=== PATIENT | female | born 1945 | race Caucasian/White ===

== ENCOUNTER 2016-07-14 01:38 | Emergency (ER) | payer MEDICARE, OTHER ==
[~2016-07-14] VITALS: Ht 152.4 cm; Wt 140.8 kg
[~2016-07-14 01:38] MED LIST: ALBU8.5H INH; ALLO300T74 PO; AMIT25TA9 PO; ASPI-1085 PO; BENZ200C36 PO; CODE118S2 PO; CYCL-208 PO; DOXY100T2 PO; FLUT16SP EA NOSTRIL; FLUT1DIS3 INH; FURO-153 PO; GABA-338 PO; GLUC1KIT INJ; GUAI-782 PO; HYDR-3995 PO; INSU100V SQ; INSU200I4 SQ; IPRA3AMP AEROSOL; LEVO50TA72 PO; LISI10TA7 PO; MELA5TAB14 PO; METO25TA6 PO; METO5TAB58 PO; NYST5ORA7 PO; OMEP-122 PO; PRAM0.259 PO; PRED20TA PO; [UNRECOGNIZED DRUG - CODE] TOP
[2016-07-14] MEDS ORDERED: ALBUTEROL/IPRATROPIUM INHAL. 2.5mg-0.5mg/3ml Neb. AEROSOL ONE ×2 (01:45→02:45)
--- NOTE | 2016-07-14 01:45 | NUR ---
OXYGEN PT NOTED TO HAVE SPO2=85% ON ROOM AIR. OXYGEN APPLIED AT 4L/MIN BY NASAL CANNULA, WITH IMPROVEMENT TO 96%. WILL CONTINUE TO MONITOR.
--- OUTSIDE RECORDS SUMMARY | 2016-07-14 01:45 | XMS REPORT | Continuity of Care Document ---
Author Author [facility] Organization [facility] Address Unknown Phone Unavailable Support Name Relationship Address Phone YUSUF BRADFORD MD Caregiver [address] [place] [address] LEANNE THOMAS MD Caregiver [address] [place] [phone] KIEL CAMPOS Next Of Kin [address] [facility] [address] [place] [address] C Insurance Providers Payer Name Policy Number Subscriber Name Relationship Medicare [id number] Paul Campos 18 Self [facility] Preferred [id number] Kiel Campos 01 Spouse Advance Directives Directive Response Recorded Date/Time Ordered Resuscitation Status Full Code 01/16/14 10:17am Resuscitation Documents on File Yes 01/16/14 9:40am Chief Complaint and Reason for Visit Chief Complaint RT TOTAL HIP ARTHROPLASTY Reason for Visit S/P hip replacement Diabetes Hypertension Hyperlipidemia COPD (chronic obstructive pulmonary disease) GERD (gastroesophageal reflux disease) Morbid obesity with BMI of 45.0-49.9, adult IBS (irritable bowel syndrome) Chronic kidney disease (CKD), stage III (moderate) Obstructive sleep apnea Mild aortic stenosis History of anemia Mild pulmonary hypertension Hypothyroidism Problems Medical Problems Problem Onset Date Status Acute Bronchitis Unknown Active Bronchiectasis Unknown Active Hypoglycemia associated with diabetes Unknown Active Hypoglycemia associated with diabetes Unknown Active Diabetes Unknown Active Hypertension Unknown Active Hyperlipidemia Unknown Active COPD (chronic obstructive pulmonary disease) Unknown Active GERD (gastroesophageal reflux disease) Unknown Active Morbid obesity with BMI of 45.0-49.9, adult Unknown Active IBS (irritable bowel syndrome) Unknown Active Chronic kidney disease (CKD), stage III (moderate) Unknown Active Obstructive sleep apnea Unknown Active Mild aortic stenosis Unknown Active History of anemia Unknown Active Mild pulmonary hypertension Unknown Active Hypothyroidism Unknown Active Surgical Problems Problem Onset Date Recorded Date/Time Status S/P hip replacement Unknown 01/17/2014 2:33pm Active Medications Medication Dose Route Sig Days/Qty Instructions Order Date Discontinued Date Status Hydrocodone Bit/Acetaminophen 1-2 Tab PO THREE TIMES A DAY 05/29/10 01/19/14 Discontinued Amitriptyline Hcl 10 Mg PO BEDTIME 05/29/10 Active Ergocalciferol 50,000 Unit PO 05/29/10 07/09/10 Discontinued Pramipexole Di-Hcl 0.25 Mg PO BEDTIME 05/29/10 11/18/10 Discontinued Terbinafine Hcl 15 Gm TP TWICE A DAY 05/29/10 07/09/10 Discontinued Fluconazole 200 Mg PO DAILY 05/29/10 11/18/10 Discontinued Nitrofurantoin/Nitrofuran Mac 100 Mg PO TWICE A DAY 05/29/10 Discontinued Oxybutynin Chloride 5 Mg PO TWICE A DAY 05/29/10 Active Nystatin 100,000 U SSW NEEDED 05/29/10 Active Insulin Npl/Insulin Lispro 15 Unit SQ TWICE A DAY 05/29/10 11/18/10 Discontinued Vitamin B Complex 1 Cap PO DAILY 05/29/10 11/18/10 Discontinued Calcium/Vit B12/Fa/Pyridoxine 1 Tab PO DAILY 05/29/10 11/18/10 Discontinued Zenda-3 Fatty Acids/Vitamin E 1 Cap PO DAILY 05/29/10 11/18/10 Discontinued Potassium Chloride 10 Meq PO DAILY 05/29/10 Active Metoclopramide Hcl 5 Mg PO FOUR TIMES DAILY 05/29/10 Active Estradiol 1 Mg PO DAILY 05/29/10 11/18/10 Discontinued Furosemide 40 Mg PO DAILY 05/29/10 Active Tolterodine Tartrate 4 Mg PO DAILY 05/29/10 07/09/10 Discontinued Sodium Chloride/Aloe Vera 22 Ml NS NEEDED 05/29/10 07/09/10 Discontinued Glimepiride 2 Mg PO TWICE A DAY 05/29/10 11/18/10 Discontinued Promethazine Hcl 25 Mg PO NEEDED 05/22/13 Active Cyclobenzaprine Hcl 10 Mg PO BEDTIME 2 Qty 05/22/13 Active Insulin Lispro 100 U SQ THREE TIMES A DAY 30 UNITS AT BREAKFAST Active Magnesium Amino Acid Chelate 200 Mg PO DAILY 05/22/13 Active Insulin Detemir 70 U SQ BEDTIME 05/22/13 Active Allopurinol 300 Mg PO DAILY 05/22/13 Active Pramipexole Di-Hcl 0.25 Mg PO BEDTIME 05/22/13 Active Levothyroxine Sodium 50 Mcg PO BEFORE BREAKFAST 1 Qty 05/22/13 Active Pitavastatin Calcium 2 Mg PO DAILY 05/22/13 Active Albuterol Sulfate 8.5 Gm IH NEEDED 05/22/13 Active Metformin HCl 500 Mg PO TWICE DAILY WITH MEALS 01/16/14 Active Fluticasone/Salmeterol 1 Puff ORAL INH RESP.TX TWICE A DAY PRN SHORTNESS OF AIR 01/17/14 01/17/14 Discontinued Aspirin 1 Tab PO DAILY 01/17/14 01/19/14 Discontinued Omeprazole 20 Mg PO BEFORE BREAKFAST Take 1 tablet, by mouth, one time a day with breakfast. 01/17/14 Active Fluticasone/Salmeterol 1 Puff ORAL INH RESP.TX TWICE A DAY PRN SHORTNESS OF AIR 01/17/14 Active [DuoNeb] 1 Puff PO FOUR TIMES DAILY PRN SHORTNESS OF AIR 01/17/14 Active Erythromycin Base 1 Tab PO DAILY 01/17/14 Active Docusate Sodium 100 Mg PO TWICE A DAY 30 Qty 01/19/14 Active Gabapentin 300 Mg PO TWICE A DAY 60 Qty 01/19/14 Active Hydrocodone/Acetaminophen 0 Tab PO Q4H PRN PAIN 60 Qty 01/19/14 Discontinued Multivits,Th W-Fe,Other Min 1 Tab PO DAILY 30 Qty 01/19/14 Active Warfarin Sodium 3 Mg PO GIVE AT NOON 30 Qty 01/19/14 Active Hydrocodone/Acetaminophen 1-2 Tab PO Q4H PRN PAIN 60 Qty 01/19/14 Active Polyethylene Glycol 3350 17 Gm PO DAILY 30 Days 01/19/14 Active Social History Social History Problem Response Recorded Date/Time Smoking Status Never smoker 09/09/2013 6:15pm Chewing Tobacco Status No 09/09/2013 6:15pm Hx Substance Use No 09/09/2013 6:15pm Hx Alcohol Use No 09/09/2013 6:15pm Has the pt used tobacco in the last 12 months No 01/16/2014 9:41am Query Response Start Date Stop Date Smoking Status Never smoker Hospital Discharge Instructions Instructions: Care Instructions: Reason for Hospitalization: RIGHT HIP SURGERY I was in the hospital because (patient own words): "I HAD A RIGHT HIP SURGERY" Follow Up Appointments: 10/13/14 AT 2:[address] BRADFORD FOR RT HIP Patient Instructions: PAIN MANAGEMENT- TAKE PAIN MEDS 20-30 MINUTES BEFORE ACTIVITY APPLY ICE, REMEMBER! NO MORE THAN 20 MINUTES AT A TIME CHANGE POSITIONS FREQUENTLY PREVENT COMPLICATIONS TAKE PROPER CARE OF YOUR INCISION LEAVE DRESSING INTACT, CALL DR IF IT BECOMES WET OR DISLODGED (DRESSING BE REMOVED AT FIRST POSTOP APPOINTMENT) PREVENT RESPIRATORY COMPLICATIONS USE INCENTIVE SPIROMETER IF YOU AREN'T MOVING AROUND WALK-THREE TO FOUR TIMES A DAY FOR SHORT DISTANCES AVOID SMOKING CONSTIPATION LOTS OF FLUIDS, AVOID CAFFEINE AND ALCOHOL INCREASE ACTIVITY (WALKING AGAIN!) EAT LOTS OF FRUITS AND VEGETABLES WEAN YOURSELF OFF YOUR NARCOTICS SOON YOU CAN USE A STOOL SOFTENER OR LAXATIVE IF NEEDED BLOOT CLOTS WALKING (REPETITIVE, I KNOW, BUT IT'S GOOD FOR YOU) AND ANKLES PUMPS TAKE ANTICOAGULANTS ORDERED-ASPIRIN, COUMADIN, OR LOVENOX FOR COUMADIN-LABS DRAWN ON EVERY THURSDAY AND THURSDAY LOVENOX INSTRUCTIONS ON PAGE 35 IN YOUR WORKBOOK PULMONARY EMBOLUS IF YOU EXPERIENCE SUDDEN CHEST PAIN, DIFFICULT OR RAPID BREATHING, SHORTNESS OF BREATH, SWEATING OR CONFUSION, CALL 911-THIS CAN POTENTIALLY BE LIFE THREATENING! Durable Medical Equipment: [employer] [phone] Notify Physician If: CALL YOUR SURGEON IF: INCISION BECOMES MORE RED AND INFLAMMED FEVER GREATER THAN 101.0, OR NIGHT SWEATS INCREASE DRAINAGE OR CHANGE IN COLOR OF DRAINAGE INCREASED PAIN, NOT ASSOCIATED WITH ACTIVITY PAIN, REDNESS OR SWELLING IN EITHER LEG BLEEDING OR OOZING FROM SURGICAL SITE DRESSING BECOME DISLODGED OR WET Condition at time of discharge: Good PAIN, REDNESS OR SWELLING IN EITHER LEG BLEEDING OR OOZING FROM SURGICAL SITE DRESSING BECOME DISLODGED OR WET Condition at time of discharge: Good Dr. Wong wants to see you in follow up on 01/17/14. You will need to get an INR on 01/11/[address] Wong with the result [phone]. Condition at time of discharge: Good Plan of Care Discharge Date 01/19/14 4:40pm Disposition [address] [facility] Instructions/Education Provided [facility] Ortho Postop DC Instruct Prescriptions See Medications Section Functional Status Query Response Date Recorded Physical Hygiene Assist January 19, 2014 3:27pm Disabilities None January 19, 2014 3:27pm Devices Used Dentures Glasses Walker January 19, 2014 3:27pm Dressing Assist January 19, 2014 3:27pm Ambulation Assist January 19, 2014 3:27pm Diet Self January 19, 2014 3:27pm Mental Status Alert Oriented January 19, 2014 3:27pm Disabilities None January 19, 2014 3:27pm Devices Used Dentures Glasses Walker January 19, 2014 3:27pm Physical Hygiene Assist January 19, 2014 3:27pm Dressing Assist January 19, 2014 3:27pm Ambulation Assist January 19, 2014 3:27pm Diet Self January 19, 2014 3:27pm Allergies, Adverse Reactions, Alerts Allergen Type Severity Reaction Status Last Updated NSAIDS (Non-Steroidal Anti-Inflamma Adverse Reaction Unknown MIGRAINE VICKERS, FLUID RETENTION Active 01/16/14 Tetanus Vaccines & Toxoid Allergy Unknown REDNESS,SWELLING Active 01/16/14 Naproxen Adverse Reaction Unknown MIGRAINE VICKERS,FLUID RETENTION Active 01/16 adhesive tape Allergy Mild RASH Active 09/12/12 Immunizations Name Given Type Hx Influenza Vaccination Y FEB 2013 Historical Hx Pneumococcal Vaccination Y 5 YRS AGO Historical Hx Influenza Vaccination Y FEB 2013 Historical Vital Signs Acute Vital Signs Vital Response Date/Time Temperature (Fahrenheit) 99.3 deg F (96.8 - 99.1) Temperature (Calculated Celsius) 37.95568 degrees C (36.0 - 37.3) Temperature Source Oral Pulse Rate (adult) 99 bpm (60 - 100) Respiratory Rate 18 breaths/min (10 - 20) O2 Sat by Pulse Oximetry 97 % (90 - 100) Oxygen Delivery Method Nasal Cannula Oxygen Flow Rate 3.00 L/min Blood Pressure 137/66 mm Hg Blood Pressure Source Automatic Cuff Height (Feet) 5 feet Height (Inches) 1.00 inches Height 5 ft 1 in Weight 267 lb Body Mass Index 50.0 kg/m^2 Results Test Source Date Result Interp. Ref. Range Comments Alanine Aminotransferase (ALT/SGPT) January 16, 2014 11:54am 23 U/L N 9-52 COMMENT PASU PREOP, ALSO HAS UA ORDERED Albumin January 16, 2014 11:54am 4.3 G/DL N 3.5-5.0 COMMENT PASU PREOP, ALSO HAS UA ORDERED Albumin/Globulin Ratio January 16, 2014 11:54am 1.4 RATIO N 1.1-2.2 COMMENT [facility]U PREOP, ALSO HAS UA ORDERED Alkaline Phosphatase January 16, 2014 11:54am 107 U/L N 38-126 COMMENT PASU PREOP, ALSO HAS UA ORDERED Anion Gap January 19, 2014 5:13am 8 MEQ/L N 5-15 Aspartate Amino Transf (AST/SGOT) January 16, 2014 11:54am 28 U/L N 14 -36 COMMENT PASU PREOP, ALSO HAS UA ORDERED BUN/Creatinine Ratio January 19, 2014 5:13am 11 RATIO N 6-26 Band Neutrophils # November 20, 2010 7:47am 0.1 T/MM3 - Band Neutrophils % November 20, 2010 7:47am 1.0 % N 0-6 Basophils # (Auto) January 16, 2014 11:54am 0.0 T/MM3 N 0-0.2 COMMENT PASU PREOP, ALSO HAS UA ORDERED Basophils (%) (Auto) January 16, 2014 11:54am 0.4 % N 0-2 COMMENT PASU PREOP, ALSO HAS UA ORDERED Blood Urea Nitrogen January 19, 2014 5:13am 11.0 MG/DL N 7-17 Calcium Level January 19, 2014 5:13am 9.0 MG/DL N 8.4-10.2 Calculated Osmolality January 19, 2014 5:13am 267 MOSM/KG N 261-280 Carbon Dioxide Level January 19, 2014 5:13am 30 MEQ/L N 22-30 Chemistry Specimen Hemolysis January 19, 2014 5:13am < 15 0-25 0-25 : No Hemolysis.26-70: Slight Hemolysis - can falsely elevate K and Urine Protein. 71-285: Moderate Hemolysis - can falsely elevate K, Troponin I, CA 19-9, PTH, CSF GLucose, and Urine Protein, and can falsely decrease Phenytoin. 286-999: Gross Hemolysis - can falsely elevate K, Troponin I, CA 19-9, PTH, CSF Glucose, and Urine Protine, and can falsely decrease Phenytoin. Recommend specimen recollection. Chloride Level January 19, 2014 5:13am 99 MEQ/L N 98-107 Creatinine January 19, 2014 5:13am 1.0 MG/DL N 0.7-1.2 Eosinophils # (Auto) January 16, 2014 11:54am 0.2 T/MM3 N 0-0.5 COMMENT PASU PREOP, ALSO HAS UA ORDERED Eosinophils # (Manual) November 20, 2010 7:47am 0.1 T/MM3 N 0-0.5 Eosinophils % (Manual) November 20, 2010 7:47am 1.0 % N 0-4 Eosinophils (%) (Auto) January 16, 2014 11:54am 2.6 % N 0-4 COMMENT PASU PREOP, ALSO HAS UA ORDERED Globulin January 16, 2014 11:54am 3.0 G/DL N 2.4-3.6 COMMENT PASU PREOP, ALSO HAS UA ORDERED Glomerular Filtration Rate Calc January 19, 2014 5:13am 55 - Glucometer January 19, 2014 2:50pm 195 mg/dL H 65-110 Glucose Level January 19, 2014 5:13am 177 MG/DL H 65-110 Hematocrit January 19, 2014 5:13am 30.6 % L 36-46 Hemoglobin January 19, 2014 5:13am 9.3 GM/DL L 12-16 Icterus Index January 19, 2014 5:13am < 2 0-7 Immature Granulocyte # (Auto) January 16, 2014 11:54am 0.02 T/MM3 N 0.00-0.03 COMMENT PASU PREOP, ALSO HAS UA ORDERED Immature Granulocyte % (Auto) January 16, 2014 11:54am 0.2 % N 0.0- 0.5 COMMENT PASU PREOP, ALSO HAS UA ORDERED Influenza Type A Antigen May 22, 2013 3:56pm Negative - Negative for Flu A protein antigen. Assay sensitivity isbetween 65-83%. A negative result does not exclude influenza virus infection. "Influenza FA" may be ordered if clinical presentation warrants confirmatory testing. Influenza Type B Antigen May 22, 2013 3:56pm Negative - Negative for Flu B protein antigen. Assay sensitivity isbetween 65-83%. A negative result does not exclude influenza virus infection. "Influenza FA" may be ordered if clinical presentation warrants confirmatory testing. Lab Scanned Report October 29, 2010 12:57pm LAB TEST FORM REQUEST [id number] - Lymphocytes # (Auto) January 16, 2014 11:54am 3.6 T/MM3 N 1-4.8 COMMENT PASU PREOP, ALSO HAS UA ORDERED Lymphocytes # (Manual) November 20, 2010 7:47am 3.4 T/MM3 N 1-4.8 Lymphocytes % (Manual) November 20, 2010 7:47am 28.0 % N 23-45 Lymphocytes (%) (Auto) January 16, 2014 11:54am 39.9 % N 23-45 COMMENT LAURIEU PREOP, ALSO HAS UA ORDERED MRSA Specimen Source December 20, 2013 12:30pm Nasal - COMMENT PREOP MRSA SCREEN V74.8 Mean Corpuscular Hemoglobin January 19, 2014 5:13am 27.7 UUG N 26-34 Mean Corpuscular Hemoglobin Concent January 19, 2014 5:13am 30.4 GM/DL L 31-37 Mean Corpuscular Volume January 19, 2014 5:13am 91.1 UM3 N 80-100 Mean Platelet Volume January 19, 2014 5:13am 10.7 UM3 N 9.4-12.4 Methicillin-Resist S.aureus DNA PCR December 20, 2013 12:30pm Negative - COMMENT PREOP MRSA SCREEN V74.8 Monocytes # (Auto) January 16, 2014 11:54am 0.7 T/MM3 N 0-0.8 COMMENT PASU PREOP, ALSO HAS UA ORDERED Monocytes # (Manual) November 20, 2010 7:47am 1.2 T/MM3 H 0-0.8 Monocytes % (Manual) November 20, 2010 7:47am 10.0 % H 0-9.0 Monocytes (%) (Auto) January 16, 2014 11:54am 7.8 % N 0-9.0 COMMENT PASU PREOP, ALSO HAS UA ORDERED Neutrophils # (Auto) January 16, 2014 11:54am 4.4 T/MM3 N 1.8-7.7 COMMENT PASU PREOP, ALSO HAS UA ORDERED Neutrophils # (Manual) November 20, 2010 7:47am 7.4 T/MM3 N 1.8-7.7 Neutrophils % (Manual) November 20, 2010 7:47am 60.0 % N 33-66 Neutrophils (%) (Auto) January 16, 2014 11:54am 49.1 % N 33-66 COMMENT PASU PREOP, ALSO HAS UA ORDERED Platelet Count January 19, 2014 5:13am 223 T/MM3 N 130-400 Potassium Level January 19, 2014 5:13am 4.1 MEQ/L N 3.6-5 Prealbumin January 16, 2014 11:54am 30.6 MG/DL N 17.6-36.0 COMMENT blood in lab Prothromb Time International Ratio January 19, 2014 5:13am 1.68 H 0.81 -1.09 THERAPUTIC RANGE=2.00-3.00 FOR ANTI-THROMBOSIS THERAPUTIC RANGE=2.50- 3.50 FOR IMPLANTED VALVE RDW Standard Deviation January 19, 2014 5:13am 53.5 FL H 36.9-50.2 Red Blood Count January 19, 2014 5:13am 3.36 M/MM3 L 4.00-5.20 Sodium Level January 19, 2014 5:13am 137 MEQ/L N 134-144 Thyroid Stimulating Hormone (TSH) January 16, 2014 11:54am 1.77 MIU/L N 0.47-4.68 COMMENT blood in lab Total Bilirubin January 16, 2014 11:54am 0.50 MG/DL N 0.20-1.30 COMMENT PASU PREOP, ALSO HAS UA ORDERED Total Creatine Kinase May 19, 2008 12:23pm 102 U/L N 30-135 Total Protein January 16, 2014 11:54am 7.3 G/DL N 6.3-8.2 COMMENT PASU PREOP, ALSO HAS UA ORDERED Troponin I November 09, 2010 12:00pm 0.014 ng/ml N 0-0.12 Turbidity January 19, 2014 5:13am < 20 0-20 Uric Acid September 12, 2012 12:05am 10.4 MG/DL H 2.5-7.5 Urine Bacteria January 16, 2014 11:55am Trace H - COMMENT PASU PREOPHas specimen been collected/obtained? Y Urine Bilirubin January 16, 2014 11:55am Negative - COMMENT PASU PREOPHas specimen been collected/obtained? Y Urine Blood January 16, 2014 11:55am Negative - COMMENT PASU PREOPHas specimen been collected/obtained? Y Urine Collection Type January 16, 2014 11:55am Cleancatch-midstream - COMMENT PASU PREOPHas specimen been collected/obtained? Y Urine Color January 16, 2014 11:55am Yellow - COMMENT PASU PREOPHas specimen been collected/obtained? Y Urine Glucose (UA) January 16, 2014 11:55am Negative - COMMENT PASU PREOPHas specimen been collected/obtained? Y Urine Ketones January 16, 2014 11:55am Negative - COMMENT PASU PREOPHas specimen been collected/obtained? Y Urine Leukocyte Esterase January 16, 2014 11:55am 1+ H - COMMENT PASU PREOPHas specimen been collected/obtained? Y Urine Nitrite January 16, 2014 11:55am Negative - COMMENT PASU PREOPHas specimen been collected/obtained? Y Urine Protein January 16, 2014 11:55am Negative - COMMENT PASU PREOPHas specimen been collected/obtained? Y Urine RBC January 16, 2014 11:55am 1-3 /HPF - COMMENT PASU PREOPHas specimen been collected/obtained? Y Urine Specific Hunter January 16, 2014 11:55am 1.010 L - COMMENT PASU PREOPHas specimen been collected/obtained? Y Urine Squamous Epithelial Cells January 16, 2014 11:55am >50 - COMMENT PASU PREOPHas specimen been collected/obtained? Y Urine Turbidity January 16, 2014 11:55am Clear - COMMENT PASU PREOPHas specimen been collected/obtained? Y Urine Urobilinogen January 16, 2014 11:55am 0.2 EU/DL - COMMENT PASU PREOPHas specimen been collected/obtained? Y Urine WBC January 16, 2014 11:55am 10-20 /HPF H - COMMENT PASU PREOPHas specimen been collected/obtained? Y Urine pH January 16, 2014 11:55am 6.0 - COMMENT PASU PREOPHas specimen been collected/obtained? Y Vitamin B12 Level January 16, 2014 11:54am 403 PG/ML N 239-931 COMMENT blood in lab White Blood Count January 19, 2014 5:13am 11.3 T/MM3 H 4.5-11.0 Urine Culture Urine, Clean Catch-Midstream January 16, 2014 4:50pm Gram Stain Abdomen,Non-Surgical Site December 23, 2010 11:30am Name: PAUL CAMPOS Unit #: [id number] : [id number] Sex: F Loc / Svc: MED DOS: Signed Report #: [id number] DIAGNOSTIC IMAGING REPORT TYPE OF EXAM: CHEST 1 VIEW Dictated By: ABELARDO LEBLANC MD INDICATION: ITS.REASON: Cough. Recent general anesthesia. Low grade temp, tachy. CHEST 1 VIEW: Comparison: May 22, 2013 FINDINGS: The lungs are clear. There is no abnormal airspace opacity, pleural effusion or pneumothorax identified. The heart size, pulmonary vasculature and mediastinum are within normal limits. Left upper quadrant surgical clips. IMPRESSION: No acute cardiopulmonary abnormality. . Procedures Procedure Status Date Provider(s) Total hip arthroplasty completed 01/17/14 YUSUF BRADFORD MD Encounters Encounter Location Date/Time Admitted Inpatient [facility] 01/17/14 5:31am Registered Clinic [facility] 12/20/13 11:45am Registered Clinic [facility] 10/21/13 9:21am Recent Diagnosis Diabetes Hypertension Hyperlipidemia COPD (chronic obstructive pulmonary disease) GERD (gastroesophageal reflux disease) Morbid obesity with BMI of 45.0-49.9, adult IBS (irritable bowel syndrome) Chronic kidney disease (CKD), stage III (moderate) Obstructive sleep apnea Mild aortic stenosis History of anemia Mild pulmonary hypertension Hypothyroidism
--- OUTSIDE RECORDS SUMMARY | 2016-07-14 01:45 | XMS REPORT | Referral Summary ---
Author Author [facility] [place] Organization [facility] [place] Address Unknown Phone Unavailable Care Team Providers Care Utility Aircrewman Name Role Phone Osmany Haider Primary Care Physician [phone] Encounter Date(s): 04/30/16 - 04/30/16 [facility] [place] [address] [place] [address] Discharge Disposition: 01-Home or Self Care Attending Physician: Jazlyn Sage PA-C Vital Signs No data available for this section Problem List Condition Effective Dates Status Health Status Informant Benign essential Active hypertension (disorder)(Confirmed ) Bronchiectasis(Confi Active rmed) Bronchiolectasis Active (disorder)(Confirmed ) COPD(Confirmed) Resolved Diabetes mellitus Active with hyperglycemia(Confir med) Diabetes(Confirmed) Resolved Diabetic foot Active examination(Confirme d) Disorder of kidney Active and/or ureter (disorder)(Confirmed ) Edema Active (finding)(Confirmed) Gastroesophageal Active reflux disease (disorder)(Confirmed ) GERD(Confirmed) Resolved Hypercholesterolemia Active (Confirmed) Hyperlipidemia(Confi Resolved rmed) Hypersomnia with Active sleep apnea(Confirmed) Hypertension(Confirm Resolved ed) Irritable bowel Resolved disease(Confirmed) Irritable bowel Active syndrome (disorder)(Confirmed ) Mixed hyperlipidemia Active (disorder)(Confirmed ) Morbid obesity Active (disorder)(Confirmed ) Obesity(Confirmed) Resolved Severe obstructive Active sleep apnea(Confirmed) Pedal Active edema(Confirmed) Pure Active hypercholesterolemia (disorder)(Confirmed ) Renal Resolved insufficiency(Confir med) Type II diabetes Resolved mellitus uncontrolled (finding)(Confirmed) Allergies, Adverse Reactions, Alerts Substance Reaction Severity Status naproxen any anti-inflammatory drug Active Tape1 Active tetanus toxoid allergy Active 1irritation/rash Medications ACCU-CHEK COMPACT PLUS DRUM STRIPS See Instructions, TEST BLOOD SUGAR 6 TO 8 TIMES A DAY, DX:250.02, # 306 strip, eRx: [facility] #[id number], TEST BLOOD SUGAR 6 TO 8 TIMES A DAY, DX:250.02 Start Date: 08/04/14 Status: Ordered Advair Diskus 250 mcg-50 mcg inhalation powder 2 puffs, Inhalation, BID, # 60 Each, 3 Refill(s), Pharmacy: [facility] # [id number] Start Date: 03/13/16 Status: Ordered allopurinol 300 mg oral tablet See Instructions, TAKE ONE TABLET BY MOUTH EVERY DAY, # 30 tabs, 5 Refill(s), eRx: [facility] #[id number], TAKE ONE TABLET BY MOUTH EVERY DAY Start Date: 08/15/15 Status: Ordered amitriptyline 25 mg oral tablet See Instructions, TAKE ONE TABLET BY MOUTH EVERY NIGHT AT BEDTIME, # 90 tabs, 1 Refill(s), eRx: [facility] #[id number], TAKE ONE TABLET BY MOUTH EVERY NIGHT AT BEDTIME Start Date: 01/07/16 Status: Ordered aspirin 81 mg oral tablet 81 mg 1 tabs, Oral, Daily, 0 Refill(s) Start Date: 12/26/14 Status: Ordered azithromycin 250 mg oral tablet 1 tabs, Oral, Thu//, # 13 tabs, 2 Refill(s), Pharmacy: [facility] # [id number], 1 tabs Oral Thu// Start Date: 03/31/16 Status: Ordered CPAP Machine (DME) See Instructions, # 1 Each, 0 Refill(s), Supply Start Date: 12/25/14 Status: Ordered cyclobenzaprine 10 mg oral tablet See Instructions, TAKE ONE TABLET BY MOUTH THREE TIMES A DAY, # 180 tabs, eRx: [facility] #[id number], TAKE ONE TABLET BY MOUTH THREE TIMES A DAY Start Date: 03/24/16 Status: Ordered doxycycline hyclate 100 mg oral tablet See Instructions, take 1 tab thursday , thursday and thursday for prophylaxis, # 108 tabs, 0 Refill(s), Pharmacy: [facility] #[id number], take 1 tab thursday , thursday and thursday for prophylaxis Start Date: 03/12/16 Status: Ordered fluticasone 50 mcg/inh nasal spray 1 sprays, Nasal, BID, # 16 g, 3 Refill(s), Pharmacy: [facility] #[id number] Start Date: 12/19/14 Status: Ordered FOR WEIGHT LOSS FOR WEIGHT LOSS, Oral, Daily, 0 Refill(s) Start Date: 11/05/15 Status: Ordered GABAPENTIN 300 MG CAPSULE See Instructions, TAKE ONE CAPSULE BY MOUTH TWICE A DAY, # 60 caps, 2 Refill(s) , eRx: [facility] #[id number], TAKE ONE CAPSULE BY MOUTH TWICE A DAY Start Date: 01/30/16 Status: Ordered gabapentin 300 mg oral capsule See Instructions, TAKE ONE CAPSULE BY MOUTH TWICE A DAY, # 60 caps, 2 Refill(s) , eRx: [facility] #[id number] Start Date: 04/30/16 Status: Ordered Glucagon Emergency Kit for Low Blood Sugar 1 mg injection See Instructions, INJECT NEEDED FOR LOW BLOOD SUGARS. USE WHEN UNABLE TO CHEW OR SWALLOW., # 2 kits, 1 Refill(s), eRx: [facility] #[id number], INJECT NEEDED FOR LOW BLOOD SUGARS. USE WHEN UNABLE TO CHEW OR SWALLOW. Start Date: 10/17/13 Status: Ordered Glucometer Lancets (DME) DME Item Accu Chek softclix lancet Check BS QID, See Instructions, # 1 Each, 0 Refill(s), Supply Start Date: 10/07/13 Status: Ordered HumaLOG 100 units/mL subcutaneous solution See Instructions, SubCutaneous TIDAC, # 2 boxes, 6 Refill(s), Pharmacy: [facility] #[id number], SubCutaneous TIDAC Start Date: 10/13/13 Status: Ordered ipratropium-albuterol 0.5 mg-2.5 mg/3 mLinhalation solution 3 mL, NEB, QID, # 90 mL, 1 Refill(s), Pharmacy: [facility] #[id number] Start Date: 12/12/15 Status: Ordered Klor-Con M20 oral tablet, extended release 20 mEq 1 tabs, Oral, Daily, # 90 tabs, 1 Refill(s), Pharmacy: [facility] # [id number], 1 tabs Oral Daily Start Date: 12/12/15 Status: Ordered KRO PEN NEEDLES 31G 6MM See Instructions, USE WITH HUMALOG AND LEVEMIR FOUR TIMES A DAY., # 100 unknown unit, 5 Refill(s), eRx: [facility] #[id number], USE WITH HUMALOG AND LEVEMIR FOUR TIMES A DAY. Start Date: 11/24/14 Status: Ordered Lasix 80 mg oral tablet 80 mg 1 tabs, Oral, BID, 0.5 tabs BID PER PT., # 180 tabs, 3 Refill(s), Pharmacy : [facility] #[id number], 1 tabs Oral BID Start Date: 09/20/15 Status: Ordered levothyroxine 50 mcg (0.05 mg) oral tablet See Instructions, TAKE ONE TABLET BY MOUTH DAILY, # 90 tabs, eRx: [facility] #[id number] Start Date: 04/29/16 Status: Ordered Livalo 2 mg oral tablet See Instructions, TAKE ONE TABLET BY MOUTH EVERY DAY, # 30 tabs, 4 Refill(s), eRx: [facility] #[id number], TAKE ONE TABLET BY MOUTH EVERY DAY Start Date: 03/10/16 Status: Ordered Lotrisone 1%-0.05% topical cream 1 byron, Topical, BID, # 45 g, 0 Refill(s), Pharmacy: [facility] #[id number] Start Date: 02/06/16 Status: Ordered Melatonin 5 mg oral tablet See Instructions, as needed for insomnia, 2 tabs Oral Bedtime (once a day), 0 Refill(s) Start Date: 03/26/15 Status: Ordered metFORMIN 500 mg oral tablet See Instructions, TAKE ONE TABLET BY MOUTH TWICE A DAY, WITH MORNING AND EVENING MEALS, # 60 tabs, eRx: [facility] #[id number], TAKE ONE TABLET BY MOUTH TWICE A DAY, WITH MORNING AND EVENING MEALS Start Date: 10/10/14 Status: Ordered metoclopramide 5 mg oral tablet See Instructions, TAKE 1 TABLET BY MOUTH BEFORE MEAL(S) AND AT BEDTIME, # 120 tabs, 4 Refill(s), eRx: [facility] #[id number], TAKE 1 TABLET BY MOUTH BEFORE MEAL(S) AND AT BEDTIME Start Date: 03/13/16 Status: Ordered Miscellaneous DME DME Item 99 PEDAL EDEMA Mod compression thigh high support stockings., See Instructions, # 1 Each, 0 Refill(s), Supply Start Date: 03/06/16 Status: Ordered [place] 10 mg-325 mg oral tablet 1-2 tabs, Oral, q6hr, as needed for pain, # 80 tabs, 0 Refill(s) Start Date: 12/12/15 Stop Date: 12/11/16 Status: Ordered nystatin 100,000 units/mL oral suspension 500,000 units 5 mL, Oral, TID, swish and swallow, # 150 mL, 0 Refill(s), Pharmacy: [facility] #[id number], 5 mL Oral TID,Instr:swish and swallow Start Date: 07/23/15 Stop Date: 07/22/16 Status: Ordered omeprazole 20 mg oral delayed release capsule See Instructions, TAKE ONE CAPSULE BY MOUTH EVERY DAY, # 30 caps, 5 Refill(s), eRx: [facility] #[id number], TAKE ONE CAPSULE BY MOUTH EVERY DAY Start Date: 01/02/16 Status: Ordered pramipexole 0.25 mg oral tablet See Instructions, TAKE ONE TABLET BY MOUTH EVERY NIGHT AT BEDTIME, # 30 tabs, 4 Refill(s), eRx: [facility] #[id number], TAKE ONE TABLET BY MOUTH EVERY NIGHT AT BEDTIME Start Date: 03/10/16 Status: Ordered ProAir HFA 90 mcg/inh inhalation aerosol 2 puffs, Inhalation, QID, as needed for wheezing, # 1 Each, 2 Refill(s), Pharmacy: [facility] #[id number] Start Date: 04/22/16 Stop Date: 07/21/16 Status: Ordered Tresiba FlexTouch 10O UNITS, SubCutaneous, Bedtime (once a day), 0 Refill(s) Start Date: 02/04/16 Status: Ordered Zeasorb-AF 2% topical powder 1 byron, Topical, BID, as directed on package labeling, # 5 packets, 0 Refill(s), samples given to patient (Rx) Start Date: 01/07/16 Status: Ordered Results No data available for this section Immunizations Given and Recorded Vaccine Date Status Refusal Reason tetanus/diphth/pertuss (Tdap) adult/adol 12/19/14 Given influenza virus vaccine, inactivated 02/04/16 Given influenza virus vaccine, inactivated 02/07/15 Given influenza virus vaccine, inactivated 01/25/14 Recorded influenza virus vaccine, live 03/10/13 Given influenza virus vaccine, live 02/27/12 Given pneumococcal 13-valent conjugate vaccine1 11/07/14 Given pneumococcal 13-valent conjugate vaccine2 02/27/12 Given pneumococcal 23-polyvalent vaccine 02/27/12 Given pneumococcal 23-polyvalent vaccine 05/18/02 Recorded zoster vaccine live 01/28/11 Given 1Early/Late Reason: Nursing Judgment 2Result Comment: [01/04/2015 Uncharted] Uploaded in Error - CC Procedures Procedure Date Related Diagnosis Body Site Colonoscopy1 04/06/14 Mammogram 10/18/12 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 Personal history for colon polyps. Plan repeat colonoscopy in 5 years. (02/02/2013) Letter set up Social History Social History Type Response Smoking Status Never smoker Assessment and Plan No data available for this section
--- OUTSIDE RECORDS SUMMARY | 2016-07-14 01:46 | XMS REPORT | Referral Summary ---
Author Author [facility] Organization [facility] Address Unknown Phone Unavailable Care Team Providers Care Window Trimmer Name Role Phone Osmany Haider Primary Care Physician [phone] Encounter Date(s): 04/07/16 - 04/07/16 [facility] [address] [place], [place] [address] Discharge Diagnosis: Intertrigo Discharge Diagnosis: Inflamed seborrheic keratosis Discharge Disposition: 01-Home or Self Care Attending Physician: Seda King APRN Admitting Physician: Seda King APRN Referring Physician: Werner Haider MD Vital Signs No data available for this [...] A DAY, DX:250.02, # 306 strip, eRx: [facility] #[id number], TEST BLOOD SUGAR 6 TO 8 TIMES A DAY, DX:250.02 Start Date: 08/04/14 Status: Ordered Advair Diskus 250 mcg-50 mcg inhalation powder 2 puffs, Inhalation, BID, # 60 Each, 3 Refill(s), Pharmacy: [facility] # [id number] Start Date: 03/13/16 Status: Ordered allopurinol 300 mg oral tablet See Instructions, TAKE ONE TABLET BY MOUTH EVERY DAY, # 30 tabs, 5 Refill(s), eRx: [facility] #[id number], TAKE ONE TABLET BY MOUTH EVERY DAY Start Date: 08/15/15 Status: Ordered amitriptyline 25 mg oral tablet See Instructions, TAKE ONE TABLET BY MOUTH EVERY NIGHT AT BEDTIME, # 90 tabs, 1 Refill(s), eRx: [facility] #[id number], TAKE ONE TABLET BY MOUTH EVERY NIGHT AT BEDTIME Start Date: 01/07/16 Status: Ordered aspirin 81 mg oral tablet 81 mg 1 tabs, Oral, Daily, 0 Refill(s) Start Date: 12/26/14 Status: Ordered azithromycin 250 mg oral tablet 1 tabs, Oral, Thu//, # 13 tabs, 2 Refill(s), Pharmacy: [facility] # [id number], 1 tabs Oral Thu/ Start Date: 03/31/16 Status: Ordered CPAP Machine (DME) See Instructions, # 1 Each, 0 Refill(s), Supply Start Date: 12/25/14 Status: Ordered cyclobenzaprine 10 mg oral tablet See Instructions, TAKE ONE TABLET BY MOUTH THREE TIMES A DAY, # 180 tabs, eRx: [facility] #[id number], TAKE ONE TABLET BY MOUTH THREE TIMES A DAY Start Date: 03/24/16 Status: Ordered doxycycline hyclate 100 mg oral tablet See Instructions, take 1 tab thursday , thursday and thursday for prophylaxis, # 108 tabs, 0 Refill(s), Pharmacy: [facility] #[id number], take 1 tab thursday , thursday and thursday for prophylaxis Start Date: 03/12/16 Status: Ordered fluticasone 50 mcg/inh nasal spray 1 sprays, Nasal, BID, # 16 g, 3 Refill(s), Pharmacy: [facility] #[id number] Start Date: 12/19/14 Status: Ordered FOR WEIGHT LOSS FOR WEIGHT LOSS, Oral, Daily, 0 Refill(s) Start Date: 11/05/15 Status: Ordered GABAPENTIN 300 MG CAPSULE See Instructions, TAKE ONE CAPSULE BY MOUTH TWICE A DAY, # 60 caps, 2 Refill(s) , eRx: [facility] #[id number], TAKE ONE CAPSULE BY MOUTH TWICE A DAY Start Date: 01/30/16 Status: Ordered gabapentin 300 mg oral capsule See Instructions, TAKE ONE CAPSULE BY MOUTH TWICE A DAY, # 60 caps, 3 Refill(s) , eRx: [facility] #[id number], TAKE ONE CAPSULE BY MOUTH TWICE A DAY Start Date: 10/09/15 Status: Ordered Glucagon Emergency Kit for Low Blood Sugar 1 mg injection See Instructions, INJECT NEEDED FOR LOW BLOOD SUGARS. USE WHEN UNABLE TO CHEW OR SWALLOW., # 2 kits, 1 Refill(s), eRx: [facility] #[id number], INJECT NEEDED FOR LOW BLOOD SUGARS. USE WHEN UNABLE TO CHEW OR SWALLOW. Start Date: 10/17/13 Status: Ordered Glucometer Lancets (DME) DME Item Accu Chek softclix lancet Check BS QID, See Instructions, # 1 Each, 0 Refill(s), Supply Start Date: 10/07/13 Status: Ordered HumaLOG 100 units/mL subcutaneous solution See Instructions, SubCutaneous TIDAC, # 2 boxes, 6 Refill(s), Pharmacy: [facility] #[id number], SubCutaneous TIDAC Start Date: 10/13/13 Status: Ordered ipratropium-albuterol 0.5 mg-2.5 mg/3 mLinhalation solution 3 mL, NEB, QID, # 90 mL, 1 Refill(s), Pharmacy: [facility] #[id number] Start Date: 12/12/15 Status: Ordered Klor-Con M20 oral tablet, extended release 20 mEq 1 tabs, Oral, Daily, # 90 tabs, 1 Refill(s), Pharmacy: [facility] # [id number], 1 tabs Oral Daily Start Date: 12/12/15 Status: Ordered KRO PEN NEEDLES 31G 6MM See Instructions, USE WITH HUMALOG AND LEVEMIR FOUR TIMES A DAY., # 100 unknown unit, 5 Refill(s), eRx: [facility] #[id number], USE WITH HUMALOG AND LEVEMIR FOUR TIMES A DAY. Start Date: 11/24/14 Status: Ordered Lasix 80 mg oral tablet 80 mg 1 tabs, Oral, BID, 0.5 tabs BID PER PT., # 180 tabs, 3 Refill(s), Pharmacy : [facility] #[id number], 1 tabs Oral BID Start Date: 09/20/15 Status: Ordered levothyroxine 50 mcg (0.05 mg) oral tablet See Instructions, TAKE ONE TABLET BY MOUTH DAILY, # 90 tabs, 3 Refill(s), eRx: [facility] #[id number], TAKE ONE TABLET BY MOUTH DAILY Start Date: 05/08/15 Status: Ordered Livalo 2 mg oral tablet See Instructions, TAKE ONE TABLET BY MOUTH EVERY DAY, # 30 tabs, 4 Refill(s), eRx: [facility] #[id number], TAKE ONE TABLET BY MOUTH EVERY DAY Start Date: 03/10/16 Status: Ordered Lotrisone 1%-0.05% topical cream 1 byron, Topical, BID, # 45 g, 0 Refill(s), Pharmacy: [facility] #[id number] Start Date: 02/06/16 Status: Ordered Melatonin 5 mg oral tablet See Instructions, as needed for insomnia, 2 tabs Oral Bedtime (once a day), 0 Refill(s) Start Date: 03/26/15 Status: Ordered metFORMIN 500 mg oral tablet See Instructions, TAKE ONE TABLET BY MOUTH TWICE A DAY, WITH MORNING AND EVENING MEALS, # 60 tabs, eRx: [facility] #[id number], TAKE ONE TABLET BY MOUTH TWICE A DAY, WITH MORNING AND EVENING MEALS Start Date: 10/10/14 Status: Ordered metoclopramide 5 mg oral tablet See Instructions, TAKE 1 TABLET BY MOUTH BEFORE MEAL(S) AND AT BEDTIME, # 120 tabs, 4 Refill(s), eRx: [facility] #[id number], TAKE 1 TABLET BY MOUTH BEFORE MEAL(S) AND AT BEDTIME Start Date: 03/13/16 Status: Ordered Miscellaneous DME DME Item 99 PEDAL EDEMA Mod compression thigh high support stockings., See Instructions, # 1 Each, 0 Refill(s), Supply Start Date: 03/06/16 Status: Ordered [place] 10 mg-325 mg oral tablet 1-2 tabs, Oral, q6hr, as needed for pain, # 80 tabs, 0 Refill(s) Start Date: 12/12/15 Stop Date: 12/11/16 Status: Ordered nystatin 100,000 units/mL oral suspension 500,000 units 5 mL, Oral, TID, swish and swallow, # 150 mL, 0 Refill(s), Pharmacy: [facility] #[id number], 5 mL Oral TID,Instr:swish and swallow Start Date: 07/23/15 Stop Date: 07/22/16 Status: Ordered omeprazole 20 mg oral delayed release capsule See Instructions, TAKE ONE CAPSULE BY MOUTH EVERY DAY, # 30 caps, 5 Refill(s), eRx: [facility] #[id number], TAKE ONE CAPSULE BY MOUTH EVERY DAY Start Date: 01/02/16 Status: Ordered pramipexole 0.25 mg oral tablet See Instructions, TAKE ONE TABLET BY MOUTH EVERY NIGHT AT BEDTIME, # 30 tabs, 4 Refill(s), eRx: [facility] #[id number], TAKE ONE TABLET BY MOUTH EVERY NIGHT AT BEDTIME Start Date: 03/10/16 Status: Ordered ProAir HFA 90 mcg/inh inhalation aerosol 2 puffs, Inhalation, QID, as needed for wheezing, # 1 Each, 2 Refill(s), Pharmacy: [facility] #[id number] Start Date: 02/07/16 Stop Date: 05/07/16 Status: Ordered Tresiba FlexTouch 10O UNITS, SubCutaneous, [...] Procedures Procedure Date Related Diagnosis Body Site Destruction (eg, laser surgery, 04/07/16 electrosurgery, cryosurgery, chemosurgery, surgical curettement), of benign lesions other than skin tags or cutaneous vascular proliferative lesions; up to 14 lesions Colonoscopy1 04/06/14 Mammogram 10/18/12 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 Personal history for colon polyps. Plan repeat colonoscopy in 5 years. (02/02/2013) Letter set up Social History Social History Type Response Smoking Status Never smoker Assessment and Plan Extracted from: Title: Office Visit Note Author: Seda King APRN Date: 04/07/16 Assessment/Plan 1.Inflamed seborrheic keratosis Inflamed seborrheic keratosis Reassurance regarding the benign nature of this lesion Cryotherapy x2 cycles (7 second freeze-thaw cycle), mid forehead 1 Discussed ABCDEs of melanoma and recommended monthly skin self-examination Discussed warning signs of NMSC Recommended pt schedule a clinic appointment for anyconcerning lesionsor if treated lesions do not resolve in 6 weeks. Ordered: Destruction, Of Flat Warts, Molluscum Contagiosum, Or Milia; Up To 14 Lesions [id number] 2.Intertrigo At this time I recommendZeasorb twice a dayto affected area If she noticesany worsening she can use the prescribedbetamethasone dipropionateclotrimazoletopical cream Discussed with her the importance to keep the areas as dry as possible RTC 6 month or sooner if needed Ordered: Office Visit Level 3 Est 41253
--- OUTSIDE RECORDS SUMMARY | 2016-07-14 01:46 | XMS REPORT | Referral Summary ---
Author Author [facility] Organization [facility] [place] Address Unknown Phone Unavailable Care Team Providers Care Data Modeler Name Role Phone Osmany Haider Primary Care Physician [phone] Encounter Date(s): 02/21/16 - 02/21/16 [facility] [place] [address] [place] [place], [place] [address] Discharge Diagnosis: Severe obstructive sleep apnea Discharge Disposition: 01-Home or Self Care Attending Physician: Jazlyn Sage Admitting Physician: Jazlyn Sage Vital Signs Most recent to 1 oldest [Reference Range]: Peripheral Pulse 110 bpm Rate [60-100 bpm] *HI* (02/21/16 11:22 AM) Blood Pressure 142/76 mmHg [90-140/60-90 mmHg] *HI* (02/21/16 11:22 AM) SpO2 95 % (02/21/16 11:22 AM) Problem List Condition Effective Dates Status Health Status Informant Benign essential Active hypertension (disorder)(Confirmed ) Bronchiectasis(Confi Active rmed) Bronchiolectasis Active (disorder)(Confirmed ) COPD(Confirmed) Resolved Diabetes(Confirmed) Resolved Diabetic foot Active examination(Confirme d) [...] Renal Resolved insufficiency(Confir med) Type II diabetes Active mellitus uncontrolled (finding)(Confirmed) Allergies, Adverse Reactions, Alerts Substance Reaction Severity Status naproxen any anti-inflammatory drug Active Tape1 Active tetanus toxoid allergy Active 1irritation/rash Medications ACCU-CHEK COMPACT PLUS DRUM STRIPS See Instructions, TEST BLOOD SUGAR 6 TO 8 TIMES A DAY, DX:250.02, # 306 strip, eRx: [facility] #[id number], TEST BLOOD SUGAR 6 TO 8 TIMES A DAY, DX:250.02 Start Date: 08/04/14 Status: Ordered Advair Diskus 250 mcg-50 mcg inhalation powder 1 puffs, Inhalation, BID, # 60 Each, 3 Refill(s), Pharmacy: [facility] # [id number] Start Date: 01/30/16 Status: Ordered allopurinol 300 mg oral tablet See Instructions, TAKE ONE TABLET BY MOUTH EVERY DAY, # 30 tabs, 5 Refill(s), eRx: [facility] #[id number], TAKE ONE TABLET BY MOUTH EVERY DAY Start Date: 08/15/15 Status: Ordered amitriptyline 25 mg oral tablet See Instructions, TAKE ONE TABLET BY MOUTH EVERY NIGHT AT BEDTIME, # 90 tabs, 1 Refill(s), eRx: [facility] #[id number], TAKE ONE TABLET BY MOUTH EVERY NIGHT AT BEDTIME Start Date: 01/07/16 Status: Ordered aspirin 81 mg oral tablet 81 mg 1 tabs, Oral, Daily, 0 Refill(s) Start Date: 12/26/14 Status: Ordered azithromycin 250 mg oral tablet 1 tabs, Oral, Thu//, # 13 tabs, 3 Refill(s), Pharmacy: [facility] # [id number], 1 tabs Oral Mon/We/Fr Start Date: 11/30/15 Status: Ordered CPAP Machine (DME) See Instructions, # 1 Each, 0 Refill(s), Supply Start Date: 12/25/14 Status: Ordered cyclobenzaprine 10 mg oral tablet See Instructions, TAKE ONE TABLET BY MOUTH THREE TIMES A DAY, # 180 tabs, eRx: [facility] #[id number], TAKE ONE TABLET BY MOUTH THREE TIMES A DAY Start Date: 01/25/16 Status: Ordered fluticasone 50 mcg/inh nasal spray 1 sprays, Nasal, BID, # 16 g, 3 Refill(s), Pharmacy: [facility] #[id number] Start Date: 12/19/14 Status: Ordered FOR WEIGHT LOSS FOR WEIGHT LOSS, Oral, Daily, 0 Refill(s) Start Date: 11/05/15 Status: Ordered GABAPENTIN 300 MG CAPSULE See Instructions, TAKE ONE CAPSULE BY MOUTH TWICE A DAY, # 60 caps, 2 Refill(s) , eRx: [facility] #[id number], TAKE ONE CAPSULE BY MOUTH TWICE A DAY Start Date: 01/30/16 Status: Ordered gabapentin 300 mg oral capsule See Instructions, TAKE ONE CAPSULE BY MOUTH TWICE A DAY, # 60 caps, 3 Refill(s) , eRx: [facility] #[id number], TAKE ONE CAPSULE BY MOUTH TWICE A DAY Start Date: 10/09/15 Status: Ordered Glucagon Emergency Kit for Low Blood Sugar 1 mg injection See Instructions, INJECT NEEDED FOR LOW BLOOD SUGARS. USE WHEN UNABLE TO CHEW OR SWALLOW., # 2 kits, 1 Refill(s), eRx: [facility] #[id number], INJECT NEEDED FOR LOW BLOOD SUGARS. USE WHEN UNABLE TO CHEW OR SWALLOW. Start Date: 10/17/13 Status: Ordered Glucometer Lancets (DME) DME Item Accu Chek softclix lancet Check BS QID, See Instructions, # 1 Each, 0 Refill(s), Supply Start Date: 10/07/13 Status: Ordered HumaLOG 100 units/mL subcutaneous solution See Instructions, SubCutaneous TIDAC, # 2 boxes, 6 Refill(s), Pharmacy: [facility] #[id number], SubCutaneous TIDAC Start Date: 10/13/13 Status: Ordered ipratropium-albuterol 0.5 mg-2.5 mg/3 mLinhalation solution 3 mL, NEB, QID, # 90 mL, 1 Refill(s), Pharmacy: [facility] #[id number] Start Date: 12/12/15 Status: Ordered Klor-Con M20 oral tablet, extended release 20 mEq 1 tabs, Oral, Daily, # 90 tabs, 1 Refill(s), Pharmacy: [facility] # [id number], 1 tabs Oral Daily Start Date: 12/12/15 Status: Ordered KRO PEN NEEDLES 31G 6MM See Instructions, USE WITH HUMALOG AND LEVEMIR FOUR TIMES A DAY., # 100 unknown unit, 5 Refill(s), eRx: [facility] #[id number], USE WITH HUMALOG AND LEVEMIR FOUR TIMES A DAY. Start Date: 11/24/14 Status: Ordered Lasix 80 mg oral tablet 80 mg 1 tabs, Oral, BID, 0.5 tabs BID PER PT., # 180 tabs, 3 Refill(s), Pharmacy : [facility] #[id number], 1 tabs Oral BID Start Date: 09/20/15 Status: Ordered levothyroxine 50 mcg (0.05 mg) oral tablet See Instructions, TAKE ONE TABLET BY MOUTH DAILY, # 90 tabs, 3 Refill(s), eRx: [facility] #[id number], TAKE ONE TABLET BY MOUTH DAILY Start Date: 05/08/15 Status: Ordered Livalo 2 mg oral tablet See Instructions, TAKE ONE TABLET BY MOUTH EVERY DAY, # 30 tabs, 3 Refill(s), eRx: [facility] #[id number], TAKE ONE TABLET BY MOUTH EVERY DAY Start Date: 11/12/15 Status: Ordered Lotrisone 1%-0.05% topical cream 1 byron, Topical, BID, # 45 g, 0 Refill(s), Pharmacy: [facility] #[id number] Start Date: 02/06/16 Status: Ordered Melatonin 5 mg oral tablet See Instructions, as needed for insomnia, 2 tabs Oral Bedtime (once a day), 0 Refill(s) Start Date: 03/26/15 Status: Ordered metFORMIN 500 mg oral tablet See Instructions, TAKE ONE TABLET BY MOUTH TWICE A DAY, WITH MORNING AND EVENING MEALS, # 60 tabs, eRx: [facility] #[id number], TAKE ONE TABLET BY MOUTH TWICE A DAY, WITH MORNING AND EVENING MEALS Start Date: 10/10/14 Status: Ordered metoclopramide 5 mg oral tablet See Instructions, TAKE 1 TABLET BY MOUTH BEFORE MEAL(S) AND AT BEDTIME, # 120 tabs, 5 Refill(s), eRx: [facility] #[id number], TAKE 1 TABLET BY MOUTH BEFORE MEAL(S) AND AT BEDTIME Start Date: 07/03/15 Status: Ordered Newhope 10 mg-325 mg oral tablet 1-2 tabs, Oral, q6hr, as needed for pain, # 80 tabs, 0 Refill(s) Start Date: 12/12/15 Stop Date: 12/11/16 Status: Ordered nystatin 100,000 units/mL oral suspension 500,000 units 5 mL, Oral, TID, swish and swallow, # 150 mL, 0 Refill(s), Pharmacy: [facility] #[id number], 5 mL Oral TID,Instr:swish and swallow Start Date: 07/23/15 Stop Date: 07/22/16 Status: Ordered omeprazole 20 mg oral delayed release capsule See Instructions, TAKE ONE CAPSULE BY MOUTH EVERY DAY, # 30 caps, 5 Refill(s), eRx: [facility] #[id number], TAKE ONE CAPSULE BY MOUTH EVERY DAY Start Date: 01/02/16 Status: Ordered pramipexole 0.25 mg oral tablet See Instructions, TAKE ONE TABLET BY MOUTH EVERY NIGHT AT BEDTIME, # 30 tabs, 1 Refill(s), eRx: [facility] #[id number], TAKE ONE TABLET BY MOUTH EVERY NIGHT AT BEDTIME Start Date: 01/08/16 Status: Ordered ProAir HFA 90 mcg/inh inhalation aerosol 2 puffs, Inhalation, QID, as needed for wheezing, # 1 Each, 2 Refill(s), Pharmacy: [facility] #[id number] Start Date: 02/07/16 Stop Date: 05/07/16 Status: Ordered Tresiba FlexTouch 10O UNITS, SubCutaneous, Bedtime (once a day), 0 Refill(s) Start Date: 02/04/16 Status: Ordered Zeasorb-AF 2% topical powder 1 byron, Topical, BID, as directed on package labeling, # 5 packets, 0 Refill(s), samples given to patient (Rx) Start Date: 01/07/16 Status: Ordered Results No data available for this section Immunizations Vaccine Date Refusal Reason tetanus/diphth/pertuss (Tdap) adult/adol 12/19/14 influenza virus vaccine, inactivated 02/04/16 influenza virus vaccine, inactivated 02/07/15 influenza virus vaccine, inactivated 01/25/14 influenza virus vaccine, live 03/10/13 influenza virus vaccine, live 02/27/12 pneumococcal 13-valent conjugate vaccine1 11/07/14 pneumococcal 23-polyvalent vaccine 02/27/12 pneumococcal 23-polyvalent vaccine 05/18/02 zoster vaccine live 01/28/11 1Early/Late Reason: Nursing Judgment Procedures Procedure Date Related Diagnosis Body Site [...] Extracted from: Title: Office Visit Note Author: Jazlyn Sage Date: 02/21/16 Assessment/Plan 1.Severe obstructive sleep apnea - Adequate treatment with CPAP objectively at current pressure withrecent suboptimaladherence to therapy and lack of sleep schedule due to urinary frequency, being addressed by urology. We discussed a set sleep schedule and aiming for 8 hours of sleep at night, including putting her mask back on after every restroom trip. Try to avoid napping during the day and if she does nap, put the CPAP on. [facility] to [facility] for supplies. Continue CPAP with all sleep at 16cm. -CPAP download reviewed with the patient and patient is complying with and benefitting from treatment. -Avoid driving , partaking in hazardous activities, or operating heavy machinery if drowsy. -Continue appropriate cleaning of the machine/humidifier and update of all supplies including mask , tubing , and filters . -Return for follow-up in 2-3 months to review compliance . Return/call sooner if any problems arise in the meantime.
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
--- OUTSIDE RECORDS SUMMARY | 2016-07-14 01:47 | XMS REPORT | Referral Summary ---
Author Author [facility], Family Medicine Organization [facility] Address Unknown Phone Unavailable Care Team Providers Care Veneer Lathe Operator Name Role Phone Osmany Haider Primary Care Physician [phone] Encounter VC Date(s): 03/24/16 - 03/24/16 [facility], Family [address] [place] [id number] Discharge Diagnosis: Recurrent urinary tract infection Discharge Disposition: 01-Home or Self Care Attending Physician: Mari Mcnair APRN Admitting Physician: Mari Mcnair APRN Vital Signs Most recent to 1 oldest [Reference Range]: Temperature Tympanic 36.7 degC [36.6-38.1 degC] (03/24/16 3:13 PM) Peripheral Pulse 88 bpm Rate [60-100 bpm] (03/24/16 3:13 PM) Blood Pressure 130/78 mmHg [90-140/60-90 mmHg] (03/24/16 3:13 PM) Problem List Condition Effective Dates Status Health [...] A DAY, DX:250.02, # 306 strip, eRx: [facility] #[id number], TEST BLOOD SUGAR 6 TO 8 TIMES A DAY, DX:250.02 Start Date: 08/04/14 Status: Ordered Advair Diskus 250 mcg-50 mcg inhalation powder 2 puffs, Inhalation, BID, # 60 Each, 3 Refill(s), Pharmacy: [facility] # [id number] Start Date: 03/13/16 Status: Ordered allopurinol 300 mg oral tablet See Instructions, TAKE ONE TABLET BY MOUTH EVERY DAY, # 30 tabs, 5 Refill(s), eRx: [facility] #[id number], TAKE ONE TABLET BY MOUTH EVERY DAY Start Date: 08/15/15 Status: Ordered amitriptyline 25 mg oral tablet See Instructions, TAKE ONE TABLET BY MOUTH EVERY NIGHT AT BEDTIME, # 90 tabs, 1 Refill(s), eRx: [facility] #[id number], TAKE ONE TABLET BY MOUTH EVERY NIGHT AT BEDTIME Start Date: 01/07/16 Status: Ordered aspirin 81 mg oral tablet 81 mg 1 tabs, Oral, Daily, 0 Refill(s) Start Date: 12/26/14 Status: Ordered CPAP Machine (DME) See Instructions, # 1 Each, 0 Refill(s), Supply Start Date: 12/25/14 Status: Ordered cyclobenzaprine 10 mg oral tablet See Instructions, TAKE ONE TABLET BY MOUTH THREE TIMES A DAY, # 180 tabs, eRx: [facility] #[id number], TAKE ONE TABLET BY MOUTH THREE TIMES A DAY Start Date: 03/24/16 Status: Ordered doxycycline hyclate 100 mg oral tablet See Instructions, take 1 tab thursday , thursday and thursday for prophylaxis, # 108 tabs, 0 Refill(s), Pharmacy: [facility] #[id number], take 1 tab thursday , thursday and thursday for prophylaxis Start Date: 03/12/16 Status: Ordered fluticasone 50 mcg/inh nasal spray 1 sprays, Nasal, BID, # 16 g, 3 Refill(s), Pharmacy: [facility] #[id number] Start Date: 12/19/14 Status: Ordered FOR WEIGHT LOSS FOR WEIGHT LOSS, Oral, Daily, 0 Refill(s) Start Date: 11/05/15 Status: Ordered GABAPENTIN 300 MG CAPSULE See Instructions, TAKE ONE CAPSULE BY MOUTH TWICE A DAY, # 60 caps, 2 Refill(s) , eRx: [facility] #[id number], TAKE ONE CAPSULE BY MOUTH TWICE A DAY Start Date: 01/30/16 Status: Ordered gabapentin 300 mg oral capsule See Instructions, TAKE ONE CAPSULE BY MOUTH TWICE A DAY, # 60 caps, 3 Refill(s) , eRx: [facility] #[id number], TAKE ONE CAPSULE BY MOUTH TWICE A DAY Start Date: 10/09/15 Status: Ordered Glucagon Emergency Kit for Low Blood Sugar 1 mg injection See Instructions, INJECT NEEDED FOR LOW BLOOD SUGARS. USE WHEN UNABLE TO CHEW OR SWALLOW., # 2 kits, 1 Refill(s), eRx: [facility] #[id number], INJECT NEEDED FOR LOW BLOOD SUGARS. USE WHEN UNABLE TO CHEW OR SWALLOW. Start Date: 10/17/13 Status: Ordered Glucometer Lancets (DME) DME Item Accu Chek softclix lancet Check BS QID, See Instructions, # 1 Each, 0 Refill(s), Supply Start Date: 10/07/13 Status: Ordered HumaLOG 100 units/mL subcutaneous solution See Instructions, SubCutaneous TIDAC, # 2 boxes, 6 Refill(s), Pharmacy: [facility] #[id number], SubCutaneous TIDAC Start Date: 10/13/13 Status: Ordered ipratropium-albuterol 0.5 mg-2.5 mg/3 mLinhalation solution 3 mL, NEB, QID, # 90 mL, 1 Refill(s), Pharmacy: [facility] #[id number] Start Date: 12/12/15 Status: Ordered Klor-Con M20 oral tablet, extended release 20 mEq 1 tabs, Oral, Daily, # 90 tabs, 1 Refill(s), Pharmacy: [facility] # [id number], 1 tabs Oral Daily Start Date: 12/12/15 Status: Ordered KRO PEN NEEDLES 31G 6MM See Instructions, USE WITH HUMALOG AND LEVEMIR FOUR TIMES A DAY., # 100 unknown unit, 5 Refill(s), eRx: [facility] #[id number], USE WITH HUMALOG AND LEVEMIR FOUR TIMES A DAY. Start Date: 11/24/14 Status: Ordered Lasix 80 mg oral tablet 80 mg 1 tabs, Oral, BID, 0.5 tabs BID PER PT., # 180 tabs, 3 Refill(s), Pharmacy : [facility] #[id number], 1 tabs Oral BID Start Date: 09/20/15 Status: Ordered levothyroxine 50 mcg (0.05 mg) oral tablet See Instructions, TAKE ONE TABLET BY MOUTH DAILY, # 90 tabs, 3 Refill(s), eRx: [facility] #[id number], TAKE ONE TABLET BY MOUTH DAILY Start Date: 05/08/15 Status: Ordered Livalo 2 mg oral tablet See Instructions, TAKE ONE TABLET BY MOUTH EVERY DAY, # 30 tabs, 4 Refill(s), eRx: [facility] #[id number], TAKE ONE TABLET BY MOUTH EVERY DAY Start Date: 03/10/16 Status: Ordered Lotrisone 1%-0.05% topical cream 1 byron, Topical, BID, # 45 g, 0 Refill(s), Pharmacy: [facility] #[id number] Start Date: 02/06/16 Status: Ordered Melatonin 5 mg oral tablet See Instructions, as needed for insomnia, 2 tabs Oral Bedtime (once a day), 0 Refill(s) Start Date: 03/26/15 Status: Ordered metFORMIN 500 mg oral tablet See Instructions, TAKE ONE TABLET BY MOUTH TWICE A DAY, WITH MORNING AND EVENING MEALS, # 60 tabs, eRx: [facility] #[id number], TAKE ONE TABLET BY MOUTH TWICE A DAY, WITH MORNING AND EVENING MEALS Start Date: 10/10/14 Status: Ordered metoclopramide 5 mg oral tablet See Instructions, TAKE 1 TABLET BY MOUTH BEFORE MEAL(S) AND AT BEDTIME, # 120 tabs, 4 Refill(s), eRx: [facility] #[id number], TAKE 1 TABLET BY MOUTH BEFORE MEAL(S) AND AT BEDTIME Start Date: 03/13/16 Status: Ordered Miscellaneous DME DME Item 99 PEDAL EDEMA Mod compression thigh high support stockings., See Instructions, # 1 Each, 0 Refill(s), Supply Start Date: 03/06/16 Status: Ordered [place] 10 mg-325 mg oral tablet 1-2 tabs, Oral, q6hr, as needed for pain, # 80 tabs, 0 Refill(s) Start Date: 12/12/15 Stop Date: 12/11/16 Status: Ordered nystatin 100,000 units/mL oral suspension 500,000 units 5 mL, Oral, TID, swish and swallow, # 150 mL, 0 Refill(s), Pharmacy: [facility] #[id number], 5 mL Oral TID,Instr:swish and swallow Start Date: 07/23/15 Stop Date: 07/22/16 Status: Ordered omeprazole 20 mg oral delayed release capsule See Instructions, TAKE ONE CAPSULE BY MOUTH EVERY DAY, # 30 caps, 5 Refill(s), eRx: [facility] #[id number], TAKE ONE CAPSULE BY MOUTH EVERY DAY Start Date: 01/02/16 Status: Ordered pramipexole 0.25 mg oral tablet See Instructions, TAKE ONE TABLET BY MOUTH EVERY NIGHT AT BEDTIME, # 30 tabs, 4 Refill(s), eRx: [facility] #[id number], TAKE ONE TABLET BY MOUTH EVERY NIGHT AT BEDTIME Start Date: 03/10/16 Status: Ordered ProAir HFA 90 mcg/inh inhalation aerosol 2 puffs, Inhalation, QID, as needed for wheezing, # 1 Each, 2 Refill(s), Pharmacy: [facility] #[id number] Start Date: 02/07/16 Stop Date: 05/07/16 Status: Ordered Tresiba FlexTouch 10O UNITS, SubCutaneous, Bedtime (once a day), 0 Refill(s) Start Date: 02/04/16 Status: Ordered Zeasorb-AF 2% topical powder 1 byron, Topical, BID, as directed on package labeling, # 5 packets, 0 Refill(s), samples given to patient (Rx) Start Date: 01/07/16 Status: Ordered Results Urinalysis Most recent to 1 oldest [Reference Range]: UA Color Lt Yellow (03/24/16 3:16 PM) UA Appear Sl Cloudy (03/24/16 3:16 PM) UA pH [5.0-8.0] 7.0 (03/24/16 3:16 PM) UA Leuk Est Trace [Negative] *ABN* (03/24/16 3:16 PM) UA Nitrite Negative [Negative] (03/24/16 3:16 PM) UA Protein Negative [Negative] (03/24/16 3:16 PM) UA Glucose Negative [Negative] (03/24/16 3:16 PM) UA Ketones Negative [Negative] (03/24/16 3:16 PM) UA Urobilinogen 0.2 mg/dL [<=1.0 mg/dL] (03/24/16 3:16 PM) UA Bili [Negative] Negative (03/24/16 3:16 PM) UA Blood [Negative] Negative (03/24/16 3:16 PM) UA Spec Grav 1.015 [1.003-1.030] (03/24/16 3:16 PM) Type Clean Catch (03/24/16 3:16 PM) UA WBC [0-4] 2-4 (03/24/16 3:16 PM) UA RBC [0-2] 2-5 (03/24/16 3:16 PM) Epithelial Cells 20-50 *ABN* (03/24/16 3:16 PM) UA Bacteria Occasional *ABN* (03/24/16 3:16 PM) Crystals Amorphous 1 (03/24/16 3:16 PM) 1Result Comment: Occasional Immunizations Vaccine Date Refusal Reason tetanus/diphth/pertuss (Tdap) [...] and Plan Extracted from: Title: Office Visit Note-UTI Author: Mari Mcnair MANAGER NURSING Date: Assessment/Plan 1.Recurrent urinary tract infection Urinalysis obtained and reviewed. Await culture. We discussed about colonization versus recurrent infections. As her symptoms have improved with increasing the doxycycline to daily would like her to continue this until symptoms have completely resolved. Then return to 3 times a weekfor prophylaxis. If she continues to get urinary tract infections on prophylactic doxycycline would recommend changing antibiotics. She voices understanding. Encourage good hydration. Good hygiene. Call if symptoms fail to continue to improve. Ordered: Office Visit Level 3 Est 70795 Dysuria Ordered: Office Visit Level 3 Est 51223 Urinary frequency Ordered: Office Visit Level 3 Est 05455
--- OUTSIDE RECORDS SUMMARY | 2016-07-14 01:47 | XMS REPORT | Referral Summary ---
Author Author [facility], [facility] Medicine Organization [facility] Address Unknown Phone Unavailable Care Team Providers Care Reheat Furnace Operator Name Role Phone Osmany Haider Primary Care Physician [phone] Encounter Date(s): 05/05/16 - 05/05/16 [facility], [address] [place] [id number] Discharge Diagnosis: Diabetes mellitus with hyperglycemia Discharge Diagnosis: Gastroesophageal reflux disease Discharge Diagnosis: Mixed hyperlipidemia Discharge Diagnosis: Benign essential hypertension Discharge Diagnosis: Bronchiolectasis Discharge Diagnosis: Hypersomnia with sleep apnea Discharge Disposition: 01-Home or Self Care Attending Physician: Werner Haider MD Admitting Physician: Werner Haider MD Vital Signs Most recent to 1 oldest [Reference Range]: Temperature Tympanic 36.3 degC [36.6-38.1 degC] *LOW* (05/05/16 8:41 AM) Peripheral Pulse 80 bpm Rate [60-100 bpm] (05/05/16 8:41 AM) Respiratory Rate 16 br/min [14-20 br/min] (05/05/16 8:41 AM) Blood Pressure 122/66 mmHg [90-140/60-90 mmHg] (05/05/16 8:41 AM) Problem List Condition Effective Dates Status [...] A DAY, DX:250.02, # 306 strip, eRx: [facility] #[id number], TEST BLOOD SUGAR 6 TO 8 TIMES A DAY, DX:250.02 Start Date: 08/04/14 Status: Ordered Advair Diskus 250 mcg-50 mcg inhalation powder 2 puffs, Inhalation, BID, # 60 Each, 3 Refill(s), Pharmacy: [facility] # [id number] Start Date: 03/13/16 Status: Ordered allopurinol 300 mg oral tablet See Instructions, TAKE ONE TABLET BY MOUTH EVERY DAY, # 30 tabs, 5 Refill(s), eRx: [facility] #[id number], TAKE ONE TABLET BY MOUTH EVERY DAY Start Date: 08/15/15 Status: Ordered amitriptyline 25 mg oral tablet See Instructions, TAKE ONE TABLET BY MOUTH EVERY NIGHT AT BEDTIME, # 90 tabs, 1 Refill(s), eRx: [facility] #[id number], TAKE ONE TABLET BY MOUTH EVERY NIGHT AT BEDTIME Start Date: 01/07/16 Status: Ordered aspirin 81 mg oral tablet 81 mg 1 tabs, Oral, Daily, 0 Refill(s) Start Date: 12/26/14 Status: Ordered azithromycin 250 mg oral tablet 1 tabs, Oral, Thu//, # 13 tabs, 2 Refill(s), Pharmacy: [facility] # [id number], 1 tabs Oral Thu// Start Date: 03/31/16 Status: Ordered CPAP Machine (DME) See Instructions, # 1 Each, 0 Refill(s), Supply Start Date: 12/25/14 Status: Ordered cyclobenzaprine 10 mg oral tablet See Instructions, TAKE ONE TABLET BY MOUTH THREE TIMES A DAY, # 180 tabs, eRx: [facility] #[id number], TAKE ONE TABLET BY MOUTH THREE TIMES A DAY Start Date: 03/24/16 Status: Ordered doxycycline hyclate 100 mg oral tablet See Instructions, take 1 tab thursday , thursday and thursday for prophylaxis, # 108 tabs, 0 Refill(s), Pharmacy: [facility] #[id number], take 1 tab thursday , thursday and thursday for prophylaxis Start Date: 03/12/16 Status: Ordered fluticasone 50 mcg/inh nasal spray 1 sprays, Nasal, BID, # 16 g, 3 Refill(s), Pharmacy: [facility] #[id number] Start Date: 12/19/14 Status: Ordered FOR WEIGHT LOSS FOR WEIGHT LOSS, Oral, Daily, 0 Refill(s) Start Date: 11/05/15 Status: Ordered GABAPENTIN 300 MG CAPSULE See Instructions, TAKE ONE CAPSULE BY MOUTH TWICE A DAY, # 60 caps, 2 Refill(s) , eRx: [facility] #[id number], TAKE ONE CAPSULE BY MOUTH TWICE A DAY Start Date: 01/30/16 Status: Ordered gabapentin 300 mg oral capsule See Instructions, TAKE ONE CAPSULE BY MOUTH TWICE A DAY, # 60 caps, 2 Refill(s) , eRx: [facility] #[id number] Start Date: 04/30/16 Status: Ordered Glucagon Emergency Kit for Low Blood Sugar 1 mg injection See Instructions, INJECT NEEDED FOR LOW BLOOD SUGARS. USE WHEN UNABLE TO CHEW OR SWALLOW., # 2 kits, 1 Refill(s), eRx: [facility] #[id number], INJECT NEEDED FOR LOW BLOOD SUGARS. USE WHEN UNABLE TO CHEW OR SWALLOW. Start Date: 10/17/13 Status: Ordered Glucometer Lancets (DME) DME Item Accu Chek softclix lancet Check BS QID, See Instructions, # 1 Each, 0 Refill(s), Supply Start Date: 10/07/13 Status: Ordered HumaLOG 100 units/mL subcutaneous solution See Instructions, SubCutaneous TIDAC, # 2 boxes, 6 Refill(s), Pharmacy: [facility] #[id number], SubCutaneous TIDAC Start Date: 10/13/13 Status: Ordered ipratropium-albuterol 0.5 mg-2.5 mg/3 mLinhalation solution 3 mL, NEB, QID, # 90 mL, 1 Refill(s), Pharmacy: [facility] #[id number] Start Date: 12/12/15 Status: Ordered Klor-Con M20 oral tablet, extended release 20 mEq 1 tabs, Oral, Daily, # 90 tabs, 1 Refill(s), Pharmacy: [facility] # [id number], 1 tabs Oral Daily Start Date: 12/12/15 Status: Ordered KRO PEN NEEDLES 31G 6MM See Instructions, USE WITH HUMALOG AND LEVEMIR FOUR TIMES A DAY., # 100 unknown unit, 5 Refill(s), eRx: [facility] #[id number], USE WITH HUMALOG AND LEVEMIR FOUR TIMES A DAY. Start Date: 11/24/14 Status: Ordered Lasix 80 mg oral tablet 80 mg 1 tabs, Oral, BID, 0.5 tabs BID PER PT., # 180 tabs, 3 Refill(s), Pharmacy : [facility] #[id number], 1 tabs Oral BID Start Date: 09/20/15 Status: Ordered levothyroxine 50 mcg (0.05 mg) oral tablet See Instructions, TAKE ONE TABLET BY MOUTH DAILY, # 90 tabs, eRx: [facility] #[id number] Start Date: 04/29/16 Status: Ordered Livalo 2 mg oral tablet See Instructions, TAKE ONE TABLET BY MOUTH EVERY DAY, # 30 tabs, 4 Refill(s), eRx: [facility] #[id number], TAKE ONE TABLET BY MOUTH EVERY DAY Start Date: 03/10/16 Status: Ordered Lotrisone 1%-0.05% topical cream 1 byron, Topical, BID, # 45 g, 0 Refill(s), Pharmacy: [facility] #[id number] Start Date: 02/06/16 Status: Ordered Melatonin 5 mg oral tablet See Instructions, as needed for insomnia, 2 tabs Oral Bedtime (once a day), 0 Refill(s) Start Date: 03/26/15 Status: Ordered metFORMIN 500 mg oral tablet See Instructions, TAKE ONE TABLET BY MOUTH TWICE A DAY, WITH MORNING AND EVENING MEALS, # 60 tabs, eRx: [facility] #[id number], TAKE ONE TABLET BY MOUTH TWICE A DAY, WITH MORNING AND EVENING MEALS Start Date: 10/10/14 Status: Ordered metoclopramide 5 mg oral tablet See Instructions, TAKE 1 TABLET BY MOUTH BEFORE MEAL(S) AND AT BEDTIME, # 120 tabs, 4 Refill(s), eRx: [facility] #[id number], TAKE 1 TABLET BY MOUTH BEFORE MEAL(S) AND AT BEDTIME Start Date: 03/13/16 Status: Ordered Miscellaneous DME DME Item 99 PEDAL EDEMA Mod compression thigh high support stockings., See Instructions, # 1 Each, 0 Refill(s), Supply Start Date: 03/06/16 Status: Ordered [place] 10 mg-325 mg oral tablet 1-2 tabs, Oral, q6hr, as needed for pain, # 80 tabs, 0 Refill(s) Start Date: 12/12/15 Stop Date: 12/11/16 Status: Ordered nystatin 100,000 units/mL oral suspension 500,000 units 5 mL, Oral, TID, swish and swallow, # 150 mL, 0 Refill(s), Pharmacy: [facility] #[id number], 5 mL Oral TID,Instr:swish and swallow Start Date: 07/23/15 Stop Date: 07/22/16 Status: Ordered omeprazole 20 mg oral delayed release capsule See Instructions, TAKE ONE CAPSULE BY MOUTH EVERY DAY, # 30 caps, 5 Refill(s), eRx: [facility] #[id number], TAKE ONE CAPSULE BY MOUTH EVERY DAY Start Date: 01/02/16 Status: Ordered pramipexole 0.25 mg oral tablet See Instructions, TAKE ONE TABLET BY MOUTH EVERY NIGHT AT BEDTIME, # 30 tabs, 4 Refill(s), eRx: [facility] #[id number], TAKE ONE TABLET BY MOUTH EVERY NIGHT AT BEDTIME Start Date: 03/10/16 Status: Ordered ProAir HFA 90 mcg/inh inhalation aerosol 2 puffs, Inhalation, QID, as needed for wheezing, # 1 Each, 2 Refill(s), Pharmacy: [facility] #[id number] Start Date: 04/22/16 Stop Date: 07/21/16 Status: [...] Extracted from: Title: Office Visit Note Author: Werner Haider MD Date: 05/05/16 Assessment/Plan 1.Benign essential hypertension Blood pressure is adequately controlled. Medications and treatments reviewed no changes are recommended. Weight control is encouraged. Report card reviewed and provided. Follow-up in 3 months. Ordered: Office Visit Level 4 Est 83204 2.Bronchiolectasis Chronic and stable no change in current treatment recommended. Ordered: Office Visit Level 4 Est 94725 3.Diabetes mellitus with hyperglycemia Recent A1c was 7.5. She continues to follow-up with Dr. Em no change in current treatment is recommended this time. Ordered: Office Visit Level 4 Est 61766 4.Gastroesophageal reflux disease Chronic stablesymptoms well-controlled no change in current treatment. Ordered: Office Visit Level 4 Est 46091 5.Hypersomnia with sleep apnea She has seen her sleep medicine doctor recently and adjustments were made. She seems to be sleeping better. No change in current treatment recommended. Ordered: Office Visit Level 4 Est 07876 6.Mixed hyperlipidemia Chronic and stableno change in current treatment. She'll be due for lab in 3 months. Follow-up then. Ordered: Office Visit Level 4 Est 67205 Vaccinations are up-to-date
--- OUTSIDE RECORDS SUMMARY | 2016-07-14 01:47 | XMS REPORT | Referral Summary ---
Author Author [facility] Organization [facility] [employer] [place] Address Unknown Phone Unavailable Care Team Providers Care Breast Trimmer Name Role Phone Osmany Haider Primary Care Physician [phone] Encounter Date(s): 04/30/16 - 04/30/16 [facility] [address] [place] [address] Discharge Diagnosis: Severe obstructive sleep apnea Discharge Disposition: 01-Home or Self Care Attending Physician: Jazlyn Sage Admitting Physician: Jazlyn Sage Vital Signs Most recent to 1 oldest [Reference Range]: Peripheral Pulse 76 bpm Rate [60-100 bpm] (04/30/16 11:21 AM) Blood Pressure 124/88 mmHg [90-140/60-90 mmHg] (04/30/16 11:21 AM) SpO2 98 % (04/30/16 11:21 AM) Problem List Condition Effective Dates Status [...] A DAY, DX:250.02, # 306 strip, eRx: [facility] #[id number], TEST BLOOD SUGAR 6 TO 8 TIMES A DAY, DX:250.02 Start Date: 08/04/14 Status: Ordered Advair Diskus 250 mcg-50 mcg inhalation powder 2 puffs, Inhalation, BID, # 60 Each, 3 Refill(s), Pharmacy: [facility] # [id number] Start Date: 03/13/16 Status: Ordered allopurinol 300 mg oral tablet See Instructions, TAKE ONE TABLET BY MOUTH EVERY DAY, # 30 tabs, 5 Refill(s), eRx: [facility] #[id number], TAKE ONE TABLET BY MOUTH EVERY DAY Start Date: 08/15/15 Status: Ordered amitriptyline 25 mg oral tablet See Instructions, TAKE ONE TABLET BY MOUTH EVERY NIGHT AT BEDTIME, # 90 tabs, 1 Refill(s), eRx: [facility] #[id number], TAKE ONE TABLET BY MOUTH EVERY NIGHT AT BEDTIME Start Date: 01/07/16 Status: Ordered aspirin 81 mg oral tablet 81 mg 1 tabs, Oral, Daily, 0 Refill(s) Start Date: 12/26/14 Status: Ordered azithromycin 250 mg oral tablet 1 tabs, Oral, Thu//, # 13 tabs, 2 Refill(s), Pharmacy: [facility] # [id number], 1 tabs Oral Thu// Start Date: 03/31/16 Status: Ordered CPAP Machine (DME) See Instructions, # 1 Each, 0 Refill(s), Supply Start Date: 12/25/14 Status: Ordered cyclobenzaprine 10 mg oral tablet See Instructions, TAKE ONE TABLET BY MOUTH THREE TIMES A DAY, # 180 tabs, eRx: [facility] #[id number], TAKE ONE TABLET BY MOUTH THREE TIMES A DAY Start Date: 03/24/16 Status: Ordered doxycycline hyclate 100 mg oral tablet See Instructions, take 1 tab thursday , thursday and thursday for prophylaxis, # 108 tabs, 0 Refill(s), Pharmacy: [facility] #[id number], take 1 tab thursday , thursday and thursday for prophylaxis Start Date: 03/12/16 Status: Ordered fluticasone 50 mcg/inh nasal spray 1 sprays, Nasal, BID, # 16 g, 3 Refill(s), Pharmacy: [facility] #[id number] Start Date: 12/19/14 Status: Ordered FOR WEIGHT LOSS FOR WEIGHT LOSS, Oral, Daily, 0 Refill(s) Start Date: 11/05/15 Status: Ordered GABAPENTIN 300 MG CAPSULE See Instructions, TAKE ONE CAPSULE BY MOUTH TWICE A DAY, # 60 caps, 2 Refill(s) , eRx: [facility] #[id number], TAKE ONE CAPSULE BY MOUTH TWICE A DAY Start Date: 01/30/16 Status: Ordered gabapentin 300 mg oral capsule See Instructions, TAKE ONE CAPSULE BY MOUTH TWICE A DAY, # 60 caps, 2 Refill(s) , eRx: [facility] #[id number] Start Date: 04/30/16 Status: Ordered Glucagon Emergency Kit for Low Blood Sugar 1 mg injection See Instructions, INJECT NEEDED FOR LOW BLOOD SUGARS. USE WHEN UNABLE TO CHEW OR SWALLOW., # 2 kits, 1 Refill(s), eRx: [facility] #[id number], INJECT NEEDED FOR LOW BLOOD SUGARS. USE WHEN UNABLE TO CHEW OR SWALLOW. Start Date: 10/17/13 Status: Ordered Glucometer Lancets (DME) DME Item Accu Chek softclix lancet Check BS QID, See Instructions, # 1 Each, 0 Refill(s), Supply Start Date: 10/07/13 Status: Ordered HumaLOG 100 units/mL subcutaneous solution See Instructions, SubCutaneous TIDAC, # 2 boxes, 6 Refill(s), Pharmacy: [facility] #[id number], SubCutaneous TIDAC Start Date: 10/13/13 Status: Ordered ipratropium-albuterol 0.5 mg-2.5 mg/3 mLinhalation solution 3 mL, NEB, QID, # 90 mL, 1 Refill(s), Pharmacy: [facility] #[id number] Start Date: 12/12/15 Status: Ordered Klor-Con M20 oral tablet, extended release 20 mEq 1 tabs, Oral, Daily, # 90 tabs, 1 Refill(s), Pharmacy: [facility] # [id number], 1 tabs Oral Daily Start Date: 12/12/15 Status: Ordered KRO PEN NEEDLES 31G 6MM See Instructions, USE WITH HUMALOG AND LEVEMIR FOUR TIMES A DAY., # 100 unknown unit, 5 Refill(s), eRx: [facility] #[id number], USE WITH HUMALOG AND LEVEMIR FOUR TIMES A DAY. Start Date: 11/24/14 Status: Ordered Lasix 80 mg oral tablet 80 mg 1 tabs, Oral, BID, 0.5 tabs BID PER PT., # 180 tabs, 3 Refill(s), Pharmacy : [facility] #[id number], 1 tabs Oral BID Start Date: 09/20/15 Status: Ordered levothyroxine 50 mcg (0.05 mg) oral tablet See Instructions, TAKE ONE TABLET BY MOUTH DAILY, # 90 tabs, eRx: [facility] #[id number] Start Date: 04/29/16 Status: Ordered Livalo 2 mg oral tablet See Instructions, TAKE ONE TABLET BY MOUTH EVERY DAY, # 30 tabs, 4 Refill(s), eRx: [facility] #[id number], TAKE ONE TABLET BY MOUTH EVERY DAY Start Date: 03/10/16 Status: Ordered Lotrisone 1%-0.05% topical cream 1 byron, Topical, BID, # 45 g, 0 Refill(s), Pharmacy: [facility] #[id number] Start Date: 02/06/16 Status: Ordered Melatonin 5 mg oral tablet See Instructions, as needed for insomnia, 2 tabs Oral Bedtime (once a day), 0 Refill(s) Start Date: 03/26/15 Status: Ordered metFORMIN 500 mg oral tablet See Instructions, TAKE ONE TABLET BY MOUTH TWICE A DAY, WITH MORNING AND EVENING MEALS, # 60 tabs, eRx: [facility] #[id number], TAKE ONE TABLET BY MOUTH TWICE A DAY, WITH MORNING AND EVENING MEALS Start Date: 10/10/14 Status: Ordered metoclopramide 5 mg oral tablet See Instructions, TAKE 1 TABLET BY MOUTH BEFORE MEAL(S) AND AT BEDTIME, # 120 tabs, 4 Refill(s), eRx: [facility] #[id number], TAKE 1 TABLET BY MOUTH BEFORE MEAL(S) AND AT BEDTIME Start Date: 03/13/16 Status: Ordered Miscellaneous DME DME Item 99 PEDAL EDEMA Mod compression thigh high support stockings., See Instructions, # 1 Each, 0 Refill(s), Supply Start Date: 03/06/16 Status: Ordered [place] 10 mg-325 mg oral tablet 1-2 tabs, Oral, q6hr, as needed for pain, # 80 tabs, 0 Refill(s) Start Date: 12/12/15 Stop Date: 12/11/16 Status: Ordered nystatin 100,000 units/mL oral suspension 500,000 units 5 mL, Oral, TID, swish and swallow, # 150 mL, 0 Refill(s), Pharmacy: [facility] #[id number], 5 mL Oral TID,Instr:swish and swallow Start Date: 07/23/15 Stop Date: 07/22/16 Status: Ordered omeprazole 20 mg oral delayed release capsule See Instructions, TAKE ONE CAPSULE BY MOUTH EVERY DAY, # 30 caps, 5 Refill(s), eRx: [facility] #[id number], TAKE ONE CAPSULE BY MOUTH EVERY DAY Start Date: 01/02/16 Status: Ordered pramipexole 0.25 mg oral tablet See Instructions, TAKE ONE TABLET BY MOUTH EVERY NIGHT AT BEDTIME, # 30 tabs, 4 Refill(s), eRx: [facility] #[id number], TAKE ONE TABLET BY MOUTH EVERY NIGHT AT BEDTIME Start Date: 03/10/16 Status: Ordered ProAir HFA 90 mcg/inh inhalation aerosol 2 puffs, Inhalation, QID, as needed for wheezing, # 1 Each, 2 Refill(s), Pharmacy: [facility] #[id number] Start Date: 04/22/16 Stop Date: 07/21/16 Status: [...] Title: Office Visit Note Author: Jazlyn Sage PA-C Date: 04/30/16 Assessment/Plan Severe THOMAS Missing Image - the embedded image is not supported -Adequatetreatment with CPAP objectively and symptomatically, however compliance remains suboptimal. We again discussed the importance of compliance and sequelae ofuntreated sleep apnea including cardiovascular risk. They need to move the CPAP to the recliner if this is where she is sleeping most of the time and she needs to where it with any napping as well. She voiced understanding and agreed.We discussed Medicare's requirements for compliance which she met this past summer.Will fax order to [facility] in [place] to establish for supplies.They will call this location as she does need new supplies including a heated hose. RT to provide instruction on humidity adjustment to help with dryness. Continue CPAP with all sleep at 16cm. -CPAP download reviewed with the patient and patient is benefitting from treatment. -Avoid driving, partaking in hazardous activities, or operating heavy machinery if drowsy. -Continue appropriate cleaning of the machine/humidifier and update of all supplies including mask, tubing, and filters. -Return for follow-up in [address] Mac for compliance. Return/call sooner if any problems arise in the meantime.
--- OUTSIDE RECORDS SUMMARY | 2016-07-14 01:48 | XMS REPORT | Referral Summary ---
Author Author [facility] Organization [facility] Address Unknown Phone Unavailable Care Team Providers Care Fleet Sales Manager Name Role Phone Osmany Haider Primary Care Physician [phone] Encounter VC Date(s): 03/06/16 - 03/06/16 [facility] [address] [place] [id number] Discharge Diagnosis: Bilateral lower leg cellulitis Discharge Diagnosis: Diabetes mellitus with hyperglycemia Discharge Diagnosis: Pedal edema Discharge Diagnosis: Chronic kidney disease Discharge Diagnosis: Chronic obstructive pulmonary disease, unspecified Discharge Disposition: 01-Home or Self Care Attending Physician: Mari Mcnair APRN Admitting Physician: Mari Mcnair APRN Vital Signs Most recent to 1 oldest [Reference Range]: Temperature Tympanic 36.8 degC [36.6-38.1 degC] (03/06/16 9:04 AM) Peripheral Pulse 92 bpm Rate [60-100 bpm] (03/06/16 9:04 AM) Blood Pressure 138/74 mmHg [90-140/60-90 mmHg] (03/06/16 9:04 AM) Problem List Condition Effective Dates Status [...] A DAY, DX:250.02, # 306 strip, eRx: [facility] #[id number], TEST BLOOD SUGAR 6 TO 8 TIMES A DAY, DX:250.02 Start Date: 08/04/14 Status: Ordered Advair Diskus 250 mcg-50 mcg inhalation powder 1 puffs, Inhalation, BID, # 60 Each, 3 Refill(s), Pharmacy: [facility] # [id number] Start Date: 01/30/16 Status: Ordered allopurinol 300 mg oral tablet See Instructions, TAKE ONE TABLET BY MOUTH EVERY DAY, # 30 tabs, 5 Refill(s), eRx: [facility] #[id number], TAKE ONE TABLET BY MOUTH EVERY DAY Start Date: 08/15/15 Status: Ordered amitriptyline 25 mg oral tablet See Instructions, TAKE ONE TABLET BY MOUTH EVERY NIGHT AT BEDTIME, # 90 tabs, 1 Refill(s), eRx: [facility] #[id number], TAKE ONE TABLET BY MOUTH EVERY NIGHT AT BEDTIME Start Date: 01/07/16 Status: Ordered aspirin 81 mg oral tablet 81 mg 1 tabs, Oral, Daily, 0 Refill(s) Start Date: 12/26/14 Status: Ordered azithromycin 250 mg oral tablet 1 tabs, Oral, Mon/We/Fr, # 13 tabs, 3 Refill(s), Pharmacy: [facility] # [id number], 1 tabs Oral Mon/We/Fr Start Date: 11/30/15 Status: Ordered cephalexin 250 mg oral tablet 250 mg 1 tabs, Oral, TID, 0 Refill(s) Start Date: 02/28/16 Stop Date: 03/06/16 Status: Ordered CPAP Machine (DME) See Instructions, # 1 Each, 0 Refill(s), Supply Start Date: 12/25/14 Status: Ordered cyclobenzaprine 10 mg oral tablet See Instructions, TAKE ONE TABLET BY MOUTH THREE TIMES A DAY, # 180 tabs, eRx: [facility] #[id number], TAKE ONE TABLET BY MOUTH THREE TIMES A DAY Start Date: 01/25/16 Status: Ordered fluticasone 50 mcg/inh nasal spray 1 sprays, Nasal, BID, # 16 g, 3 Refill(s), Pharmacy: [facility] #[id number] Start Date: 12/19/14 Status: Ordered FOR WEIGHT LOSS FOR WEIGHT LOSS, Oral, Daily, 0 Refill(s) Start Date: 11/05/15 Status: Ordered GABAPENTIN 300 MG CAPSULE See Instructions, TAKE ONE CAPSULE BY MOUTH TWICE A DAY, # 60 caps, 2 Refill(s) , eRx: [facility] #[id number], TAKE ONE CAPSULE BY MOUTH TWICE A DAY Start Date: 01/30/16 Status: Ordered gabapentin 300 mg oral capsule See Instructions, TAKE ONE CAPSULE BY MOUTH TWICE A DAY, # 60 caps, 3 Refill(s) , eRx: [facility] #[id number], TAKE ONE CAPSULE BY MOUTH TWICE A DAY Start Date: 10/09/15 Status: Ordered Glucagon Emergency Kit for Low Blood Sugar 1 mg injection See Instructions, INJECT NEEDED FOR LOW BLOOD SUGARS. USE WHEN UNABLE TO CHEW OR SWALLOW., # 2 kits, 1 Refill(s), eRx: [facility] #[id number], INJECT NEEDED FOR LOW BLOOD SUGARS. USE WHEN UNABLE TO CHEW OR SWALLOW. Start Date: 10/17/13 Status: Ordered Glucometer Lancets (DME) DME Item Accu Chek softclix lancet Check BS QID, See Instructions, # 1 Each, 0 Refill(s), Supply Start Date: 10/07/13 Status: Ordered HumaLOG 100 units/mL subcutaneous solution See Instructions, SubCutaneous TIDAC, # 2 boxes, 6 Refill(s), Pharmacy: [facility] #[id number], SubCutaneous TIDAC Start Date: 10/13/13 Status: Ordered ipratropium-albuterol 0.5 mg-2.5 mg/3 mLinhalation solution 3 mL, NEB, QID, # 90 mL, 1 Refill(s), Pharmacy: [facility] #[id number] Start Date: 12/12/15 Status: Ordered Klor-Con M20 oral tablet, extended release 20 mEq 1 tabs, Oral, Daily, # 90 tabs, 1 Refill(s), Pharmacy: [facility] # [id number], 1 tabs Oral Daily Start Date: 12/12/15 Status: Ordered KRO PEN NEEDLES 31G 6MM See Instructions, USE WITH HUMALOG AND LEVEMIR FOUR TIMES A DAY., # 100 unknown unit, 5 Refill(s), eRx: [facility] #[id number], USE WITH HUMALOG AND LEVEMIR FOUR TIMES A DAY. Start Date: 11/24/14 Status: Ordered Lasix 80 mg oral tablet 80 mg 1 tabs, Oral, BID, 0.5 tabs BID PER PT., # 180 tabs, 3 Refill(s), Pharmacy : [facility] #[id number], 1 tabs Oral BID Start Date: 09/20/15 Status: Ordered levothyroxine 50 mcg (0.05 mg) oral tablet See Instructions, TAKE ONE TABLET BY MOUTH DAILY, # 90 tabs, 3 Refill(s), eRx: [facility] #[id number], TAKE ONE TABLET BY MOUTH DAILY Start Date: 05/08/15 Status: Ordered Livalo 2 mg oral tablet See Instructions, TAKE ONE TABLET BY MOUTH EVERY DAY, # 30 tabs, 3 Refill(s), eRx: [facility] #[id number], TAKE ONE TABLET BY MOUTH EVERY DAY Start Date: 11/12/15 Status: Ordered Lotrisone 1%-0.05% topical cream 1 byron, Topical, BID, # 45 g, 0 Refill(s), Pharmacy: [facility] #[id number] Start Date: 02/06/16 Status: Ordered Melatonin 5 mg oral tablet See Instructions, as needed for insomnia, 2 tabs Oral Bedtime (once a day), 0 Refill(s) Start Date: 03/26/15 Status: Ordered metFORMIN 500 mg oral tablet See Instructions, TAKE ONE TABLET BY MOUTH TWICE A DAY, WITH MORNING AND EVENING MEALS, # 60 tabs, eRx: [facility] #[id number], TAKE ONE TABLET BY MOUTH TWICE A DAY, WITH MORNING AND EVENING MEALS Start Date: 10/10/14 Status: Ordered metoclopramide 5 mg oral tablet See Instructions, TAKE 1 TABLET BY MOUTH BEFORE MEAL(S) AND AT BEDTIME, # 120 tabs, 5 Refill(s), eRx: [facility] #[id number], TAKE 1 TABLET BY MOUTH BEFORE MEAL(S) AND AT BEDTIME Start Date: 07/03/15 Status: Ordered Miscellaneous DME DME Item 99 PEDAL EDEMA Mod compression thigh high support stockings., See Instructions, # 1 Each, 0 Refill(s), Supply Start Date: 03/06/16 Status: Ordered [place] 10 mg-325 mg oral tablet 1-2 tabs, Oral, q6hr, as needed for pain, # 80 tabs, 0 Refill(s) Start Date: 12/12/15 Stop Date: 12/11/16 Status: Ordered nystatin 100,000 units/mL oral suspension 500,000 units 5 mL, Oral, TID, swish and swallow, # 150 mL, 0 Refill(s), Pharmacy: [facility] #[id number], 5 mL Oral TID,Instr:swish and swallow Start Date: 07/23/15 Stop Date: 07/22/16 Status: Ordered omeprazole 20 mg oral delayed release capsule See Instructions, TAKE ONE CAPSULE BY MOUTH EVERY DAY, # 30 caps, 5 Refill(s), eRx: [facility] #[id number], TAKE ONE CAPSULE BY MOUTH EVERY DAY Start Date: 01/02/16 Status: Ordered pramipexole 0.25 mg oral tablet See Instructions, TAKE ONE TABLET BY MOUTH EVERY NIGHT AT BEDTIME, # 30 tabs, 1 Refill(s), eRx: [facility] #[id number], TAKE ONE TABLET BY MOUTH EVERY NIGHT AT BEDTIME Start Date: 01/08/16 Status: Ordered ProAir HFA 90 mcg/inh inhalation aerosol 2 puffs, Inhalation, QID, as needed for wheezing, # 1 Each, 2 Refill(s), Pharmacy: [facility] #[id number] Start Date: 02/07/16 Stop Date: 05/07/16 Status: [...] and Plan Extracted from: Title: Office Visit Note-cellulitis Author: Mari Mcnair APRN Date: 03/06/16 f/u Assessment/Plan 1.Bilateral lower leg cellulitis Improved with doxycycline. Do not see any reason to continue antibiotic durationfor the cellulitis. 2.Diabetes mellitus with hyperglycemia Monitor extremities closely for sores or ulcerations. 3.Pedal edema Recommend patient to me to elevate her extremities as possible much as possible. Moderate compressionthigh-high stockings may be of benefit. Prescription provided. 4.Chronic kidney disease Continue to follow with Dr. Wes Hassan. 5.Chronic obstructive pulmonary disease, unspecified Continue Advair. Patient would like to seea different double cut sawyer. We'll have the hotel or motel receptionist set that up for her. Recurrent urinary tract infection: We'll get most recent culture from Dr. Wes Hassan's office and review sensitivities. Patient would like tohave some managethiswhich I think is reasonable unless she hasincreased issues. Patient likely needs to be on prophylactic antibiotics for both her bronchiectasis andrecurrent urinary tract infections. We'll try to coordinate this with pulmonology. Currently on a azithromycin for prophylaxis for bronchiectasis. We'll see if doxycycline is reasonable forboth.
--- OUTSIDE RECORDS SUMMARY | 2016-07-14 01:48 | XMS REPORT | Referral Summary ---
Author Author [facility] Organization [facility] Address Unknown Phone Unavailable Care Team Providers Care Tassel Snipper Name Role Phone Osmany Haider Primary Care Physician [phone] Encounter Date(s): 06/20/16 - 06/20/16 [facility], Family [address] [place] [address] Discharge Diagnosis: Acute hypoxemic respiratory failure Discharge Diagnosis: Benign essential hypertension Discharge Diagnosis: Bronchiolectasis Discharge Diagnosis: Sore of lower lip Discharge Diagnosis: Diabetes mellitus with hyperglycemia Discharge Diagnosis: Pedal edema Discharge Disposition: 01-Home or Self Care Attending Physician: Mari Mcnair APRN Admitting Physician: Mari Mcnair APRN Vital Signs Most recent to 1 oldest [Reference Range]: Temperature Oral 36.9 degC [35.8-37.3 degC] (06/20/16 11:07 AM) Peripheral Pulse 80 bpm Rate [60-100 bpm] (06/20/16 11:07 AM) Respiratory Rate 18 br/min [14-20 br/min] (06/20/16 11:07 AM) Blood Pressure 144/88 mmHg [90-140/60-90 mmHg] *HI* (06/20/16 11:07 AM) Problem List Condition Effective Dates Status Health Status Informant Acute Active pain(Confirmed) At risk for unstable Active blood glucose level(Confirmed)1 Benign essential Active hypertension (disorder)(Confirmed ) Bronchiectasis(Confi Active rmed) Bronchiolectasis Active (disorder)(Confirmed ) COPD(Confirmed) Resolved Diabetes mellitus Active with hyperglycemia(Confir med) Diabetes(Confirmed) Resolved Diabetic foot Active examination(Confirme d) Disorder of kidney Active and/or ureter (disorder)(Confirmed ) Edema Active (finding)(Confirmed) Gastroesophageal Active reflux disease (disorder)(Confirmed ) GERD(Confirmed) Resolved Hypercholesterolemia Active (Confirmed) Hyperlipidemia(Confi Resolved rmed) Hypersomnia with Active sleep apnea(Confirmed) Hypertension(Confirm Resolved ed) Impaired gas Active exchange(Confirmed)2 Ineffective airway Active clearance(Confirmed) 3 Irritable bowel Resolved disease(Confirmed) Irritable bowel Active syndrome (disorder)(Confirmed ) Mixed hyperlipidemia Active (disorder)(Confirmed ) Morbid obesity Active (disorder)(Confirmed ) Obesity(Confirmed) Resolved Severe obstructive Active sleep apnea(Confirmed) Pedal Active edema(Confirmed) Pure Active hypercholesterolemia (disorder)(Confirmed ) Renal Resolved insufficiency(Confir med) Type II diabetes Resolved mellitus uncontrolled (finding)(Confirmed) 1Problem added automatically by system based on initiation of At Risk for Unstable Blood Glucose Plan of Care 2Problem added automatically by system based on initiation of Impaired Gas Exchange Plan of Care 3Problem added automatically by system based on initiation of Ineffective Airway Clearance Plan of Care Allergies, Adverse Reactions, Alerts Substance Reaction Severity Status naproxen any anti-inflammatory drug Active Tape1 Active tetanus toxoid allergy Active 1irritation/rash Medications Advair Diskus 250 mcg-50 mcg inhalation powder 2 puffs, Inhalation, BID, 0 Refill(s) Start Date: 06/09/16 Status: Ordered allopurinol 300 mg oral tablet See Instructions, TAKE ONE TABLET BY MOUTH EVERY DAY, # 30 tabs, 4 Refill(s), eRx: [facility] #[id number], TAKE ONE TABLET BY MOUTH EVERY DAY Start Date: 06/11/16 Status: Ordered amitriptyline 25 mg, Oral, Bedtime (once a day), 0 Refill(s) Start Date: 06/09/16 Status: Ordered aspirin 81 mg, Oral, Daily, 0 Refill(s) Start Date: 06/09/16 Status: Ordered Augmentin 875 mg-125 mg oral tablet 1 tabs, Oral, q12hr (scheduled), X 7 days, # 14 tabs, 0 Refill(s), Pharmacy: [facility] #[id number] Start Date: 06/20/16 Stop Date: 06/27/16 Status: Ordered cyclobenzaprine 10 mg, Oral, TID, 0 Refill(s) Start Date: 06/09/16 Status: Ordered doxycycline 100 mg, Oral, Mon//, 0 Refill(s) Start Date: 06/09/16 Status: Ordered DuoNeb 0.5 mg-2.5 mg/3 mL inhalation solution 3 mL, NEB, QID, # 30 Each, 0 Refill(s) Start Date: 06/09/16 Status: Ordered Flonase 1 sprays, Nasal, BID, 0 Refill(s) Start Date: 06/09/16 Status: Ordered furosemide 20 mg, Oral, BID, 0 Refill(s) Start Date: 06/09/16 Status: Ordered gabapentin 300 mg, Oral, BID, 0 Refill(s) Start Date: 06/09/16 Status: Ordered HumaLOG 18 units, SubCutaneous, With Lunch, 0 Refill(s) Start Date: 06/09/16 Status: Ordered insulin lispro 35 units, SubCutaneous, With BKFT and Dinner, 0 Refill(s) Start Date: 06/09/16 Status: Ordered levothyroxine 25 mcg (0.025 mg) oral tablet 25 mcg 1 tabs, Oral, Daily, 0 Refill(s) Start Date: 06/18/16 Status: Ordered Livalo 2 mg, Oral, Daily, 0 Refill(s) Start Date: 06/09/16 Status: Ordered Lotrisone 1%-0.05% topical cream 1 byron, Topical, BID, 0 Refill(s) Start Date: 06/09/16 Status: Ordered Melatonin 10 mg, Oral, Bedtime (once a day), as needed for insomnia, 0 Refill(s) Start Date: 06/09/16 Status: Ordered metoclopramide 5 mg, Oral, QIDACHS, 0 Refill(s) Start Date: 06/09/16 Status: Ordered MiraLax 17 g 1 packets, Oral, BID, 0 Refill(s) Start Date: 06/18/16 Status: Ordered [place] 10 mg-325 mg oral tablet 2 tabs, Oral, q6hr, Pain Severe (7-10), 0 Refill(s) Start Date: 06/09/16 Status: Ordered Norvasc 5 mg oral tablet 5 mg 1 tabs, Oral, Daily, # 30 tabs, 0 Refill(s), Pharmacy: [facility] # [id number], 1 tabs Oral Daily Start Date: 06/20/16 Status: Ordered omeprazole 20 mg, Oral, Daily, 0 Refill(s) Start Date: 06/09/16 Status: Ordered pramipexole 0.25 mg, Oral, Bedtime (once a day), 0 Refill(s) Start Date: 06/09/16 Status: Ordered predniSONE 10 mg oral tablet 30 mg 3 tabs, Oral, Daily, 3 tabs for 3 days than 2 tabs for 4 days than 1 tab for 4 days, X 11 days, # 33 tabs, 0 Refill(s), Pharmacy: [facility] # [id number], 3 tabs Oral Daily,x11 days,Instr:3 tabs for 3 days than 2 tabs for 4 days than 1 tab for... Start Date: 06/19/16 Stop Date: 06/30/16 Status: Ordered ProAir HFA 90 mcg/inh inhalation aerosol 2 puffs, Inhalation, QID, as needed for wheezing, 0 Refill(s) Start Date: 06/09/16 Status: Ordered Tresiba FlexTouch 100 units/mL subcutaneous solution 40 units, SubCutaneous, Bedtime (once a day), 0 Refill(s) Start Date: 06/09/16 Status: Ordered ZeaSORB 0.5%-0.22% topical powder 1 byron, Topical, BID, 0 Refill(s) Start Date: 06/09/16 Status: Ordered Results No data available for [...] and Plan Extracted from: Title: Office Visit Note-lip Author: Mari Mcnair MANAGER STRATEGIC Date: 06/20/16 sore/TCM Assessment/Plan 1.Bronchiolectasis Discussed with patient the importance of 5 nebulizedmedications to keep her airways open. Restart DuoNeb 4 times a day routinely. May use albuterol inhaler 2 puffs every 4 hours as needed in addition to or if she has not home with her nebulizer. Start Augmentin 875 mg one by mouth twice a day 7 days. Continue prednisone taper. Discussed with patient if over the weekend she begins to feel worsethen she needs to return to the ER for evaluation. She has a follow-up appointment next Thursday. She is feeling worse before then to make an appointment. Do not weight. 2.Acute hypoxemic respiratory failure Clinically improved. Maintaining oxygen saturations. 3.Sore of lower lip I suspect this is a fever blister that is slow to heal. Josefina then she keep it well moisturized. Avoid picking at it. Avoidlicking her lips. 4.Benign essential hypertension Startamlodipine 5 mg daily. At this time would like to hold metoprolol. Request she check her blood pressures every day. Reevaluate that next week. 5.Diabetes mellitus with hyperglycemia Continue to monitor closely. While she is on prednisone would expect higher blood sugars. Encouraged her to keep Dr. Em informed of her blood sugar readings. 6.Pedal edema Continue furosemide. Recommend she elevate her feet as much as possible. Questions and concerns were answered. Questions and concerns were answered. She has a very complex patientwith multiple chronic medical problems. Discussed with her the importance of close follow-up and monitoring. Hospital records were reviewed with her and her .
[2016-07-14 01:49] VITALS: TEMP 98.6; Ht 152.4 cm; Wt 140.8 kg
--- OUTSIDE RECORDS SUMMARY | 2016-07-14 01:50 | XMS REPORT | Continuity of Care Document ---
Author Author [facility] Organization [facility] Address Unknown Phone Unavailable Allergies Active Description Code Type Severity Reaction Onset Reported/Identified Relationship to Patient Clinical Status Yes TAPE Drug Allergy N/A N/A Medications Medication Packaging Start Date Stop Date Route Dosage Sig [id number] 08/25/2014 ORAL daily Problems Procedures Results Encounters ACCT No. Visit Date/Time Discharge Status Pt. Type Provider Facility Loc./Unit Complaint [id number] 07/11/2013 09:30:00 07/11/2013 23 :59:59 CLS Outpatient [id number] 06/30/2013 08:12:00 06/30/2013 23 :59:59 CLS Outpatient [id number] 06/29/2013 10:05:00 06/29/2013 23 :59:59 CLS Outpatient [id number] 06/23/2013 11:28:00 06/23/2013 23 :59:59 CLS Outpatient [id number] 06/16/2013 08:03:00 06/16/2013 23 :59:59 CLS Outpatient [id number] 05/24/2013 10:45:00 05/24/2013 23 :59:59 CLS Outpatient [id number] 05/04/2013 11:36:00 05/04/2013 23 :59:59 CLS Outpatient
--- OUTSIDE RECORDS SUMMARY | 2016-07-14 01:50 | XMS REPORT | Referral Summary ---
Author Author [facility] Organization [facility] Address Unknown Phone Unavailable Care Team Providers Care Cleaner And Dyer Name Role Phone Osmany Haider Primary Care Physician [phone] Encounter Date(s): 02/04/16 - 02/04/16 [facility] [address] [place] [id number] Discharge Diagnosis: Benign essential hypertension Discharge Diagnosis: Hypercholesterolemia Discharge Diagnosis: Diabetes mellitus, type 2 Discharge Diagnosis: Mixed hyperlipidemia Discharge Diagnosis: Bronchiectasis Discharge Diagnosis: COPD type A Discharge Diagnosis: Gastroesophageal reflux disease Discharge Disposition: 01-Home or Self Care Attending Physician: Werner Haider MD Admitting Physician: Werner Haider MD Vital Signs Most recent to 1 oldest [Reference Range]: Temperature Tympanic 36.0 degC [36.6-38.1 degC] *LOW* (02/04/16 8:36 AM) Peripheral Pulse 88 bpm Rate [60-100 bpm] (02/04/16 8:36 AM) Respiratory Rate 16 br/min [14-20 br/min] (02/04/16 8:36 AM) Blood Pressure 130/76 mmHg [90-140/60-90 mmHg] (02/04/16 8:36 AM) Problem List Condition Effective Dates Status [...] A DAY, DX:250.02, # 306 strip, eRx: [facility] #[id number], TEST BLOOD SUGAR 6 TO 8 TIMES A DAY, DX:250.02 Start Date: 08/04/14 Status: Ordered Advair Diskus 250 mcg-50 mcg inhalation powder 1 puffs, Inhalation, BID, # 60 Each, 3 Refill(s), Pharmacy: [facility] # [id number] Start Date: 01/30/16 Status: Ordered allopurinol 300 mg oral tablet See Instructions, TAKE ONE TABLET BY MOUTH EVERY DAY, # 30 tabs, 5 Refill(s), eRx: [facility] #[id number], TAKE ONE TABLET BY MOUTH EVERY DAY Start Date: 08/15/15 Status: Ordered amitriptyline 25 mg oral tablet See Instructions, TAKE ONE TABLET BY MOUTH EVERY NIGHT AT BEDTIME, # 90 tabs, 1 Refill(s), eRx: [facility] #[id number], TAKE ONE TABLET BY MOUTH EVERY NIGHT AT BEDTIME Start Date: 01/07/16 Status: Ordered aspirin 81 mg oral tablet 81 mg 1 tabs, Oral, Daily, 0 Refill(s) Start Date: 12/26/14 Status: Ordered azithromycin 250 mg oral tablet 1 tabs, Oral, Mon//, # 13 tabs, 3 Refill(s), Pharmacy: [facility] # [id number], 1 tabs Oral Thu// Start Date: 11/30/15 Status: Ordered CPAP Machine (DME) See Instructions, # 1 Each, 0 Refill(s), Supply Start Date: 12/25/14 Status: Ordered cyclobenzaprine 10 mg oral tablet See Instructions, TAKE ONE TABLET BY MOUTH THREE TIMES A DAY, # 180 tabs, eRx: [facility] #[id number], TAKE ONE TABLET BY MOUTH THREE TIMES A DAY Start Date: 01/25/16 Status: Ordered fluticasone 50 mcg/inh nasal spray 1 sprays, Nasal, BID, # 16 g, 3 Refill(s), Pharmacy: [facility] #[id number] Start Date: 12/19/14 Status: Ordered FOR WEIGHT LOSS FOR WEIGHT LOSS, Oral, Daily, 0 Refill(s) Start Date: 11/05/15 Status: Ordered GABAPENTIN 300 MG CAPSULE See Instructions, TAKE ONE CAPSULE BY MOUTH TWICE A DAY, # 60 caps, 2 Refill(s) , eRx: [facility] #[id number], TAKE ONE CAPSULE BY MOUTH TWICE A DAY Start Date: 01/30/16 Status: Ordered gabapentin 300 mg oral capsule See Instructions, TAKE ONE CAPSULE BY MOUTH TWICE A DAY, # 60 caps, 3 Refill(s) , eRx: [facility] #[id number], TAKE ONE CAPSULE BY MOUTH TWICE A DAY Start Date: 10/09/15 Status: Ordered Glucagon Emergency Kit for Low Blood Sugar 1 mg injection See Instructions, INJECT NEEDED FOR LOW BLOOD SUGARS. USE WHEN UNABLE TO CHEW OR SWALLOW., # 2 kits, 1 Refill(s), eRx: [facility] #[id number], INJECT NEEDED FOR LOW BLOOD SUGARS. USE WHEN UNABLE TO CHEW OR SWALLOW. Start Date: 10/17/13 Status: Ordered Glucometer Lancets (DME) DME Item Accu Chek softclix lancet Check BS QID, See Instructions, # 1 Each, 0 Refill(s), Supply Start Date: 10/07/13 Status: Ordered HumaLOG 100 units/mL subcutaneous solution See Instructions, SubCutaneous TIDAC, # 2 boxes, 6 Refill(s), Pharmacy: [facility] #[id number], SubCutaneous TIDAC Start Date: 10/13/13 Status: Ordered ipratropium-albuterol 0.5 mg-2.5 mg/3 mLinhalation solution 3 mL, NEB, QID, # 90 mL, 1 Refill(s), Pharmacy: [facility] #[id number] Start Date: 12/12/15 Status: Ordered Klor-Con M20 oral tablet, extended release 20 mEq 1 tabs, Oral, Daily, # 90 tabs, 1 Refill(s), Pharmacy: [facility] # [id number], 1 tabs Oral Daily Start Date: 12/12/15 Status: Ordered KRO PEN NEEDLES 31G 6MM See Instructions, USE WITH HUMALOG AND LEVEMIR FOUR TIMES A DAY., # 100 unknown unit, 5 Refill(s), eRx: [facility] #[id number], USE WITH HUMALOG AND LEVEMIR FOUR TIMES A DAY. Start Date: 11/24/14 Status: Ordered Lasix 80 mg oral tablet 80 mg 1 tabs, Oral, BID, 0.5 tabs BID PER PT., # 180 tabs, 3 Refill(s), Pharmacy : [facility] #[id number], 1 tabs Oral BID Start Date: 09/20/15 Status: Ordered levothyroxine 50 mcg (0.05 mg) oral tablet See Instructions, TAKE ONE TABLET BY MOUTH DAILY, # 90 tabs, 3 Refill(s), eRx: [facility] #[id number], TAKE ONE TABLET BY MOUTH DAILY Start Date: 05/08/15 Status: Ordered Livalo 2 mg oral tablet See Instructions, TAKE ONE TABLET BY MOUTH EVERY DAY, # 30 tabs, 3 Refill(s), eRx: [facility] #[id number], TAKE ONE TABLET BY MOUTH EVERY DAY Start Date: 11/12/15 Status: Ordered Melatonin 5 mg oral tablet See Instructions, as needed for insomnia, 2 tabs Oral Bedtime (once a day), 0 Refill(s) Start Date: 03/26/15 Status: Ordered metFORMIN 500 mg oral tablet See Instructions, TAKE ONE TABLET BY MOUTH TWICE A DAY, WITH MORNING AND EVENING MEALS, # 60 tabs, eRx: [facility] #[id number], TAKE ONE TABLET BY MOUTH TWICE A DAY, WITH MORNING AND EVENING MEALS Start Date: 10/10/14 Status: Ordered metoclopramide 5 mg oral tablet See Instructions, TAKE 1 TABLET BY MOUTH BEFORE MEAL(S) AND AT BEDTIME, # 120 tabs, 5 Refill(s), eRx: [facility] #[id number], TAKE 1 TABLET BY MOUTH BEFORE MEAL(S) AND AT BEDTIME Start Date: 07/03/15 Status: Ordered [place] 10 mg-325 mg oral tablet 1-2 tabs, Oral, q6hr, as needed for pain, # 80 tabs, 0 Refill(s) Start Date: 12/12/15 Stop Date: 12/11/16 Status: Ordered nystatin 100,000 units/mL oral suspension 500,000 units 5 mL, Oral, TID, swish and swallow, # 150 mL, 0 Refill(s), Pharmacy: [facility] #[id number], 5 mL Oral TID,Instr:swish and swallow Start Date: 07/23/15 Stop Date: 07/22/16 Status: Ordered omeprazole 20 mg oral delayed release capsule See Instructions, TAKE ONE CAPSULE BY MOUTH EVERY DAY, # 30 caps, 5 Refill(s), eRx: [facility] #[id number], TAKE ONE CAPSULE BY MOUTH EVERY DAY Start Date: 01/02/16 Status: Ordered pramipexole 0.25 mg oral tablet See Instructions, TAKE ONE TABLET BY MOUTH EVERY NIGHT AT BEDTIME, # 30 tabs, 1 Refill(s), eRx: [facility] #[id number], TAKE ONE TABLET BY MOUTH EVERY NIGHT AT BEDTIME Start Date: 01/08/16 Status: Ordered ProAir HFA 90 mcg/inh inhalation aerosol 2 puffs, Inhalation, QID, as needed for wheezing, # 1 Each, 2 Refill(s), Pharmacy: [facility] #[id number] Start Date: 11/12/15 Stop Date: 02/10/16 Status: Ordered Tresiba FlexTouch 10O UNITS, SubCutaneous, [...] 13-valent conjugate vaccine1 11/07/14 pneumococcal 23-polyvalent vaccine 11/2/12 pneumococcal 23-polyvalent vaccine 05/18/02 zoster vaccine live [...] Visit Note Author: Werner Haider MD Date: 02/04/16 Assessment/Plan 1.Benign essential hypertension Blood pressure appears to be adequately controlled. Medications and treatments reviewed no changes are recommended. I did review lab work done by Dr. Wilson additional lab is needed at this time. Recheck in 3 months. Ordered: Office Visit Level 4 Est 02624 2.Bronchiectasis Chronic relatively stable no change in current treatment recommended. Ordered: Office Visit Level 4 Est 84908 3.Gastroesophageal reflux disease Chronic and stable no change in current treatment recommended. Ordered: Office Visit Level 4 Est 08548 4.Hypercholesterolemia Overall chronic and stable. Laboratory studies reviewed from earlier this yearno change in current treatment recommended. Recheck in 3 months. Ordered: Office Visit Level 4 Est 96977 5.Mixed hyperlipidemia Chronic stableno change in current treatment as mentioned above. Ordered: Office Visit Level 4 Est 32850 6.Diabetes mellitus, type 2 A1c is staying reasonable. She'll continue to follow with Dr. Em no change in current treatment is recommended. Ordered: Office Visit Level 4 Est 55925 7.COPD type A Chronic relatively stable no change in current treatment. Recheck in 3 months. Ordered: Office Visit Level 4 Est 97571
--- OUTSIDE RECORDS SUMMARY | 2016-07-14 01:50 | XMS REPORT | Continuity of Care Document ---
Author Author [facility] Organization [facility] Address Unknown Phone Unavailable Support Name Relationship Address Phone AUGUSTYESICA DO Caregiver [address] [place] [address] Unavailable LEANNE THOMAS MD Caregiver [address] [place] [address] Unavailable KIEL CAMPOS Next Of Kin [address] [place], [place] [id number] C Insurance Providers Guarantor Paul Campos Address [address] [place] [address] C Email DENIED06-09-16 Payer [facility] Preferred Policy Number [id number] Subscriber's Name Paul Campos Relationship 18 Self Group Number [id number] Effective Date 13 Payer Medicare Policy Number [id number] Subscriber's Name Paul Campos Relationship 18 Self Effective Date 08 Chief Complaint and Reason for Visit Chief Complaint Dyspnea/Respdistress Reason for Visit Acute respiratory failure Bronchiectasis Recurrent pneumonia Problems Active Problems Medical Problem Onset Date Status Acute Bronchitis Unknown Acute Anticoagulated on Coumadin Unknown Acute Bronchiectasis Unknown Acute COPD (chronic obstructive pulmonary disease) Unknown Chronic COPD exacerbation Unknown Resolved Cellulitis Unknown Acute Chronic back pain Unknown Chronic Chronic kidney disease (CKD), stage III (moderate) Unknown Chronic Contusion of right hip Unknown Acute Contusion of right hip Unknown Acute Diabetes Unknown Chronic Edema of both legs Unknown Acute Elevated liver enzymes Unknown Acute GERD (gastroesophageal reflux disease) Unknown Chronic Generalized weakness Unknown Acute History of anemia Unknown Chronic History of dyspnea Unknown Acute Hyperlipidemia Unknown Chronic Hypertension Unknown Chronic Hypoglycemia associated with diabetes Unknown Acute Hypoglycemia associated with diabetes Unknown Acute Hypothyroidism Unknown Chronic Hypoxia Unknown Resolved IBS (irritable bowel syndrome) Unknown Chronic Influenza A Unknown Resolved Leukocytosis Unknown Acute Mild aortic stenosis Unknown Chronic Mild pulmonary hypertension Unknown Chronic Morbid obesity with BMI of 45.0-49.9, adult Unknown Chronic Morbid obesity with BMI of 50.0-59.9, adult Unknown Chronic THOMAS on CPAP Unknown Chronic Obstructive sleep apnea Unknown Chronic Osteoarthritis Unknown Chronic Restless leg syndrome Unknown Chronic Severe sepsis Unknown Resolved Surgical Problem Onset Date Status S/P hip replacement Unknown Acute Past Problems Medical Problem Onset Date Acute respiratory failure Unknown Bronchiectasis Unknown Cellulitis Unknown Edema of both legs Unknown History of dyspnea Unknown Hypoxemia Unknown Hypoxia Unknown Morbid obesity Unknown Peripheral edema Unknown Recurrent pneumonia Unknown Medications Current Home Medications Medication Dose Units Route Directions Days Qty Instructions Start Date Acetaminophen/Hydrocodone Bitart ([place] 10-325 Tablet) 10-325 Tablet 1-2 Tab Oral Every 6 Hours as needed for Pain 02/24/16 Albuterol Sulfate (Proair Hfa 90 Mcg/Actuation) 8.5 Gm Hfa.aer.ad 2 Puff Inhalation Four Times Daily as needed for Wheezing 02/24/16 Allopurinol 300 Mg Tablet 300 Mg Oral Daily 05/22/13 Amitriptyline Hcl 25 Mg Tablet 25 Mg Oral Bedtime 02/24/16 Aspirin (Aspirin Ec) 81 Mg Tablet.dr 81 Mg Oral Daily 02/24/16 Benzonatate 200 Mg Capsule 200 Mg Oral Three Times A Day as needed for Cough 30 Capsule 06/05/16 Cyclobenzaprine Hcl 10 Mg Tablet 20 Mg Oral Bedtime 05/22/13 Doxycycline Hyclate 100 Mg Tablet 1 Tab Oral Twice Daily With Meals 7 Days 14 Tablet 02/24/16 Fluticasone Propionate (Fluticasone Prop 50 Mcg/Actuation Nasal [place]) 120 [place]/16 G [place] 1 [place] Each Nostril Twice A Day as needed for Prn Orders 02/24/16 Fluticasone/Salmeterol (Advair 250-50 Diskus) 1 Disk W/Dev Inhaler 1 Puff Inhalation Twice A Day as needed for Shortness Of Air 01/17/14 Furosemide (Lasix) 40 Mg Tablet 1 Tab Oral Daily 05/28/16 Gabapentin 300 Mg Capsule 300 Mg Oral Twice A Day 02/24/16 Glucagon,Human Recombinant (Glucagon Emergency Kit) 1 Mg/Kit Syringe 1 Mg Injection As Needed 02/24/16 Guaifenesin/Dextromethorphan (Mucinex Dm Er 600-30 Mg Tablet) 1 Each Tab.er.12h 1 Tab Oral Every 12 Hours 30 Tablet 06/05/16 Insulin Degludec (Tresiba Flextouch U-200) 200 Unit/1 Ml Insuln.pen 80 Unit Sub-Q Bedtime 1 Vial 06/05/16 Insulin Lispro (Humalog) 100 Unit/Ml Inj 18 Unit Sub-Q 1145 1 Vial 06/05/16 Insulin Lispro (Humalog) 100 Unit/Ml Inj 35 Unit Sub-Q 0745 1 Vial 06/05/16 Insulin Lispro (Humalog) 100 Unit/Ml Inj 35 Unit Sub-Q 1715 1 Vial 06/05/16 Ipratropium/Albuterol Sulfate (Iprat-Albut 0.5-3(2.5) Mg/3 Ml) 3 Ml Ampul.neb 1 Vial Aerosol Tx. Four Times Daily as needed for Prn Orders Levothyroxine Sodium 50 Mcg Tablet 50 Mcg Oral Before Breakfast 05/22/13 Lisinopril 10 Mg Tablet 10 Mg Oral Daily for Hypertension 30 Tablet 06/05/16 Melatonin 5 Mg Tablet 15 Mg Oral Bedtime as needed for Insomnia 02/24/16 Metoclopramide Hcl 5 Mg Tablet 5 Mg Oral Before Meals And At Bedtime 05/29/10 Metoprolol Tartrate 25 Mg Tablet 12.5 Mg Oral Twice Daily With Meals for Hypertension 30 Tablet 06/05/16 Miconazole Nitrate (Secura Antifungal) 57 Gm Cream..g. 1 Applic Topically Twice A Day 02/24/16 Nystatin 100,000 Unit/1 Ml Oral.susp 5 Ml Oral Four Times Daily for Thrush 200 Milliliter 06/05/16 Omeprazole 20 Mg Tablet. 20 Mg Oral Before Breakfast 01/17/14 Pramipexole Di-Hcl (Pramipexole Dihydrochloride) 0.25 Mg Tablet 0.25 Mg Oral Bedtime 02/24/16 Prednisone 20 Mg Tablet 40 Mg Oral Give With Breakfast for Copd 10 Tablet 06/05/16 Promethazine Hcl/Codeine (Promethazine-Codeine Syrup) 118 Ml Syrup 5 Ml Oral Every 6 Hours as needed for Cough 200 Milliliter 06/05/16 Past Home Medications Medication Directions Ordered Status Aspirin (Aspir 81) 81 Mg Tablet., 1 Tab Oral Daily 01/17/14 Discontinued Azithromycin 250 Mg Tablet, 250 Mg Oral Every Thursday, Thursday, And Thursday02/24/16 Discontinued Calcium/Vit B12/Fa/Pyridoxine (Folic Acid/B-6/B-12 Tablet) 1 Tab Tablet, 1 Tab Oral Daily 05/29/10 Discontinued Ergocalciferol (Vitamin D) 50,000 Unit Capsule, 93543 Unit Oral 05/29/10 Discontinued Estradiol 1 Mg Tablet, 1 Mg Oral Daily 05/29/10 Discontinued Fluconazole (Diflucan) 200 Mg Tablet, 200 Mg Oral Daily 05/29/10 Discontinued Fluticasone/Salmeterol (Advair 100-50 Diskus) 1 Disk W/Dev Inhaler, 1 Puff Oral Inhalation Resp.tx Twice A Day as needed for Shortness Of Air 01/17/14 Discontinued Furosemide 80 Mg Tablet, 40 Mg Oral Twice A Day 05/29/10 Discontinued Glimepiride 2 Mg Tablet, 2 Mg Oral Twice A Day 05/29/10 Discontinued Hydrocodone Bit/Acetaminophen (Hydrocodone-Apap 10-500 Tab) 1 Tab Tablet, 1-2 Tab Oral Three Times A Day 05/29/10 Discontinued Hydrocodone/Acetaminophen (Hydrocodon-Acetaminoph 7.5-325) 1 Tab Tablet, 0 Tab Oral Every 4 Hours as needed for Pain 01/19/14 Discontinued Insulin Degludec (Tresiba Flextouch U-200) 200 Unit/1 Ml Insuln.pen, 100 Unit Sub-Q Bedtime 02/24/16 Discontinued Insulin Lispro (Humalog Kwikpen) 200 Unit/1 Ml Insuln.pen, 58 Unit Sub-Q Give With Breakfast 02/24/16 Discontinued Insulin Lispro (Humalog Kwikpen) 200 Unit/1 Ml Insuln.pen, 20 Unit Sub-Q Give With Lunch 02/24/16 Discontinued Insulin Lispro (Humalog Kwikpen) 200 Unit/1 Ml Insuln.pen, 58 Unit Sub-Q Give With Supper 02/24/16 Discontinued Insulin Npl/Insulin Lispro (Humalog Mix 75/25 Pen) 1 Unit Pen, 15 Unit Sub-Q Twice A Day 05/29/10 Discontinued Lorcaserin Hcl (Belviq) 10 Mg Tablet, 10 Mg Oral Twice A Day 02/24/16 Discontinued Metformin Hcl 500 Mg Tablet, 500 Mg Oral Twice Daily With Meals 01/16/14 Discontinued Nitrofurantoin/Nitrofuran Mac (Macrobid) 100 Mg Capsule, 100 Mg Oral Twice A Day 05/29/10 Discontinued [place]-3 Fatty Acids/Vitamin E ([place]-3 Fish Oil Softgel) 1 Cap Capsule, 1 Cap Oral Daily 05/29/10 Discontinued Pitavastatin Calcium (Livalo) 2 Mg Tablet, 2 Mg Oral Daily 05/22/13 Discontinued Potassium Chloride (Klor-Con M20) 20 Meq Tablet, 20 Meq Oral Daily 02/24/16 Discontinued Pramipexole Di-Hcl (Mirapex) 0.25 Mg Tablet, 0.25 Mg Oral Bedtime 05/29/10 Discontinued Sodium Chloride/Aloe Vera ([place] Saline Nasal Gel [place]) 22 Ml [place], 22 Ml Nasal As Needed 05/29/10 Discontinued Terbinafine Hcl (Lamisil) 15 Gm Cream.gm., 15 Gm Topical Twice A Day Discontinued Tolterodine Tartrate (Detrol La) 4 Mg Cap.sr.24h, 4 Mg Oral Daily 05/29/10 Discontinued Vitamin B Complex 1 Cap Capsule, 1 Cap Oral Daily 05/29/10 Discontinued Social History Social History Problem Response Recorded Date/Time Onset Date Status Chewing Tobacco Status No 09/09/2013 6:15pm Not Applicable Not Applicable Hx Substance Use No 06/09/2016 2:50am Not Applicable Not Applicable Hx Alcohol Use No 06/09/2016 2:50am Not Applicable Not Applicable Has the pt used tobacco in the last 12 months No 04/05/2014 1:46pm Not Applicable Not Applicable Tobacco Usage none 01/20/2014 9:29am Not Applicable Not Applicable Query Response Start Date Stop Date Smoking Status Never smoker Hospital Discharge Instructions No hospital discharge instructions. Plan of Care Discharge Date 06/09/16 6:08am Disposition 02 TO [facility] Condition at Discharge Improved Prescriptions See Medication Section Referrals LEANNE THOMAS MD Address: [address] [place] [address] [phone] Functional Status No functional status results. Allergies, Adverse Reactions, Alerts Allergen Type Severity Reaction Status Last Updated NSAIDS (Non-Steroidal Anti-Inflamma Adverse Reaction Unknown MIGRAINE VICKERS, FLUID RETENTION Active 06/09/16 Naproxen Adverse Reaction Unknown MIGRAINE VICKERS,FLUID RETENTION Active 06/09 adhesive tape Allergy Mild RASH Active 06/09/16 Immunizations Query Response on File Recorded Date/Time Hx Influenza Vaccination Y Jan 2016 05/29/16 1:10am Hx Pneumococcal Vaccination Yes 05/29/16 1:10am Hx Influenza Vaccination Y Jan 2016 05/29/16 1:10am Influenza Vaccine Hx jan 2016 06/09/16 2:50am Vital Signs Acute Vital Signs Vital Response Date/Time Temperature (Fahrenheit) 98.2 deg F (96.8 - 99.1) 06/09/2016 6:08am Temperature (Calculated Celsius) 36.41095 degrees C (36.0 - 37.3) 06/09/2016 6:08am Pulse Rate (adult) 78 bpm (60 - 100) 06/09/2016 6:08am Respiratory Rate 24 breaths/min (10 - 20) 06/09/2016 6:08am O2 Sat by Pulse Oximetry 91 % (90 - 100) 06/09/2016 6:08am Oxygen Delivery Method Room Air 06/05/2016 6:53am Oxygen Delivery Method Room Air 06/05/2016 7:40am Oxygen Flow Rate 5.00 L/min 06/09/2016 6:08am Blood Pressure 162/78 mm Hg 06/09/2016 6:08am Blood Pressure Source Automatic Cuff 06/05/2016 7:40am Height (Feet) 5 feet 06/09/2016 2:35am Height (Inches) 0 inches 06/09/2016 2:35am Weight (Kilograms) 136.600 kg 06/09/2016 2:35am Body Mass Index (BMI) 58.0 06/09/2016 2:35am Results Laboratory Results Test Name Result Units Flags Reference Collection Date/Time Result Date/ Time Comments Neutrophils (%) (Auto) 63.7 % 33-66 06/03/2016 4:10am 06/03/2016 5: 01am Lymphocytes (%) (Auto) 24.2 % 23-45 06/03/2016 4:10am 06/03/2016 5: 01am Monocytes (%) (Auto) 10.6 % H 0-9.0 06/03/2016 4:10am 06/03/2016 5:01am Eosinophils (%) (Auto) 0.0 % 0-4 06/03/2016 4:10am 06/03/2016 5:01am Basophils (%) (Auto) 0.2 % 0-2 06/03/2016 4:10am 06/03/2016 5:01am Immature Granulocyte % (Auto) 1.3 % H 0.0-0.5 06/03/2016 4:10am 2016 5:01am Absolute Neutrophils (auto) 7.3 T/MM3 1.8-7.7 06/03/2016 4:10am 2016 5:01am Absolute Lymphocytes (auto) 2.8 T/MM3 1-4.8 06/03/2016 4:10am 2016 5:01am Absolute Monocytes (auto) 1.2 T/MM3 H 0-0.8 06/03/2016 4:10am 2016 5:01am Absolute Eosinophils (auto) 0.0 T/MM3 0-0.5 06/03/2016 4:10a2016 5:01am Absolute Basophils (auto) 0.0 T/MM3 0-0.2 06/03/2016 4:10am 06/03/2016 5:01am Absolute Immature Granulocyte (auto 0.15 T/MM3 H 0.00-0.03 06/03/2016 4: 10a06/03/2016 5:01am Band Neutrophils % 7.0 % H 0-6 05/30/2016 10:55am 05/30/2016 11:50am Band Neutrophils # 1.2 T/MM3 05/30/2016 10:55am 05/30/2016 11:50am Total Bilirubin 0.40 MG/DL 0.20-1.30 06/05/2016 4:43am 06/05/2016 5: 27am Unconjugated Bilirubin 0.00 MG/DL 0.00-1.10 06/02/2016 4:39am 2016 5:00am Conjugated Bilirubin 0.00 MG/DL 0.00-0.30 06/02/2016 4:39am 06/02/2016 5:00am Alkaline Phosphatase 71 U/L 38-126 06/05/2016 4:43am 06/05/2016 5:27am Total Protein 6.0 G/DL L 6.3-8.2 06/05/2016 4:43am 06/05/2016 5:27am Albumin 3.2 G/DL L 3.5-5.0 06/05/2016 4:43am 06/05/2016 5:27am Globulin 2.8 G/DL 2.4-3.6 06/05/2016 4:43am 06/05/2016 5:27am Albumin/Globulin Ratio 1.1 RATIO 1.1-2.2 06/05/2016 4:43am 06/05/2016 5 :27am Aspartate Amino Transf (AST/SGOT) 57 U/L H 14-36 06/05/2016 4:43am 06/05 5:27am Alanine Aminotransferase (ALT/SGPT) 100 U/L H 9-52 06/05/2016 4:43am 12/2016 5:27am Magnesium Level 2.7 MG/DL H 1.6-2.3 06/01/2016 4:56am 06/01/2016 5:16am Plasma Lactate 1.2 MMOL/L 0.6-2.2 05/29/2016 4:30am 05/29/2016 5:42am Hemoglobin A1c 7.1 % 6.1-7.9 06/05/2016 4:41am 06/05/2016 11:55am < 6.0 NON-DIABETIC RANGE 6.1-7.9 [facility] TARGET RANGE >8.0 ACTION SUGGESTED Adenovirus (PCR) NEGATIVE NEGATIVE 05/29/2016 8:12am 05/29/2016 10: 01am Coronavirus Type 229E (PCR) NEGATIVE NEGATIVE 05/29/2016 8:12am 05/29 10:01am Coronavirus Type HKU1 (PCR) NEGATIVE NEGATIVE 05/29/2016 8:12am 05/29 10:01am Coronavirus Type NL63 (PCR) NEGATIVE NEGATIVE 05/29/2016 8:12am 05/29 10:01am Coronavirus Type OC43 (PCR) NEGATIVE NEGATIVE 05/29/2016 8:12am 05/29 10:01am Human Metapneumovirus (PCR) NEGATIVE NEGATIVE 05/29/2016 8:12am 05/29 10:01am Enterovirus/Rhinovirus (PCR) NEGATIVE NEGATIVE 05/29/2016 8:12am 05/2016 10:01am Influenza Virus Type A (PCR) DETECTED INF A H3 A NEGATIVE 05/29/2016 8: 12am 05/29/2016 10:01am Influenza Virus Type B (PCR) NEGATIVE NEGATIVE 05/29/2016 8:12am 05/2016 10:01am Parainfluenza Type 1 (PCR) NEGATIVE NEGATIVE 05/29/2016 8:12am 2016 10:01am Parainfluenza Type 2 (PCR) NEGATIVE NEGATIVE 05/29/2016 8:12am 2016 10:01am Parainfluenza Type 3 (PCR) NEGATIVE NEGATIVE 05/29/2016 8:12am 2016 10:01am Parainfluenza Type 4 (PCR) NEGATIVE NEGATIVE 05/29/2016 8:12am 2016 10:01am Respiratory Syncytial Virus (PCR) NEGATIVE NEGATIVE 05/29/2016 8:12am 05/29/2016 10:01am Bordetella parapertussis DNA (PCR) NEGATIVE NEGATIVE 05/29/2016 8: 12am 05/29/2016 10:01am Chlamydia pneumoniae DNA (PCR) NEGATIVE NEGATIVE 05/29/2016 8:12am 10:01am Mycoplasma pneumoniae (PCR) NEGATIVE NEGATIVE 05/29/2016 8:12am 05/29 10:01am Glucometer 102 mg/dL 65-110 06/05/2016 2:03pm 06/05/2016 2:23pm White Blood Count 20.8 T/MM3 H 4.5-11.0 06/09/2016 3:1506/09/2016 3: 25am Red Blood Count 4.78 M/MM3 4.00-5.20 06/09/2016 3:1506/09/2016 3: 25am Hemoglobin 12.3 GM/DL 12-16 06/09/2016 3:06/09/2016 3:25am Hematocrit 40.1 % 36-46 06/09/2016 3:06/09/2016 3:25am Mean Corpuscular Volume 83.9 UM3 80-100 06/09/2016 3:06/09/2016 3: 25am Mean Corpuscular Hemoglobin 25.7 UUG L 26-34 06/09/2016 3:152016 3:25am Mean Corpuscular Hemoglobin Concent 30.7 GM/DL L 31-37 06/09/2016 3:1506/09/2016 3:25am RDW Standard Deviation 56.0 FL H 36.9-50.2 06/09/2016 3:1506/09/2016 3:25am Platelet Count 326 T/MM3 130-400 06/09/2016 3:1506/09/2016 3:25am Mean Platelet Volume 10.0 UM3 9.4-12.4 06/09/2016 3:06/09/2016 3: 25am Neutrophils % (Manual) 67.0 % H 33-66 06/09/2016 3:06/09/2016 3: 38am Lymphocytes % (Manual) 29.0 % 23-45 06/09/2016 3:06/09/2016 3: 38am Monocytes % (Manual) 4.0 % 0-9.0 06/09/2016 3:06/09/2016 3:38am Absolute Neutrophils (Manual) 13.9 T/MM3 H 1.8-7.7 06/09/2016 3: 3:38am Lymphocytes # (Manual) 6.0 T/MM3 H 1-4.8 06/09/2016 3:06/09/2016 3: 38am Monocytes # (Manual) 0.8 T/MM3 0-0.8 06/09/2016 3:06/09/2016 3: 38am Red Cell Morphology Comment NORMAL 06/09/2016 3:06/09/2016 3: 38am D-Dimer < 150 NG/ML 0-230 06/09/2016 3:06/09/2016 3:34am <230 NG/ ML D-DU=PRESUMPTIVE NEGATIVE FOR PE OR DVT >230 NG/ML D-DU=ADDITIONAL EVAL FOR PE OR DVT RECOMMENDED Icterus Index < 2 0-7 06/09/2016 3:06/09/2016 3:31am Chemistry Specimen Hemolysis < 15 0-25 06/09/2016 3:06/09/2016 3 :31am 0-25: Specimen Exhibited No Hemolysis. Turbidity < 20 0-20 06/09/2016 3:06/09/2016 3:31am Sodium Level 141 MEQ/L 134-144 06/09/2016 3:06/09/2016 3:31am Potassium Level 4.5 MEQ/L 3.6-5 06/09/2016 3:06/09/2016 3:31am Chloride Level 102 MEQ/L 98-107 06/09/2016 3:06/09/2016 3:31am Carbon Dioxide Level 32 MEQ/L H 22-30 06/09/2016 3:06/09/2016 3: 31am Anion Gap 7 MEQ/L 5-15 06/09/2016 3:06/09/2016 3:31am Blood Urea Nitrogen 25.0 MG/DL H 7-17 06/09/2016 3:06/09/2016 3: 31am Creatinine 1.3 MG/DL H 0.7-1.2 06/09/2016 3:06/09/2016 3:31am BUN/Creatinine Ratio 19 RATIO 6-26 06/09/2016 3:06/09/2016 3:31am Glomerular Filtration Rate Calc 41 06/09/2016 3:06/09/2016 3: 31am Glucose Level 127 MG/DL H 65-110 06/09/2016 3:06/09/2016 3:31am Calculated Osmolality 277 MOSM/KG 261-280 06/09/2016 3:06/09/2016 3:31am Calcium Level 9.2 MG/DL 8.4-10.2 06/09/2016 3:06/09/2016 3:31am Troponin I 0.037 ng/ml 0-0.12 06/09/2016 3:06/09/2016 3:43am Troponin values with a difference of 55% increase from orginal troponin value represent a true biological DELTA value. (%increase Calc=Orginal Troponin value, divided by subsequent Troponin value, multiplied by 100) BX-Wnc-M-Type Natriuretic Peptide 591 PG/ML H 0-175 06/09/2016 3: 3:43am Rule in cut points: <50 years old=450; 50-75 years old=900; >75 years old=1800; When utilizing ProBNP rule-in cut points, adjustment for impaired renal function is typically not required. Arterial Blood pH 7.430 7.350-7.450 06/09/2016 4:06/09/2016 4: 38am Arterial Blood Partial Pressure CO2 53 MMHG H 34-45 06/09/2016 4: 4:38am Arterial Blood pO2 at Patient Temp 60 MMHG L 80-100 06/09/2016 4: 4:38am Arterial Blood HCO3 35 MEQ/L H 22-26 06/09/2016 4:25am 06/09/2016 4: 38am Arterial Blood Total CO2 36.8 MEQ/L H 23-27 06/09/2016 4:25am 2016 4:38am Arterial Blood Base Excess 9.2 MMOL/L H -2.0-2.0 06/09/2016 4:2506/09 4:38am Arterial Blood Oxygen Saturation 91.0 % L 95.0-98.0 06/09/2016 4:25 4:38am Blood Gas Oxygen Liter Flow 5.0 06/09/2016 4:2506/09/2016 4: 38am Oxygen Delivery Method (LAB) NASAL CANNULA,LITERS 06/09/2016 4:2506/09/2016 4:38am Influenza Type A Antigen NEGATIVE NEGATIVE 06/09/2016 4:30am 2016 4:56am Negative for Flu A protein antigen. Assay sensitivity is 90%. Influenza Type B Antigen NEGATIVE NEGATIVE 06/09/2016 4:30am 2016 4:56am Negative for Flu B protein antigen. Assay sensitivity is 90%. Urine Collection Type CLEANCATCH-MIDSTREAM 06/09/2016 4:46am 2016 4:54am Urine Color YELLOW YELLOW 06/09/2016 4:46am 06/09/2016 4:54am Urine Turbidity CLEAR CLEAR 06/09/2016 4:46am 06/09/2016 4:54am Urine Specific [place] 1.020 1.015-1.025 06/09/2016 4:46am 2016 4:54am Urine pH 6.0 5.0-8.0 06/09/2016 4:46am 06/09/2016 4:54am Urine Leukocyte Esterase NEGATIVE NEGATIVE 06/09/2016 4:46am 2016 4:54am Urine Nitrite NEGATIVE NEGATIVE 06/09/2016 4:46am 06/09/2016 4:54am Urine Protein NEGATIVE NEGATIVE 06/09/2016 4:46am 06/09/2016 4:54am Urine Glucose (UA) NEGATIVE NEGATIVE 06/09/2016 4:46am 06/09/2016 4: 54am Urine Ketones TRACE A NEGATIVE 06/09/2016 4:46am 06/09/2016 4:54am Urine Urobilinogen 0.2 EU/DL NORMAL 06/09/2016 4:46am 06/09/2016 4: 54am Urine Bilirubin NEGATIVE NEGATIVE 06/09/2016 4:46am 06/09/2016 4: 54am Urine Blood NEGATIVE NEGATIVE 06/09/2016 4:46am 06/09/2016 4:54am Urinalysis Comment MICROSCOPIC NOT IND. 06/09/2016 4:46am 2016 4:54am Microbiology Results Procedure Source Organism/Result Collection Date/Time Result Date/Time Result Status Blood Culture Peripheral/Iv Start NO GROWTH AFTER 5 DAYS 05/29/2016 12: 01am 06/03/2016 12:18am Final Procedures No known history of procedures. Encounters Encounter Location Arrival/Admit Date Discharge/Depart Date Attending Provider Departed Emergency Room [facility] 06/09/16 2:31am 06/09/16 6: 08am AUGUSTYESICA DO Registered [facility] 06/06/16 8:26am LEANNE THOMAS MD Discharged Inpatient [facility] 05/28/16 11:52pm 06/05/16 2:16pm SCARLETT UGARTE MD Recent Diagnosis
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
--- OUTSIDE RECORDS SUMMARY | 2016-07-14 01:52 | XMS REPORT | Referral Summary ---
Author Author [facility] Organization [facility] Address Unknown Phone Unavailable Care Team Providers Care Special Education Preschool Teacher Name Role Phone Osmany Haider Primary Care Physician [phone] Encounter Date(s): 02/06/16 - 02/06/16 [facility] [address] [place] [address]- Discharge Diagnosis: Intertrigo Discharge Diagnosis: Inflamed seborrheic keratosis Discharge Disposition: 01-Home or Self Care Attending Physician: Seda King APRN Referring Physician: Werner [...] A DAY, DX:250.02, # 306 strip, eRx: [facility] #[id number], TEST BLOOD SUGAR 6 TO 8 TIMES A DAY, DX:250.02 Start Date: 08/04/14 Status: Ordered Advair Diskus 250 mcg-50 mcg inhalation powder 1 puffs, Inhalation, BID, # 60 Each, 3 Refill(s), Pharmacy: [facility] # [id number] Start Date: 01/30/16 Status: Ordered allopurinol 300 mg oral tablet See Instructions, TAKE ONE TABLET BY MOUTH EVERY DAY, # 30 tabs, 5 Refill(s), eRx: [facility] #[id number], TAKE ONE TABLET BY MOUTH EVERY DAY Start Date: 08/15/15 Status: Ordered amitriptyline 25 mg oral tablet See Instructions, TAKE ONE TABLET BY MOUTH EVERY NIGHT AT BEDTIME, # 90 tabs, 1 Refill(s), eRx: [facility] #[id number], TAKE ONE TABLET BY MOUTH EVERY NIGHT AT BEDTIME Start Date: 01/07/16 Status: Ordered aspirin 81 mg oral tablet 81 mg 1 tabs, Oral, Daily, 0 Refill(s) Start Date: 12/26/14 Status: Ordered azithromycin 250 mg oral tablet 1 tabs, Oral, Thu//, # 13 tabs, 3 Refill(s), Pharmacy: [facility] # [id number], 1 tabs Oral Thu// Start Date: 11/30/15 Status: Ordered CPAP Machine (DME) See Instructions, # 1 Each, 0 Refill(s), Supply Start Date: 12/25/14 Status: Ordered cyclobenzaprine 10 mg oral tablet See Instructions, TAKE ONE TABLET BY MOUTH THREE TIMES A DAY, # 180 tabs, eRx: [facility] #[id number], TAKE ONE TABLET BY MOUTH THREE TIMES A DAY Start Date: 01/25/16 Status: Ordered fluticasone 50 mcg/inh nasal spray 1 sprays, Nasal, BID, # 16 g, 3 Refill(s), Pharmacy: [facility] #[id number] Start Date: 12/19/14 Status: Ordered FOR WEIGHT LOSS FOR WEIGHT LOSS, Oral, Daily, 0 Refill(s) Start Date: 11/05/15 Status: Ordered GABAPENTIN 300 MG CAPSULE See Instructions, TAKE ONE CAPSULE BY MOUTH TWICE A DAY, # 60 caps, 2 Refill(s) , eRx: [facility] #[id number], TAKE ONE CAPSULE BY MOUTH TWICE A DAY Start Date: 01/30/16 Status: Ordered gabapentin 300 mg oral capsule See Instructions, TAKE ONE CAPSULE BY MOUTH TWICE A DAY, # 60 caps, 3 Refill(s) , eRx: [facility] #[id number], TAKE ONE CAPSULE BY MOUTH TWICE A DAY Start Date: 10/09/15 Status: Ordered Glucagon Emergency Kit for Low Blood Sugar 1 mg injection See Instructions, INJECT NEEDED FOR LOW BLOOD SUGARS. USE WHEN UNABLE TO CHEW OR SWALLOW., # 2 kits, 1 Refill(s), eRx: [facility] #[id number], INJECT NEEDED FOR LOW BLOOD SUGARS. USE WHEN UNABLE TO CHEW OR SWALLOW. Start Date: 10/17/13 Status: Ordered Glucometer Lancets (DME) DME Item Accu Chek softclix lancet Check BS QID, See Instructions, # 1 Each, 0 Refill(s), Supply Start Date: 10/07/13 Status: Ordered HumaLOG 100 units/mL subcutaneous solution See Instructions, SubCutaneous TIDAC, # 2 boxes, 6 Refill(s), Pharmacy: [facility] #[id number], SubCutaneous TIDAC Start Date: 10/13/13 Status: Ordered ipratropium-albuterol 0.5 mg-2.5 mg/3 mLinhalation solution 3 mL, NEB, QID, # 90 mL, 1 Refill(s), Pharmacy: [facility] #[id number] Start Date: 12/12/15 Status: Ordered Klor-Con M20 oral tablet, extended release 20 mEq 1 tabs, Oral, Daily, # 90 tabs, 1 Refill(s), Pharmacy: [facility] # [id number], 1 tabs Oral Daily Start Date: 12/12/15 Status: Ordered KRO PEN NEEDLES 31G 6MM See Instructions, USE WITH HUMALOG AND LEVEMIR FOUR TIMES A DAY., # 100 unknown unit, 5 Refill(s), eRx: [facility] #[id number], USE WITH HUMALOG AND LEVEMIR FOUR TIMES A DAY. Start Date: 11/24/14 Status: Ordered Lasix 80 mg oral tablet 80 mg 1 tabs, Oral, BID, 0.5 tabs BID PER PT., # 180 tabs, 3 Refill(s), Pharmacy : [facility] #[id number], 1 tabs Oral BID Start Date: 09/20/15 Status: Ordered levothyroxine 50 mcg (0.05 mg) oral tablet See Instructions, TAKE ONE TABLET BY MOUTH DAILY, # 90 tabs, 3 Refill(s), eRx: [facility] #[id number], TAKE ONE TABLET BY MOUTH DAILY Start Date: 05/08/15 Status: Ordered Livalo 2 mg oral tablet See Instructions, TAKE ONE TABLET BY MOUTH EVERY DAY, # 30 tabs, 3 Refill(s), eRx: [facility] #[id number], TAKE ONE TABLET BY MOUTH EVERY DAY Start Date: 11/12/15 Status: Ordered Lotrisone 1%-0.05% topical cream 1 byron, Topical, BID, # 45 g, 0 Refill(s), Pharmacy: [facility] #[id number] Start Date: 02/06/16 Status: Ordered Melatonin 5 mg oral tablet See Instructions, as needed for insomnia, 2 tabs Oral Bedtime (once a day), 0 Refill(s) Start Date: 03/26/15 Status: Ordered metFORMIN 500 mg oral tablet See Instructions, TAKE ONE TABLET BY MOUTH TWICE A DAY, WITH MORNING AND EVENING MEALS, # 60 tabs, eRx: [facility] #[id number], TAKE ONE TABLET BY MOUTH TWICE A DAY, WITH MORNING AND EVENING MEALS Start Date: 10/10/14 Status: Ordered metoclopramide 5 mg oral tablet See Instructions, TAKE 1 TABLET BY MOUTH BEFORE MEAL(S) AND AT BEDTIME, # 120 tabs, 5 Refill(s), eRx: [facility] #[id number], TAKE 1 TABLET BY MOUTH BEFORE MEAL(S) AND AT BEDTIME Start Date: 07/03/15 Status: Ordered Braxton 10 mg-325 mg oral tablet 1-2 tabs, Oral, q6hr, as needed for pain, # 80 tabs, 0 Refill(s) Start Date: 12/12/15 Stop Date: 12/11/16 Status: Ordered nystatin 100,000 units/mL oral suspension 500,000 units 5 mL, Oral, TID, swish and swallow, # 150 mL, 0 Refill(s), Pharmacy: [facility] #[id number], 5 mL Oral TID,Instr:swish and swallow Start Date: 07/23/15 Stop Date: 07/22/16 Status: Ordered omeprazole 20 mg oral delayed release capsule See Instructions, TAKE ONE CAPSULE BY MOUTH EVERY DAY, # 30 caps, 5 Refill(s), eRx: [facility] #[id number], TAKE ONE CAPSULE BY MOUTH EVERY DAY Start Date: 01/02/16 Status: Ordered pramipexole 0.25 mg oral tablet See Instructions, TAKE ONE TABLET BY MOUTH EVERY NIGHT AT BEDTIME, # 30 tabs, 1 Refill(s), eRx: [facility] #[id number], TAKE ONE TABLET BY MOUTH EVERY NIGHT AT BEDTIME Start Date: 01/08/16 Status: Ordered ProAir HFA 90 mcg/inh inhalation aerosol 2 puffs, Inhalation, QID, as needed for wheezing, # 1 Each, 2 Refill(s), Pharmacy: [facility] #[id number] Start Date: 11/12/15 Stop Date: 02/10/16 Status: [...] Diagnosis Body Site Destruction (eg, laser surgery, 02/06/16 electrosurgery, cryosurgery, chemosurgery, surgical curettement), of benign [...] and Plan Extracted from: Title: Office Visit Note-Follow up Author: Seda King APRN Date: 02/06/16 Assessment/Plan 1.Inflamed seborrheic keratosis Inflamed seborrheic keratosis Reassurance regarding the benign nature of this lesion Cryotherapy x2 cycles (7 second freeze-thaw cycle), lesions, see physical examination for locations Discussed ABCDEs of melanoma and recommended monthly skin self-examination Discussed warning signs of NMSC Recommended pt schedule a clinic appointment for anyconcerning lesionsor if treated lesions do not resolve in 6 weeks. Ordered: Destruction, Of Flat Warts, Molluscum Contagiosum, Or Milia; Up To 14 Lesions [id number] 3.Intertrigo She has previously tried Zeasorb withlittle improvement. I recommend she keep area as clean and dry as possible and I will prescribe for her Lotrisone to apply to the affected areasBID.She is to follow up in 2 months or sooner withany new or worsening of symptoms. Ordered: clotrimazole-betamethasone topical, 1 byron, Topical, BID, # 45 g, 0 Refill(s), Pharmacy: [facility] #[id number] Office Visit Level 3 Est 10888 RTC 2 months for reevaluation of symptoms with new medication
--- OUTSIDE RECORDS SUMMARY | 2016-07-14 01:52 | XMS REPORT | Referral Summary ---
Author Author [facility] Organization [facility], [employer] [facility] Address Unknown Phone Unavailable Care Team Providers Care Production Tester Name Role Phone Osmany Haider Primary Care Physician [phone] Encounter VC Date(s): 02/21/16 - 02/21/16 [facility] [employer] [facility] [address] [place], [place] [address] Discharge Disposition: 01-Home or Self Care Attending Physician: Jazlyn Sage Vital Signs No data available for this [...] A DAY, DX:250.02, # 306 strip, eRx: [facility] #[id number], TEST BLOOD SUGAR 6 TO 8 TIMES A DAY, DX:250.02 Start Date: 08/04/14 Status: Ordered Advair Diskus 250 mcg-50 mcg inhalation powder 1 puffs, Inhalation, BID, # 60 Each, 3 Refill(s), Pharmacy: [facility] # [id number] Start Date: 01/30/16 Status: Ordered allopurinol 300 mg oral tablet See Instructions, TAKE ONE TABLET BY MOUTH EVERY DAY, # 30 tabs, 5 Refill(s), eRx: [facility] #[id number], TAKE ONE TABLET BY MOUTH EVERY DAY Start Date: 08/15/15 Status: Ordered amitriptyline 25 mg oral tablet See Instructions, TAKE ONE TABLET BY MOUTH EVERY NIGHT AT BEDTIME, # 90 tabs, 1 Refill(s), eRx: [facility] #[id number], TAKE ONE TABLET BY MOUTH EVERY NIGHT AT BEDTIME Start Date: 01/07/16 Status: Ordered aspirin 81 mg oral tablet 81 mg 1 tabs, Oral, Daily, 0 Refill(s) Start Date: 12/26/14 Status: Ordered azithromycin 250 mg oral tablet 1 tabs, Oral, Thu//, # 13 tabs, 3 Refill(s), Pharmacy: [facility] # [id number], 1 tabs Oral Thu// Start Date: 11/30/15 Status: Ordered CPAP Machine (DME) See Instructions, # 1 Each, 0 Refill(s), Supply Start Date: 12/25/14 Status: Ordered cyclobenzaprine 10 mg oral tablet See Instructions, TAKE ONE TABLET BY MOUTH THREE TIMES A DAY, # 180 tabs, eRx: [facility] #[id number], TAKE ONE TABLET BY MOUTH THREE TIMES A DAY Start Date: 01/25/16 Status: Ordered fluticasone 50 mcg/inh nasal spray 1 sprays, Nasal, BID, # 16 g, 3 Refill(s), Pharmacy: [facility] #[id number] Start Date: 12/19/14 Status: Ordered FOR WEIGHT LOSS FOR WEIGHT LOSS, Oral, Daily, 0 Refill(s) Start Date: 11/05/15 Status: Ordered GABAPENTIN 300 MG CAPSULE See Instructions, TAKE ONE CAPSULE BY MOUTH TWICE A DAY, # 60 caps, 2 Refill(s) , eRx: [facility] #[id number], TAKE ONE CAPSULE BY MOUTH TWICE A DAY Start Date: 01/30/16 Status: Ordered gabapentin 300 mg oral capsule See Instructions, TAKE ONE CAPSULE BY MOUTH TWICE A DAY, # 60 caps, 3 Refill(s) , eRx: [facility] #[id number], TAKE ONE CAPSULE BY MOUTH TWICE A DAY Start Date: 10/09/15 Status: Ordered Glucagon Emergency Kit for Low Blood Sugar 1 mg injection See Instructions, INJECT NEEDED FOR LOW BLOOD SUGARS. USE WHEN UNABLE TO CHEW OR SWALLOW., # 2 kits, 1 Refill(s), eRx: [facility] #[id number], INJECT NEEDED FOR LOW BLOOD SUGARS. USE WHEN UNABLE TO CHEW OR SWALLOW. Start Date: 10/17/13 Status: Ordered Glucometer Lancets (DME) DME Item Accu Chek softclix lancet Check BS QID, See Instructions, # 1 Each, 0 Refill(s), Supply Start Date: 10/07/13 Status: Ordered HumaLOG 100 units/mL subcutaneous solution See Instructions, SubCutaneous TIDAC, # 2 boxes, 6 Refill(s), Pharmacy: [facility] #[id number], SubCutaneous TIDAC Start Date: 10/13/13 Status: Ordered ipratropium-albuterol 0.5 mg-2.5 mg/3 mLinhalation solution 3 mL, NEB, QID, # 90 mL, 1 Refill(s), Pharmacy: [facility] #[id number] Start Date: 12/12/15 Status: Ordered Klor-Con M20 oral tablet, extended release 20 mEq 1 tabs, Oral, Daily, # 90 tabs, 1 Refill(s), Pharmacy: [facility] # [id number], 1 tabs Oral Daily Start Date: 12/12/15 Status: Ordered KRO PEN NEEDLES 31G 6MM See Instructions, USE WITH HUMALOG AND LEVEMIR FOUR TIMES A DAY., # 100 unknown unit, 5 Refill(s), eRx: [facility] #[id number], USE WITH HUMALOG AND LEVEMIR FOUR TIMES A DAY. Start Date: 11/24/14 Status: Ordered Lasix 80 mg oral tablet 80 mg 1 tabs, Oral, BID, 0.5 tabs BID PER PT., # 180 tabs, 3 Refill(s), Pharmacy : [facility] #[id number], 1 tabs Oral BID Start Date: 09/20/15 Status: Ordered levothyroxine 50 mcg (0.05 mg) oral tablet See Instructions, TAKE ONE TABLET BY MOUTH DAILY, # 90 tabs, 3 Refill(s), eRx: [facility] #[id number], TAKE ONE TABLET BY MOUTH DAILY Start Date: 05/08/15 Status: Ordered Livalo 2 mg oral tablet See Instructions, TAKE ONE TABLET BY MOUTH EVERY DAY, # 30 tabs, 3 Refill(s), eRx: [facility] #[id number], TAKE ONE TABLET BY MOUTH EVERY DAY Start Date: 11/12/15 Status: Ordered Lotrisone 1%-0.05% topical cream 1 byron, Topical, BID, # 45 g, 0 Refill(s), Pharmacy: [facility] #[id number] Start Date: 02/06/16 Status: Ordered Melatonin 5 mg oral tablet See Instructions, as needed for insomnia, 2 tabs Oral Bedtime (once a day), 0 Refill(s) Start Date: 03/26/15 Status: Ordered metFORMIN 500 mg oral tablet See Instructions, TAKE ONE TABLET BY MOUTH TWICE A DAY, WITH MORNING AND EVENING MEALS, # 60 tabs, eRx: [facility] #[id number], TAKE ONE TABLET BY MOUTH TWICE A DAY, WITH MORNING AND EVENING MEALS Start Date: 10/10/14 Status: Ordered metoclopramide 5 mg oral tablet See Instructions, TAKE 1 TABLET BY MOUTH BEFORE MEAL(S) AND AT BEDTIME, # 120 tabs, 5 Refill(s), eRx: [facility] #[id number], TAKE 1 TABLET BY MOUTH BEFORE MEAL(S) AND AT BEDTIME Start Date: 07/03/15 Status: Ordered Wortham 10 mg-325 mg oral tablet 1-2 tabs, Oral, q6hr, as needed for pain, # 80 tabs, 0 Refill(s) Start Date: 12/12/15 Stop Date: 12/11/16 Status: Ordered nystatin 100,000 units/mL oral suspension 500,000 units 5 mL, Oral, TID, swish and swallow, # 150 mL, 0 Refill(s), Pharmacy: [facility] #[id number], 5 mL Oral TID,Instr:swish and swallow Start Date: 07/23/15 Stop Date: 07/22/16 Status: Ordered omeprazole 20 mg oral delayed release capsule See Instructions, TAKE ONE CAPSULE BY MOUTH EVERY DAY, # 30 caps, 5 Refill(s), eRx: [facility] #[id number], TAKE ONE CAPSULE BY MOUTH EVERY DAY Start Date: 01/02/16 Status: Ordered pramipexole 0.25 mg oral tablet See Instructions, TAKE ONE TABLET BY MOUTH EVERY NIGHT AT BEDTIME, # 30 tabs, 1 Refill(s), eRx: [facility] #[id number], TAKE ONE TABLET BY MOUTH EVERY NIGHT AT BEDTIME Start Date: 01/08/16 Status: Ordered ProAir HFA 90 mcg/inh inhalation aerosol 2 puffs, Inhalation, QID, as needed for wheezing, # 1 Each, 2 Refill(s), Pharmacy: [facility] #[id number] Start Date: 02/07/16 Stop Date: 05/07/16 Status: [...]
--- OUTSIDE RECORDS SUMMARY | 2016-07-14 01:53 | XMS REPORT | Referral Summary ---
Author Author [facility] Organization [facility] Address Unknown Phone Unavailable Care Team Providers Care Business Account Manager Name Role Phone Osmany Haider Primary Care Physician [phone] Encounter VC Date(s): 06/09/16 - 06/19/16 [facility] [address] [place] [address] Discharge Disposition: 01-Home or Self Care Attending Physician: Raquel Guan DO Admitting Physician: Raquel Guan DO Vital Signs Most recent to 1 oldest [Reference Range]: Temperature Axillary 36.6 degC [35.2-36.7 degC] (06/18/16 11:35 AM) Temperature Oral 36.4 degC [35.8-37.3 degC] (06/19/16 7:00 AM) Peripheral Pulse 84 bpm Rate [60-100 bpm] (06/19/16 7:00 AM) Heart Rate Monitored 84 bpm [60-100 bpm] (06/19/16 9:00 AM) Respiratory Rate 18 br/min [14-20 br/min] (06/19/16 9:00 AM) Blood Pressure 151/77 mmHg [90-140/60-90 mmHg] *HI* (06/19/16 7:00 AM) Mean Arterial 103 mmHg Pressure, Cuff (06/14/16 9:00 PM) Pulse Rate [60-100 84 bpm bpm] (06/16/16 8:03 PM) SpO2 94 % (06/19/16 8:50 AM) Remote Telemetry Ongoing (06/18/16 9:00 PM) Problem List Condition Effective Dates Status Health Status Informant Acute Active pain(Confirmed) At risk for Active injury(Confirmed)1 At risk for unstable Active blood glucose level(Confirmed)2 Benign essential Active hypertension (disorder)(Confirmed ) Bronchiectasis(Confi [...] apnea(Confirmed) Hypertension(Confirm Resolved ed) Impaired gas Active exchange(Confirmed)3 Ineffective airway Active clearance(Confirmed) 4 Irritable bowel Resolved disease(Confirmed) Irritable bowel Active syndrome (disorder)(Confirmed ) Mixed hyperlipidemia Active (disorder)(Confirmed ) Morbid obesity Active (disorder)(Confirmed ) Obesity(Confirmed) Resolved Severe obstructive Active sleep apnea(Confirmed) Pedal Active edema(Confirmed) Pure Active hypercholesterolemia (disorder)(Confirmed ) Renal Resolved insufficiency(Confir med) Type II diabetes Resolved mellitus uncontrolled (finding)(Confirmed) 1Problem added automatically by system based on initiation of Risk for Injury Plan of Care 2Problem added automatically by system based on initiation of At Risk for Unstable Blood Glucose Plan of Care 3Problem added automatically by system based on initiation of Impaired Gas Exchange Plan of Care 4Problem added automatically by system based on initiation [...] DAY, # 30 tabs, 4 Refill(s), eRx: [facility] #[id number], TAKE ONE TABLET BY MOUTH EVERY DAY Start Date: 06/11/16 Status: Ordered amitriptyline 25 mg, Oral, Bedtime (once a day), 0 Refill(s) Start Date: 06/09/16 Status: Ordered aspirin 81 mg, Oral, Daily, 0 Refill(s) Start Date: 06/09/16 Status: Ordered Augmentin 875 mg-125 mg oral tablet 1 tabs, Oral, q12hr (scheduled), X 7 days, # 14 tabs, 0 Refill(s) Start Date: 06/18/16 Stop Date: 06/25/16 Status: Ordered cyclobenzaprine 10 mg, Oral, TID, 0 Refill(s) Start Date: 06/09/16 Status: Ordered doxycycline 100 mg, Oral, Mon/We/Fr, 0 Refill(s) Start Date: 06/09/16 Status: Ordered [...] 0 Refill(s) Start Date: 06/18/16 Status: Ordered Cadet 10 mg-325 mg oral tablet 2 tabs, Oral, q6hr, Pain Severe (7-10), 0 Refill(s) Start Date: 06/09/16 Status: Ordered Norvasc 5 mg oral tablet 5 mg 1 tabs, Oral, Daily, # 30 tabs, 0 Refill(s) Start Date: 06/18/16 Status: Ordered omeprazole 20 mg, Oral, Daily, [...] days, # 33 tabs, 0 Refill(s), Pharmacy: [facility] # [id number], 3 tabs Oral Daily,x11 days,Instr:3 tabs for [...] Refill(s) Start Date: 06/09/16 Status: Ordered Results Hematology Most recent to 1 oldest [Reference Range]: WBC [4.8-10.8 9.2 10*3/uL 10*3/uL] (06/19/16 7:04 AM) RBC [4.00-5.20] 4.40 (06/19/16 7:04 AM) Hgb [12.0-16.0 10.9 gm/dL gm/dL] *LOW* (06/19/16 7:04 AM) Hct [37.0-47.0 %] 36.7 % *LOW* (06/19/16 7:04 AM) MCV [82.0-99.0 fL] 83.4 fL (06/19/16 7:04 AM) MCH [27.0-32.0 pg] 24.8 pg *LOW* (06/19/16 7:04 AM) MCHC [32.0-36.0 29.7 gm/dL gm/dL] *LOW* (06/19/16 7:04 AM) RDW [11.5-14.5 %] 18.9 % *HI* (06/19/16 7:04 AM) Platelet [150-400 229 10*3/uL 10*3/uL] (06/19/16 7:04 AM) MPV [9.4-12.4 fL] 10.1 fL (06/19/16 7:04 AM) Immature 0.5 % Granulocytes (06/11/16 7:14 AM) [0.0-1.0 %] Neutrophils [51-75 76 % %] *HI* (06/11/16 7:14 AM) Lymphocytes [20-46 17 % %] *LOW* (06/11/16 7:14 AM) Monocytes [4-11 %] 7 % (06/11/16 7:14 AM) Eosinophils [0-4 %] 0 % (06/11/16 7:14 AM) Basophils [0-2 %] 0 % (06/11/16 7:14 AM) Neutro Absolute 13.95 [1.90-7.00] *HI* (06/11/16 7:14 AM) Lymph Absolute 3.10 [0.80-3.30] (06/11/16 7:14 AM) Kings Absolute 1.25 [0.30-1.00] *HI* (06/11/16 7:14 AM) Eos Absolute 0.00 [0.00-0.50] (06/11/16 7:14 AM) Baso Absolute 0.01 [0.00-0.20] (06/11/16 7:14 AM) Nucleated RBC 0.0 /100 WBC Automated [0 /100 (06/11/16 7:14 AM) WBC] Coagulation Most recent to 1 oldest [Reference Range]: INR [0.9-1.2] 1.0 (06/09/16 8:13 AM) Chemistry Most recent to 1 oldest [Reference Range]: Sodium Lvl [136-144 133 mEq/L mEq/L] *LOW* (06/19/16 7:04 AM) Potassium Lvl 3.8 mEq/L [3.6-5.1 mEq/L] (06/19/16 7:04 AM) Chloride [99-109 100 mEq/L mEq/L] (06/19/16 7:04 AM) CO2 [22-32 mEq/L] 28 mEq/L (06/19/16 7:04 AM) AGAP [3-20] 5 (06/19/16 7:04 AM) BUN [4-20 mg/dL] 15 mg/dL (06/19/16 7:04 AM) Glucose Lvl [70-100 248 mg/dL mg/dL] *HI* (06/19/16 7:04 AM) Creatinine Lvl 1.27 mg/dL [0.44-1.03 mg/dL] *HI* (06/19/16 7:04 AM) eGFR [>60] 42 1 *ABN* (06/19/16 7:04 AM) Calcium Lvl 8.6 mg/dL [8.6-10.0 mg/dL] (06/19/16 7:04 AM) Albumin Lvl [3.5-4.8 2.6 gm/dL gm/dL] *LOW* (06/16/16 7:12 AM) Total Protein 5.7 gm/dL [6.1-7.9 gm/dL] *LOW* (06/16/16 7:12 AM) Globulin [1.9-4.3 3.1 gm/dL gm/dL] (06/16/16 7:12 AM) ALT [14-54 U/L] 30 U/L (06/16/16 7:12 AM) AST [15-41 U/L] 19 U/L (06/16/16 7:12 AM) Alk Phos [26-104 62 U/L U/L] (06/16/16 7:12 AM) Bili Total [0.2-1.2 0.6 mg/dL 2 mg/dL] (06/16/16 7:12 AM) Magnesium Lvl 2.2 mg/dL [1.8-2.5 mg/dL] (06/11/16 7:14 AM) BNP [0-99 pg/mL] 70 pg/mL (06/14/16 7:09 AM) Blood Glucose, 185 mg/dL Capillary [70-100 *HI* mg/dL] (06/19/16 10:08 AM) TSH with Reflex Free 0.37 T4 [0.35-5.50] (06/10/16 5:44 AM) 1Result Comment: Multiply eGFR results by 1.21 for race. 2Result Comment: Naproxen, specifically the metabolite O-desmethylnaproxen, may cause spurious elevation in Total Bilirubin levels. Immunizations Given and Recorded Vaccine Date Status [...]
--- OUTSIDE RECORDS SUMMARY | 2016-07-14 01:53 | XMS REPORT | Continuity of Care Document ---
Author Author [facility] Organization [facility] Address Unknown Phone Unavailable Support Name Relationship Address Phone WILLY ARANA MD Caregiver [address] [place] [address] YUSUF MONTANO MD Caregiver [address] [place] [address] LEANNE THOMAS MD Caregiver [address] [phone] KIEL CAMPOS Next Of Kin [address] [facility] [address] [place] [address] C Insurance Providers Payer Name Policy Number Subscriber Name Relationship Medicare [id number] Paul Campos 20 Self [facility] Preferred [id number] Kiel Campos 01 Spouse Advance Directives Directive Response Recorded Date/Time Ordered Resuscitation Status Full Code 01/19/14 8:24pm Resuscitation Documents on File No 01/19/14 11:23pm Chief Complaint and Reason for Visit Chief Complaint ELECTIVE RIGHT TOTAL HIP REPLACEMENT BMI OF 50. Reason for Visit S/P hip replacement Diabetes Hypertension GERD (gastroesophageal reflux disease) Morbid obesity with BMI of 45.0-49.9, adult Chronic kidney disease (CKD), stage III (moderate) History of anemia Anticoagulated on Coumadin Problems Medical Problems Problem Onset Date Status [...] Unknown Active Anticoagulated on Coumadin Unknown Active Surgical Problems Problem Onset Date [...] 1 Tab PO DAILY 05/29/10 11/18/10 Discontinued [place]-3 Fatty Acids/Vitamin E 1 Cap PO DAILY [...] Instructions Instructions: Care Instructions: Reason for Hospitalization: Intertrochateric Right Femur Fracture I was in the hospital because (patient own words): "Leaving [employer] when my started to fall and he fell on top of me" Discharge Diet: No added salt, no concentrated sweets Discharge Activity: Walker for assistance Follow Up Appointments: Dr Simon in [address] Montano in [address] Mcdaniel post discharge from Skilled to initate chemo Condition at time of discharge: Good Condition at time of discharge: Good Condition at time of discharge: Good 1.Take your anticoagulant (Aspirin, Coumadin, Lovenox,etc) as [...] of your legs. 3.During office hours, call [phone] 4. After hours, please call [facility] at [phone], and have the long distance billing operator page your Surgeon IN THE EVENT OF AN EMERGENCY, seek medical care at the nearest Emergency Room Condition at time of discharge: Good Care Plan Discharge Patient: Goal: Understand discharge plan Patient Instructions: see patient instructions Plan of Care Discharge Date 01/27/14 2:57pm Disposition 01 DISCHARGED HOME, SELF-CARE Prescriptions See Medications Section Functional Status Query Response Date Recorded Physical Hygiene Assist January 19, 2014 3:27pm Physical Hygiene Assist January 19, 2014 3:27pm Allergies, Adverse Reactions, [...] Historical Hx Influenza Vaccination Y 01/25/2014 Historical Influenza, seasonal, injectable 01/25/14 Administered Vital Signs Acute Vital Signs Vital Response Date/Time Temperature (Fahrenheit) 96.3 deg F (96.8 - 99.1) Temperature (Calculated Celsius) 35.94838 degrees C (36.0 - 37.3) Temperature Source Temporal Pulse Rate (adult) 90 bpm (60 - 100) Respiratory Rate 18 breaths/min (10 - 20) O2 Sat by Pulse Oximetry 94 % (90 - 100) Height 5 ft 1 in Weight 271 lb Body Mass Index 51.0 kg/m^2 Results Test Source Date Result Interp. Ref. Range Comments Alanine Aminotransferase (ALT/SGPT) January 16, 2014 11:54am 23 U/L N 9-[address] [facility], ALSO HAS [facility]A ORDERED Albumin January 16, 2014 11:54am 4.3 G/DL N 3.5-5.0 COMMENT [facility] PREOP, ALSO HAS UA ORDERED Albumin/Globulin Ratio January 16, 2014 11:54am 1.4 RATIO N 1.1-2.[address] [facility], ALSO HAS UA ORDERED Alkaline Phosphatase January 16, 2014 11:54am 107 U/L N 38-[address] [facility], ALSO HAS UA ORDERED Anion Gap January 20, 2014 5:19am 6 MEQ/L N 5-15 Aspartate Amino Transf (AST/SGOT) January 16, 2014 11:54am 28 U/L N 14 -[address] [facility], ALSO HAS UA ORDERED BUN/Creatinine Ratio [...] 20, 2014 5:19am 32 MEQ/L H 22-30 Chemistry Specimen Hemolysis January 20, 2014 5:19am [...] Phenytoin. Recommend specimen recollection. Chloride Level January 20, 2014 5:19am 99 [...] COMMENT LAURIEAndrzej KINGSLEY, ALSO HAS UA ORDERED Glomerular Filtration Rate Calc January 20, 2014 5:19am 55 - Glucometer January 27, 2014 2:05pm 104 mg/dL N 65-110 Glucose Level January 20, 2014 5:19am 114 MG/DL H 65-110 Hematocrit January 21, 2014 5:22am 28.5 % L 36-46 Hemoglobin January 21, 2014 5:22am 8.6 GM/DL L 12-16 Icterus Index January 20, 2014 5:19am < 2 0-7 Immature Granulocyte # (Auto) January 20, 2014 5:18am 0.04 T/MM3 H 0.00-0.03 Immature Granulocyte % (Auto) January 20, 2014 5:18am 0.4 % N 0.0-0.5 Influenza Type A Antigen May 22, 2013 [...] 29, 2010 12:57pm LAB TEST FORM REQUEST [id number] - Lymphocytes # (Auto) January 20, 2014 5:18am 2.9 T/MM3 N 1-4.8 Lymphocytes # (Manual) November 20, 2010 7:47am 3.4 T/MM3 N 1-4.8 Lymphocytes % (Manual) November 20, 2010 7:47am 28.0 % N 23-45 Lymphocytes (%) (Auto) January 20, 2014 5:18am 30.1 % N 23-45 MRSA Specimen Source December 20, 2013 12:30pm Nasal - COMMENT PREOP MRSA SCREEN V74.8 Mean Corpuscular Hemoglobin January 21, 2014 5:22am 27.8 UUG N 26-34 Mean Corpuscular Hemoglobin Concent January 21, 2014 5:22am 30.2 GM/DL L 31-37 Mean Corpuscular Volume January 21, 2014 5:22am 92.2 UM3 N 80-100 Mean Platelet Volume January 21, 2014 5:22am 10.1 UM3 N 9.4-12.4 Methicillin-Resist S.aureus DNA PCR December 20, 2013 12:30pm Negative - COMMENT PRE[facility] MRSA SCREEN V74.8 Monocytes # (Auto) January 20, 2014 5:18am [...] in lab Prothromb Time International Ratio January 27, 2014 5:25am 1.90 H 0.81- 1.09 THERAPUTIC RANGE=2.00-3.00 FOR ANTI-THROMBOSIS [...] 2014 11:54am 0.50 MG/DL N 0.20-1.30 COMMENT LAURIEU PREOP, ALSO HAS UA ORDERED Total Creatine Kinase May 19, 2008 12:23pm 102 U/L N 30-135 Total Protein January 16, 2014 11:54am 7.3 G/DL N 6.3-8.2 COMMENT EZEKIEL PREOP, ALSO HAS UA ORDERED Troponin I November 09, 2010 12:00pm 0.014 ng/ml N 0-0.12 Turbidity January 20, 2014 5:19am < 20 0-20 Uric Acid September 12, [...] Has specimen been collected/obtained? Y Urine Specific [place] January 27, 2014 11:20am <=1.005 L - [...] 21, 2014 5:22am 8.8 T/MM3 N 4.5-11.0 Urine Culture Urine, Clean Catch-Midstream January 25, 2014 6:48am Mixed Nayely Prob. Contaminants Gram Stain Abdomen,Non-Surgical Site December 23, 2010 11:30am Name: PAUL CAMPOS Unit #: [id number] : 1945 Sex: F Loc / Svc: MED DOS: Signed Report #: [id number] DIAGNOSTIC IMAGING REPORT TYPE OF EXAM: CHEST [...] IMPRESSION: No acute cardiopulmonary abnormality. . Procedures No known history of procedures. Encounters Encounter Location Date/Time Discharged Inpatient [facility] 01/19/14 4:45pm Discharged Inpatient [facility] 01/17/14 5:31am Registered Clinic [facility] 12/20/13 11:45am Recent Diagnosis Diabetes Hypertension GERD (gastroesophageal reflux disease) Morbid obesity with BMI of 45.0-49.9, adult Chronic kidney disease (CKD), stage III (moderate) History of anemia Anticoagulated on Coumadin
--- NOTE | 2016-07-14 02:04 | ERPDOC ---
Departure Disposition Decision Date: Jul 14, 2016 Disposition Decision Time: 02:56 Disposition: 02 TO [facility] Impression Impression Impression: Primary Impression: COPD exacerbation Additional Impressions: Bronchiectasis Bronchiectasis type: with acute exacerbation Qualified Codes: J47.1 - Bronchiectasis with (acute) exacerbation Hypoxemia Severity: Severe Condition: Improved Seen By: Physician only Referrals: LEANNE THOMAS MD (Family) Problems/Meds/Labs Reviewed?: Yes Medications reviewed and manag: Yes Follow up care ordered?: Yes Mental Status: Alert HPI - Dyspnea General Chief Complaint: Dyspnea/Respdistress Stated Complaint: DIFF BREATHING Time Seen by Provider: 01:41 Source: patient, family Exam Limitations: no limitations HPI - Dyspnea Initial Comments patient presents with severe difficulty breathing tonight that began earlier in the day. Patient has severe COPD and bronchiectasis history, was admitted ice in May for the same problem. Patient took a breathing treatment at home, with no improvement, so she came to the ER. Occurred At: home Onset/Timing: Rapid Duration: 12-24 hrs Severity: moderate, severe Activities at Onset: none Associated Symptoms: cough, shortness of breath, DENIES: chest pain, diaphoresis, fever/chills, headaches, loss of appetite, malaise, nausea/vomiting , rash, seizure, syncope, weakness Aspirin Treatment Today: unknown Hx of Similar Symptoms: Yes Allergies: Coded Allergies: adhesive tape (Verified Allergy, Mild, RASH, 07/14/16) NSAIDS (Non-Steroidal Anti-Inflamma (Verified Adverse Reaction, Unknown, MIGRAINE VICKERS,FLUID RETENTION, 07/14/16) naproxen (Verified Adverse Reaction, Unknown, MIGRAINE VICKERS,FLUID RETENTION , 07/14/16) Past History Patient Medical History Problem List Updates: COPD Bronchiectasis IDDM Patient Surgical History right total hip Past Medical History Metabolic: diabetes, hypercholesterolemia, hypertension, hypothyroidism Cardiac: CHF Respiratory: COPD GI: GERD, IBS Female: UTI, renal insufficiency Musculoskeletal: back pain, osteoarthritis Hematologic: DVT, anemia Surgical History General: appendix, back, other Reproductive/: hysterectomy Joint: hip, knee, other Family History Family PMH: FOUND: diabetes Vaccines Hx Influenza Vaccination: Yes (Jan 2016) Hx Pneumococcal Vaccination: Yes Social History Substance Use Type: does not use Sexuality: male partner Housing: house Current Occupational Status: retired Review of Systems Constitutional Constitutional: DENIES: appetite decrease, appetite increase, chills, dizziness , fever, weakness ENMT Ears: DENIES: pain Hearing: DENIES: hearing loss, tinnitus Balance: DENIES: vertigo Mouth/Throat: DENIES: change in swallowing, change in voice, hoarsness, painful swallowing, sore throat Cardiovascular Cardiac: DENIES: chest pain, dyspnea on exertion Rhythm/Rate: DENIES: irregular beat, palpitations, tachycardia Vascular: DENIES: pedal edema Pulmonary Respiratory: cough, dyspnea, pneumonia hx, sputum, DENIES: exposure to TB, hyperventilation, last PPD, pleuritic chest pain, recent risky activities, tachypnea GI Upper Abdomen: DENIES: dysphagia, heartburn/indigestion, nausea, pain, vomiting Lower Abdomen: DENIES: blood in stool, constipation, diarrhea, pain General: DENIES: burning, dysuria, frequency, pain, urgency Musculoskeletal General: DENIES: cramps, joint pain, joint swelling, pain, weakness Integumentary Skin: DENIES: rash, sores Neurological General: DENIES: headache, numbness, tingling, vertigo, weakness Physical Exam General General Nourishment: well nourished, well developed, appears stated age, obese General Body Habitus: well groomed Vitals and Pain First Documented Vital Signs Date Time Temp Pulse Resp B/P Pulse Ox O2 Delivery O2 Flow Rate FiO2 07/14/16 01:49 98.6 115 30 128/61 85 Room Air Weight: Kilograms: 140.800 Height (feet): 5 Height (inches): 0 Triage Pain Scale: RN VS reviewed by Provider: Yes Normal Exams: Head: Normocephalic w/o trauma Eyes: Pupils are PERRLA w/ EOMI, No scleral icterus, irritation, or foreign bodies noted ENMT: No facial trauma, nasal exudates, pharyngeal erythema, or exudates are noted Neck: Full range of motion, without adenopathy, JVD, bruits or thyromegaly Lymphatic: No lymphadenopathy, or lymphedema noted Musculoskeletal: No tenderness, or deformity noted, good range of motion, all extremities Integumentary: No rashes, hives, or bruising noted, hair and nails, without abnormality Neurologic: Patient is alert, and oriented, cranial nerves, motor/sensory/ cerebellar, exams w/o gross deficits, to observation Psychiatric: Patient exhibits, appropriate attention, emotion and affect Respiratory (brief) Respiratory: FOUND: equal bilaterally, symmetrical, wheezes, NOT FOUND: clear all collins (course tight wheezes bilaterally with poor air movement), rales, tenderness Cardiovascular (brief) Cardiac: FOUND: regular rate, regular rhythm, NOT FOUND: click, gallop, murmur , pedal edema Capillary Refill: <2 sec Pulses: all distal extremities, equal, strong Progress Results/Orders Orders Procedure Category Date Status Time Iv Lock (Ed Only) EDM 07/14/16 Transmitted 01:43 Cbc W/Auto LAB 07/14/16 Complete Diff-Reflex Manual Lactate - Lactic Acid LAB 07/14/16 Complete Chest 1 View RAD 07/14/16 Taken Lactate - Lactic Acid LAB 07/14/16 Logged 06:13 Albuterol/Ipratropium PHA 07/14/16 Complete (Duoneb) 01:45 Methylprednisolone PHA 07/14/16 Complete Sod Succ (Solu-Medrol 01:45 Albuterol/Ipratropium PHA 07/14/16 In Process (Duoneb) 02:45 Lab Results Laboratory Tests Test 07/14/16 02:03 White Blood Count 10.0T/MM3 Red Blood Count 3.81M/MM3 Hemoglobin 10.0GM/DL Hematocrit 32.5% Mean Corpuscular Volume 85.3UM3 Mean Corpuscular Hemoglobin 26.2UUG Mean Corpuscular Hemoglobin Concent 30.8GM/DL RDW Standard Deviation 60.8FL Platelet Count 271T/MM3 Mean Platelet Volume 10.2UM3 Immature Granulocyte % (Auto) 0.6% Neutrophils (%) (Auto) 56.2% Lymphocytes (%) (Auto) 33.0% Monocytes (%) (Auto) 8.2% Eosinophils (%) (Auto) 1.8% Basophils (%) (Auto) 0.2% Absolute Immature Granulocyte (auto 0.06T/MM3 Absolute Neutrophils (auto) 5.6T/MM3 Absolute Lymphocytes (auto) 3.3T/MM3 Absolute Monocytes (auto) 0.8T/MM3 Absolute Eosinophils (auto) 0.2T/MM3 Absolute Basophils (auto) 0.0T/MM3 Plasma Lactate 2.9MMOL/L Medications Current ED Medications Albuterol/ Ipratropium (Duoneb) 6 ml O ONCE AEROSOL Last administered on 01:53; Start 07/14/16 at 01:45; Stop 07/14/16 at 01:46; Status DC Methylprednisolone Sodium Succinate (Solu-Medrol) 125 mg O ONCE IV Last administered on 07/14/16 02:09; Start 07/14/16 at 01:45; Stop 07/14/16 at 01:46 ; Status DC Albuterol/ Ipratropium (Duoneb) 6 ml O ONCE AEROSOL ; Start 07/14/16 at 02:45; Stop 07/14/16 at 02:46 Progress Progress Patient given Solu-Medrol 125 mg IV, DuoNeb nebs 2 - feels significantly improved, but remains hypoxemic on room air. Chest x-ray - chronic interstitial infiltrates, no consolidations no changes from prior studies CBC - normal Lactate - mildly elevated at 2.9, this appears to be probable reaction to hypoxemia Patient was kept on 2 L nasal cannula, feels good, but admits she is still moderately short of breath with any sitting up straight standing or walking. Case is discussed with a board, for Dr. Hoskins - Dr. Raquel Guan septum patient to via TERRELL Ibanez MD Jul 14, 2016 02:04
[2016-07-14 02:14] LABS: BASOPHILS % (AUTO) 0.2 % (0-2); EOSINOPHILS # (AUTO) 0.2 T/MM3 (0-0.5); EOSINOPHILS % (AUTO) 1.8 % (0-4); HCT - HEMATOCRIT 32.5 % (36-46); IMMATURE GRANULOCYTE # (AUTO) 0.06 T/MM3 (0.00-0.03); IMMATURE GRANULOCYTE % (AUTO) 0.6 % (0.0-0.5); LYMPHOCYTES # (AUTO) 3.3 T/MM3 (1-4.8); MEAN CORPUSCULAR HGB 26.2 UUG (26-34); MEAN CORPUSCULAR HGB CONC(MCHC 30.8 GM/DL (31-37); MEAN CORPUSCULAR VOLUME 85.3 UM3 (80-100); MEAN PLATELET VOLUME 10.2 UM3 (9.4-12.4); MONOCYTES # (AUTO) 0.8 T/MM3 (0-0.8); MONOCYTES % (AUTO) 8.2 % (0-9.0); NEUTROPHILS #(AUTO)-ABSOLUTE 5.6 T/MM3 (1.8-7.7); NEUTROPHILS % (AUTO) 56.2 % (33-66); RED BLOOD COUNT 3.81 M/MM3 (4.00-5.20)
--- OUTSIDE RECORDS SUMMARY | 2016-07-14 02:17 | XMS REPORT | Continuity of Care Document ---
Author Author [facility] Organization [facility] Address Unknown Phone Unavailable Support Name Relationship Address Phone YUSUF BRADFORD MD Caregiver [address] [place] [address] LEANNE THOMAS MD Caregiver [address] [phone] KIEL CAMPOS Next Of Kin [address] [facility] [address] [place] [address] C Insurance Providers Payer Name Policy Number Subscriber Name Relationship Medicare [id number] Paul Campos 20 Self [facility] Preferred [id number] Kiel Campos 01 Spouse Advance Directives Directive [...] 1 Tab PO DAILY 05/29/10 11/18/10 Discontinued [place]-3 Fatty Acids/Vitamin E 1 Cap PO DAILY [...] POTENTIALLY BE LIFE [employer]REATENING! Durable Medical Equipment: [employer] [phone] Notify Physician If: CALL YOUR SURGEON IF: [...] and call Dr. Wong with the result [phone]. Condition at time of discharge: Good Plan of Care Discharge Date 01/19/14 4:40pm Disposition 62 TO [facility] Instructions/Education Provided [facility] Ortho Postop DC Instruct Prescriptions See Medications [...] F (96.8 - 99.1) Temperature (Calculated Celsius) 37.92050 degrees C (36.0 - 37.3) Temperature Source [...] 29, 2010 12:57pm LAB TEST FORM REQUEST [id number] - Lymphocytes # (Auto) January 16, 2014 [...] PREOPHas specimen been collected/obtained? Y Urine Specific [place] January 16, 2014 11:55am 1.010 L - [...] 2010 11:30am Name: PAUL CAMPOS Unit #: [id number] : 1945 Sex: F Loc / Svc: MED DOS: Signed Report #: [id number] DIAGNOSTIC IMAGING REPORT TYPE OF EXAM: CHEST [...] MD Encounters Encounter Location Date/Time Admitted Inpatient [facility] 01/17/14 5:31am Registered Clinic [facility] 12/20/13 11:45am Registered Clinic [facility] 10/21/13 9:21am Recent Diagnosis Diabetes Hypertension Hyperlipidemia COPD (chronic obstructive pulmonary disease) GERD (gastroesophageal reflux disease) Morbid obesity with BMI of 45.0-49.9, adult IBS (irritable bowel syndrome) Chronic kidney disease (CKD), stage III (moderate) Obstructive sleep apnea Mild aortic stenosis History of anemia Mild pulmonary hypertension Hypothyroidism
--- OUTSIDE RECORDS SUMMARY | 2016-07-14 02:18 | XMS REPORT | Continuity of Care Document ---
Author Author [facility] Organization [facility] Address Unknown Phone Unavailable Support Name Relationship Address Phone JANET LOO FACS, MD Caregiver [address] [place] [address] [place] [phone] LEANNE THOMAS MD Caregiver [address] [place] [address] [place] [phone] KIEL CAMPOS Next Of Kin [address] [facility] [address] [place], [place] [address] C Insurance Providers Payer Name Policy Number Subscriber Name Relationship Medicare [id number] Paul Campos 20 Self [facility] Preferred [id number] Kiel Campos 01 Spouse Advance Directives Directive [...] 1 Tab PO DAILY 05/29/10 11/18/10 Discontinued [place]-3 Fatty Acids/Vitamin E 1 Cap PO DAILY [...] AT 8:45AM FOR PHYSICAL THERAPY [place]. PHONE- [phone] Patient Instructions: Swelling 1.Elevate operative extremity above [...] of your legs. 3.During office hours, call [phone] 4. After hours, please call [facility] at [phone], and have the line o scribe operator page your Surgeon IN THE EVENT [...] F (96.8 - 99.1) Temperature (Calculated Celsius) 36.12114 degrees C (36.0 - 37.3) Temperature Source [...] Has specimen been collected/obtained? Y Urine Specific [place] January 27, 2014 11:20am <=1.005 L - [...] 13, 2014 8:29pm LAB TEST FORM REQUEST [id number] - Methicillin-Resist S.aureus DNA PCR December 20, [...] 2010 11:30am Name: PAUL CAMPOS Unit #: [id number] : 1945 Sex: F Loc / Svc: ED DOS: 02/11/14 Signed Report #: [id number] DIAGNOSTIC IMAGING REPORT TYPE OF EXAM: HIP [...] Encounters Encounter Location Date/Time Departed Emergency Room [facility] 02/11/14 9:37am Discharged Recurring [facility] 01/30/14 11:09am Discharged Inpatient [facility] 01/19/14 4:45pm Discharged Inpatient [facility] 01/17/14 5:31am
--- OUTSIDE RECORDS SUMMARY | 2016-07-14 02:22 | XMS REPORT | Continuity of Care Document ---
Author Author [facility] Organization [facility] Address Unknown Phone Unavailable Allergies Active Description Code Type Severity Reaction Onset Reported/Identified Relationship to Patient Clinical Status Yes TAPE Drug Allergy N/A N/A Medications Medication Packaging Start Date Stop Date Route Dosage Sig [id number] 08/25/2014 ORAL daily Problems Procedures Results Encounters ACCT No. Visit Date/Time Discharge Status Pt. Type Provider Facility Loc./Unit Complaint [id number] 07/11/2013 09:30:00 07/11/2013 23 :59:59 CLS Outpatient [id number] 06/30/2013 08:12:00 06/30/2013 23 :59:59 CLS Outpatient [id number] 06/29/2013 10:05:00 06/29/2013 23 :59:59 CLS Outpatient [id number] 06/23/2013 11:28:00 06/23/2013 23 :59:59 CLS Outpatient [id number] 06/16/2013 08:03:00 06/16/2013 23 :59:59 CLS Outpatient [id number] 05/24/2013 10:45:00 05/24/2013 23 :59:59 CLS Outpatient [id number] 05/04/2013 11:36:00 05/04/2013 23 :59:59 CLS Outpatient
--- OUTSIDE RECORDS SUMMARY | 2016-07-14 02:22 | XMS REPORT | Continuity of Care Document ---
Author Author [facility] Organization [facility] Address Unknown Phone Unavailable Support Name Relationship Address Phone YUSUF BRADFORD MD Caregiver [address] [place] [address] LEANNE THOMAS MD Caregiver [address] [phone] KIEL CAMPOS Next Of Kin [address] [facility] [address] [place] [address] C Insurance Providers Payer Name Policy Number Subscriber Name Relationship Medicare [id number] Paul Campos 20 Self [facility] Preferred [id number] Kiel Campos 01 Spouse Problems Medical Problems [...] 1 Tab PO DAILY 05/29/10 11/18/10 Discontinued [place]-3 Fatty Acids/Vitamin E 1 Cap PO DAILY [...] F (96.8 - 99.1) Temperature (Calculated Celsius) 36.76442 degrees C (36.0 - 37.3) Pulse Rate [...] 2014 11:54am 4.3 G/DL N 3.5-5.0 [facility] Albumin/Globulin [...] Has specimen been collected/obtained? Y Urine Specific [place] January 27, 2014 11:20am <=1.005 L - [...] 13, 2014 8:29pm LAB TEST FORM REQUEST [id number] - Methicillin-Resist S.aureus DNA PCR December 20, [...] 2010 11:30am Name: PAUL CAMPOS Unit #: [id number] : 1945 Sex: F Loc / Svc: ED DOS: 02/11/14 Signed Report #: [id number] DIAGNOSTIC IMAGING REPORT TYPE OF EXAM: HIP [...] procedures. Encounters Encounter Location Date/Time Discharged Recurring [facility] 02/13/14 11:51am Departed Emergency Room [facility] 02/11/14 9:37am Discharged Inpatient [facility] 01/19/14 4:45pm Discharged Inpatient [facility] 01/17/14 5:31am
--- NOTE | 2016-07-14 02:25 | NUR ---
OXYGEN PER DIRECTION FROM PHYSICIAN, PT TRIALED OFF OXYGEN AFTER NEBULIZER TREATMENT. PT NOTED TO DESATURATE TO 86-91% ON ROOM AIR. OXYGEN REAPPLIED AT 3L/MIN BY NASAL CANNULA, WITH IMPROVEMENT TO 94%. WILL CONTINUE TO MONITOR.
--- OUTSIDE RECORDS SUMMARY | 2016-07-14 02:25 | XMS REPORT | Continuity of Care Document ---
Author Author [facility] Organization [facility] Address Unknown Phone Unavailable Support Name Relationship Address Phone WILLY ARANA MD Caregiver [address] [place] [address] YUSUF MONTANO MD Caregiver [address] [place] [address] LEANNE THOMAS MD Caregiver [address] [place] [phone] KIEL CAMPOS Next Of Kin [address] [facility] [address] [place] [address] C Insurance Providers Payer Name Policy Number Subscriber Name Relationship Medicare [id number] Paul Campos 20 Self [facility] Preferred [id number] Kiel Campos 01 Spouse Advance Directives Directive [...] 1 Tab PO DAILY 05/29/10 11/18/10 Discontinued [place]-3 Fatty Acids/Vitamin E 1 Cap PO DAILY [...] the hospital because (patient own words): "Leaving [employer] when my started to fall and he [...] of your legs. 3.During office hours, call [phone] 4. After hours, please call [facility] at [phone], and have the narrow gauge operator page your Surgeon IN THE EVENT [...] NSAIDS (Non-Steroidal Anti-Inflamma Adverse Reaction Unknown MIGRAINE VCIKERS, FLUID RETENTION Active 01/16/14 Tetanus Vaccines & [...] F (96.8 - 99.1) Temperature (Calculated Celsius) 35.02573 degrees C (36.0 - 37.3) Temperature Source [...] 2014 11:54am 23 U/L N 9-52 COM[facility], ALSO HAS UA ORDERED Albumin January 16, 2014 11:54am 4.3 G/DL N 3.5-5.0 COMMENT [facility] PREOP, ALSO HAS UA ORDERED Albumin/Globulin Ratio January 16, 2014 11:54am 1.4 RATIO N 1.1-2.2 COMMENT [facility], ALSO HAS UA ORDERED Alkaline Phosphatase January 16, 2014 11:54am 107 U/L N 38-126 COMMENT [facility], ALSO HAS UA ORDERED Anion Gap January 20, 2014 5:19am 6 MEQ/L N 5-15 Aspartate Amino Transf (AST/SGOT) January 16, 2014 11:54am 28 U/L N 14 -36 COMMENT [facility], ALSO HAS UA ORDERED BUN/Creatinine Ratio [...] 29, 2010 12:57pm LAB TEST FORM REQUEST [id number] - Lymphocytes # (Auto) January 20, 2014 [...] Has specimen been collected/obtained? Y Urine Specific [place] January 27, 2014 11:20am <=1.005 L - [...] 2010 11:30am Name: PAUL CAMPOS Unit #: [id number] : 1945 Sex: F Loc / Svc: MED DOS: Signed Report #: [id number] DIAGNOSTIC IMAGING REPORT TYPE OF EXAM: CHEST [...] procedures. Encounters Encounter Location Date/Time Discharged Inpatient [facility] 01/19/14 4:45pm Discharged Inpatient [facility] 01/17/14 5:31am Registered Clinic [facility] 12/20/13 11:45am Recent Diagnosis Diabetes Hypertension GERD (gastroesophageal reflux disease) Morbid obesity with BMI of 45.0-49.9, adult Chronic kidney disease (CKD), stage III (moderate) History of anemia Anticoagulated on Coumadin
[2016-07-14] MEDS ORDERED: CLOT15CR5 TOP (02:27)
[2016-07-14] MEDS ORDERED: POTA-81 PO (02:27)
[2016-07-14] MEDS ORDERED: AZIT250T6 PO (02:27)
[2016-07-14] MEDS ORDERED: PITA2TAB PO (02:27)
[2016-07-14 03:08] VITALS: BP 137/61; PULSE 109; RESP 26; O2SAT 96
--- NOTE | 2016-07-14 03:15 | NUR ---
REPORT PHONE REPORT CALLED TO SHANNAN CHAVEZ AT [facility]; PT TO BE TRANSFERRED.
--- NOTE | 2016-07-14 03:25 | NUR ---
DEPARTURE PT TRANSFERRED FROM ED BED TO EMS STRETCHER WITHOUT INCIDENT. PT BELONGINGS SENT WITH .
--- NOTE | 2016-07-14 08:05 | DI ---
Indication: ITS.REASON: SEVERE DYSPNEA PROCEDURE: CHEST 1 VIEW: Encounter: Initial Comparison: June 09, 2016 Findings: The lungs are stable in appearance without new focal airspace consolidation. There is no pleural effusion or pneumothorax. The heart size, pulmonary vascularity and mediastinal contours are unchanged. IMPRESSION: Stable appearance of the chest without acute cardiopulmonary disease. .
== END 2016-07-14 03:25 | disposition short-term general hospital (02) ==
LOC: ED 01:38
DX: J47.1 Bronchiectasis with (acute) exacerbation (principal); R09.02 Hypoxemia
CPT/HCPCS: 71010; 83605; 85025; 94640; 96374; 99285; J2930

== ENCOUNTER 2016-08-11 15:38 | Inpatient (IN) | payer MEDICARE, OTHER ==
[~2016-08-11] VITALS: Ht 152.4 cm; Wt 139.8 kg
[~2016-08-11 15:38] MED LIST changes: +AZIT250T6 PO; -BENZ200C36 PO; +CLOT15CR5 TOP; -CODE118S2 PO; -GUAI-782 PO; -LISI10TA7 PO; -METO25TA6 PO; +PITA2TAB PO; +POTA-81 PO; -PRED20TA PO
--- OUTSIDE RECORDS SUMMARY | 2016-08-11 15:43 | XMS REPORT | Continuity of Care Document ---
Author Author [facility] Organization [facility] Address Unknown Phone Unavailable Support Name Relationship Address Phone YUSUF BRADFORD MD Caregiver [address] [place] [address] LEANNE THOMAS MD Caregiver [address] [place] [phone] KIEL CAMPOS Next Of Kin [address] [facility] [address] [place] [address] C Insurance Providers Payer Name Policy Number Subscriber Name Relationship Medicare [id number] Paul Campos 20 Self [facility] Preferred [id number] Kiel Campos 01 Spouse Advance Directives Directive [...] 1 Tab PO DAILY 05/29/10 11/18/10 Discontinued [place]-3 Fatty Acids/Vitamin E 1 Cap PO DAILY [...] POTENTIALLY BE LIFE THREATENING! Durable Medical Equipment: [employer] [phone] Notify Physician If: CALL YOUR SURGEON IF: [...] and call Dr. Wong with the result [phone]. Condition at time of discharge: Good Plan of Care Discharge Date 01/19/14 4:40pm Disposition 62 TO [facility] Instructions/Education Provided [facility] Ortho Postop DC Instruct Prescriptions See Medications [...] F (96.8 - 99.1) Temperature (Calculated Celsius) 37.29506 degrees C (36.0 - 37.3) Temperature Source [...] 29, 2010 12:57pm LAB TEST FORM REQUEST [id number] - Lymphocytes # (Auto) January 16, 2014 [...] PREOPHas specimen been collected/obtained? Y Urine Specific [place] January 16, 2014 11:55am 1.010 L - [...] 2010 11:30am Name: PAUL CAMPOS Unit #: [id number] : 1945 Sex: F Loc / Svc: MED DOS: Signed Report #: [id number] DIAGNOSTIC IMAGING REPORT TYPE OF EXAM: CHEST [...] MD Encounters Encounter Location Date/Time Admitted Inpatient [facility] 01/17/14 5:31am Registered Clinic [facility] 12/20/13 11:45am Registered Clinic [facility] 10/21/13 9:21am Recent Diagnosis Diabetes Hypertension Hyperlipidemia COPD (chronic obstructive pulmonary disease) GERD (gastroesophageal reflux disease) Morbid obesity with BMI of 45.0-49.9, adult IBS (irritable bowel syndrome) Chronic kidney disease (CKD), stage III (moderate) Obstructive sleep apnea Mild aortic stenosis History of anemia Mild pulmonary hypertension Hypothyroidism
--- OUTSIDE RECORDS SUMMARY | 2016-08-11 15:44 | XMS REPORT | Continuity of Care Document ---
Author Author [facility] Organization [facility] Address Unknown Phone Unavailable Support Name Relationship Address Phone JANET LOO FACS, MD Caregiver [address] [place] [address] [place] [phone] LEANNE THOMAS MD Caregiver [address] [place] [address] [place] [phone] KIEL CAMPOS Next Of Kin [address] [facility] [address] [place], [place] [address] C Insurance Providers Payer Name Policy Number Subscriber Name Relationship Medicare [id number] Paul Campos 20 Self [facility] Preferred [id number] Kiel Campos 01 Spouse Advance Directives Directive [...] 1 Tab PO DAILY 05/29/10 11/18/10 Discontinued [place]-3 Fatty Acids/Vitamin E 1 Cap PO DAILY [...] AT 8:45AM FOR PHYSICAL THERAPY [place]. PHONE- [phone] Patient Instructions: Swelling 1.Elevate operative extremity above [...] of your legs. 3.During office hours, call [phone] 4. After hours, please call [facility] at [phone], and have the well servicing rig operator page your Surgeon IN THE EVENT [...] F (96.8 - 99.1) Temperature (Calculated Celsius) 36.09175 degrees C (36.0 - 37.3) Temperature Source [...] Has specimen been collected/obtained? Y Urine Specific [place] January 27, 2014 11:20am <=1.005 L - [...] 13, 2014 8:29pm LAB TEST FORM REQUEST [id number] - Methicillin-Resist S.aureus DNA PCR December 20, [...] 2010 11:30am Name: PAUL CAMPOS Unit #: [id number] : 1945 Sex: F Loc / Svc: ED DOS: 02/11/14 Signed Report #: [id number] DIAGNOSTIC IMAGING REPORT TYPE OF EXAM: HIP [...] Encounters Encounter Location Date/Time Departed Emergency Room [facility] 02/11/14 9:37am Discharged Recurring [facility] 01/30/14 11:09am Discharged Inpatient [facility] 01/19/14 4:45pm Discharged Inpatient [facility] 01/17/14 5:31am
--- OUTSIDE RECORDS SUMMARY | 2016-08-11 15:48 | XMS REPORT | Continuity of Care Document ---
Author Author [facility] Organization [facility] Address Unknown Phone Unavailable Allergies Active Description Code Type Severity Reaction Onset Reported/Identified Relationship to Patient Clinical Status Yes TAPE Drug Allergy N/A N/A Medications Medication Packaging Start Date Stop Date Route Dosage Sig [id number] 08/25/2014 ORAL daily Problems Procedures Results Encounters ACCT No. Visit Date/Time Discharge Status Pt. Type Provider Facility Loc./Unit Complaint [id number] 07/11/2013 09:30:00 07/11/2013 23 :59:59 CLS Outpatient [id number] 06/30/2013 08:12:00 06/30/2013 23 :59:59 CLS Outpatient [id number] 06/29/2013 10:05:00 06/29/2013 23 :59:59 CLS Outpatient [id number] 06/23/2013 11:28:00 06/23/2013 23 :59:59 CLS Outpatient [id number] 06/16/2013 08:03:00 06/16/2013 23 :59:59 CLS Outpatient [id number] 05/24/2013 10:45:00 05/24/2013 23 :59:59 CLS Outpatient [id number] 05/04/2013 11:36:00 05/04/2013 23 :59:59 CLS Outpatient
--- NOTE | 2016-08-11 15:49 | ERPDOC ---
Departure Disposition Decision Date: Aug 11, 2016 Disposition Decision Time: 17:49 Disposition: 02 TO [facility] Impression Impression Impression: Primary Impression: Bronchiectasis Bronchiectasis type: with acute exacerbation Qualified Codes: J47.1 - Bronchiectasis with (acute) exacerbation Additional Impressions: COPD exacerbation Hypoxemia requiring supplemental oxygen Severity: Moderate Condition: Stable Seen By: Physician only Referrals: LEANNE THOMAS MD (Family) Problems/Meds/Labs Reviewed?: Yes Medications reviewed and manag: Yes Follow up care ordered?: Yes Mental Status: Alert, Oriented HPI - Dyspnea General Chief Complaint: Dyspnea/Respdistress Stated Complaint: DIFFICULTY BREATHING Time Seen by Provider: 15:48 Source: patient Exam Limitations: no limitations HPI - Dyspnea Initial Comments Patient is a 71-year-old female, history of bronchiectasis, 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 Patient presents the ER for evaluation of significant shortness of air. Patient started developing symptoms yesterday used her rescue inhaler 1-2 times with no relief, patient's symptoms were worse today and then continued to worsen over the course of the day did not use her rescue inhaler today. Patient decided present to the ER for evaluation. On arrival patient placed on 3 L by nasal cannula to maintain sats at 90%, patient states that she does not have home O2, however she has recently had a sleep study to evaluate if she needs home O2 or not, results pending. Occurred At: home Allergies: Coded Allergies: adhesive tape (Verified Allergy, Mild, RASH, 07/14/16) NSAIDS (Non-Steroidal Anti-Inflamma (Verified Adverse Reaction, Unknown, MIGRAINE VICKERS,FLUID RETENTION, 07/14/16) naproxen (Verified Adverse Reaction, Unknown, MIGRAINE VICKERS,FLUID RETENTION , 07/14/16) Past History Patient Surgical History right total hip Past Medical History Metabolic: diabetes, hypercholesterolemia, hypertension, hypothyroidism Cardiac: CHF Respiratory: COPD GI: GERD, IBS Female: UTI, renal insufficiency Musculoskeletal: back pain, osteoarthritis Hematologic: DVT, anemia Surgical History General: appendix, back, other Reproductive/: hysterectomy Joint: hip, knee, other Family History Family PMH: FOUND: diabetes Vaccines Hx Influenza Vaccination: Yes (Jan 2016) Hx Pneumococcal Vaccination: Yes Social History Substance Use Type: does not use Sexuality: male partner Housing: house Current Occupational Status: retired Review of Systems Constitutional Constitutional: DENIES: appetite decrease, chills, dizziness, fever, weakness ENMT Sinuses: DENIES: congestion, rhinorrhea Mouth/Throat: DENIES: scratchy throat, sore throat Cardiovascular Cardiac: dyspnea on exertion, DENIES: chest pain Pulmonary Respiratory: dyspnea, tachypnea, DENIES: cough, sputum GI Upper Abdomen: DENIES: nausea, pain, vomiting Lower Abdomen: DENIES: constipation, diarrhea, pain General: DENIES: frequency, urgency Musculoskeletal General: DENIES: cramps, pain, weakness Integumentary Skin: DENIES: color change, itching, rash Endocrine Endocrine: DENIES: heat/cold intolerance Hematologic/Lymphatic Hematologic/Lymphatic: DENIES: anemia Physical Exam General General Nourishment: well nourished, well developed, obese General Body Habitus: well groomed Vitals and Pain First Documented Vital Signs Date Time Temp Pulse Resp B/P Pulse Ox O2 Delivery O2 Flow Rate FiO2 08/11/16 15:41 98.7 120 36 205/88 85 Room Air 08/11/16 15:42 3.00 Weight: Kilograms: Height (feet): 5 Height (inches): 0 Triage Pain Scale: RN VS reviewed by Provider: Yes Eyes (brief) Eyes Brief: found: EOMI ENMT (brief) ENMT Brief: FOUND: mucosa moist, normal dentition, NOT FOUND: nasal erythema, pharnyx erythema, tonsillar deviation Neck (brief) Neck: NOT FOUND: adenopathy, spasm, tenderness Respiratory Inspection: FOUND: hyperpnea, tachypnea, NOT FOUND: audible stridor, audible wheezing, periodic breathing, prolonged expiration Auscultation: FOUND: decreased, wheezes Cardiovascular (brief) Cardiac: FOUND: pedal edema (2+ pitting bilateral), regular rate, regular rhythm Capillary Refill: <2 sec Abdomen (brief) Abdominal Brief: FOUND: bowel normo active x4, soft, NOT FOUND: tender Lymphatic (brief) Lymphatic Brief: NOT FOUND: adenopathy Musculoskeletal (brief) Musculoskeletal Brief: NOT FOUND: spasm, tenderness Integumentary (brief) Integumentary Brief: FOUND: dry, pink, warm, NOT FOUND: rash Neurologic (brief) Neurological Brief: FOUND: CN w/o gross def to obs, motor-no gross deficits, sensory-no gross deficits Psychiatric (brief) Psychiatric Brief: FOUND: alert, oriented Differential Diagnoses Considering: Acute Bronchitis, Acute FL, Acute Respiratory Failure, CHF, COPD Exacerbation, Hyperventilation, Influenza, Pneumonia, Pneumothorax, Pulmonary Edema, Pulmonary Embolus Progress Results/Orders Orders Procedure Category Date Status Time Albuterol/Ipratropium PHA 08/11/16 Complete (Duoneb) 16:00 Cbc W/Auto LAB 08/11/16 Complete Diff-Reflex Manual 15:52 Cmp - Comprehensive LAB 08/11/16 Complete Metabolic 15:52 Probnp LAB 08/11/16 Complete 15:52 Troponin I W LAB 08/11/16 Complete Hemolysis Index 15:52 D-Dimer LAB 08/11/16 Complete 15:52 Magnesium LAB 08/11/16 Complete 15:52 EKG EKG 08/11/16 Taken 15:52 Iv Lock (Ed Only) EDM 08/11/16 Transmitted 15:52 Methylprednisolone PHA 08/11/16 Complete Sod Succ (Solu-Medrol 16:00 Chest 1 View RAD 08/11/16 Resulted 15:52 Lab Results Laboratory Tests Test 08/11/16 16:03 White Blood Count 15.6T/MM3 Red Blood Count 4.13M/MM3 Hemoglobin 10.4GM/DL Hematocrit 35.2% Mean Corpuscular Volume 85.2UM3 Mean Corpuscular Hemoglobin 25.2UUG Mean Corpuscular Hemoglobin Concent 29.5GM/DL RDW Standard Deviation 59.6FL Platelet Count 409T/MM3 Mean Platelet Volume 9.9UM3 Immature Granulocyte % (Auto) % Neutrophils (%) (Auto) % Lymphocytes (%) (Auto) % Monocytes (%) (Auto) % Eosinophils (%) (Auto) % Basophils (%) (Auto) % Absolute Immature Granulocyte (auto T/MM3 Absolute Neutrophils (auto) T/MM3 Absolute Lymphocytes (auto) T/MM3 Absolute Monocytes (auto) T/MM3 Absolute Eosinophils (auto) T/MM3 Absolute Basophils (auto) T/MM3 Neutrophils % (Manual) 68.0% Band Neutrophils % 4.0% Lymphocytes % (Manual) 21.0% Monocytes % (Manual) 2.0% Eosinophils % (Manual) 3.0% Basophils % (Manual) 2.0% Absolute Neutrophils (Manual) 10.6T/MM3 Band Neutrophils # 0.6T/MM3 Lymphocytes # (Manual) 3.3T/MM3 Monocytes # (Manual) 0.3T/MM3 Eosinophils # (Manual) 0.5T/MM3 Basophils # (Manual) 0.3T/MM3 Poikilocytosis 1+ Anisocytosis 1+ Red Cell Morphology Comment Abnormal D-Dimer < 150NG/ML Turbidity < 20 Sodium Level 145MEQ/L Potassium Level 4.2MEQ/L Chloride Level 103MEQ/L Carbon Dioxide Level 26MEQ/L Anion Gap 16MEQ/L Blood Urea Nitrogen 21.0MG/DL Creatinine 1.4MG/DL Glomerular Filtration Rate Calc 37 BUN/Creatinine Ratio 15RATIO Glucose Level 184MG/DL Calculated Osmolality 287MOSM/KG Calcium Level 9.2MG/DL Magnesium Level 2.3MG/DL Total Bilirubin 0.70MG/DL Icterus Index < 2 Aspartate Amino Transf (AST/SGOT) 32U/L Alanine Aminotransferase (ALT/SGPT) 31U/L Alkaline Phosphatase 108U/L Troponin I 0.034ng/ml YZ-Eqx-H-Type Natriuretic Peptide 1310PG/ML Total Protein 7.0G/DL Albumin 3.5G/DL Globulin 3.5G/DL Albumin/Globulin Ratio 1.0RATIO Chemistry Specimen Hemolysis 24 Medications Current ED Medications Albuterol/ Ipratropium (Duoneb) 6 ml O ONCE AEROSOL Last administered on 15:58; Start 08/11/16 at 16:00; Stop 08/11/16 at 16:01; Status DC Methylprednisolone Sodium Succinate (Solu-Medrol) 125 mg O ONCE IV Last administered on 08/11/16t 16:12; Start 08/11/16 at 16:00; Stop 08/11/16 at 16:01 ; Status DC Progress Progress Patient has improvement not resolved with 2 Duo-nebs and Solu-Medrol, discussed case with Dr. Frye, on-call pulmonology for Dr. Hoskins, at this time he sees no need for intervention by pulmonology, can be handled by internal medicine. Discuss case with Dr. Villa she will accept patient. EKG EKG : Rate: >100 Rhythm: atrial fibrillation [place]: normal QRS: normal Intervals: normal ST/T: non-specific changes Interpreted by: signing physician Xray Xray : Xray: CXR PA/Lat Interpretation: Normal, Reviewed Written Report ARSLAN SUNG MD Aug 11, 2016 15:48
--- OUTSIDE RECORDS SUMMARY | 2016-08-11 15:49 | XMS REPORT | Continuity of Care Document ---
Author Author [facility] Organization [facility] Address Unknown Phone Unavailable Support Name Relationship Address Phone YUSUF BRADFORD MD Caregiver [address] [place] [address] LEANNE THOMAS MD Caregiver [address] [place] [phone] KIEL CAMPOS Next Of Kin [address] [facility] [address] [place] [address] C Insurance Providers Payer Name Policy Number Subscriber Name Relationship Medicare [id number] Paul Campos 20 Self [facility] Preferred [id number] Kiel Campos 01 Spouse Problems Medical Problems [...] 1 Tab PO DAILY 05/29/10 11/18/10 Discontinued [place]-3 Fatty Acids/Vitamin E 1 Cap PO DAILY [...] F (96.8 - 99.1) Temperature (Calculated Celsius) 36.14072 degrees C (36.0 - 37.3) Pulse Rate [...] 2014 11:54am 4.3 G/DL N 3.5-5.0 [facility] ALSO HAS [facility]A ORDERED Albumin/Globulin Ratio [...] Has specimen been collected/obtained? Y Urine Specific [place] January 27, 2014 11:20am <=1.005 L - [...] 13, 2014 8:29pm LAB TEST FORM REQUEST [id number] - Methicillin-Resist S.aureus DNA PCR December 20, [...] 2010 11:30am Name: PAUL CAMPOS Unit #: [id number] : 1945 Sex: F Loc / Svc: ED DOS: 02/11/14 Signed Report #: [id number] DIAGNOSTIC IMAGING REPORT TYPE OF EXAM: HIP [...] procedures. Encounters Encounter Location Date/Time Discharged Recurring [facility] 02/13/14 11:51am Departed Emergency Room [facility] 02/11/14 9:37am Discharged Inpatient [facility] 01/19/14 4:45pm Discharged Inpatient [facility] 01/17/14 5:31am
--- OUTSIDE RECORDS SUMMARY | 2016-08-11 15:49 | XMS REPORT | Continuity of Care Document ---
Author Author [facility] Organization [facility] Address Unknown Phone Unavailable Support Name Relationship Address Phone TERRELL RAPP MD Caregiver [address] [place] [address] Unavailable LEANNE THOMAS MD Caregiver [address] [place] [address] Unavailable KIEL CAMPOS Next Of Kin [address] [place], [place] [address] C Insurance Providers Guarantor Paul Campos Address [address] [facility] [address] [place] [address] C Email DENIED/07-14-16 Payer [facility] Preferred Policy Number [id number] Subscriber's Name Palu Campos Relationship 18 Self Group Number [id number] Effective Date 13 Payer Medicare Policy Number [id number] Subscriber's Name Paul Campos Relationship 18 Self Effective Date 08 Chief Complaint and Reason for Visit Chief Complaint Dyspnea/Respdistress Reason for Visit Hypoxemia [id number] Bronchiectasis Problems Active Problems Medical Problem Onset Date [...] sleep apnea Unknown Chronic Osteoarthritis Unknown Chronic Prophylactic antibiotic Unknown Restless leg syndrome Unknown Chronic Severe sepsis Unknown Resolved Surgical Problem Onset Date Status S/P hip replacement Unknown Acute Past Problems Medical Problem Onset Date Acute respiratory failure Unknown Bronchiectasis Unknown Bronchiectasis Unknown Cellulitis Unknown Edema of both legs Unknown History of dyspnea Unknown Hypoxemia Unknown Hypoxemia Unknown Hypoxia Unknown Morbid obesity Unknown Peripheral edema Unknown Recurrent pneumonia Unknown Medications Current Home Medications Medication Dose Units Route Directions Days Qty Instructions Start Date Acetaminophen/Hydrocodone Bitart (Drew 10-325 Tablet) 10-325 Tablet 1-2 Tab Oral [...] Mg Tablet.dr 81 Mg Oral Daily 02/24/16 Azithromycin 250 Mg Tablet 1 Tab Oral Mwf 6 Tablet TAKE TWO TABLETS ON DAY ONE, THEN ONE TABLET DAILY UNTIL ALL TAKEN. 07/14/16 Clotrimazole/Betamethasone Dip (Clotrimazole-Betamethasone Crm) 15 Gm Cream..g. 1 Applic Topically Twice A Day 07/14/16 Cyclobenzaprine Hcl 10 Mg Tablet 10 Mg Oral Three Times A Day Doxycycline Hyclate 100 Mg Tablet 1 Tab Oral Twice Daily With Meals 7 Days 14 Tablet 02/24/16 Fluticasone Propionate (Fluticasone Prop 50 Mcg/Actuation Nasal [place]) 120 [place]/16 G [place] 1 [place] Each Nostril Twice A Day as needed for Prn Orders 02/24/16 Fluticasone/Salmeterol (Advair 250-50 Diskus) 1 Disk W/Dev Inhaler 1 Puff Inhalation Twice A Day as needed for Shortness Of Air 01/17/14 Furosemide (Lasix) 40 Mg Tablet 2 Tab Oral Daily 05/28/16 Gabapentin 300 Mg Capsule 300 Mg Oral Twice A Day 02/24/16 Glucagon,Human Recombinant (Glucagon Emergency Kit) 1 Mg/Kit Syringe 1 Mg Injection As Needed 02/24/16 Insulin Degludec (Tresiba Flextouch U-200) 200 Unit/1 [...] Tablet 50 Mcg Oral Before Breakfast 05/22/13 Melatonin 5 Mg Tablet 15 Mg Oral Bedtime as needed for Insomnia 02/24/16 Metoclopramide Hcl 5 Mg Tablet 5 Mg Oral Before Meals And At Bedtime 05/29/10 Miconazole Nitrate (Secura Antifungal) 57 Gm Cream..g. 1 Applic Topically Twice A Day 02/24/16 Nystatin 100,000 Unit/1 Ml Oral.susp 5 Ml Oral Four Times Daily for Thrush 200 Milliliter 06/05/16 Omeprazole 20 Mg Tablet.dr 20 Mg Oral Before Breakfast 01/17/14 Pitavastatin Calcium (Livalo) 2 Mg Tablet 1 Tab Oral Daily Potassium Chloride 20 Meq Tablet.er 20 Meq Oral With Meals And At Bedtime Take 1 tablet, by mouth, four times daily (with meals and at bedtime). 07/14/16 Pramipexole Di-Hcl (Pramipexole Dihydrochloride) 0.25 Mg Tablet 0.25 Mg Oral Bedtime 02/24/16 Past Home Medications Medication Directions Ordered Status Aspirin (Aspir 81) 81 Mg Tablet.dr, 1 Tab Oral Daily 01/17/14 Discontinued Azithromycin 250 Mg Tablet, 250 Mg Oral Every Thursday, Thursday, And Thursday02/24/16 Discontinued Calcium/Vit B12/Fa/Pyridoxine (Folic Acid/B-6/B-12 Tablet) 1 Tab Tablet, 1 Tab Oral Daily 05/29/10 Discontinued Ergocalciferol (Vitamin D) 50,000 Unit Capsule, [id number] Unit Oral 05/29/10 Discontinued Estradiol 1 Mg [...] Mg Oral Twice A Day 05/29/10 Discontinued [place]-3 Fatty Acids/Vitamin E ([place]-3 Fish Oil Softgel) 1 Cap Capsule, 1 Cap Oral Daily 05/29/10 Discontinued Pitavastatin Calcium (Livalo) 2 Mg Tablet, 2 Mg Oral Daily 05/22/13 Discontinued Potassium Chloride (Klor-Con M20) 20 Meq Tablet, 20 Meq Oral Daily 02/24/16 Discontinued Pramipexole Di-Hcl (Mirapex) 0.25 Mg Tablet, 0.25 Mg Oral Bedtime 05/29/10 Discontinued Prednisone 20 Mg Tablet, 40 Mg Oral Give With Breakfast for Copd 06/05/16 Discontinued Promethazine Hcl/Codeine (Promethazine-Codeine Syrup) 118 Ml Syrup, 5 Ml Oral Every 6 Hours as needed for Cough 06/05/16 Discontinued Sodium Chloride/Aloe Vera ([place] Saline Nasal Gel [place]) 22 Ml [place], 22 Ml Nasal As Needed 05/29/10 Discontinued [...] Applicable Not Applicable Hx Substance Use No 07/14/2016 2:27am Not Applicable Not Applicable Hx Alcohol Use No 07/14/2016 2:27am Not Applicable Not Applicable Has the pt used tobacco in the last 12 months No 04/05/2014 1:46pm Not Applicable Not Applicable Tobacco Usage none 01/20/2014 9:29am Not Applicable Not Applicable Query Response Start Date Stop Date Smoking Status Never smoker Hospital Discharge Instructions No hospital discharge instructions. Plan of Care Discharge Date 07/14/16 3:25am Disposition 02 TO [facility] Condition at Discharge Improved Prescriptions See Medication Section Referrals LEANNE THOMAS MD Address: [address] [place] [address] [phone] Functional Status No functional status results. Allergies, Adverse Reactions, Alerts Allergen Type Severity Reaction Status Last Updated NSAIDS (Non-Steroidal Anti-Inflamma Adverse Reaction Unknown MIGRAINE VICKERS, FLUID RETENTION Active 07/14/16 Naproxen Adverse Reaction Unknown MIGRAINE VICKERS,FLUID RETENTION Active 07/14 adhesive tape Allergy Mild RASH Active 07/14/16 Immunizations Query Response on File Recorded Date/Time Hx Influenza Vaccination Y Jan 2016 05/29/16 1:10am Hx Pneumococcal Vaccination Yes 05/29/16 1:10am Hx Influenza Vaccination Y Jan 2016 05/29/16 1:10am Influenza Vaccine Hx jan 2016 07/14/16 2:27am Vital Signs Acute Vital Signs Vital Response Date/Time Temperature (Fahrenheit) 98.6 deg F (96.8 - 99.1) 07/14/2016 1:49am Temperature (Calculated Celsius) 37.76084 degrees C (36.0 - 37.3) 07/14/2016 1:49am Pulse Rate (adult) 109 bpm (60 - 100) 07/14/2016 3:08am Respiratory Rate 26 breaths/min (10 - 20) 07/14/2016 3:08am O2 Sat by Pulse Oximetry 96 % (90 - 100) 07/14/2016 3:08am Oxygen Delivery Method Room Air 06/05/2016 6:53am Oxygen Delivery Method Room Air 06/05/2016 7:40am Oxygen Flow Rate 3.00 L/min 07/14/2016 3:08am Blood Pressure 137/61 mm Hg 07/14/2016 3:08am Blood Pressure Source Automatic Cuff 06/05/2016 7:40am Height (Feet) 5 feet 07/14/2016 1:49am Height (Inches) 0 inches 07/14/2016 1:49am Weight (Kilograms) 140.800 kg 07/14/2016 1:49am Body Mass Index (BMI) 60.0 07/14/2016 1:49am Results Laboratory Results Test Name Result Units Flags Reference Collection Date/Time Result Date/ Time Comments Band Neutrophils % 7.0 % H 0-6 [...] MG/DL H 1.6-2.3 06/01/2016 4:56am 06/01/2016 5:16am Hemoglobin A1c 7.1 % 6.1-7.9 06/05/2016 4:41am 06/05/2016 11:55am < 6.0 NON-DIABETIC RANGE 6.1-7.9 [facility] TARGET RANGE >8.0 ACTION SUGGESTED [...] 102 mg/dL 65-110 06/05/2016 2:03pm 06/05/2016 2:23pm Neutrophils % (Manual) 67.0 % H 33-66 06/09/2016 3:15am 06/09/2016 3: 38am Lymphocytes % (Manual) 29.0 % 23-45 06/09/2016 3:1506/09/2016 3: 38am Monocytes % (Manual) 4.0 % 0-9.0 06/09/2016 3:1506/09/2016 3:38am Absolute Neutrophils (Manual) 13.9 T/MM3 H 1.8-7.7 06/09/2016 3:15am 3:38am Lymphocytes # (Manual) 6.0 T/MM3 H 1-4.8 06/09/2016 3:15am 06/09/2016 3: 38am Monocytes # (Manual) 0.8 T/MM3 0-0.8 06/09/2016 3:15am 06/09/2016 3: 38am Red Cell Morphology Comment NORMAL 06/09/2016 3:1506/09/2016 3: 38am D-Dimer < 150 NG/ML 0-230 [...] Glucose Level 127 MG/DL H 65-110 06/09/2016 3:1506/09/2016 3:31am Calculated Osmolality 277 MOSM/KG 261-280 06/09/2016 3:06/09/2016 3:31am Calcium Level 9.2 MG/DL 8.4-10.2 06/09/2016 3:06/09/2016 3:31am Troponin I 0.037 ng/ml 0-0.12 06/09/2016 3:06/09/2016 3:43am Troponin values with a difference of 55% increase from orginal troponin value represent a true biological DELTA value. (%increase Calc=Orginal Troponin value, divided by subsequent Troponin value, multiplied by 100) DU-Kve-A-Type Natriuretic Peptide 591 PG/ML H 0-175 06/09/2016 [...] Blood HCO3 35 MEQ/L H 22-26 06/09/2016 4:06/09/2016 4: 38am Arterial Blood Total CO2 36.8 MEQ/L H 23-27 06/09/2016 4:2016 4:38am Arterial Blood Base Excess 9.2 MMOL/L H -2.0-2.0 06/09/2016 4:06/09 4:38am Arterial Blood Oxygen Saturation 91.0 % L 95.0-98.0 06/09/2016 4: 4:38am Blood Gas Oxygen Liter Flow 5.0 06/09/2016 4:06/09/2016 4: 38am Oxygen Delivery Method (LAB) NASAL CANNULA,LITERS 06/09/2016 4:06/09/2016 4:38am Influenza Type A Antigen NEGATIVE NEGATIVE 06/09/2016 4:2016 4:56am Negative for Flu A protein antigen. Assay sensitivity is 90%. Influenza Type B Antigen NEGATIVE NEGATIVE 06/09/2016 4:302016 4:56am Negative for Flu B protein antigen. Assay sensitivity is 90%. Urine Collection Type CLEANCATCH-MIDSTREAM 06/09/2016 4:46am 2016 4:54am Urine Color YELLOW YELLOW 06/09/2016 4:46am 06/09/2016 4:54am Urine Turbidity CLEAR CLEAR 06/09/2016 4:46am 06/09/2016 4:54am Urine Specific [place] 1.020 1.015-1.025 06/09/2016 4:46am 2016 4:54am Urine [...] MICROSCOPIC NOT IND. 06/09/2016 4:46am 2016 4:54am White Blood Count 10.0 T/MM3 4.5-11.0 07/14/2016 2:03am 07/14/2016 2: 17am Red Blood Count 3.81 M/MM3 L 4.00-5.20 07/14/2016 2:03am 07/14/2016 2: 17am Hemoglobin 10.0 GM/DL L 12-16 07/14/2016 2:03am 07/14/2016 2:17am Hematocrit 32.5 % L 36-46 07/14/2016 2:03am 07/14/2016 2:17am Mean Corpuscular Volume 85.3 UM3 80-100 07/14/2016 2:07/14/2016 2: 17am Mean Corpuscular Hemoglobin 26.2 UUG 26-34 07/14/2016 2:2016 2:17am Mean Corpuscular Hemoglobin Concent 30.8 GM/DL L 31-37 07/14/2016 2:07/14/2016 2:17am RDW Standard Deviation 60.8 FL H 36.9-50.2 07/14/2016 2:07/14/2016 2:17am Platelet Count 271 T/MM3 130-400 07/14/2016 2:07/14/2016 2:17am Mean Platelet Volume 10.2 UM3 9.4-12.4 07/14/2016 2:07/14/2016 2: 17am Neutrophils (%) (Auto) 56.2 % 33-66 07/14/2016 2:07/14/2016 2: 17am Lymphocytes (%) (Auto) 33.0 % 23-45 07/14/2016 2:07/14/2016 2: 17am Monocytes (%) (Auto) 8.2 % 0-9.0 07/14/2016 2:07/14/2016 2:17am Eosinophils (%) (Auto) 1.8 % 0-4 07/14/2016 2:07/14/2016 2:17am Basophils (%) (Auto) 0.2 % 0-2 07/14/2016 2:07/14/2016 2:17am Immature Granulocyte % (Auto) 0.6 % H 0.0-0.5 07/14/2016 2:2016 2:17am Absolute Neutrophils (auto) 5.6 T/MM3 1.8-7.7 07/14/2016 2:2016 2:17am Absolute Lymphocytes (auto) 3.3 T/MM3 1-4.8 07/14/2016 2:2016 2:17am Absolute Monocytes (auto) 0.8 T/MM3 0-0.8 07/14/2016 2:07/14/2016 2:17am Absolute Eosinophils (auto) 0.2 T/MM3 0-0.5 07/14/2016 2:03am 2016 2:17am Absolute Basophils (auto) 0.0 T/MM3 0-0.2 07/14/2016 2:03am 07/14/2016 2:17am Absolute Immature Granulocyte (auto 0.06 T/MM3 H 0.00-0.03 07/14/2016 2: 03am 07/14/2016 2:17am Plasma Lactate 2.9 MMOL/L H 0.6-2.2 07/14/2016 2:03am 07/14/2016 2:25am Microbiology Results Procedure Source Organism/Result Collection Date/Time Result Date/Time Result Status Blood Culture Peripheral/Iv Start NO GROWTH AFTER 5 DAYS 05/29/2016 12: 01am 06/03/2016 12:18am Final Procedures Procedure Status Date Provider(s) Routine venipuncture Completed 06/09/16 Chest x-ray 2vw frontal&latl Completed 06/09/16 Metabolic panel total ca Completed 06/09/16 Urinalysis auto w/o scope Completed 06/09/16 Blood gases any combination Completed 06/09/16 Assay of natriuretic peptide Completed 06/09/16 Assay of troponin quant Completed 06/09/16 Complete cbc w/auto diff wbc Completed 06/09/16 Fibrin degradation quant Completed 06/09/16 Influenza a/b ag ia Completed 06/09/16 Airway inhalation treatment Completed 06/09/16 Ther/proph/diag iv inf init Completed 06/09/16 Tx/proph/dg addl seq iv inf Completed 06/09/16 Tx/pro/dx inj new drug addon Completed 06/09/16 Emergency dept visit Completed 06/09/16 [id number]) Completed 06/09/16237467"INJECTION, METHYLPREDNISOLONE SODIUM SUCCINATE, UP TO Completed "INJECTION, VANCOMYCIN HCL, 500 MG" Completed 06/09/16313802"INFUSION, NORMAL SALINE SOLUTION , 1000 CC" Completed 06/09/16072836"INFUSION, NORMAL SALINE SOLUTION , 250 CC" Completed 06/09/16048542"INFUSION, NORMAL SALINE SOLUTION , 250 CC" Completed 06/09/16 Encounters Encounter Location Arrival/Admit Date Discharge/Depart Date Attending Provider Departed Emergency Room [facility] 07/14/16 1:38am 07/14/16 3: 25am TERRELL RAPP MD Departed Emergency Room [facility] 06/09/16 2:31am 06/09/16 6: 08am AUGUSTYESICA DO Registered [facility] 06/06/16 8:26am LEANNE THOMAS MD Discharged Inpatient [facility] 05/28/16 11:52pm 06/05/16 2:16pm SCARLETT UGARTE MD Recent Diagnosis
--- NOTE | 2016-08-11 15:50 | NUR ---
PROVIDER DR. SUNG AT BEDSIDE FOR EXAM.
--- OUTSIDE RECORDS SUMMARY | 2016-08-11 15:52 | XMS REPORT | Continuity of Care Document ---
Author Author [facility] Organization [facility] Address Unknown Phone Unavailable Support Name Relationship Address Phone WILLY ARANA MD Caregiver [address] [place] [address] YUSUF MONTANO MD Caregiver [address] [place] [address] LEANNE THOMAS MD Caregiver [address] [facility] [place] [phone] KIEL CAMPOS Next Of Kin [address] [facility] [address] [place] [address] C Insurance Providers Payer Name Policy Number Subscriber Name Relationship Medicare [id number] Paul Campos 20 Self [facility] Preferred [id number] Kiel Campos 01 Spouse Advance Directives Directive [...] 1 Tab PO DAILY 05/29/10 11/18/10 Discontinued [place]-3 Fatty Acids/Vitamin E 1 Cap PO DAILY [...] the hospital because (patient own words): "Leaving [facility] when my started to fall and he [...] of your legs. 3.During office hours, call [phone] 4. After hours, please call [facility] at [phone], and have the key operator page your Surgeon IN THE EVENT [...] F (96.8 - 99.1) Temperature (Calculated Celsius) 35.72070 degrees C (36.0 - 37.3) Temperature Source [...] 2014 11:54am 23 U/L N 9-52 [facility], ALSO HAS UA ORDERED Albumin January 16, 2014 11:54am 4.3 G/DL N 3.5-5.0 COMMENT [facility] PREOP, ALSO HAS UA ORDERED Albumin/Globulin Ratio January 16, 2014 11:54am 1.4 RATIO N 1.1-2.2 COMMENT [facility], ALSO HAS UA ORDERED Alkaline Phosphatase January 16, 2014 11:54am 107 U/L N 38-126 [facility], ALSO HAS UA ORDERED Anion Gap January 20, 2014 5:19am 6 MEQ/L N 5-15 Aspartate Amino Transf (AST/SGOT) January 16, 2014 11:54am 28 U/L N 14 -36 [facility], ALSO HAS UA ORDERED BUN/Creatinine Ratio [...] 29, 2010 12:57pm LAB TEST FORM REQUEST [id number] - Lymphocytes # (Auto) January 20, 2014 [...] Has specimen been collected/obtained? Y Urine Specific [place] January 27, 2014 11:20am <=1.005 L - [...] 2010 11:30am Name: PAUL CAMPOS Unit #: [id number] : 1945 Sex: F Loc / Svc: MED DOS: Signed Report #: [id number] DIAGNOSTIC IMAGING REPORT TYPE OF EXAM: CHEST [...] procedures. Encounters Encounter Location Date/Time Discharged Inpatient [facility] 01/19/14 4:45pm Discharged Inpatient [facility] 01/17/14 5:31am Registered Clinic [facility] 12/20/13 11:45am Recent Diagnosis Diabetes Hypertension GERD (gastroesophageal reflux disease) Morbid obesity with BMI of 45.0-49.9, adult Chronic kidney disease (CKD), stage III (moderate) History of anemia Anticoagulated on Coumadin
--- NOTE | 2016-08-11 15:56 | NUR ---
RT AT BEDSIDE FOR DUKRISTAB [place].
[2016-08-11] MEDS ORDERED: ALBUTEROL/IPRATROPIUM INHAL. 2.5mg-0.5mg/3ml Neb. AEROSOL ONE ×2 (16:00→18:00)
--- OUTSIDE RECORDS SUMMARY | 2016-08-11 16:00 | XMS REPORT | Continuity of Care Document ---
Author Author [facility] Organization [facility] Address Unknown Phone Unavailable Support Name Relationship Address Phone YUSUF BRADFORD MD Caregiver [address] [place] [address] LEANNE THOMAS MD Caregiver [address] [facility] [place] [phone] KIEL CAMPOS Next Of Kin [address] [facility] [address] [place] [address] C Insurance Providers Payer Name Policy Number Subscriber Name Relationship Medicare [id number] Paul Campos 18 Self [facility] Preferred [id number] Kiel Campos 01 Spouse Advance Directives Directive [...] 1 Tab PO DAILY 05/29/10 11/18/10 Discontinued [place]-3 Fatty Acids/Vitamin E 1 Cap PO DAILY [...] P[employer]IALLY [employer]RE[employer]! Durable Medical Equipment: [employer] [phone] Notify Physician If: CALL YOUR SURGEON IF: [...] and call Dr. Wong with the result [phone]. Condition at time of discharge: Good Plan of Care Discharge Date 01/19/14 4:40pm Disposition 62 TO [facility] Instructions/Education Provided [facility] Post[place] DC Instruct Prescriptions See Medications [...] F (96.8 - 99.1) Temperature (Calculated Celsius) 37.95177 degrees C (36.0 - 37.3) Temperature Source [...] 29, 2010 12:57pm LAB TEST FORM REQUEST [id number] - Lymphocytes # (Auto) January 16, 2014 [...] PREOPHas specimen been collected/obtained? Y Urine Specific [place] January 16, 2014 11:55am 1.010 L - [...] 2010 11:30am Name: PAUL CAMPOS Unit #: [id number] : 1945 Sex: F Loc / Svc: MED DOS: Signed Report #: [id number] DIAGNOSTIC IMAGING REPORT TYPE OF EXAM: CHEST [...] MD Encounters Encounter Location Date/Time Admitted Inpatient [facility] 01/17/14 5:31am Registered Clinic [facility] 12/20/13 11:45am Registered Clinic [facility] 10/21/13 9:21am Recent Diagnosis Diabetes Hypertension Hyperlipidemia COPD (chronic obstructive pulmonary disease) GERD (gastroesophageal reflux disease) Morbid obesity with BMI of 45.0-49.9, adult IBS (irritable bowel syndrome) Chronic kidney disease (CKD), stage III (moderate) Obstructive sleep apnea Mild aortic stenosis History of anemia Mild pulmonary hypertension Hypothyroidism
--- OUTSIDE RECORDS SUMMARY | 2016-08-11 16:01 | XMS REPORT | Continuity of Care Document ---
Author Author [facility] Organization [facility] Address Unknown Phone Unavailable Support Name Relationship Address Phone JANET LOO FACS, MD Caregiver [address] [place] [address] [place] [phone] LEANNE THOMAS MD Caregiver [address] [place] [address] [place] [phone] KIEL CAMPOS Next Of Kin [address] [facility] [address] [place], [place] [address] C Insurance Providers Payer Name Policy Number Subscriber Name Relationship Medicare [id number] Paul Campos [address] [facility] Preferred [id number] Kiel Campos 01 Spouse Advance Directives Directive [...] 1 Tab PO DAILY 05/29/10 11/18/10 Discontinued [place]-3 Fatty Acids/Vitamin E 1 Cap PO DAILY [...] AT 8:45AM FOR PHYSICAL THERAPY [place]. PHONE- [phone] Patient Instructions: Swelling 1.Elevate operative extremity above [...] of your legs. 3.During office hours, call [phone] 4. After hours, please call [facility] at [phone], and have the barrel lathe operator outside page your Surgeon IN THE EVENT OF [...] F (96.8 - 99.1) Temperature (Calculated Celsius) 36.33464 degrees C (36.0 - 37.3) Temperature Source [...] Has specimen been collected/obtained? Y Urine Specific [place] January 27, 2014 11:20am <=1.005 L - [...] 13, 2014 8:29pm LAB TEST FORM REQUEST [id number] - Methicillin-Resist S.aureus DNA PCR December 20, [...] 2010 11:30am Name: PAUL CAMPOS Unit #: [id number] : 1945 Sex: F Loc / Svc: ED DOS: 02/11/14 Signed Report #: [id number] DIAGNOSTIC IMAGING REPORT TYPE OF EXAM: HIP [...] Encounters Encounter Location Date/Time Departed Emergency Room [facility] 02/11/14 9:37am Discharged Recurring [facility] 01/30/14 11:09am Discharged Inpatient [facility] 01/19/14 4:45pm Discharged Inpatient [facility] 01/17/14 5:31am
--- OUTSIDE RECORDS SUMMARY | 2016-08-11 16:06 | XMS REPORT | Continuity of Care Document ---
Author Author [facility] Organization [facility] Address Unknown Phone Unavailable Support Name Relationship Address Phone YUSUF BRADFORD MD Caregiver [address] [place] [address] LEANNE THOMAS MD Caregiver [address] [facility] [place] [phone] KIEL CAMPOS Next Of Kin [address] [facility] [address] [place] [address] C Insurance Providers Payer Name Policy Number Subscriber Name Relationship Medicare [id number] Paul Campos 18 Self [facility] Preferred [id number] Kiel Campos 01 Spouse Problems Medical Problems [...] 1 Tab PO DAILY 05/29/10 11/18/10 Discontinued [place]-3 Fatty Acids/Vitamin E 1 Cap PO DAILY [...] F (96.8 - 99.1) Temperature (Calculated Celsius) 36.50011 degrees C (36.0 - 37.3) Pulse Rate [...] 2014 11:54am 4.3 G/DL N 3.5-5.0 [facility] HAS [facility]A ORDERED Albumin/Globulin [...] Has specimen been collected/obtained? Y Urine Specific [place] January 27, 2014 11:20am <=1.005 L - [...] 13, 2014 8:29pm LAB TEST FORM REQUEST [id number] - Methicillin-Resist S.aureus DNA PCR December 20, [...] 2010 11:30am Name: PAUL CAMPOS Unit #: [id number] : 1945 Sex: F Loc / Svc: ED DOS: 02/11/14 Signed Report #: [id number] DIAGNOSTIC IMAGING REPORT TYPE OF EXAM: HIP [...] procedures. Encounters Encounter Location Date/Time Discharged Recurring [facility] 02/13/14 11:51am Departed Emergency Room [facility] 02/11/14 9:37am Discharged Inpatient [facility] 01/19/14 4:45pm Discharged Inpatient [facility] 01/17/14 5:31am
--- OUTSIDE RECORDS SUMMARY | 2016-08-11 16:06 | XMS REPORT | Continuity of Care Document ---
Author Author [facility] Organization [facility] Address Unknown Phone Unavailable Allergies Active Description Code Type Severity Reaction Onset Reported/Identified Relationship to Patient Clinical Status Yes TAPE Drug Allergy N/A N/A Medications Medication Packaging Start Date Stop Date Route Dosage Sig [id number] 08/25/2014 ORAL daily Problems Procedures Results Encounters ACCT No. Visit Date/Time Discharge Status Pt. Type Provider Facility Loc./Unit Complaint [id number] 07/11/2013 09:30:00 07/11/2013 23 :59:59 CLS Outpatient [id number] 06/30/2013 08:12:00 06/30/2013 23 :59:59 CLS Outpatient [id number] 06/29/2013 10:05:00 06/29/2013 23 :59:59 CLS Outpatient [id number] 06/23/2013 11:28:00 06/23/2013 23 :59:59 CLS Outpatient [id number] 06/16/2013 08:03:00 06/16/2013 23 :59:59 CLS Outpatient [id number] 05/24/2013 10:45:00 05/24/2013 23 :59:59 CLS Outpatient [id number] 05/04/2013 11:36:00 05/04/2013 23 :59:59 CLS Outpatient
--- OUTSIDE RECORDS SUMMARY | 2016-08-11 16:09 | XMS REPORT | Continuity of Care Document ---
Author Author [facility] Organization [facility] Address Unknown Phone Unavailable Support Name Relationship Address Phone WILLY ARANA MD Caregiver [address] [place] [address] YUSUF MONTANO MD Caregiver [address] [place] [address] LEANNE THOMAS MD Caregiver [address] [place] [phone] KIEL CAMPOS Next Of Kin [address] [facility] [address] [place] [address] C Insurance Providers Payer Name Policy Number Subscriber Name Relationship Medicare [id number] Paul Campos 18 Self [facility] Preferred [id number] Kiel Campos 01 Spouse Advance Directives Directive [...] 1 Tab PO DAILY 05/29/10 11/18/10 Discontinued Cody-3 Fatty Acids/Vitamin E 1 Cap PO DAILY [...] the hospital because (patient own words): "Leaving [employer] when my started to fall and he [...] of your legs. 3.During office hours, call [phone] 4. After hours, please call [facility] at [phone], and have the single needle operator page your Surgeon IN THE EVENT [...] F (96.8 - 99.1) Temperature (Calculated Celsius) 35.00546 degrees C (36.0 - 37.3) Temperature Source [...] 2014 11:54am 23 U/L N 9-52 [facility]MENT [facility], ALSO HAS UA ORDERED Albumin January 16, 2014 11:54am 4.3 G/DL N 3.5-5.0 COMMENT [facility] PREOP, ALSO HAS UA ORDERED Albumin/Globulin Ratio January 16, 2014 11:54am 1.4 RATIO N 1.1-2.2 COMMENT [facility], ALSO HAS UA ORDERED Alkaline Phosphatase January 16, 2014 11:54am 107 U/L N 38-126 COMMENT [facility], ALSO HAS UA ORDERED Anion Gap January 20, 2014 5:19am 6 MEQ/L N 5-15 Aspartate Amino Transf (AST/SGOT) January 16, 2014 11:54am 28 U/L N 14 -36 COMMENT [facility], ALSO HAS UA ORDERED BUN/Creatinine [...] 29, 2010 12:57pm LAB TEST FORM REQUEST [id number] - Lymphocytes # (Auto) January 20, 2014 [...] Has specimen been collected/obtained? Y Urine Specific [place] January 27, 2014 11:20am <=1.005 L - [...] 2010 11:30am Name: PAUL CAMPOS Unit #: [id number] : 1945 Sex: F Loc / Svc: MED DOS: Signed Report #: [id number] DIAGNOSTIC IMAGING REPORT TYPE OF EXAM: CHEST [...] procedures. Encounters Encounter Location Date/Time Discharged Inpatient [facility] 01/19/14 4:45pm Discharged Inpatient [facility] 01/17/14 5:31am Registered Clinic [facility] 12/20/13 11:45am Recent Diagnosis Diabetes Hypertension GERD (gastroesophageal reflux disease) Morbid obesity with BMI of 45.0-49.9, adult Chronic kidney disease (CKD), stage III (moderate) History of anemia Anticoagulated on Coumadin
[2016-08-11 16:13] LABS: HCT - HEMATOCRIT 35.2 % (36-46); HGB - HEMOGLOBIN 10.4 GM/DL (12-16); MEAN CORPUSCULAR HGB 25.2 UUG (26-34); MEAN CORPUSCULAR HGB CONC(MCHC 29.5 GM/DL (31-37); MEAN CORPUSCULAR VOLUME 85.2 UM3 (80-100); MEAN PLATELET VOLUME 9.9 UM3 (9.4-12.4); RED BLOOD COUNT 4.13 M/MM3 (4.00-5.20); WBC - WHITE BLOOD COUNT 15.6 T/MM3 (4.5-11.0)
[2016-08-11] MEDS ORDERED: BENZ-16 PO (16:16)
[2016-08-11] MEDS ORDERED: APIX5TAB PO (16:16)
--- NOTE | 2016-08-11 16:16 | NUR ---
RADIOLOGY PT TO RADIOLOGY BY CART AT THIS TIME.
[2016-08-11] MEDS ORDERED: MICO71PO TOP (16:20)
[2016-08-11 16:22] LABS: ALBUMIN 3.5 G/DL (3.5-5.0); ALKALINE PHOSPHATASE 108 U/L (38-126); ALT (SGPT) 31 U/L (9-52); ANION GAP 16 MEQ/L (5-15); AST (SGOT) 32 U/L (14-36); BUN/CREATININE RATIO 15 RATIO (6-26); CALCIUM 9.2 MG/DL (8.4-10.2); CHLORIDE 103 MEQ/L (98-107); CO2 - CARBON DIOXIDE 26 MEQ/L (22-30); CREATININE 1.4 MG/DL (0.7-1.2); GLOMERULAR FILTRATION RATE 37; GLUCOSE 184 MG/DL (65-110); MAGNESIUM 2.3 MG/DL (1.6-2.3); POTASSIUM 4.2 MEQ/L (3.6-5); SODIUM 145 MEQ/L (134-144)
[2016-08-11] MEDS ORDERED: GUAI120015 PO (16:24)
[2016-08-11] MEDS ORDERED: POLY255P2 PO (16:25)
[2016-08-11 16:29] LABS: ANISOCYTOSIS 1+; BAND NEUTROPHILS # 0.6 T/MM3; BASOPHILS # (MANUAL) 0.3 T/MM3 (0-0.2); EOSINOPHILS # (MANUAL) 0.5 T/MM3 (0-0.5); LYMPHOCYTES # (MANUAL) 3.3 T/MM3 (1-4.8); MONOCYTES # (MANUAL) 0.3 T/MM3 (0-0.8); NEUTROPHILS #(MANUAL)-ABSOLUTE 10.6 T/MM3 (1.8-7.7); POIKILOCYTOSIS 1+; TOTAL CELLS COUNTED 100 %
[2016-08-11 16:34] LABS: PROBNP 1310 PG/ML (0-175)
--- NOTE | 2016-08-11 16:34 | NUR ---
RETURN PT RETURNED FROM RADIOLOGY BY CART AT THIS TIME.
--- NOTE | 2016-08-11 16:48 | NUR ---
REASSESSMENT PT CONTINUES TO BY DYSPNEIC. SPO2 ON 3LPM MAINTAINING BETWEEN 94% TO 96%. LUNG SOUNDS DIMINISHED TO AUSCULTATIO; HOWEVER, CRACKLES HAVE IMPROVED. WILL CONTINUE TO MONITOR.
--- NOTE | 2016-08-11 17:06 | DI ---
EXAM: CHEST 1 VIEW LOCATION OF DICTATION: [place] HISTORY: ITS.REASON: COPD exacerbation tachycardia hypertensive COMPARISON: Compared to July 14, 2016 FINDINGS: The heart is mild to moderately enlarged. There is some prominence of the central pulmonary vasculature. Underpenetrated x-ray. Limited depth of inspiration. No consolidating opacities or pleural effusions. The osseous structures are within normal limits for the patient's age. IMPRESSION: Mild to moderate cardiomegaly with suggested mild pulmonary vascular congestion. .
--- NOTE | 2016-08-11 17:45 | NUR ---
PROVIDER DR. SUNG AT BEDSIDE TO SPEAK WITH PT.
--- NOTE | 2016-08-11 17:55 | NUR ---
RT AT BEDSIDE FOR DUKRISTAB [place].
--- OUTSIDE RECORDS SUMMARY | 2016-08-11 18:02 | XMS REPORT | Continuity of Care Document ---
Author Author [facility] Organization [facility] Address Unknown Phone Unavailable Support Name Relationship Address Phone YUSUF BRADFORD MD Caregiver [address] [place] [address] LEANNE THOMAS MD Caregiver [address] [place] [phone] KIEL CAMPOS Next Of Kin [address] [facility] [address] [place] [address] C Insurance Providers Payer Name Policy Number Subscriber Name Relationship Medicare [id number] aPul Campos 18 Self [facility] Preferred [id number] Kiel Campos 01 Spouse Advance Directives Directive [...] 1 Tab PO DAILY 05/29/10 11/18/10 Discontinued Maybee-3 Fatty Acids/Vitamin E 1 Cap PO DAILY [...] P[employer]! Durable Medical Equipment: [employer] [phone] Notify Physician If: CALL YOUR SURGEON IF: [...] and call Dr. Wong with the result [phone]. Condition at time of discharge: Good Plan of Care Discharge Date 01/19/14 4:40pm Disposition 62 TO [facility] Instructions/Education Provided [facility] Postop DC Instruct Prescriptions See Medications [...] F (96.8 - 99.1) Temperature (Calculated Celsius) 37.63603 degrees C (36.0 - 37.3) Temperature Source [...] 29, 2010 12:57pm LAB TEST FORM REQUEST [id number] - Lymphocytes # (Auto) January 16, 2014 [...] PREOPHas specimen been collected/obtained? Y Urine Specific [place] January 16, 2014 11:55am 1.010 L - [...] 2010 11:30am Name: PAUL CAMPOS Unit #: [id number] : 1945 Sex: F Loc / Svc: MED DOS: Signed Report #: [id number] DIAGNOSTIC IMAGING REPORT TYPE OF EXAM: CHEST [...] MD Encounters Encounter Location Date/Time Admitted Inpatient [facility] 01/17/14 5:31am Registered Clinic [facility] 12/20/13 11:45am Registered Clinic [facility] 10/21/13 9:21am Recent Diagnosis Diabetes Hypertension Hyperlipidemia COPD (chronic obstructive pulmonary disease) GERD (gastroesophageal reflux disease) Morbid obesity with BMI of 45.0-49.9, adult IBS (irritable bowel syndrome) Chronic kidney disease (CKD), stage III (moderate) Obstructive sleep apnea Mild aortic stenosis History of anemia Mild pulmonary hypertension Hypothyroidism
--- OUTSIDE RECORDS SUMMARY | 2016-08-11 18:03 | XMS REPORT | Continuity of Care Document ---
Author Author [facility] Organization [facility] Address Unknown Phone Unavailable Support Name Relationship Address Phone JANET LOO FACS, MD Caregiver [address] [place] [address] [place] [phone] LEANNE THOMAS MD Caregiver [address] [place] [address] [place] [phone] KIEL CAMPOS Next Of Kin [address] [facility] [address] [place], [place] [address] C Insurance Providers Payer Name Policy Number Subscriber Name Relationship Medicare [id number] Paul Campos 18 Self [facility] Preferred [id number] Kiel Campos 01 Spouse Advance Directives Directive [...] 1 Tab PO DAILY 05/29/10 11/18/10 Discontinued Lloyd-3 Fatty Acids/Vitamin E 1 Cap PO DAILY [...] AT 8:45AM FOR PHYSICAL THERAPY [place]. PHONE- [phone] Patient Instructions: Swelling 1.Elevate operative extremity above [...] of your legs. 3.During office hours, call [phone] 4. After hours, please call [facility] at [phone], and have the track hoe operator page your Surgeon IN THE EVENT [...] F (96.8 - 99.1) Temperature (Calculated Celsius) 36.24231 degrees C (36.0 - 37.3) Temperature Source [...] Has specimen been collected/obtained? Y Urine Specific [place] January 27, 2014 11:20am <=1.005 L - [...] 13, 2014 8:29pm LAB TEST FORM REQUEST [id number] - Methicillin-Resist S.aureus DNA PCR December 20, [...] 2010 11:30am Name: PAUL CAMPOS Unit #: [id number] : 1945 Sex: F Loc / Svc: ED DOS: 02/11/14 Signed Report #: [id number] DIAGNOSTIC IMAGING REPORT TYPE OF EXAM: HIP [...] Encounters Encounter Location Date/Time Departed Emergency Room [facility] 02/11/14 9:37am Discharged Recurring [facility] 01/30/14 11:09am Discharged Inpatient [facility] 01/19/14 4:45pm Discharged Inpatient [facility] 01/17/14 5:31am
--- OUTSIDE RECORDS SUMMARY | 2016-08-11 18:07 | XMS REPORT | Continuity of Care Document ---
Author Author [facility] Organization [facility] Address Unknown Phone Unavailable Support Name Relationship Address Phone YUSUF BRADFORD MD Caregiver [address] [place] [address] LEANNE THOMAS MD Caregiver [address] [place] [phone] KIEL CAMPOS Next Of Kin [address] [facility] [address] [place] [address] C Insurance Providers Payer Name Policy Number Subscriber Name Relationship Medicare [id number] Paul Campos 18 Self [facility] Preferred [id number] Kiel Campos 01 Spouse Problems Medical Problems [...] 1 Tab PO DAILY 05/29/10 11/18/10 Discontinued Stockholm-3 Fatty Acids/Vitamin E 1 Cap PO DAILY [...] F (96.8 - 99.1) Temperature (Calculated Celsius) 36.85500 degrees C (36.0 - 37.3) Pulse Rate [...] 2014 11:54am 4.3 G/DL N 3.5-5.0 COMMENT [facility] PREOP, ALSO HAS UA ORDERED Albumin/Globulin Ratio [...] Has specimen been collected/obtained? Y Urine Specific [place] January 27, 2014 11:20am <=1.005 L - [...] 13, 2014 8:29pm LAB TEST FORM REQUEST [id number] - Methicillin-Resist S.aureus DNA PCR December 20, [...] 2010 11:30am Name: PAUL CAMPOS Unit #: [id number] : 1945 Sex: F Loc / Svc: ED DOS: 02/11/14 Signed Report #: [id number] DIAGNOSTIC IMAGING REPORT TYPE OF EXAM: HIP [...] procedures. Encounters Encounter Location Date/Time Discharged Recurring [facility] 02/13/14 11:51am Departed Emergency Room [facility] 02/11/14 9:37am Discharged Inpatient [facility] 01/19/14 4:45pm Discharged Inpatient [facility] 01/17/14 5:31am
--- OUTSIDE RECORDS SUMMARY | 2016-08-11 18:07 | XMS REPORT | Continuity of Care Document ---
Author Author [facility] Organization [facility] Address Unknown Phone Unavailable Allergies Active Description Code Type Severity Reaction Onset Reported/Identified Relationship to Patient Clinical Status Yes TAPE Drug Allergy N/A N/A Medications Medication Packaging Start Date Stop Date Route Dosage Sig [id number] 08/25/2014 ORAL daily Problems Procedures Results Encounters ACCT No. Visit Date/Time Discharge Status Pt. Type Provider Facility Loc./Unit Complaint [id number] 07/11/2013 09:30:00 07/11/2013 23 :59:59 CLS Outpatient [id number] 06/30/2013 08:12:00 06/30/2013 23 :59:59 CLS Outpatient [id number] 06/29/2013 10:05:00 06/29/2013 23 :59:59 CLS Outpatient [id number] 06/23/2013 11:28:00 06/23/2013 23 :59:59 CLS Outpatient [id number] 06/16/2013 08:03:00 06/16/2013 23 :59:59 CLS Outpatient [id number] 05/24/2013 10:45:00 05/24/2013 23 :59:59 CLS Outpatient [id number] 05/04/2013 11:36:00 05/04/2013 23 :59:59 CLS Outpatient
--- OUTSIDE RECORDS SUMMARY | 2016-08-11 18:10 | XMS REPORT | Continuity of Care Document ---
Author Author [facility] Organization [facility] Address Unknown Phone Unavailable Support Name Relationship Address Phone WILLY ARANA MD Caregiver [address] [place] [address] YUSUF MONTANO MD Caregiver [address] [place] [address] LEANNE THOMAS MD Caregiver [address] [place] [phone] KIEL CAMPOS Next Of Kin [address] [facility] [address] [place] [address] C Insurance Providers Payer Name Policy Number Subscriber Name Relationship Medicare [id number] Paul Campos 18 Self [facility] Preferred [id number] Kiel Campos 01 Spouse Advance Directives Directive [...] 1 Tab PO DAILY 05/29/10 11/18/10 Discontinued Floyd-3 Fatty Acids/Vitamin E 1 Cap PO DAILY [...] the hospital because (patient own words): "Leaving [employer] when my started to fall and he [...] of your legs. 3.During office hours, call [phone] 4. After hours, please call [facility] at [phone], and have the scow derrick operator page your Surgeon IN THE EVENT [...] F (96.8 - 99.1) Temperature (Calculated Celsius) 35.90043 degrees C (36.0 - 37.3) Temperature Source [...] 2014 11:54am 23 U/L N 9-52 [facility] ORDERED Albumin January 16, 2014 11:54am 4.3 G/DL N 3.5-5.0 COMMENT [facility] PREOP, ALSO HAS UA ORDERED Albumin/Globulin Ratio January 16, 2014 11:54am 1.4 RATIO N 1.1-2.2 COMMENT [facility], ALSO HAS UA ORDERED Alkaline Phosphatase January 16, 2014 11:54am 107 U/L N 38-126 [facility] ALSO HAS UA ORDERED Anion Gap January 20, 2014 5:19am 6 MEQ/L N 5-15 Aspartate Amino Transf (AST/SGOT) January 16, 2014 11:54am 28 U/L N 14 -36 [facility] ALSO HAS UA ORDERED [...] 29, 2010 12:57pm LAB TEST FORM REQUEST [id number] - Lymphocytes # (Auto) January 20, 2014 [...] Has specimen been collected/obtained? Y Urine Specific [place] January 27, 2014 11:20am <=1.005 L - [...] 2010 11:30am Name: PAUL CAMPOS Unit #: [id number] : 1945 Sex: F Loc / Svc: MED DOS: Signed Report #: [id number] DIAGNOSTIC IMAGING REPORT TYPE OF EXAM: CHEST [...] procedures. Encounters Encounter Location Date/Time Discharged Inpatient [facility] 01/19/14 4:45pm Discharged Inpatient [facility] 01/17/14 5:31am Registered Clinic [facility] 12/20/13 11:45am Recent Diagnosis Diabetes Hypertension GERD (gastroesophageal reflux disease) Morbid obesity with BMI of 45.0-49.9, adult Chronic kidney disease (CKD), stage III (moderate) History of anemia Anticoagulated on Coumadin
--- NOTE | 2016-08-11 18:17 | NUR ---
REPORT CALLED TO [facility] ON MEDICAL UNIT. DENIES QUESTIONS.
--- NOTE | 2016-08-11 18:25 | NUR ---
Admit Pt. admitted to Rm. 164 on Medical from the ER. Pt. is awake and A/O x3. She is currently lying in bed. She is pleasant. BP noted to be 165/94 and HR noted to be 112. It was reported pt. has a history of A-fib. Pt. is on 3L o2 via nasal canula and she does report SOA, but denies pain and nausea. She reports last BM was yesterday. Pt. belongings noted include upper dentures, lower partials and glasses. Will pass on report to material handler 2nd shift.
[2016-08-11 18:33] VITALS: BP 165/94; PULSE 112; RESP 20; TEMP 97.4; O2SAT 92
--- NOTE | 2016-08-11 18:34 | NUR ---
ADMIT PT TAKEN TO MEDICAL UNIT, RM 164 BY CART AT THIS TIME ON 3LPM BY ALBERTO. PT TRANSFERS FROM ER BED TO MEDICAL BED X1 ASSIST WITH INCREASED WORK OF BREATHING.
[2016-08-11 18:35] VITALS: Ht 152.4 cm; Wt 139.8 kg
[2016-08-11 18:40] VITALS: PULSE 112; RESP 20
[2016-08-11] MEDS ORDERED: BUMETANIDE 1 MG/4 ML INJECTION IV ONE (20:00)
[2016-08-11] MEDS ORDERED: ALBUTEROL/IPRATROPIUM INHAL. 2.5mg-0.5mg/3ml Neb. AEROSOL PRN (20:00)
[2016-08-11] MEDS ORDERED: MELATONIN 5 MG TABLET PO PRN (20:00)
[2016-08-11] MEDS ORDERED: FLUTICASONE NASAL SPRAY 50 MCG EA NOSTRIL PRN (20:00)
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
[2016-08-11] MEDS ORDERED: DOXYCYCLINE 100 MG TABLET PO ONE (20:45)
[2016-08-11 20:54] VITALS: O2SAT 93
[2016-08-11 21:00] VITALS: PULSE 112; RESP 20
[2016-08-11] MEDS ORDERED: BENZONATATE 100 MG CAPSULE PO SCH (21:00)
[2016-08-11] MEDS ORDERED: GUAIFENESIN 400 MG PO SCH (21:00)
[2016-08-11] MEDS ORDERED: ALBUTEROL/IPRATROPIUM INHAL. 2.5mg-0.5mg/3ml Neb. AEROSOL SCH (21:00)
[2016-08-11] MEDS: FLUTICASONE/SALMETEROL 250/50 DISK INHALER ORAL INH PRN (21:30)
[2016-08-11] MEDS ORDERED: INSULIN DEGLUDEC 80 UNIT SQ SCH (22:00)
[2016-08-11] MEDS: GABAPENTIN 300 MG CAPSULE PO SCH (22:16)
[2016-08-11] MEDS: AMITRIPTYLINE 25 MG TABLET PO SCH (22:17)
[2016-08-11] MEDS: APIXABAN 5 MG TABLET PO SCH (22:17)
[2016-08-11] MEDS: MICONAZOLE 2% TOP SCH (22:18)
[2016-08-11] MEDS: PRAMIPEXOLE 0.25 MG TABLET PO SCH (22:19)
[2016-08-11] MEDS: POTASSIUM CHLORIDE 20 MEQ TABLET PO SCH (23:28)
[2016-08-11] MEDS: CYCLOBENZAPRINE 10 MG TABLET PO SCH (23:28)
[2016-08-11] MEDS: METOCLOPRAMIDE 5mg TABLET PO SCH (23:29)
[2016-08-11 23:30] VITALS: BP 173/73; PULSE 103; RESP 24; TEMP 98.8; O2SAT 93
--- NOTE | 2016-08-11 23:30 | NUR ---
Pt hit IV to right hand on bathroom door, IV was out with catheter intact. Dsg applied and hand became bruised with swelling quickly. When back in bed arm was elevated and ice applied. New site placed to left forearm.
[2016-08-11] MEDS ORDERED: INSULIN ASPART 100 UNIT/ML SQ PRN (23:45)
[2016-08-11] MEDS ORDERED: INSULIN GLARGINE 100 UNIT/ML SQ ONE (23:45)
[2016-08-12] VITALS (9 sets, daily range): BP systolic 134–140; BP diastolic 66–78; PULSE 100–110; RESP 20–22; TEMP 96–96.7; O2SAT 94–96
[2016-08-12 05:16] LABS: BASOPHILS % (AUTO) 0.1 % (0-2); HCT - HEMATOCRIT 34.1 % (36-46); HGB - HEMOGLOBIN 10.2 GM/DL (12-16); IMMATURE GRANULOCYTE # (AUTO) 0.09 T/MM3 (0.00-0.03); IMMATURE GRANULOCYTE % (AUTO) 0.9 % (0.0-0.5); LYMPHOCYTES # (AUTO) 1.4 T/MM3 (1-4.8); LYMPHOCYTES % (AUTO) 13.9 % (23-45); MEAN CORPUSCULAR HGB 25.3 UUG (26-34); MEAN CORPUSCULAR HGB CONC(MCHC 29.9 GM/DL (31-37); MEAN CORPUSCULAR VOLUME 84.6 UM3 (80-100); MEAN PLATELET VOLUME 10.3 UM3 (9.4-12.4); MONOCYTES # (AUTO) 0.1 T/MM3 (0-0.8); MONOCYTES % (AUTO) 1.1 % (0-9.0); NEUTROPHILS #(AUTO)-ABSOLUTE 8.6 T/MM3 (1.8-7.7); RED BLOOD COUNT 4.03 M/MM3 (4.00-5.20); WBC - WHITE BLOOD COUNT 10.2 T/MM3 (4.5-11.0)
[2016-08-12 05:21] LABS: ALBUMIN 3.6 G/DL (3.5-5.0); ANION GAP 14 MEQ/L (5-15); BUN/CREATININE RATIO 20 RATIO (6-26); CALCIUM 9.5 MG/DL (8.4-10.2); CHLORIDE 98 MEQ/L (98-107); CO2 - CARBON DIOXIDE 27 MEQ/L (22-30); CREATININE 1.3 MG/DL (0.7-1.2); GLOMERULAR FILTRATION RATE 41; GLUCOSE 430 MG/DL (65-110); MAGNESIUM 2.5 MG/DL (1.6-2.3); PHOSPHORUS 4.3 MG/DL (2.5-4.5); POTASSIUM 4.7 MEQ/L (3.6-5); SODIUM 139 MEQ/L (134-144)
[2016-08-12] MEDS: OMEPRAZOLE 20 MG CAPSULE PO SCH (06:48)
[2016-08-12] MEDS: METOCLOPRAMIDE 5mg TABLET PO SCH ×4 (06:48→22:39)
[2016-08-12] MEDS: ALBUTEROL/IPRATROPIUM INHAL. 2.5mg-0.5mg/3ml Neb. AEROSOL SCH ×4 (07:40→19:32)
[2016-08-12] MEDS: FLUTICASONE/SALMETEROL 250/50 DISK INHALER ORAL INH PRN ×2 (07:41→21:20)
[2016-08-12] MEDS: INSULIN ASPART 100 UNIT/ML SQ SCH ×3 (07:54→17:35)
[2016-08-12] MEDS: PredniSONE 20 MG TABLET PO SCH (07:54)
[2016-08-12] MEDS: GUAIFENESIN 400 MG TABLET PO SCH ×3 (07:54→22:39)
[2016-08-12] MEDS: POTASSIUM CHLORIDE 20 MEQ TABLET PO SCH ×4 (07:54→22:40)
[2016-08-12] MEDS: CYCLOBENZAPRINE 10 MG TABLET PO SCH ×3 (07:54→22:40)
[2016-08-12] MEDS: GABAPENTIN 300 MG CAPSULE PO SCH ×2 (07:54→22:41)
[2016-08-12] MEDS: POLYETHYL.GLYCOL 3350 PACKET 17gm PO SCH (07:55)
[2016-08-12] MEDS: BENZONATATE 200 MG CAPSULE PO SCH ×3 (07:55→22:40)
[2016-08-12] MEDS: ALLOPURINOL 300 MG TABLET PO SCH (07:55)
[2016-08-12] MEDS: BUMETANIDE 1 MG TABLET PO SCH ×2 (07:55→17:36)
[2016-08-12] MEDS: APIXABAN 5 MG TABLET PO SCH ×2 (07:55→22:41)
[2016-08-12] MEDS ORDERED: PITAVASTATIN CALCIUM PO SCH (09:00)
[2016-08-12] MEDS: MICONAZOLE 2% TOP SCH ×2 (09:49→21:00)
[2016-08-12] MEDS: INSULIN ASPART 100 UNIT/ML SQ PRN ×2 (11:20→14:09)
--- NOTE | 2016-08-12 13:21 | NUR ---
HANNA CM VISITED PT AND SPOUSE. CM EXPLAINED ROLE AND PROVIDED CONTACT INFORMATION. PT PLANS TO RETURN HOME AT TIME OF D/C FROM [facility] [place] [facility] IN PLACE. PT STATES SHE WILL USE [facility] FOR OXYGEN SUPPLIES IF NEEDED AT TIME OF D/C. PT IS AWARE TO CONTACT CM IF NEEDS [facility].
--- NOTE | 2016-08-12 15:57 | PNPDOC ---
Subjective Date DATE: 08/12/16 TIME: 15:42 Subjective Mrs. Campos was seen with her at the bedside. She reports persistent exertional dyspnea but indicated that she is less dyspneic at rest. She continues to require oxygen both at rest and with activities. She is voiding more with current diuretics than she was at home and reports edema is better than it has been in several weeks. She denied cough, palpitations, nausea/ vomiting, or heartburn. She denies pain other than a mild discomfort across the entire anterior chest when she is short of breath and working to breathe. She continues to have intermittent wheezing. Objective Vital Signs Vital signs Vital Signs Date Time Temp Pulse Resp B/P Pulse Ox O2 Delivery O2 Flow Rate FiO2 08/12/16 15:13 96.7 107 22 134/66 94 Nasal Cannula 2.00 I/O 3704/3120-cumulative weight down approximate 2 kg from admission EXAM General-NAD, alert, fluent speech HEENT-conjugate gaze, conjunctiva clear, sclera anicteric, EOMI, oropharynx clear Lungs-respirations are nonlabored but breath sounds are diminished throughout. There is faint wheezing in the anterior and posterior lung collins with expiration only. Cardiac-regular rhythm, S1 and S2 with soft murmur at the apex Abd-obese, soft, nontender, diminished bowel sounds Ext-trace edema bilateral lower extremities Neuro-moving extremities well/spontaneously Psych-pleasant, calm, oriented 3 Height (Feet): 5 Height (Inches): 0.00 Weight (Kilograms): 139.700 Laboratory Laboratory Laboratory Tests 08/11/16 16:03 08/12/16 04:29 Magnesium 2.8 Laboratory Tests 08/11/16 16:03 08/12/16 04:29 Blood sugars [phone] Sepsis Diagnostic Criteria Sepsis SIRS Criteria: Pulse >= 90 beats/min (A. fib), WBC >=12,000 or <=4,000, RR > or = to 20 (COPD exacerbation) Severe Sepsis SpO2 <90% or ventilated (COPD exacerbation) Assessment & Plan Problems: (1) COPD exacerbation Status: Acute (2) CHF (congestive heart failure) Status: Acute Qualifiers: Congestive heart failure type: systolic Congestive heart failure chronicity : acute on chronic Qualified Codes: I50.23 - Acute on chronic systolic ( congestive) heart failure Assessment & Plan: Echocardiogram in May of this year: EF 30-40%, biatrial enlargement, concentric LVH, PA pressure 27 (3) Hypoxia Status: Acute (4) Bronchiectasis Status: Acute Qualifiers: Bronchiectasis type: with acute exacerbation Qualified Codes: J47.1 - Bronchiectasis with (acute) exacerbation (5) Edema of both legs Status: Acute (6) Obstructive sleep apnea Status: Chronic (7) Obesity hypoventilation syndrome Status: Chronic (8) IDDM (insulin dependent diabetes mellitus) Status: Chronic Assessment & Plan: A1c 7.5 on 08/07/15 (9) Leukocytosis Status: Acute (10) Morbid obesity with BMI of 60.0-69.9, adult Status: Chronic Assessment & Plan: Admission BMI 60.9 (11) Atrial fibrillation Status: Chronic Qualifiers: Atrial fibrillation type: persistent Qualified Codes: I48.1 - Persistent atrial fibrillation (12) Chronic kidney disease (CKD), stage III (moderate) Status: Chronic (13) Hyperlipidemia Status: Chronic (14) Hypothyroidism Status: Chronic Assessment & Plan: TSH 0.37 on 06/10/16 Assessment Continue diuresis in conjunction with breathing treatments and oral steroids. On doxycycline as a precaution that no sputum production. Suspect current symptoms due to CHF in conjunction with COPD/bronchiectasis exacerbation. 2 L per day fluid restriction initiated. Renal function stable with diuresis thus far. Blood sugars elevated significantly following steroids yesterday and because long-acting insulin was not available last night, Lantus to be given in place of Degludec tonight and family will bring in home product tomorrow. Sliding scale insulin being utilized today to help correct hyperglycemia; dosages increased this morning. Recheck chest x-ray/BNP in a.m. with multiple questions about recent sleep study (results unknown at present) and obtaining home oxygen. Plan/Intensity of Service Discussed with case management and . Laboratory data reviewed, chest x- ray ordered. Call placed to Dr. Breen/sleep medicine. DVT Prophylaxis: SCD'S, other (Eliquis) Code Status Full Code Hospital Course Summary Disclaimer The hospital course summary below is not to be considered part of the above Progress Note. Hospital Course Summary 08/11 Mrs. Campos presents with increasing dyspnea/breathlessness and hypoxia. She's had 3 hospitalizations in the past 2 months for COPD exacerbations complicated by CHF, THOMAS, influenza A, and bronchiectasis. She's recently spent increasing edema and BNP is currently elevated. Outpatient workup underway to determine if she needs nocturnal BiPAP with supplemental oxygen for chronic management. SIRS criteria present on admission however all explained by acute COPD exacerbation. No sputum production or fever to suggest underlying infection. Initiate steroids-IV today converting to prednisone tomorrow. Aggressive beta agonist therapy, supplemental oxygen, and continued CPAP with O2 at night. Will attempt to obtain results of recent sleep study. Oral antibiotics initiated empirically; sputum culture to be obtained and respiratory viral panel screened. I am concerned that CHF is a larger component of presenting symptoms than initially recognized in the ER and will give patient a single dose of IV Bumex tonight continuing oral Bumex twice a day starting tomorrow. Weight is up compared to last admission and patient describes edema being significantly increased from baseline. Nocturnal hypoxia may be contributing to worsening edema. Home regimen will be continued for diabetes, reflux, restless legs, A. fib, hyperlipidemia, hypothyroidism, and pain. 08/12 Continue diuresis in conjunction with breathing treatments and oral steroids. On doxycycline as a precaution that no sputum production. Suspect current symptoms due to CHF in conjunction with COPD/bronchiectasis exacerbation. Renal function stable with diuresis thus far. Blood sugars elevated significantly following steroids yesterday and because long-acting insulin was not available last night, Lantus to be given in place of Degludec tonight and family will bring in home product tomorrow. Sliding scale insulin being utilized today to help correct hyperglycemia; dosages increased this morning. Recheck chest x-ray/BNP in a.m. with multiple questions about recent sleep study (results unknown at present) and obtaining home oxygen. PEGGY SILVA MD Aug 12, 2016 15:46
--- NOTE | 2016-08-12 18:01 | NUR ---
STATUS PT CURRENTLY IN RECLINER. WEARS O2 TODAY 2-3L PER NC. UP WITH STANDBY ASSIST. USES CALL LIGHT APPROPRIATELY. IV LOCKED. FRIENDLY AND COOPERATIVE WITH STAFF. EDUCATED ON FLUID RESTRICTION TODAY. PT VERBALIZED UNDERSTANDING. WILL CONTINUE TO MONITOR.
[2016-08-12] MEDS ORDERED: INSULIN GLARGINE 100 UNIT/ML SQ ONE (22:00)
[2016-08-12] MEDS: AMITRIPTYLINE 25 MG TABLET PO SCH (22:39)
[2016-08-12] MEDS: PRAMIPEXOLE 0.25 MG TABLET PO SCH (22:41)
[2016-08-13] VITALS (12 sets, daily range): BP systolic 142–146; BP diastolic 69–79; PULSE 100–127; RESP 18–24; TEMP 96.4–97.6; O2SAT 82–97
[2016-08-13 06:19] LABS: ANION GAP 15 MEQ/L (5-15); BUN/CREATININE RATIO 26 RATIO (6-26); CALCIUM 9.3 MG/DL (8.4-10.2); CHLORIDE 102 MEQ/L (98-107); CO2 - CARBON DIOXIDE 25 MEQ/L (22-30); CREATININE 1.3 MG/DL (0.7-1.2); GLOMERULAR FILTRATION RATE 41; GLUCOSE 254 MG/DL (65-110); POTASSIUM 5.4 MEQ/L (3.6-5); SODIUM 142 MEQ/L (134-144)
[2016-08-13 06:28] LABS: PROBNP 1720 PG/ML (0-175)
[2016-08-13] MEDS: METOCLOPRAMIDE 5mg TABLET PO SCH ×3 (06:32→17:38)
[2016-08-13] MEDS: OMEPRAZOLE 20 MG CAPSULE PO SCH (06:32)
[2016-08-13] MEDS: INSULIN ASPART 100 UNIT/ML SQ PRN ×3 (06:40→14:30)
--- NOTE | 2016-08-13 07:47 | NUR ---
SHIFT SUMMARY PT ALERT AND ORIENTED X 3. WEARS BI-PAP AT NIGHT, ON 2-3 L OF 02 PRN. UP TO BATHROOM WITH SBA. GAIT IS STEADY, PT CALLS FOR ASSIST. PT TALKED ABOUT HER MEDICATION AND BLOODY SUGARS. DENIES SOA OR CHEST PAIN.
[2016-08-13] MEDS: POTASSIUM CHLORIDE 20 MEQ TABLET PO SCH (08:00)
[2016-08-13] MEDS: ALBUTEROL/IPRATROPIUM INHAL. 2.5mg-0.5mg/3ml Neb. AEROSOL SCH ×3 (08:14→16:49)
[2016-08-13] MEDS: INSULIN ASPART 100 UNIT/ML SQ SCH ×3 (08:57→18:12)
[2016-08-13] MEDS: APIXABAN 5 MG TABLET PO SCH (08:58)
[2016-08-13] MEDS: PredniSONE 20 MG TABLET PO SCH (08:58)
[2016-08-13] MEDS: BUMETANIDE 1 MG TABLET PO SCH ×2 (08:58→17:38)
[2016-08-13] MEDS: POLYETHYL.GLYCOL 3350 PACKET 17gm PO SCH (08:59)
[2016-08-13] MEDS: CYCLOBENZAPRINE 10 MG TABLET PO SCH ×2 (08:59→16:02)
[2016-08-13] MEDS: MICONAZOLE 2% TOP SCH (09:00)
[2016-08-13] MEDS ORDERED: PITAVASTATIN 2 MG PO SCH (09:00)
--- NOTE | 2016-08-13 09:06 | DI ---
INDICATION: ITS.REASON: CHF/COPD exacerbation PROCEDURE: CHEST 2-VIEWS UPRIGHT (PA \T\ LAT) Encounter: Initial COMPARISON: August 11, 2016 FINDINGS: Small bilateral pleural effusions with minimal lower lobe atelectasis. Upper lung collins are clear. No pneumothorax or new infiltrate. Cardiac silhouette remains moderately enlarged. Pulmonary vascularity is unchanged. Impression: Stable chest with small pleural effusions. .
[2016-08-13] MEDS: FLUTICASONE/SALMETEROL 250/50 DISK INHALER ORAL INH PRN (09:28)
[2016-08-13] MEDS: ALLOPURINOL 300 MG TABLET PO SCH (10:50)
[2016-08-13] MEDS: BENZONATATE 200 MG CAPSULE PO SCH ×2 (10:50→16:02)
[2016-08-13] MEDS: GUAIFENESIN 400 MG TABLET PO SCH ×2 (10:50→16:03)
[2016-08-13] MEDS: GABAPENTIN 300 MG CAPSULE PO SCH (10:50)
--- NOTE | 2016-08-13 12:23 | NUR ---
MEDICATION PT REFUSED DESENEX. PT STATED " I DON'T WANT IT AT THIS TIME. I USE NEEDED AT HOME."
--- NOTE | 2016-08-13 13:58 | NUR ---
MEDICATION DR. SILVA WAS NOTIFIED ABOUT PT'S POTASSIUM LEVEL WHICH WAS 5.4. DR. SILVA ORDERED TO STOP POTASSIUM CHLORIDE FOR THIS PT.
--- NOTE | 2016-08-13 15:11 | NUR ---
CM PT WILL D/C HOME TODAY PER DR SILVA. PT WILL NEED HOME OXYGEN . [facility] WILL SUPPLY OXYGEN. THEY WILL DELIVER THIS AFTERNOON TO PT ROOM. PT HAS THEIR CONTACT INFORMATION. PT DOES GET CPAP SUPPLIES FROM [facility]. CM REVIEWED ROT PROGRAM AND PROVIDED FLIER. PT HAS AGREED TO ROT PROGRAM. PT IS AWARE TO CONTACT CM IF NEEDS ARISE.
[2016-08-13] MEDS ORDERED: BUME1TAB17 PO (16:27)
[2016-08-13] MEDS ORDERED: POTA-81 PO (16:27)
[2016-08-13] MEDS ORDERED: PRED20TA PO (16:27)
--- NOTE | 2016-08-13 17:33 | DSPDOC ---
General Date Date DATE: 08/13/16 TIME: 17:15 Attending Physician Niya Villa MD Admitting Physician Niya Villa MD Consulting Physician Admitting Diagnosis bronchiectasis exacerbation Discharge Diagnosis 1. COPD exacerbation 2. Acute on chronic systolic CHF 3. Acute hypoxic respiratory failure 4. Bronchiectasis 5. Bilateral lower extremity edema 6. Obstructive sleep apnea/obesity hypoventilation syndrome 7. Diabetes mellitus, type II, with chronic kidney disease stage III 8. Atrial fibrillation Procedures Ambulatory oximetry on 08/13 demonstrated oxygen saturation of 92% on room air prior to ambulation with desaturation to 85% after short distance with heart rate increasing 227 bpm. Oxygen saturation persisted at 85% on 2 L supplemental oxygen and required increase to 3 L to maintain saturation above 90%. Patient later desaturated to 82% on room air taking several steps in the room without additional exertion. Laboratory Laboratory Tests Test 08/12/16 06:29 08/12/16 07:23 08/12/16 11:06 08/12/16 13:49 Glucometer 366mg/dL (65-110) 397mg/dL (65-110) 371mg/dL (65-110) Adenovirus (PCR) Negative (NEGATIVE) Bordetella parapertussis DNA (PCR) Negative (NEGATIVE) Chlamydia pneumoniae DNA (PCR) Negative (NEGATIVE) Coronavirus Type OC43 (PCR) Negative (NEGATIVE) Coronavirus Type HKU1 (PCR) Negative (NEGATIVE) Coronavirus Type 229E (PCR) Negative (NEGATIVE) Coronavirus Type NL63 (PCR) Negative (NEGATIVE) Human Metapneumovirus (PCR) Negative (NEGATIVE) Influenza Virus Type A (PCR) Negative (NEGATIVE) Influenza Virus Type B (PCR) Negative (NEGATIVE) Mycoplasma pneumoniae (PCR) Negative (NEGATIVE) Parainfluenza Type 1 (PCR) Negative (NEGATIVE) Parainfluenza Type 2 (PCR) Negative (NEGATIVE) Parainfluenza Type 3 (PCR) Negative (NEGATIVE) Parainfluenza Type 4 (PCR) Negative (NEGATIVE) Respiratory Syncytial Virus (PCR) Negative (NEGATIVE) Enterovirus/Rhinovirus (PCR) Negative (NEGATIVE) Test 08/12/16 20:23 08/13/16 05:28 08/13/16 05:29 08/13/16 10:15 Glucometer 241mg/dL (65-110) 262mg/dL (65-110) 269mg/dL (65-110) Turbidity < 20 (0-20) Sodium Level 142MEQ/L (134-144) Potassium Level 5.4MEQ/L (3.6-5) Chloride Level 102MEQ/L (98-107) Carbon Dioxide Level 25MEQ/L (22-30) Anion Gap 15MEQ/L (5-15) Blood Urea Nitrogen 34.0MG/DL (7-17) Creatinine 1.3MG/DL (0.7-1.2) Glomerular Filtration Rate Calc 41 BUN/Creatinine Ratio 26RATIO (6-26) Glucose Level 254MG/DL (65-110) Calculated Osmolality 290MOSM/KG (261-280) Calcium Level 9.3MG/DL (8.4-10.2) Icterus Index < 2 (0-7) PE-Liy-V-Type Natriuretic Peptide 1720PG/ML (0-175) Chemistry Specimen Hemolysis 76 (0-25) White count on admission 15.6 with hemoglobin 10.4; 68 segs, 4 bands D-dimer < 150 on admission Admission creatinine 1.4, proBNP 1310, liver enzymes normal Radiology Chest x-ray on admission demonstrated moderate cardiomegaly and prominence of central pulmonary vasculature. Repeat chest x-ray on the date of discharge revealed small bilateral pleural effusions and essential increased vascularity. History of Present Illness Mrs. Campos is a 71-year-old female with 3 recent admissions for COPD exacerbations/bronchiectasis/pneumonia/sleep apnea. She was recently hospitalized at [facility] the latter part of June and discharged home where she did well initially although reports she had intermittent hypoxia with O2 sat dropping to 82-83% with activities. She did not qualify for home oxygen prior to discharge. For several days prior to admission she noticed increased nonproductive cough and increased fluid retention in her legs and abdomen. Lasix dose was increased last week without apparent effect. Yesterday she was able to go to [facility] in the morning but later in the day had increased difficulty breathing at rest with significant deterioration in her ability to move about. She reports increased wheezing and difficulty sleeping overnight with hypoxia using CPAP last night. On awakening this morning she could not catch her breath and presented to the emergency room where she was found to have oxygen saturation of 85% on room air and significant elevation in blood pressure of 205/88. Heart rate was elevated at 120 and respiratory rate 36. Chest x-ray did not reveal a focal infiltrate. Patient is subsequently admitted with COPD exacerbation. Her registered public surveyor was consulted while she was in the emergency room and felt patient could be managed here without transfer to [facility]. Patient reports that she recently had a sleep study to evaluate converting from CPAP to BiPAP with addition of oxygen at night but she does not yet know the results of the study. She denies fevers, chills, or sweats. She denies recent chest pain. She has tapered off steroids from her recent hospitalization. Hospital Course 08/11 Mrs. Campos presents with increasing dyspnea/breathlessness and hypoxia. She's had 3 hospitalizations in the past 2 months for COPD exacerbations complicated by CHF, THOMAS, influenza A, and bronchiectasis. She's recently spent increasing edema and BNP is currently elevated. Outpatient workup underway to determine if she needs nocturnal BiPAP with supplemental oxygen for chronic management. SIRS criteria present on admission however all explained by acute COPD exacerbation. No sputum production or fever to suggest underlying infection. Initiate steroids-IV today converting to prednisone tomorrow. Aggressive beta agonist therapy, supplemental oxygen, and continued CPAP with O2 at night. Will attempt to obtain results of recent sleep study. Oral antibiotics initiated empirically; sputum culture to be obtained and respiratory viral panel screened. I am concerned that CHF is a larger component of presenting symptoms than initially recognized in the ER and will give patient a single dose of IV Bumex tonight continuing oral Bumex twice a day starting tomorrow. Weight is up compared to last admission and patient describes edema being significantly increased from baseline. Nocturnal hypoxia may be contributing to worsening edema. Home regimen will be continued for diabetes, reflux, restless legs, A. fib, hyperlipidemia, hypothyroidism, and pain. 08/12 Continue diuresis in conjunction with breathing treatments and oral steroids. On doxycycline as a precaution that no sputum production. Suspect current symptoms due to CHF in conjunction with COPD/bronchiectasis exacerbation. Renal function stable with diuresis thus far. Blood sugars elevated significantly following steroids yesterday and because long-acting insulin was not available last night, Lantus to be given in place of Degludec tonight and family will bring in home product tomorrow. Sliding scale insulin being utilized today to help correct hyperglycemia; dosages increased this morning. Recheck chest x-ray/BNP in a.m. with multiple questions about recent sleep study (results unknown at present) and obtaining home oxygen. 08/13/16-discharge Mrs. Campos continues to describe exertional dyspnea although it's not as bad as on admission. She denies dyspnea at rest. Overall she feels improved from admission and notes that edema is significantly improved. Weight is down 1.7 kilograms from admission. Examination reveals nonlabored respirations with improved air flow; no wheezing was present at time of my evaluation. Mild residual crackles are noted at the bases. Cardiac rhythm is irregular. Calves are definitely less edematous and softer than on admission but there is persistent edema in the dependent thighs. Potassium modestly elevated today-supplement on hold and dose will be decreased to discharge. Patient qualifies for home oxygen at this time and feels that it has helped symptoms. Additionally she feel she is diuresing more effectively with Bumex than she did previously with furosemide. Creatinine is stable with diuresis thus far. Discharge weight 139.8 kg. Patient asked to monitor weight daily and notify managing physicians if weight increases more than 3 pounds per day or 5 pounds per week. She'll have follow-up blood work done per Dr. Hassan's recommendations next week and follow-up with Dr. Thomas within the next week. She is discharged on 3 L supplemental oxygen. She's to follow-up with her registered public surveyor and sleep medicine specialist in addition to Dr. Thomas and Dr. Hassan in the near future. Volume overload seem to be the larger component of decompensation leading to current hospitalization than infection. Medication changes reviewed with the patient prior to discharge. >30 minutes spent on patient care and discharge care coordination today on the date of discharge. -- Problems: (1) COPD exacerbation Status: Acute (2) CHF (congestive heart failure) Status: Acute Assessment & Plan: Echocardiogram in May of this year: EF 30-40%, biatrial enlargement, concentric LVH, PA pressure 27 (3) Hypoxia Status: Acute (4) Bronchiectasis Status: Acute (5) Edema of both legs Status: Acute (6) Obstructive sleep apnea Status: Chronic (7) Obesity hypoventilation syndrome Status: Chronic (8) IDDM (insulin dependent diabetes mellitus) Status: Chronic Assessment & Plan: A1c 7.5 on 08/07/15 (9) Leukocytosis Status: Acute (10) Morbid obesity with BMI of 60.0-69.9, adult Status: Chronic Assessment & Plan: Admission BMI 60.9 (11) Atrial fibrillation Status: Chronic (12) Chronic kidney disease (CKD), stage III (moderate) Status: Chronic (13) Hyperlipidemia Status: Chronic (14) Hypothyroidism Status: Chronic Assessment & Plan: TSH 0.37 on 06/10/16 Code Status Full Code Home Meds Active Scripts Prednisone (Prednisone) 20 Mg Tablet, 40 MG PO WB for 3 Days, #6 TAB Prov:NIYA VILLA MD 08/13/16 Bumetanide (Bumetanide) 1 Mg Tablet, 1 MG PO DAILY for EDEMA, #30 TAB Prov:NIYA VILLA MD 08/13/16 Potassium Chloride (Potassium Chloride) 20 Meq Tablet.er, 20 MEQ PO DAILY, #30 TAB Take 1 tablet daily Prov:NIYA VILLA MD 08/13/16 Insulin Degludec (Tresiba Flextouch U-200) 200 Unit/1 Ml Insuln.pen, 80 UNIT SQ HS, #1 VIAL Prov:SCARLETT UGARTE MD 06/05/16 Insulin Lispro (Humalog) 100 Unit/Ml Inj, 35 UNIT SQ 1715, #1 VIAL Prov:SCARLETT UGARTE MD 06/05/16 Insulin Lispro (Humalog) 100 Unit/Ml Inj, 35 UNIT SQ 0745, #1 VIAL Prov:SCARLETT UGARTE MD 06/05/16 Insulin Lispro (Humalog) 100 Unit/Ml Inj, 18 UNIT SQ 1145, #1 VIAL Prov:SCARLETT UGARTE MD 06/05/16 Doxycycline Hyclate (Doxycycline Hyclate) 100 Mg Tablet, 1 TAB PO BIDWM for 7 Days, #14 TAB Prov:REBECCA COOK APRN 02/24/16 Reported Medications Polyethylene Glycol 3350 (Polyethylene Glycol 3350) 255 Gm Powder, 17 GM PO DAILY, #527 GM 08/11/16 Guaifenesin (Mucinex) 1,200 Mg Tbbp.12hr, 400 MG PO TID, #14 TAB 08/11/16 Miconazole Nitrate (Zeasorb) 71 Gm Powder, 1 APPLIC TOP BID 08/11/16 Apixaban (Eliquis) 5 Mg Tablet, 5 MG PO BID 08/11/16 Benzonatate (Benzonatate) 100 Mg Capsule, 200 MG PO TID 08/11/16 Pitavastatin Calcium (Livalo) 2 Mg Tablet, 1 TAB PO DAILY 07/14/16 Clotrimazole/Betamethasone Dip (Clotrimazole-Betamethasone Crm) 15 Gm Cream..g. , 1 APPLIC TOP BID, G 07/14/16 Pramipexole Di-HCl (Pramipexole Dihydrochloride) 0.25 Mg Tablet, 0.25 MG PO HS 02/24/16 Melatonin (Melatonin) 5 Mg Tablet, 15 MG PO HS Y for INSOMNIA 02/24/16 Ipratropium/Albuterol Sulfate (Iprat-Albut 0.5-3(2.5) mg/3 ml) 3 Ml Ampul.neb, 1 VIAL AEROSOL QID Y for PRN ORDERS 02/24/16 Hydrocodone/Apap ([place] 10-325 Tablet) 10-325 Tablet, 1-2 TAB PO Q6H Y for PAIN 02/24/16 Glucagon,Human Recombinant (Glucagon Emergency Kit) 1 Mg/Kit Syringe, 1 MG INJ PRN 02/24/16 Gabapentin (Gabapentin) 300 Mg Capsule, 300 MG PO BID 02/24/16 Fluticasone Propionate (Fluticasone Prop 50 mcg/actuation Nasal [place]) 120 [place] /16 G [place], 1 SPRAY EA NOSTRIL BID Y for PRN ORDERS 02/24/16 Amitriptyline HCl (Amitriptyline HCl) 25 Mg Tablet, 25 MG PO HS 02/24/16 Albuterol Sulfate (Proair HFA 90 mcg/actuation) 8.5 Gm Hfa.aer.ad, 2 PUFF INH QID Y for WHEEZING 02/24/16 Fluticasone/Salmeterol (Advair 250-50 Diskus) 1 Disk W/Dev Inhaler, 1 PUFF INH BID Y for SHORTNESS OF AIR 01/17/14 Omeprazole (Omeprazole) 20 Mg Tablet.dr, 20 MG PO ACB 01/17/14 Allopurinol (Allopurinol) 300 Mg Tablet, 300 MG PO DAILY 05/22/13 Cyclobenzaprine Hcl (Cyclobenzaprine Hcl) 10 Mg Tablet, 10 MG PO TID 05/22/13 Metoclopramide Hcl (Metoclopramide Hcl) 5 Mg Tablet, 5 MG PO ACHS 05/29/10 Discontinued Reported Medications Furosemide (Lasix) 40 Mg Tablet, 2 TAB PO DAILY, TAB 05/28/16 Face to Face Encounter I met with patient on the day of dismissal and discussed follow up appointments , medications, and safety plan. Discharge Disposition Home Copies To 1: WALDEMAR ROMERO MD; LEANNE THOMAS MD Copies To 2: NEREIDA HASSAN MD Documentation Requirements CHF Type and Acuity Type of CHF: Systolic Acuity CHF: Acute on Chronic Chronic Kidney Disease Stage of CKD: Stage 3 GFR 30-59 BMI Low or High Assoc. dx for low or high BMI: Morbid obesity >40 Diabetes Diabetes Type: Type 2 Diabetes Is Diabetes Contolled?: Uncontolled NIYA VILLA MD Aug 13, 2016 17:25
--- NOTE | 2016-08-13 18:50 | NUR ---
DISCHARGE PT ALERT AND ORIENTED X3 AT DISCHARGE TIME. IV AND TELEMETRY WAS D/C. IV TIP WAS INTACT WHEN REMOVED. DISCHARGE INSTRUCTIONS WERE EXPLAINED TO PT. FOLLOWING APPOINTMENTS WERE DISCUSSED WITH PT. PT WAS INSTRUCTED ABOUT NEW, MEDICATIONS. AN INSTRUCTION PACKET WAS SENT WITH PT. PRESCRIPTIONS X3 WERE SENT WITH PT. PT LEFT IN A WHEELCHAIR WITH A O2 TANK. A STAFF MEMBER TOOK HER TO THE FRONT DOOR.
[2016-08-13] MEDS ORDERED: INSULIN DEGLUDEC 200 UNIT/ML SQ SCH (22:00)
--- NOTE | 2016-08-14 09:58 | PDONTRACK ---
Right on Track Program Date of Discharge Aug 13, 2016 at 18:50 Scheduled Allopurinol (Allopurinol), 300 MG PO DAILY, (Reported) Amitriptyline HCl (Amitriptyline HCl), 25 MG PO HS, (Reported) Apixaban (Eliquis), 5 MG PO BID, (Reported) Benzonatate (Benzonatate), 200 MG PO TID, (Reported) Bumetanide (Bumetanide), 1 MG PO DAILY Clotrimazole/Betamethasone Dip (Clotrimazole-Betamethasone Crm), 1 APPLIC TOP BID, (Reported) Cyclobenzaprine Hcl (Cyclobenzaprine Hcl), 10 MG PO TID, (Reported) Doxycycline Hyclate (Doxycycline Hyclate), 1 TAB PO BIDWM Gabapentin (Gabapentin), 300 MG PO BID, (Reported) Glucagon,Human Recombinant (Glucagon Emergency Kit), 1 MG INJ PRN, (Reported) Guaifenesin (Mucinex), 400 MG PO TID, (Reported) Insulin Degludec (Tresiba Flextouch U-200), 80 UNIT SQ HS Insulin Lispro (Humalog), 18 UNIT SQ 1145 Insulin Lispro (Humalog), 35 UNIT SQ 0745 Insulin Lispro (Humalog), 35 UNIT SQ 1715 Metoclopramide Hcl (Metoclopramide Hcl), 5 MG PO ACHS, (Reported) Miconazole Nitrate (Zeasorb), 1 APPLIC TOP BID, (Reported) Omeprazole (Omeprazole), 20 MG PO ACB, (Reported) Pitavastatin Calcium (Livalo), 1 TAB PO DAILY, (Reported) Polyethylene Glycol 3350 (Polyethylene Glycol 3350), 17 GM PO DAILY, (Reported) Potassium Chloride (Potassium Chloride), 20 MEQ PO DAILY Pramipexole Di-HCl (Pramipexole Dihydrochloride), 0.25 MG PO HS, (Reported) Prednisone (Prednisone), 40 MG PO WB Scheduled PRN Albuterol Sulfate (Proair HFA 90 mcg/actuation), 2 PUFF INH QID PRN for WHEEZING , (Reported) Fluticasone Propionate (Fluticasone Prop 50 mcg/actuation Nasal [place]), 1 SPRAY EA NOSTRIL BID PRN for PRN ORDERS, (Reported) Fluticasone/Salmeterol (Advair 250-50 Diskus), 1 PUFF INH BID PRN for SHORTNESS OF AIR, (Reported) Hydrocodone/Apap ([place] 10-325 Tablet), 1-2 TAB PO Q6H PRN for PAIN, (Reported) Ipratropium/Albuterol Sulfate (Iprat-Albut 0.5-3(2.5) mg/3 ml), 1 VIAL AEROSOL QID PRN for PRN ORDERS, (Reported) Melatonin (Melatonin), 15 MG PO HS PRN for INSOMNIA, (Reported) Discontinued Medications Furosemide (Lasix), 2 TAB PO DAILY, (Reported) Date: Aug 14, 2016 Right on Track Program: 24 Hour Follow-Up Discharge Summary Received: Yes Care Plan Received: Yes Follow up: Follow up Tests Reviewed, Follow Up Appt. Scheduled Referrals: Case Management Total LACE Score: 12 Comments PHONE CALL: I spoke with Mrs. Campos on 08/14/16, the day after hospital discharge. She had just walked into the kitchen, so she was audibly short of breath and had conversational dyspnea, which improved after about 1 minute. Her first night at home went fairly well. She's using oxygen as directed and today is going to Dr. Haider' office to have another oxygen study done. She has a scale at home and is planning on documenting daily weights. She had no questions about discharge instructions or medications. She states the Nurse has already been out and helped organized her medications. We arranged a time for a home visit on 08/26/16. Will continue to follow. Discussed w/pt and caregiver: Yes Recommendations for follow-up 1. Continue HH 2. Monitor daily weights and report to Dr. Haider and Dr. Hassan. 3. Continue to follow through [facility] Problems: (1) COPD exacerbation Status: Acute (2) CHF (congestive heart failure) Status: Acute Assessment & Plan: Echocardiogram in May of this year: EF 30-40%, biatrial enlargement, concentric LVH, PA pressure 27 (3) Hypoxia Status: Acute (4) Bronchiectasis Status: Acute (5) Edema of both legs Status: Acute (6) Obstructive sleep apnea Status: Chronic (7) Obesity hypoventilation syndrome Status: Chronic (8) IDDM (insulin dependent diabetes mellitus) Status: Chronic Assessment & Plan: A1c 7.5 on 4/12/16 (9) Leukocytosis Status: Acute (10) Morbid obesity with BMI of 60.0-69.9, adult Status: Chronic Assessment & Plan: Admission BMI 60.9 (11) Atrial fibrillation Status: Chronic (12) Chronic kidney disease (CKD), stage III (moderate) Status: Chronic (13) Hyperlipidemia Status: Chronic (14) Hypothyroidism Status: Chronic Assessment & Plan: TSH 0.37 on 06/10/16 CAMMY DEE APRN Aug 14, 2016 09:53
--- NOTE | 2016-08-14 13:40 | NUR ---
Glycemic control No recent A1c; CRY354-154 mg/dl; Home Dm meds: Tresiba 80 units HS; Humalog, with meals, TID. SS insulin while in hospital. Rd was unable to visit with patient during short stay. Rd will call to f/u.
== END 2016-08-13 18:50 | disposition home health service (06) | DRG 190 ==
LOC: ED 15:38 → MED 17:48 → EDHOLD 17:48
PROVIDERS: ADMIT Internal Medicine; ATTEND Internal Medicine
DX: J44.1 Chronic obstructive pulmonary disease with (acute) exacerbation (principal); I50.23 Acute on chronic systolic (congestive) heart failure; J96.01 Acute respiratory failure with hypoxia; Z68.44 Body mass index [BMI] 60.0-69.9, adult; E66.2 Morbid (severe) obesity with alveolar hypoventilation; D72.829 Elevated white blood cell count, unspecified; J47.9 Bronchiectasis, uncomplicated; E11.22 Type 2 diabetes mellitus with diabetic chronic kidney disease; N18.3 Chronic kidney disease, stage 3 (moderate); I12.9 Hypertensive chronic kidney disease with stage 1 through stage 4 chronic kidney disease, or unspecified chronic kidney disease; R60.0 Localized edema; E66.01 Morbid (severe) obesity due to excess calories; K58.9 Irritable bowel syndrome, unspecified; E78.5 Hyperlipidemia, unspecified; I48.91 Unspecified atrial fibrillation; E03.9 Hypothyroidism, unspecified; Z79.4 Long term (current) use of insulin
CPT/HCPCS: 36415; 80048; 80053; 80069; 82948; 83735; 83880; 84484; 85025; 85379; 87486; 87581; 87633; 87798; 93005; 94640; 94667; 94668; 96374

== ENCOUNTER 2016-08-19 18:47 | Emergency (ER) | payer MEDICARE, OTHER ==
[~2016-08-19] VITALS: Ht 152.4 cm; Wt 140.0 kg
[~2016-08-19 18:47] MED LIST changes: +APIX5TAB PO; -ASPI-1085 PO; -AZIT250T6 PO; +BENZ-16 PO; +BUME1TAB17 PO; -FURO-153 PO; +GUAI120015 PO; -LEVO50TA72 PO; +MICO71PO TOP; -NYST5ORA7 PO; +POLY255P2 PO; +PRED20TA PO; -[UNRECOGNIZED DRUG - CODE] TOP
[2016-08-19 18:52] VITALS: Ht 152.4 cm; Wt 140.0 kg
--- OUTSIDE RECORDS SUMMARY | 2016-08-19 18:52 | XMS REPORT | Continuity of Care Document ---
Author Author [facility] Organization [facility] Address Unknown Phone Unavailable Support Name Relationship Address Phone YUSUF BRADFORD MD Caregiver [address] [place] [address] LEANNE THOMAS MD Caregiver [address] [place] [phone] KIEL CAMPOS Next Of Kin [address] [place] [address] C Insurance Providers Payer Name Policy Number Subscriber Name Relationship Medicare [id number] Paul Campos 20 Self [facility] Preferred [id number] Kiel Campos 01 Spouse Advance Directives Directive [...] 1 Tab PO DAILY 05/29/10 11/18/10 Discontinued [place]-3 Fatty Acids/Vitamin E 1 Cap PO DAILY [...] POTENTIALLY BE LIFE THREATENING! Durable Medical Equipment: [employer] [phone] Notify Physician If: CALL YOUR SURGEON IF: [...] and call Dr. Wong with the result [phone]. Condition at time of discharge: Good Plan of Care Discharge Date 01/19/14 4:40pm Disposition 62 TO [facility] Instructions/Education Provided [facility] Ortho Postop DC Instruct Prescriptions See Medications [...] F (96.8 - 99.1) Temperature (Calculated Celsius) 37.97589 degrees C (36.0 - 37.3) Temperature Source [...] 29, 2010 12:57pm LAB TEST FORM REQUEST [id number] - Lymphocytes # (Auto) January 16, 2014 [...] PREOPHas specimen been collected/obtained? Y Urine Specific [place] January 16, 2014 11:55am 1.010 L - [...] 2010 11:30am Name: PAUL CAMPOS Unit #: [id number] : [id number] Sex: F Loc / Svc: MED DOS: Signed Report #: [id number] DIAGNOSTIC IMAGING REPORT TYPE OF EXAM: CHEST [...] MD Encounters Encounter Location Date/Time Admitted Inpatient [facility] 01/17/14 5:31am Registered Clinic [facility] 12/20/13 11:45am Registered Clinic [facility] 10/21/13 9:21am Recent Diagnosis Diabetes Hypertension Hyperlipidemia COPD (chronic obstructive pulmonary disease) GERD (gastroesophageal reflux disease) Morbid obesity with BMI of 45.0-49.9, adult IBS (irritable bowel syndrome) Chronic kidney disease (CKD), stage III (moderate) Obstructive sleep apnea Mild aortic stenosis History of anemia Mild pulmonary hypertension Hypothyroidism
--- OUTSIDE RECORDS SUMMARY | 2016-08-19 18:53 | XMS REPORT | Continuity of Care Document ---
Author Author [facility] Organization [facility] Address Unknown Phone Unavailable Support Name Relationship Address Phone JANET LOO FACS, MD Caregiver [address] [place] [address] [place] [phone] LEANNE THOMAS MD Caregiver [address] [place] [address] [place] [phone] KIEL CAMPOS Next Of Kin [address] [address] [address] [place], [place] [id number] C Insurance Providers Payer Name Policy Number Subscriber Name Relationship Medicare [id number] Paul Campos 20 Self [facility] Preferred [id number] Kiel Campos 01 Spouse Advance Directives Directive [...] 1 Tab PO DAILY 05/29/10 11/18/10 Discontinued [place]-3 Fatty Acids/Vitamin E 1 Cap PO DAILY [...] AT 8:45AM FOR PHYSICAL THERAPY [place]. PHONE- [phone] Patient Instructions: Swelling 1.Elevate operative extremity above [...] of your legs. 3.During office hours, call [phone] 4. After hours, please call [facility] at [phone], and have the steam power plant operator page your Surgeon IN THE EVENT [...] F (96.8 - 99.1) Temperature (Calculated Celsius) 36.07052 degrees C (36.0 - 37.3) Temperature Source [...] Has specimen been collected/obtained? Y Urine Specific [place] January 27, 2014 11:20am <=1.005 L - [...] 13, 2014 8:29pm LAB TEST FORM REQUEST [id number] - Methicillin-Resist S.aureus DNA PCR December 20, [...] 2010 11:30am Name: PAUL CAMPOS Unit #: [id number] : [id number] Sex: F Loc / Svc: ED DOS: 02/11/14 Signed Report #: [id number] DIAGNOSTIC IMAGING REPORT TYPE OF EXAM: HIP [...] Encounters Encounter Location Date/Time Departed Emergency Room [facility] 02/11/14 9:37am Discharged Recurring [facility] 01/30/14 11:09am Discharged Inpatient [facility] 01/19/14 4:45pm Discharged Inpatient [facility] 01/17/14 5:31am
--- OUTSIDE RECORDS SUMMARY | 2016-08-19 18:54 | XMS REPORT | Continuity of Care Document ---
Author Author [facility] Organization [facility] Address Unknown Phone Unavailable Support Name Relationship Address Phone NIYA VILLA MD Caregiver [address] [place] [address] Unavailable NIYA VILLA MD Caregiver [address] [place] [address] Unavailable LEANNE THOMAS MD Caregiver [address] [place] [address] Unavailable ARSLAN SUNG MD Caregiver [address] [place] [address] [place] [address] Unavailable KIEL CAMPOS Next Of Kin [address] [facility] [address] [place], [place] [id number] C Insurance Providers Guarantor Paul Campos Address [address] [facility] [address] [place] [address] C Email DENIED 16 Payer Medicare Policy Number [id number] Subscriber's Name Paul Campos Relationship 18 Self Effective Date 08 Payer [facility] Preferred Policy Number [id number] Subscriber's Name Paul Campos Relationship 18 Self Group Number [id number] Advance Directives Directive Response Recorded Date/Time Advanced Directives Type None 08/11/16 3:41pm Ordered Resuscitation Status Full Code 08/11/16 5:49pm Resuscitation Documents on File Yes 08/11/16 6:42pm DPOA for Healthcare Only Y , Kiel Campos 08/11/16 8:38pm Living Will No 08/11/16 6:42pm Problems Active Problems Medical Problem Onset Date Status Acute Bronchitis Unknown Acute Anticoagulated on Coumadin Unknown Acute Atrial fibrillation Unknown Chronic Bronchiectasis Unknown Acute CHF (congestive heart failure) Unknown Acute COPD (chronic obstructive pulmonary disease) Unknown Chronic Cellulitis Unknown Acute Chronic back pain Unknown [...] Unknown Acute Hypothyroidism Unknown Chronic Hypoxia Unknown Acute IBS (irritable bowel syndrome) Unknown Chronic IDDM (insulin dependent diabetes mellitus) Unknown Chronic Influenza A Unknown Resolved Leukocytosis Unknown Acute Mild aortic stenosis Unknown Chronic Mild pulmonary hypertension Unknown Chronic Morbid obesity with BMI of 45.0-49.9, adult Unknown Chronic Morbid obesity with BMI of 50.0-59.9, adult Unknown Chronic Morbid obesity with BMI of 60.0-69.9, adult Unknown Chronic THOMAS on CPAP Unknown Chronic Obesity hypoventilation syndrome Unknown Chronic Obstructive sleep apnea Unknown Chronic Osteoarthritis Unknown Chronic Prophylactic antibiotic Unknown Restless leg syndrome Unknown Chronic Severe sepsis Unknown Resolved Surgical Problem Onset Date Status S/P hip replacement Unknown Acute Past Problems Medical Problem Onset Date Acute respiratory failure Unknown Bronchiectasis Unknown Bronchiectasis Unknown Bronchiectasis Unknown COPD exacerbation Unknown Cellulitis Unknown Edema of both legs Unknown History of dyspnea Unknown Hypoxemia Unknown Hypoxemia Unknown Hypoxemia Unknown Hypoxemia requiring supplemental oxygen Unknown Hypoxia Unknown Morbid obesity Unknown Peripheral edema Unknown Recurrent pneumonia Unknown Medications Current Home Medications Medication Dose Units Route Directions Days Qty Instructions Start Date Acetaminophen/Hydrocodone Bitart ([place] 10-325 Tablet) 10-325 Tablet 1-2 Tab Oral Every 6 Hours as needed for Pain 02/24/16 Albuterol Sulfate (Proair Hfa 90 Mcg/Actuation) 8.5 Gm Hfa.aer.ad 2 Puff Inhalation Four Times Daily as needed for Wheezing 02/24/16 Allopurinol 300 Mg Tablet 300 Mg Oral Daily 05/22/13 Amitriptyline Hcl 25 Mg Tablet 25 Mg Oral Bedtime 02/24/16 Apixaban (Eliquis) 5 Mg Tablet 5 Mg Oral Twice A Day 08/11/16 Benzonatate 100 Mg Capsule 200 Mg Oral Three Times A Day 08/11/16 Bumetanide 1 Mg Tablet 1 Mg Oral Daily for Edema 30 Tablet 08/13/16 Clotrimazole/Betamethasone Dip (Clotrimazole-Betamethasone Crm) 15 Gm Cream..g. 1 Applic Topically Twice A Day 07/14/16 Cyclobenzaprine Hcl 10 Mg Tablet 10 Mg Oral Three Times A Day Doxycycline Hyclate 100 Mg Tablet 1 Tab Oral Twice Daily With Meals 7 Days 14 Tablet 02/24/16 Fluticasone Propionate (Fluticasone Prop 50 Mcg/Actuation Nasal Parsons) 120 Parsons/16 G Parsons 1 Parsons Each Nostril Twice A Day as needed for Prn Orders 02/24/16 Fluticasone/Salmeterol (Advair 250-50 Diskus) 1 Disk W/Dev Inhaler 1 Puff Inhalation Twice A Day as needed for Shortness Of Air 01/17/14 Gabapentin 300 Mg Capsule 300 Mg Oral Twice A Day 02/24/16 Glucagon,Human Recombinant (Glucagon Emergency Kit) 1 Mg/Kit Syringe 1 Mg Injection As Needed 02/24/16 Guaifenesin (Mucinex) 1,200 Mg Tbbp.12hr 400 Mg Oral Three Times A Day 14 Tablet 08/11/16 Insulin Degludec (Tresiba Flextouch U-200) 200 Unit/1 [...] Times Daily as needed for Prn Orders Melatonin 5 Mg Tablet 15 Mg Oral Bedtime as needed for Insomnia 02/24/16 Metoclopramide Hcl 5 Mg Tablet 5 Mg Oral Before Meals And At Bedtime 05/29/10 Miconazole Nitrate (Zeasorb) 71 Gm Powder 1 Applic Topically Twice A Day 08/11/16 Omeprazole 20 Mg Tablet.dr 20 Mg Oral Before Breakfast 01/17/14 Pitavastatin Calcium (Livalo) 2 Mg Tablet 1 Tab Oral Daily Polyethylene Glycol 3350 255 Gm Powder 17 Gm Oral Daily 527 Gram Potassium Chloride 20 Meq Tablet.er 20 Meq Oral Daily 30 Tablet Take 1 tablet daily 08/13/16 Pramipexole Di-Hcl (Pramipexole Dihydrochloride) 0.25 Mg Tablet 0.25 Mg Oral Bedtime 02/24/16 Prednisone 20 Mg Tablet 40 Mg Oral Give With Breakfast 3 Days 6 Tablet 08/13/16 Past Home Medications Medication Directions Ordered Status Aspirin (Aspir 81) 81 Mg Tablet.dr, 1 Tab Oral Daily 01/17/14 Discontinued Azithromycin 250 Mg Tablet, 250 Mg Oral Every Thursday, Thursday, And Thursday02/24/16 Discontinued Calcium/Vit B12/Fa/Pyridoxine (Folic Acid/B-6/B-12 Tablet) 1 Tab Tablet, 1 Tab Oral Daily 05/29/10 Discontinued Ergocalciferol (Vitamin D) 50,000 Unit Capsule, 84103 Unit Oral 05/29/10 Discontinued Estradiol 1 Mg Tablet, 1 Mg Oral Daily 05/29/10 Discontinued Fluconazole (Diflucan) 200 Mg Tablet, 200 Mg Oral Daily 05/29/10 Discontinued Fluticasone/Salmeterol (Advair 100-50 Diskus) 1 Disk W/Dev Inhaler, 1 Puff Oral Inhalation Resp.tx Twice A Day as needed for Shortness Of Air 01/17/14 Discontinued Furosemide (Lasix) 40 Mg Tablet, 2 Tab Oral Daily 05/28/16 Discontinued Furosemide 80 Mg Tablet, 40 Mg [...] Mg Oral Twice A Day 05/29/10 Discontinued [place]-3 Fatty Acids/Vitamin E ([place]-3 Fish Oil Softgel) 1 Cap Capsule, 1 Cap Oral Daily 05/29/10 Discontinued Pitavastatin Calcium (Livalo) 2 Mg Tablet, 2 Mg Oral Daily 05/22/13 Discontinued Potassium Chloride 20 Meq Tablet.er, 20 Meq Oral With Meals And At Bedtime Discontinued Potassium Chloride (Klor-Con M20) 20 Meq Tablet, 20 Meq Oral Daily 02/24/16 Discontinued Pramipexole Di-Hcl (Mirapex) 0.25 Mg Tablet, 0.25 Mg Oral Bedtime 05/29/10 Discontinued Prednisone 20 Mg Tablet, 40 Mg Oral Give With Breakfast for Copd 06/05/16 Discontinued Promethazine Hcl/Codeine (Promethazine-Codeine Syrup) 118 Ml Syrup, 5 Ml Oral Every 6 Hours as needed for Cough 06/05/16 Discontinued Sodium Chloride/Aloe Vera ([place] Saline Nasal Gel Parsons) 22 Ml Parsons, 22 Ml Nasal As Needed 05/29/10 Discontinued Terbinafine Hcl (Lamisil) 15 Gm Cream.gm., 15 Gm Topical Twice A Day Discontinued Tolterodine Tartrate (Detrol La) 4 Mg Cap.sr.24h, 4 Mg Oral Daily 05/29/10 Discontinued Vitamin B Complex 1 Cap Capsule, 1 Cap Oral Daily 05/29/10 Discontinued Social History Social History Problem Response Recorded Date/Time Onset Date Status Reason for Hospitalization dyspnea 08/13/2016 5:28pm Not Applicable Not Applicable Chewing Tobacco Status No 09/09/2013 6:15pm Not Applicable Not Applicable Hx Substance Use No 08/11/2016 3:45pm Not Applicable Not Applicable Hx Alcohol Use No 08/11/2016 3:45pm Not Applicable Not Applicable Has the pt used tobacco in the last 12 months No 08/11/2016 6:45pm Not Applicable Not Applicable Tobacco Usage none 01/20/2014 9:29am Not Applicable Not Applicable Query Response Start Date Stop Date Smoking Status Never smoker Hospital Discharge Instructions Instructions: Care Instructions: Reason for Hospitalization: dyspnea I was in the hospital because (patient own words): COULDN'T BREATHE Discharge Diet: diabetic, low-salt, restrict fluids to approximately 2 L daily Discharge Activity: As tolerates using 3 L supplemental oxygen Follow Up Appointments: Dr. Thomas within 1 week, Lung doctor, kidney doctor, and sleep medicine doctor as scheduled APPOINTMENT WITH [facility] ON 08/19/2016 AT 10:30 AM--OFFICE NUMBER [phone] Pending Lab / Results: No Pending Lab Patient Instructions: Discontinue furosemide and switched to bumetanide 1 mg daily, if your weight is increasing or edema worsens you may need to take this twice daily. Potassium level was high-decrease potassium supplement to one tablet daily and have lab work rechecked for Dr. Hassan early next week. Continue breathing treatments 4 times a day, can add extra breathing treatments if needed at two-hour intervals. Blood sugars will run high for the next couple of days while on prednisone but should stabilize after prednisone discontinued. Continue doxycycline for another week. Wound/Incision Care: Not applicable Pain Management/Treatment: Tylenol as needed Expected Signs/Symptoms: Shortness of breath with activities, intermittent wheezing Notify Physician If: Your weight increases by 3 pounds in 24 hours or 5 pounds in 3 days, increasing shortness of breath or inability to maintain oxygen saturation above 89%, fevers During Business Hours:: Please call the physician's office at After Business Hours:: Please call [phone] and have the lasting machine operator hand method page the physician. Condition at time of discharge: Fair Plan of Care Discharge Date 08/13/16 6:50pm Disposition 06 HOME HEALTH SERVICE Instructions/Education Provided Bronchiolitis (DC) Prescriptions See Medication Section Care Plan and Goals See Discharge Instructions Section Functional Status Query Response Date Recorded Mobility Status Ambulatory August 13, 2016 5:28pm Assistive Devices None August 13, 2016 5:28pm Activity Limitations Weakness Fatigue Shortness of breath August 13, 2016 5:28pm Feeding Ability Independent August 13, 2016 5:28pm Toileting Ability Assist August 13, 2016 5:28pm Grooming Ability Assist August 13, 2016 5:28pm Dressing Ability Assist August 13, 2016 5:28pm Driving Ability Dependent August 13, 2016 5:28pm Housework Ability Dependent August 13, 2016 5:28pm Meal Preparation Ability Dependent August 13, 2016 5:28pm Stair Climbing Ability Assist August 13, 2016 5:28pm Ability to complete ADL's impeded by Impaired Mobility August 13, 2016 5:28pm Cognitive/Perceptual Impairments None August 13, 2016 5:28pm Preferred Method of Learning Listening August 11, 2016 9:15pm Allergies, Adverse Reactions, Alerts Allergen Type Severity Reaction Status Last Updated NSAIDS (Non-Steroidal Anti-Inflamma Adverse Reaction Unknown MIGRAINE VICKERS, FLUID RETENTION Active 07/14/16 Naproxen Adverse Reaction Unknown MIGRAINE VICKERS,FLUID RETENTION Active 07/14 adhesive tape Allergy Mild RASH Active 07/14/16 Immunizations Query Response on File Recorded Date/Time Hx Influenza Vaccination Y Jan 2016 08/11/16 6:45pm Hx Pneumococcal Vaccination Y FALL 2009 [id number], FALL 2011 PREVNAR 13 6:45pm Hx Influenza Vaccination Y Jan 2016 08/11/16 6:45pm Influenza Vaccine Hx 01/201608/11/16 3:45pm Vital Signs Acute Vital Signs Vital Response Date/Time Temperature (Fahrenheit) 97.5 deg F (96.8 - 99.1) 08/13/2016 3:13pm Temperature (Calculated Celsius) 36.64559 degrees C (36.0 - 37.3) 08/13/2016 3:13pm Pulse Rate (adult) 105 bpm (60 - 100) 08/13/2016 3:13pm Respiratory Rate 24 breaths/min (10 - 20) 08/13/2016 3:13pm O2 Sat by Pulse Oximetry 91 % (90 - 100) 08/13/2016 4:49pm Oxygen Delivery Method Nasal Cannula 08/13/2016 4:49pm Oxygen Delivery Method Room Air 08/13/2016 4:29pm Oxygen Flow Rate 2.00 L/min 08/13/2016 4:49pm Blood Pressure 143/73 mm Hg 08/13/2016 3:13pm Blood Pressure Source Automatic Cuff 08/13/2016 3:13pm Height (Feet) 5 feet 08/12/2016 3:57pm Height (Inches) 0.00 inches 08/12/2016 3:57pm Weight (Kilograms) 139.800 kg 08/13/2016 7:45am Body Mass Index (BMI) 60.9 08/11/2016 6:35pm Results Laboratory Results Test Name Result Units Flags Reference Collection Date/Time Result Date/ Time Comments Unconjugated Bilirubin 0.00 MG/DL 0.00-1.10 06/02/2016 4:39am 2016 5:00am Conjugated Bilirubin 0.00 MG/DL 0.00-0.30 06/02/2016 4:39am 06/02/2016 5:00am Hemoglobin A1c 7.1 % 6.1-7.9 06/05/2016 4:41am 06/05/2016 11:55am < 6.0 NON-DIABETIC RANGE 6.1-7.9 [facility] TARGET RANGE >8.0 ACTION SUGGESTED Arterial Blood pH 7.430 7.350-7.450 06/09/2016 4:25am 06/09/2016 4: 38am Arterial Blood Partial Pressure CO2 53 MMHG H 34-45 06/09/2016 4:25 4:38am Arterial Blood pO2 at Patient Temp 60 MMHG L 80-100 06/09/2016 4:25 4:38am Arterial Blood HCO3 35 MEQ/L H 22-26 06/09/2016 4:2506/09/2016 4: 38am Arterial Blood Total CO2 36.8 MEQ/L H 23-27 06/09/2016 4:252016 4:38am Arterial Blood Base Excess 9.2 MMOL/L [...] CLEAR 06/09/2016 4:46am 06/09/2016 4:54am Urine Specific [place] 1.020 1.015-1.025 06/09/2016 4:46am 2016 4:54am Urine [...] MICROSCOPIC NOT IND. 06/09/2016 4:46am 2016 4:54am Plasma Lactate 2.9 MMOL/L H 0.6-2.2 07/14/2016 2:03am 07/14/2016 2:25am White Blood Count 10.2 T/MM3 4.5-11.0 08/12/2016 4:29am 08/12/2016 5: 16am Red Blood Count 4.03 M/MM3 4.00-5.20 08/12/2016 4:29am 08/12/2016 5: 16am Hemoglobin 10.2 GM/DL L 12-16 08/12/2016 4:29am 08/12/2016 5:16am Hematocrit 34.1 % L 36-46 08/12/2016 4:08/12/2016 5:16am Mean Corpuscular Volume 84.6 UM3 80-100 08/12/2016 4:08/12/2016 5: 16am Mean Corpuscular Hemoglobin 25.3 UUG L 26-34 08/12/2016 4:2016 5:16am Mean Corpuscular Hemoglobin Concent 29.9 GM/DL L 31-37 08/12/2016 4:08/12/2016 5:16am RDW Standard Deviation 57.9 FL H 36.9-50.2 08/12/2016 4:08/12/2016 5:16am Platelet Count 369 T/MM3 130-400 08/12/2016 4:08/12/2016 5:16am Mean Platelet Volume 10.3 UM3 9.4-12.4 08/12/2016 4:08/12/2016 5: 16am Neutrophils (%) (Auto) 84.0 % H 33-66 08/12/2016 4:08/12/2016 5: 16am Lymphocytes (%) (Auto) 13.9 % L 23-45 08/12/2016 4:08/12/2016 5: 16am Monocytes (%) (Auto) 1.1 % 0-9.0 08/12/2016 4:08/12/2016 5:16am Eosinophils (%) (Auto) 0.0 % 0-4 08/12/2016 4:08/12/2016 5:16am Basophils (%) (Auto) 0.1 % 0-2 08/12/2016 4:08/12/2016 5:16am Immature Granulocyte % (Auto) 0.9 % H 0.0-0.5 08/12/2016 4:2016 5:16am Absolute Neutrophils (auto) 8.6 T/MM3 H 1.8-7.7 08/12/2016 4:2016 5:16am Absolute Lymphocytes (auto) 1.4 T/MM3 1-4.8 08/12/2016 4:2016 5:16am Absolute Monocytes (auto) 0.1 T/MM3 0-0.8 08/12/2016 4:29am 08/12/2016 5:16am Absolute Eosinophils (auto) 0.0 T/MM3 0-0.5 08/12/2016 4:29am 2016 5:16am Absolute Basophils (auto) 0.0 T/MM3 0-0.2 08/12/2016 4:29am 08/12/2016 5:16am Absolute Immature Granulocyte (auto 0.09 T/MM3 H 0.00-0.03 08/12/2016 4: 29am 08/12/2016 5:16am Neutrophils % (Manual) 68.0 % H 33-66 08/11/2016 4:03pm 08/11/2016 4: 29pm Band Neutrophils % 4.0 % 0-6 08/11/2016 4:03pm 08/11/2016 4:29pm Lymphocytes % (Manual) 21.0 % L 23-45 08/11/2016 4:03pm 08/11/2016 4: 29pm Monocytes % (Manual) 2.0 % 0-9.0 08/11/2016 4:03pm 08/11/2016 4:29pm Eosinophils % (Manual) 3.0 % 0-4 08/11/2016 4:03pm 08/11/2016 4:29pm Basophils % (Manual) 2.0 % 0-2 08/11/2016 4:03pm 08/11/2016 4:29pm Band Neutrophils # 0.6 T/MM3 08/11/2016 4:03pm 08/11/2016 4:29pm Absolute Neutrophils (Manual) 10.6 T/MM3 H 1.8-7.7 08/11/2016 4:03pm 4:29pm Lymphocytes # (Manual) 3.3 T/MM3 1-4.8 08/11/2016 4:03pm 08/11/2016 4: 29pm Monocytes # (Manual) 0.3 T/MM3 0-0.8 08/11/2016 4:03pm 08/11/2016 4: 29pm Eosinophils # (Manual) 0.5 T/MM3 0-0.5 08/11/2016 4:03pm 08/11/2016 4: 29pm Basophils # (Manual) 0.3 T/MM3 H 0-0.2 08/11/2016 4:03pm 08/11/2016 4: 29pm Red Cell Morphology Comment ABNORMAL 08/11/2016 4:03pm 08/11/2016 4 :29pm Anisocytosis 1+ 08/11/2016 4:03pm 08/11/2016 4:29pm Poikilocytosis 1+ 08/11/2016 4:03pm 08/11/2016 4:29pm D-Dimer < 150 NG/ML 0-230 08/11/2016 4:03pm 08/11/2016 4:39pm <230 NG/ ML D-DU=PRESUMPTIVE NEGATIVE FOR PE OR DVT >230 NG/ML D-DU=ADDITIONAL EVAL FOR PE OR DVT RECOMMENDED Icterus Index < 2 0-7 08/13/2016 5:08/13/2016 6:19am Chemistry Specimen Hemolysis 76 H 0-25 08/13/2016 5:08/13/2016 6: 19am 71-285: Specimen Exhibited Moderate Hemolysis - can falsely elevate K (Potassium), Troponin I, CA 19-9, PTH, CSF Glucose, Urine Protein, and can falsely decrease Phenytoin. Turbidity < 20 0-20 08/13/2016 5:08/13/2016 6:19am Sodium Level 142 MEQ/L 134-144 08/13/2016 5:08/13/2016 6:19am Potassium Level 5.4 MEQ/L H 3.6-5 08/13/2016 5:08/13/2016 6:19am Chloride Level 102 MEQ/L 98-107 08/13/2016 5:08/13/2016 6:19am Carbon Dioxide Level 25 MEQ/L 22-30 08/13/2016 5:08/13/2016 6: 19am Anion Gap 15 MEQ/L 5-15 08/13/2016 5:08/13/2016 6:19am Blood Urea Nitrogen 34.0 MG/DL H 7-17 08/13/2016 5:08/13/2016 6: 19am Creatinine 1.3 MG/DL H 0.7-1.2 08/13/2016 5:08/13/2016 6:19am BUN/Creatinine Ratio 26 RATIO 6-26 08/13/2016 5:08/13/2016 6:19am Glomerular Filtration Rate Calc 41 08/13/2016 5:08/13/2016 6: 19am Glucose Level 254 MG/DL H 65-110 08/13/2016 5:08/13/2016 6:19am Calculated Osmolality 290 MOSM/KG H 261-280 08/13/2016 5:2016 6:19am Calcium Level 9.3 MG/DL 8.4-10.2 08/13/2016 5:08/13/2016 6:19am Phosphorus Level 4.3 MG/DL 2.5-4.5 08/12/2016 4:2908/12/2016 5:21am Total Bilirubin 0.70 MG/DL 0.20-1.30 08/11/2016 4:03pm 08/11/2016 4: 22pm Alkaline Phosphatase 108 U/L 38-126 08/11/2016 4:03pm 08/11/2016 4: 22pm Total Protein 7.0 G/DL 6.3-8.2 08/11/2016 4:03pm 08/11/2016 4:22pm Albumin 3.6 G/DL 3.5-5.0 08/12/2016 4:08/12/2016 5:21am Globulin 3.5 G/DL 2.4-3.6 08/11/2016 4:03pm 08/11/2016 4:22pm Albumin/Globulin Ratio 1.0 RATIO L 1.1-2.2 08/11/2016 4:03pm 08/11/2016 4:22pm Aspartate Amino Transf (AST/SGOT) 32 U/L 14-36 08/11/2016 4:03pm 2016 4:22pm Alanine Aminotransferase (ALT/SGPT) 31 U/L 9-52 08/11/2016 4:03pm 08/11 4:22pm Troponin I 0.034 ng/ml 0-0.12 08/11/2016 4:03pm 08/11/2016 4:34pm Troponin values with a difference of 55% increase from orginal troponin value represent a true biological DELTA value. (%increase Calc=Orginal Troponin value, divided by subsequent Troponin value, multiplied by 100) PF-Dem-A-Type Natriuretic Peptide 1720 PG/ML H 0-175 08/13/2016 5:29am 08/13/2016 6:28am Rule in cut points: <50 years old=450; 50-75 years old=900; >75 years old=1800; When utilizing ProBNP rule-in cut points, adjustment for impaired renal function is typically not required. Magnesium Level 2.5 MG/DL H 1.6-2.3 08/12/2016 4:29am 08/12/2016 5:21am Adenovirus (PCR) NEGATIVE NEGATIVE 08/12/2016 7:08/12/2016 8: 50am Coronavirus Type 229E (PCR) NEGATIVE NEGATIVE 08/12/2016 7:08/12 8:50am Coronavirus Type HKU1 (PCR) NEGATIVE NEGATIVE 08/12/2016 7:08/12 8:50am Coronavirus Type NL63 (PCR) NEGATIVE NEGATIVE 08/12/2016 7:08/12 8:50am Coronavirus Type OC43 (PCR) NEGATIVE NEGATIVE 08/12/2016 7:08/12 8:50am Human Metapneumovirus (PCR) NEGATIVE NEGATIVE 08/12/2016 7:08/12 8:50am Enterovirus/Rhinovirus (PCR) NEGATIVE NEGATIVE 08/12/2016 7: 8:50am Influenza Virus Type A (PCR) NEGATIVE NEGATIVE 08/12/2016 7: 8:50am Influenza Virus Type B (PCR) NEGATIVE NEGATIVE 08/12/2016 7: 8:50am Parainfluenza Type 1 (PCR) NEGATIVE NEGATIVE 08/12/2016 7:2016 8:50am Parainfluenza Type 2 (PCR) NEGATIVE NEGATIVE 08/12/2016 7:2016 8:50am Parainfluenza Type 3 (PCR) NEGATIVE NEGATIVE 08/12/2016 7:2016 8:50am Parainfluenza Type 4 (PCR) NEGATIVE NEGATIVE 08/12/2016 7:2016 8:50am Respiratory Syncytial Virus (PCR) NEGATIVE NEGATIVE 08/12/2016 7:08/12/2016 8:50am Bordetella parapertussis DNA (PCR) NEGATIVE NEGATIVE 08/12/2016 7: 08/12/2016 8:50am Chlamydia pneumoniae DNA (PCR) NEGATIVE NEGATIVE 08/12/2016 7:23am 8:50am Mycoplasma pneumoniae (PCR) NEGATIVE NEGATIVE 08/12/2016 7:23am 08/12 8:50am Glucometer 269 mg/dL H 65-110 08/13/2016 10:15am 08/13/2016 10:19am Microbiology Results Procedure Source Organism/Result Collection Date/Time Result Date/Time Result Status Blood Culture Peripheral/Iv Start NO GROWTH AFTER 5 DAYS 05/29/2016 12: 01am 06/03/2016 12:18am Final Name: PAUL CAMPOS Unit #: [id number] : 1945 Sex: F DISCHARGE SUMMARY Admit Date: 08/11/16 Report #: [id number] [facility] General Date Date DATE: 08/13/16 TIME: 17:15 Attending Physician Niya Villa MD Admitting Physician Niya Villa MD Consulting Physician Admitting Diagnosis bronchiectasis exacerbation Discharge Diagnosis 1. COPD exacerbation 2. Acute on chronic systolic CHF 3. Acute hypoxic respiratory failure 4. Bronchiectasis 5. Bilateral lower extremity edema 6. Obstructive sleep apnea/obesity hypoventilation syndrome 7. Diabetes mellitus, type II, with chronic kidney disease stage III 8. Atrial fibrillation Procedures Ambulatory oximetry on 08/13 demonstrated oxygen saturation of 92% on room air prior to ambulation with desaturation to 85% after short distance with heart rate increasing 227 bpm. Oxygen saturation persisted at 85% on 2 L supplemental oxygen and required increase to 3 L to maintain saturation above 90%. Patient later desaturated to 82% on room air taking several steps in the room without additional exertion. Laboratory Laboratory Tests Test 08/12/16 06:29 08/12/16 07:23 08/12/16 11:06 08/12/16 13:49 Glucometer 366mg/dL (65-110) 397mg/dL (65-110) 371mg/dL (65-110) Adenovirus (PCR) Negative (NEGATIVE) Bordetella parapertussis DNA (PCR) Negative (NEGATIVE) Chlamydia pneumoniae DNA (PCR) Negative (NEGATIVE) Coronavirus Type OC43 (PCR) Negative (NEGATIVE) Coronavirus Type HKU1 (PCR) Negative (NEGATIVE) Coronavirus Type 229E (PCR) Negative (NEGATIVE) Coronavirus Type NL63 (PCR) Negative (NEGATIVE) Human Metapneumovirus (PCR) Negative (NEGATIVE) Influenza Virus Type A (PCR) Negative (NEGATIVE) Influenza Virus Type B (PCR) Negative (NEGATIVE) Mycoplasma pneumoniae (PCR) Negative (NEGATIVE) Parainfluenza Type 1 (PCR) Negative (NEGATIVE) Parainfluenza Type 2 (PCR) Negative (NEGATIVE) Parainfluenza Type 3 (PCR) Negative (NEGATIVE) Parainfluenza Type 4 (PCR) Negative (NEGATIVE) Respiratory Syncytial Virus (PCR) Negative (NEGATIVE) Enterovirus/Rhinovirus (PCR) Negative (NEGATIVE) Test 08/12/16 20:23 08/13/16 05:28 08/13/16 05:29 08/13/16 10:15 Glucometer 241mg/dL (65-110) 262mg/dL (65-110) 269mg/dL (65-110) Turbidity < 20 (0-20) Sodium Level 142MEQ/L (134-144) Potassium Level 5.4MEQ/L (3.6-5) Chloride Level 102MEQ/L (98-107) Carbon Dioxide Level 25MEQ/L (22-30) Anion Gap 15MEQ/L (5-15) Blood Urea Nitrogen 34.0MG/DL (7-17) Creatinine 1.3MG/DL (0.7-1.2) Glomerular Filtration Rate Calc 41 BUN/Creatinine Ratio 26RATIO (6-26) Glucose Level 254MG/DL (65-110) Calculated Osmolality 290MOSM/KG (261-280) Calcium Level 9.3MG/DL (8.4-10.2) Icterus Index < 2 (0-7) VL-Bde-N-Type Natriuretic Peptide 1720PG/ML (0-175) Chemistry Specimen Hemolysis 76 (0-25) White count on admission 15.6 with hemoglobin 10.4; 68 segs, 4 bands D-dimer < 150 on admission Admission creatinine 1.4, proBNP 1310, liver enzymes normal Radiology Chest x-ray on admission demonstrated moderate cardiomegaly and prominence of central pulmonary vasculature. Repeat chest x-ray on the date of discharge revealed small bilateral pleural effusions and essential increased vascularity. History of Present Illness Mrs. Campos is a 71-year-old female with 3 recent admissions for COPD exacerbations/bronchiectasis/pneumonia/sleep apnea. She was recently hospitalized at [facility] the latter part of June and discharged home where she did well initially although reports she had intermittent hypoxia with O2 sat dropping to 82-83% with activities. She did not qualify for home oxygen prior to discharge. For several days prior to admission she noticed increased nonproductive cough and increased fluid retention in her legs and abdomen. Lasix dose was increased last week without apparent effect. Yesterday she was able to go to [facility] in the morning but later in the day had increased difficulty breathing at rest with significant deterioration in her ability to move about. She reports increased wheezing and difficulty sleeping overnight with hypoxia using CPAP last night. On awakening this morning she could not catch her breath and presented to the emergency room where she was found to have oxygen saturation of 85% on room air and significant elevation in blood pressure of 205/88. Heart rate was elevated at 120 and respiratory rate 36. Chest x-ray did not reveal a focal infiltrate. Patient is subsequently admitted with COPD exacerbation. Her b2b account executive was consulted while she was in the emergency room and felt patient could be managed here without transfer to [place]. Patient reports that she recently had a sleep study to evaluate converting from CPAP to BiPAP with addition of oxygen at night but she does not yet know the results of the study. She denies fevers, chills, or sweats. She denies recent chest pain. She has tapered off steroids from her recent hospitalization. Hospital Course 08/11 Mrs. Campos presents with increasing dyspnea/breathlessness and hypoxia. She's had 3 hospitalizations in the past 2 months for COPD exacerbations complicated by CHF , THOMAS, influenza A, and bronchiectasis. She's recently spent increasing edema and BNP is currently elevated. Outpatient workup underway to determine if she needs nocturnal BiPAP with supplemental oxygen for chronic management. SIRS criteria present on admission however all explained by acute COPD exacerbation. No sputum production or fever to suggest underlying infection. Initiate steroids-IV today converting to prednisone tomorrow. Aggressive beta agonist therapy, supplemental oxygen, and continued CPAP with O2 at night. Will attempt to obtain results of recent sleep study. Oral antibiotics initiated empirically; sputum culture to be obtained and respiratory viral panel screened. I am concerned that CHF is a larger component of presenting symptoms than initially recognized in the ER and will give patient a single dose of IV Bumex tonight continuing oral Bumex twice a day starting tomorrow. Weight is up compared to last admission and patient describes edema being significantly increased from baseline. Nocturnal hypoxia may be contributing to worsening edema. Home regimen will be continued for diabetes, reflux, restless legs, A. fib, hyperlipidemia, hypothyroidism, and pain. 08/12 Continue diuresis in conjunction with breathing treatments and oral steroids. On doxycycline as a precaution that no sputum production. Suspect current symptoms due to CHF in conjunction with COPD/bronchiectasis exacerbation. Renal function stable with diuresis thus far. Blood sugars elevated significantly following steroids yesterday and because long-acting insulin was not available last night, Lantus to be given in place of Degludec tonight and family will bring in home product tomorrow. Sliding scale insulin being utilized today to help correct hyperglycemia; dosages increased this morning. Recheck chest x-ray/BNP in a.m. with multiple questions about recent sleep study (results unknown at present) and obtaining home oxygen. 08/13/16-discharge Mrs. Campos continues to describe exertional dyspnea although it's not as bad as on admission. She denies dyspnea at rest. Overall she feels improved from admission and notes that edema is significantly improved. Weight is down 1.7 kilograms from admission. Examination reveals nonlabored respirations with improved air flow; no wheezing was present at time of my evaluation. Mild residual crackles are noted at the bases. Cardiac rhythm is irregular. Calves are definitely less edematous and softer than on admission but there is persistent edema in the dependent thighs. Potassium modestly elevated today-supplement on hold and dose will be decreased to discharge. Patient qualifies for home oxygen at this time and feels that it has helped symptoms. Additionally she feel she is diuresing more effectively with Bumex than she did previously with furosemide. Creatinine is stable with diuresis thus far. Discharge weight 139.8 kg. Patient asked to monitor weight daily and notify managing physicians if weight increases more than 3 pounds per day or 5 pounds per week. She'll have follow-up blood work done per Dr. Hassan's recommendations next week and follow-up with Dr. Thomas within the next week. She is discharged on 3 L supplemental oxygen. She's to follow-up with her b2b account executive and sleep medicine specialist in addition to Dr. Thomas and Dr. Hassan in the near future. Volume overload seem to be the larger component of decompensation leading to current hospitalization than infection. Medication changes reviewed with the patient prior to discharge. >30 minutes spent on patient care and discharge care coordination today on the date of discharge. -- Problems: (1) COPD exacerbation Status: Acute (2) CHF (congestive heart failure) Status: Acute Assessment & Plan: Echocardiogram in May of this year: EF 30-40%, biatrial enlargement, concentric LVH, PA pressure 27 (3) Hypoxia Status: Acute (4) Bronchiectasis Status: Acute (5) Edema of both legs Status: Acute (6) Obstructive sleep apnea Status: Chronic (7) Obesity hypoventilation syndrome Status: Chronic (8) IDDM (insulin dependent diabetes mellitus) Status: Chronic Assessment & Plan: A1c 7.5 on 08/07/15 (9) Leukocytosis Status: Acute (10) Morbid obesity with BMI of 60.0-69.9, adult Status: Chronic Assessment & Plan: Admission BMI 60.9 (11) Atrial fibrillation Status: Chronic (12) Chronic kidney disease (CKD), stage III (moderate) Status: Chronic (13) Hyperlipidemia Status: Chronic (14) Hypothyroidism Status: Chronic Assessment & Plan: TSH 0.37 on 06/10/16 Code Status Full Code Home Meds Active Scripts Prednisone (Prednisone) 20 Mg Tablet, 40 MG PO WB for 3 Days, #6 TAB Prov:NIYA VILLA MD 08/13/16 Bumetanide (Bumetanide) 1 Mg Tablet, 1 MG PO DAILY for EDEMA, #30 TAB Prov:NIYA VILLA MD 08/13/16 Potassium Chloride (Potassium Chloride) 20 Meq Tablet.er, 20 MEQ PO DAILY, #30 TAB Take 1 tablet daily Prov:NIYA VILLA MD 08/13/16 Insulin Degludec (Tresiba Flextouch U-200) 200 Unit/1 Ml Insuln.pen, 80 UNIT SQ HS, #1 VIAL Prov:SCARLETT UGARTE MD 06/05/16 Insulin Lispro (Humalog) 100 Unit/Ml Inj, 35 UNIT SQ 1715, #1 VIAL Prov:SCARLETT UGARTE MD 06/05/16 Insulin Lispro (Humalog) 100 Unit/Ml Inj, 35 UNIT SQ 0745, #1 VIAL Prov:SCARLETT UGARTE MD 06/05/16 Insulin Lispro (Humalog) 100 Unit/Ml Inj, 18 UNIT SQ 1145, #1 VIAL Prov:SCARLETT UGARTE MD 06/05/16 Doxycycline Hyclate (Doxycycline Hyclate) 100 Mg Tablet, 1 TAB PO BIDWM for 7 Days, #14 TAB Prov:REBECCA COOK MERCHANDISE DIRECTOR 02/24/16 Reported Medications Polyethylene Glycol 3350 (Polyethylene Glycol 3350) 255 Gm Powder, 17 GM PO DAILY, #527 GM 08/11/16 Guaifenesin (Mucinex) 1,200 Mg Tbbp.12hr, 400 MG PO TID, #14 TAB 08/11/16 Miconazole Nitrate (Zeasorb) 71 Gm Powder, 1 APPLIC TOP BID 08/11/16 Apixaban (Eliquis) 5 Mg Tablet, 5 MG PO BID 08/11/16 Benzonatate (Benzonatate) 100 Mg Capsule, 200 MG PO TID 08/11/16 Pitavastatin Calcium (Livalo) 2 Mg Tablet, 1 TAB PO DAILY 07/14/16 Clotrimazole/Betamethasone Dip (Clotrimazole-Betamethasone Crm) 15 Gm Cream..g. , 1 APPLIC TOP BID, G 07/14/16 Pramipexole Di-HCl (Pramipexole Dihydrochloride) 0.25 Mg Tablet, 0.25 MG PO HS 02/24/16 Melatonin (Melatonin) 5 Mg Tablet, 15 MG PO HS Y for INSOMNIA 02/24/16 Ipratropium/Albuterol Sulfate (Iprat-Albut 0.5-3(2.5) mg/3 ml) 3 Ml Ampul.neb, 1 VIAL AEROSOL QID Y for PRN ORDERS 02/24/16 Hydrocodone/Apap ([place] 10-325 Tablet) 10-325 Tablet, 1-2 TAB PO Q6H Y for PAIN 02/24/16 Glucagon,Human Recombinant (Glucagon Emergency Kit) 1 Mg/Kit Syringe, 1 MG INJ PRN 02/24/16 Gabapentin (Gabapentin) 300 Mg Capsule, 300 MG PO BID 02/24/16 Fluticasone Propionate (Fluticasone Prop 50 mcg/actuation Nasal Parsons) 120 Parsons /16 G Parsons, 1 SPRAY EA NOSTRIL BID Y for PRN ORDERS 02/24/16 Amitriptyline HCl (Amitriptyline HCl) 25 Mg Tablet, 25 MG PO HS 02/24/16 Albuterol Sulfate (Proair HFA 90 mcg/actuation) 8.5 Gm Hfa.aer.ad, 2 PUFF INH QID Y for WHEEZING 02/24/16 Fluticasone/Salmeterol (Advair 250-50 Diskus) 1 Disk W/Dev Inhaler, 1 PUFF INH BID Y for SHORTNESS OF AIR 01/17/14 Omeprazole (Omeprazole) 20 Mg Tablet.dr, 20 MG PO ACB 01/17/14 Allopurinol (Allopurinol) 300 Mg Tablet, 300 MG PO DAILY 05/22/13 Cyclobenzaprine Hcl (Cyclobenzaprine Hcl) 10 Mg Tablet, 10 MG PO TID 05/22/13 Metoclopramide Hcl (Metoclopramide Hcl) 5 Mg Tablet, 5 MG PO ACHS 05/29/10 Discontinued Reported Medications Furosemide (Lasix) 40 Mg Tablet, 2 TAB PO DAILY, TAB 05/28/16 Face to Face Encounter I met with patient on the day of dismissal and discussed follow up appointments , medications, and safety plan. Discharge Disposition Home Copies To 1: WALDEMAR ROMERO MD; LEANNE THOMAS MD Copies To 2: NEREIDA HASSAN MD Documentation Requirements CHF Type and Acuity Type of CHF: Systolic Acuity CHF: Acute on Chronic Chronic Kidney Disease Stage of CKD: Stage 3 GFR 30-59 BMI Low or High Assoc. dx for low or high BMI: Morbid obesity >40 Diabetes Diabetes Type: Type 2 Diabetes Is Diabetes Contolled?: Uncontolled NIYA VILLA MD Aug 13, 2016 17:25 Procedures Procedure Status Date Provider(s) Routine venipuncture [...] Completed 06/09/16 Emergency dept visit Completed 06/09/16 [id number]) Completed 06/09/16 223476"INJECTION, METHYLPREDNISOLONE SODIUM SUCCINATE, UP TO Completed 764649"INJECTION, VANCOMYCIN HCL, 500 MG" Completed 06/09/16 823305"INFUSION, NORMAL SALINE SOLUTION , 1000 CC" Completed 06/09/16 [id number]"INFUSION, NORMAL SALINE SOLUTION , 250 CC" Completed 06/09/16 883572"INFUSION, NORMAL SALINE SOLUTION , 250 CC" Completed 06/09/16 Chest x-ray 1 view frontal Completed 07/14/16 Assay of lactic acid Completed 07/14/16 Complete cbc w/auto diff wbc Completed 07/14/16 Airway inhalation treatment Completed 07/14/16 Airway inhalation treatment Completed 07/14/16 Ther/proph/diag inj iv push Completed 07/14/16 Emergency dept visit Completed 07/14/16 392177"INJECTION, METHYLPREDNISOLONE SODIUM SUCCINATE, UP TO Completed Encounters Encounter Location Arrival/Admit Date Discharge/Depart Date Attending Provider Discharged Inpatient [facility] 08/11/16 5:48pm 08/13/16 6:50pm NIYA VILLA MD Departed Emergency Room [facility] 07/14/16 1:38am 07/14/16 3: 25am TERRELL RAPP MD Departed Emergency Room [facility] 06/09/16 2:31am 06/09/16 6: 08am AUGUSTYESICA DO Registered [facility] 06/06/16 8:26am LEANNE THOMAS MD Discharged Inpatient [facility] 05/28/16 11:52pm 06/05/16 2:16pm SCARLETT UGARTE MD
--- OUTSIDE RECORDS SUMMARY | 2016-08-19 18:57 | XMS REPORT | Continuity of Care Document ---
Author Author [facility] Organization [facility] Address Unknown Phone Unavailable Support Name Relationship Address Phone YUSUF BRADFORD MD Caregiver [address] [place] [address] LEANNE THOMAS MD Caregiver [address] [phone] KIEL CAMPOS Next Of Kin [address] [facility] [address] [place] [address] C Insurance Providers Payer Name Policy Number Subscriber Name Relationship Medicare [id number] Paul Campos 20 Self [facility] Preferred [id number] Kiel Campos 01 Spouse Problems Medical Problems [...] 1 Tab PO DAILY 05/29/10 11/18/10 Discontinued [place]-3 Fatty Acids/Vitamin E 1 Cap PO DAILY [...] F (96.8 - 99.1) Temperature (Calculated Celsius) 36.22289 degrees C (36.0 - 37.3) Pulse Rate [...] 2014 11:54am 4.3 G/DL N 3.5-5.0 [facility] ORDERED Albumin/Globulin [...] Has specimen been collected/obtained? Y Urine Specific [place] January 27, 2014 11:20am <=1.005 L - [...] 13, 2014 8:29pm LAB TEST FORM REQUEST [id number] - Methicillin-Resist S.aureus DNA PCR December 20, [...] 2010 11:30am Name: PAUL CAMPOS Unit #: [id number] : 1945 Sex: F Loc / Svc: ED DOS: 02/11/14 Signed Report #: [id number] DIAGNOSTIC IMAGING REPORT TYPE OF EXAM: HIP [...] procedures. Encounters Encounter Location Date/Time Discharged Recurring [facility] 02/13/14 11:51am Departed Emergency Room [facility] 02/11/14 9:37am Discharged Inpatient [facility] 01/19/14 4:45pm Discharged Inpatient [facility] 01/17/14 5:31am
--- OUTSIDE RECORDS SUMMARY | 2016-08-19 18:57 | XMS REPORT | Continuity of Care Document ---
Author Author [facility] Organization [facility] Address Unknown Phone Unavailable Allergies Active Description Code Type Severity Reaction Onset Reported/Identified Relationship to Patient Clinical Status Yes TAPE Drug Allergy N/A N/A Medications Medication Packaging Start Date Stop Date Route Dosage Sig [id number] 08/25/2014 ORAL daily Problems Procedures Results Encounters ACCT No. Visit Date/Time Discharge Status Pt. Type Provider Facility Loc./Unit Complaint [id number] 07/11/2013 09:30:00 07/11/2013 23 :59:59 CLS Outpatient [id number] 06/30/2013 08:12:00 06/30/2013 23 :59:59 CLS Outpatient [id number] 06/29/2013 10:05:00 06/29/2013 23 :59:59 CLS Outpatient [id number] 06/23/2013 11:28:00 06/23/2013 23 :59:59 CLS Outpatient [id number] 06/16/2013 08:03:00 06/16/2013 23 :59:59 CLS Outpatient [id number] 05/24/2013 10:45:00 05/24/2013 23 :59:59 CLS Outpatient [id number] 05/04/2013 11:36:00 05/04/2013 23 :59:59 CLS Outpatient
--- OUTSIDE RECORDS SUMMARY | 2016-08-19 19:00 | XMS REPORT | Continuity of Care Document ---
Author Author [facility] Organization [facility] Address Unknown Phone Unavailable Support Name Relationship Address Phone WILLY ARANA MD Caregiver [address] [place] [address] YUSUF MONTANO MD Caregiver [address] [place] [address] LEANNE THOMAS MD Caregiver [address] [place] [phone] KIEL CAMPOS Next Of Kin [address] [facility] [address] [place] [address] C Insurance Providers Payer Name Policy Number Subscriber Name Relationship Medicare [id number] Paul Campos 20 Self [facility] Preferred [id number] Kiel Campos 01 Spouse Advance Directives Directive [...] 1 Tab PO DAILY 05/29/10 11/18/10 Discontinued [place]-3 Fatty Acids/Vitamin E 1 Cap PO DAILY [...] the hospital because (patient own words): "[place] when my started to fall and he [...] of your legs. 3.During office hours, call [phone] 4. After hours, please call [facility] at [phone], and have the undercover operator page your Surgeon IN THE EVENT [...] F (96.8 - 99.1) Temperature (Calculated Celsius) 35.00979 degrees C (36.0 - 37.3) Temperature Source [...] 11:54am 23 U/L N 9-52 [facility]A ORDERED Albumin January 16, 2014 11:54am 4.3 G/DL N 3.5-5.0 COMMENT [facility] PREOP, ALSO HAS UA ORDERED Albumin/Globulin Ratio January 16, 2014 11:54am 1.4 RATIO N 1.1-2.2 COMMENT [facility]SO HAS UA ORDERED Alkaline Phosphatase January 16, 2014 11:54am 107 U/L N 38-126 [facility]SO HAS UA ORDERED Anion Gap January 20, 2014 5:19am 6 MEQ/L N 5-15 Aspartate Amino Transf (AST/SGOT) January 16, 2014 11:54am 28 U/L N 14 -36 [facility]SO HAS UA ORDERED [...] 29, 2010 12:57pm LAB TEST FORM REQUEST [id number] - Lymphocytes # (Auto) January 20, 2014 [...] Has specimen been collected/obtained? Y Urine Specific [place] January 27, 2014 11:20am <=1.005 L - [...] 2010 11:30am Name: PAUL CAMPOS Unit #: [id number] : 1945 Sex: F Loc / Svc: MED DOS: Signed Report #: [id number] DIAGNOSTIC IMAGING REPORT TYPE OF EXAM: CHEST [...] procedures. Encounters Encounter Location Date/Time Discharged Inpatient [facility] 01/19/14 4:45pm Discharged Inpatient [facility] 01/17/14 5:31am Registered Clinic [facility] 12/20/13 11:45am Recent Diagnosis Diabetes Hypertension GERD (gastroesophageal reflux disease) Morbid obesity with BMI of 45.0-49.9, adult Chronic kidney disease (CKD), stage III (moderate) History of anemia Anticoagulated on Coumadin
[2016-08-19] MEDS ORDERED: ASPI-1085 PO (19:42)
[2016-08-19] MEDS ORDERED: BENZ200C36 PO (19:42)
[2016-08-19] MEDS ORDERED: ASPI-557 PO (19:42)
[2016-08-19] MEDS ORDERED: BUME1TAB17 PO (19:45)
[2016-08-19] MEDS ORDERED: DOXY100C2 PO (19:49)
[2016-08-19] MEDS ORDERED: DILT180C51 PO (19:49)
[2016-08-19] MEDS ORDERED: [UNRECOGNIZED DRUG - CODE] PO (19:49)
[2016-08-19] MEDS ORDERED: INSU100I24 SQ (19:51)
--- NOTE | 2016-08-19 19:52 | NUR ---
PROVIDER DR MARINELLI IN ROOM TO SEE PT
[2016-08-19] MEDS ORDERED: INSU100I14 SQ (19:53)
[2016-08-19] MEDS ORDERED: MELA5TAB14 PO (19:56)
[2016-08-19] MEDS ORDERED: LEVO25TA9 PO (19:56)
[2016-08-19] MEDS ORDERED: POTA-81 PO (19:58)
[2016-08-19] MEDS ORDERED: PRED20TA PO (19:59)
[2016-08-19] MEDS ORDERED: HYDROCODONE/APAP 5 mg/325 mg TABLET PO ONE (20:00)
--- NOTE | 2016-08-19 20:00 | NUR ---
PORTABLE XRAYS COMPLETED IN ROOM
--- OUTSIDE RECORDS SUMMARY | 2016-08-19 20:00 | XMS REPORT | Continuity of Care Document ---
Author Author [facility] Organization [facility] Address Unknown Phone Unavailable Support Name Relationship Address Phone YUSUF BRADFORD MD Caregiver [address] [place] [address] LEANNE THOMAS MD Caregiver [address] [place] [phone] KIEL CAMPOS Next Of Kin [address] [facility] [address] [place] [address] C Insurance Providers Payer Name Policy Number Subscriber Name Relationship Medicare [id number] Paul Campos 20 Self [facility] Preferred [id number] Kiel Campos 01 Spouse Advance Directives Directive [...] 1 Tab PO DAILY 05/29/10 11/18/10 Discontinued [place]-3 Fatty Acids/Vitamin E 1 Cap PO DAILY [...] POTENTIALLY BE LIFE THREATENING! Durable Medical Equipment: [employer] [phone] Notify Physician If: CALL YOUR SURGEON IF: [...] and call Dr. Wong with the result [phone]. Condition at time of discharge: Good Plan of Care Discharge Date 01/19/14 4:40pm Disposition 62 TO [facility] Instructions/Education Provided [facility] Ortho Postop DC Instruct Prescriptions See Medications [...] F (96.8 - 99.1) Temperature (Calculated Celsius) 37.99967 degrees C (36.0 - 37.3) Temperature Source [...] 29, 2010 12:57pm LAB TEST FORM REQUEST [id number] - Lymphocytes # (Auto) January 16, 2014 [...] PREOPHas specimen been collected/obtained? Y Urine Specific [place] January 16, 2014 11:55am 1.010 L - [...] 2010 11:30am Name: PAUL CAMPOS Unit #: [id number] : 1945 Sex: F Loc / Svc: MED DOS: Signed Report #: [id number] DIAGNOSTIC IMAGING REPORT TYPE OF EXAM: CHEST [...] MD Encounters Encounter Location Date/Time Admitted Inpatient [facility] 01/17/14 5:31am Registered Clinic [facility] 12/20/13 11:45am Registered Clinic [facility] 10/21/13 9:21am Recent Diagnosis Diabetes Hypertension Hyperlipidemia COPD (chronic obstructive pulmonary disease) GERD (gastroesophageal reflux disease) Morbid obesity with BMI of 45.0-49.9, adult IBS (irritable bowel syndrome) Chronic kidney disease (CKD), stage III (moderate) Obstructive sleep apnea Mild aortic stenosis History of anemia Mild pulmonary hypertension Hypothyroidism
[2016-08-19] MEDS ORDERED: MAGN400O4 PO (20:01)
[2016-08-19] MEDS ORDERED: ACET-62 PO (20:01)
--- OUTSIDE RECORDS SUMMARY | 2016-08-19 20:01 | XMS REPORT | Continuity of Care Document ---
Author Author [facility] Organization [facility] Address Unknown Phone Unavailable Support Name Relationship Address Phone JANET LOO FACS, MD Caregiver [address] [place] [address] [place] [phone] LEANNE THOMAS MD Caregiver [address] [place] [address] [place] [phone] KIEL CAMPOS Next Of Kin [address] [facility] [address] [place], [place] [address] C Insurance Providers Payer Name Policy Number Subscriber Name Relationship Medicare [id number] Paul Campos 20 Self [facility] Preferred [id number] Kiel Campos 01 Spouse Advance Directives Directive [...] 1 Tab PO DAILY 05/29/10 11/18/10 Discontinued [place]-3 Fatty Acids/Vitamin E 1 Cap PO DAILY [...] AT 8:45AM FOR PHYSICAL THERAPY [place]. PHONE- [phone] Patient Instructions: Swelling 1.Elevate operative extremity above [...] of your legs. 3.During office hours, call [phone] 4. After hours, please call [facility] at [phone], and have the boiling tub operator page your Surgeon IN THE EVENT [...] F (96.8 - 99.1) Temperature (Calculated Celsius) 36.76418 degrees C (36.0 - 37.3) Temperature Source [...] Has specimen been collected/obtained? Y Urine Specific [place] January 27, 2014 11:20am <=1.005 L - [...] 13, 2014 8:29pm LAB TEST FORM REQUEST [id number] - Methicillin-Resist S.aureus DNA PCR December 20, [...] 2010 11:30am Name: PAUL CAMPOS Unit #: [id number] : 1945 Sex: F Loc / Svc: ED DOS: 02/11/14 Signed Report #: [id number] DIAGNOSTIC IMAGING REPORT TYPE OF EXAM: HIP [...]
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
--- OUTSIDE RECORDS SUMMARY | 2016-08-19 20:05 | XMS REPORT | Continuity of Care Document ---
Author Author [facility] Organization [facility] Address Unknown Phone Unavailable Allergies Active Description Code Type Severity Reaction Onset Reported/Identified Relationship to Patient Clinical Status Yes TAPE Drug Allergy N/A N/A Medications Medication Packaging Start Date Stop Date Route Dosage Sig [id number] 08/25/2014 ORAL daily Problems Procedures Results Encounters ACCT No. Visit Date/Time Discharge Status Pt. Type Provider Facility Loc./Unit Complaint [id number] 07/11/2013 09:30:00 07/11/2013 23 :59:59 CLS Outpatient [id number] 06/30/2013 08:12:00 06/30/2013 23 :59:59 CLS Outpatient [id number] 06/29/2013 10:05:00 06/29/2013 23 :59:59 CLS Outpatient [id number] 06/23/2013 11:28:00 06/23/2013 23 :59:59 CLS Outpatient [id number] 06/16/2013 08:03:00 06/16/2013 23 :59:59 CLS Outpatient [id number] 05/24/2013 10:45:00 05/24/2013 23 :59:59 CLS Outpatient [id number] 05/04/2013 11:36:00 05/04/2013 23 :59:59 CLS Outpatient
--- OUTSIDE RECORDS SUMMARY | 2016-08-19 20:06 | XMS REPORT | Continuity of Care Document ---
Author Author [facility] Organization [facility] Address Unknown Phone Unavailable Support Name Relationship Address Phone YUSUF BRADFORD MD Caregiver [address] [place] [address] LEANNE THOMAS MD Caregiver [address] [facility] [place] [phone] KIEL CAMPOS Next Of Kin [address] [facility] [address] [place] [address] C Insurance Providers Payer Name Policy Number Subscriber Name Relationship Medicare [id number] Paul Campos 18 Self [facility] [employer] Preferred [id number] Kiel Campos 01 Spouse Problems Medical Problems [...] 1 Tab PO DAILY 05/29/10 11/18/10 Discontinued [place]-3 Fatty Acids/Vitamin E 1 Cap PO DAILY [...] F (96.8 - 99.1) Temperature (Calculated Celsius) 36.02970 degrees C (36.0 - 37.3) Pulse Rate [...] 2014 11:54am 4.3 G/DL N 3.5-5.0 [facility] ALSO [facility]A ORDERED Albumin/Globulin Ratio [...] 2014 11:54am 7.3 G/DL N 6.3-8.2 COMMENT EZKEIEL WYNN, ALSO HAS UA ORDERED Troponin I [...] Has specimen been collected/obtained? Y Urine Specific [place] January 27, 2014 11:20am <=1.005 L - [...] 13, 2014 8:29pm LAB TEST FORM REQUEST [id number] - Methicillin-Resist S.aureus DNA PCR December 20, [...] 2010 11:30am Name: PAUL CAMPOS Unit #: [id number] : [id number] Sex: F Loc / Svc: ED DOS: 02/11/14 Signed Report #: [id number] DIAGNOSTIC IMAGING REPORT TYPE OF EXAM: HIP [...] procedures. Encounters Encounter Location Date/Time Discharged Recurring [facility] 02/13/14 11:51am Departed Emergency Room [facility] 02/11/14 9:37am Discharged Inpatient [facility] 01/19/14 4:45pm Discharged Inpatient [facility] 01/17/14 5:31am
--- OUTSIDE RECORDS SUMMARY | 2016-08-19 20:08 | XMS REPORT | Continuity of Care Document ---
Author Author [facility] Organization [facility] Address Unknown Phone Unavailable Support Name Relationship Address Phone WILLY ARANA MD Caregiver [address] [place] [address] YUSUF MONTANO MD Caregiver [address] [place] [address] LEANNE THOMAS MD Caregiver [address] [phone] KIEL CAMPOS Next Of Kin [address] [facility] [address] [place] [address] C Insurance Providers Payer Name Policy Number Subscriber Name Relationship Medicare [id number] Paul Campos 20 Self [facility] Preferred [id number] Kiel Campos 01 Spouse Advance Directives Directive [...] 1 Tab PO DAILY 05/29/10 11/18/10 Discontinued [place]-3 Fatty Acids/Vitamin E 1 Cap PO DAILY [...] the hospital because (patient own words): "Leaving [facility] when my started to fall and he [...] of your legs. 3.During office hours, call [phone]. After hours, please call [facility] at [phone], and have the cutter operator helper page your Surgeon IN THE EVENT OF [...] F (96.8 - 99.1) Temperature (Calculated Celsius) 35.55474 degrees C (36.0 - 37.3) Temperature Source [...] 2014 11:54am 23 U/L N 9-[address] [facility], ALSO HAS UA ORDERED Albumin January 16, 2014 11:54am 4.3 G/DL N 3.5-5.0 COMMENT [facility] PREOP, ALSO HAS UA ORDERED Albumin/Globulin Ratio January 16, 2014 11:54am 1.4 RATIO N 1.1-2.[address] [facility] PRE[facility], ALSO HAS UA ORDERED Alkaline Phosphatase January 16, 2014 11:54am 107 U/L N 38-[address] [facility], ALSO HAS UA ORDERED Anion Gap January 20, 2014 5:19am 6 MEQ/L N 5-15 Aspartate Amino Transf (AST/SGOT) January 16, 2014 11:54am 28 U/L N 14 -[address] [facility] PRE[facility], ALSO HAS UA ORDERED [...] 29, 2010 12:57pm LAB TEST FORM REQUEST [id number] - Lymphocytes # (Auto) January 20, 2014 [...] 2010 11:30am Name: PAUL CAMPOS Unit #: [id number] : 1945 Sex: F Loc / Svc: MED DOS: Signed Report #: [id number] DIAGNOSTIC IMAGING REPORT TYPE OF EXAM: CHEST [...] procedures. Encounters Encounter Location Date/Time Discharged Inpatient [facility] 01/19/14 4:45pm Discharged Inpatient [facility] 01/17/14 5:31am Registered Clinic [facility] 12/20/13 11:45am Recent Diagnosis Diabetes Hypertension GERD (gastroesophageal reflux disease) Morbid obesity with BMI of 45.0-49.9, adult Chronic kidney disease (CKD), stage III (moderate) History of anemia Anticoagulated on Coumadin
[2016-08-19 20:35] VITALS: BP 139/66; PULSE 97; RESP 24; TEMP 97.8; O2SAT 94
--- NOTE | 2016-08-19 20:35 | NUR ---
DEPART PT AND ARE GIVEN DISMISSAL INSTRUCTIONS WITH VERBAL UNDERSTANDING. PT LEAVES VIA W/C TO PRIVATE VEHICLE.
--- NOTE | 2016-08-20 08:01 | DI ---
Indication: ITS.REASON: fall/ecchymosis PROCEDURE: KNEE LEFT 2 VIEW: Encounter: Initial Comparison: None Findings: There is no acute fracture, dislocation or malalignment identified. Mild osteoarthritis. Impression: No acute osseous abnormality. .
--- NOTE | 2016-08-20 08:02 | DI ---
Indication: ITS.REASON: Fall with ecchymosis PROCEDURE: TIB-FIB LEFT 2 VIEW: Encounter: Initial Comparison: None Findings: There is no acute fracture, dislocation or malalignment identified. Subcutaneous edema. Impression: No acute osseous abnormality. .
== END 2016-08-19 20:35 | disposition home or self-care (01) ==
LOC: ED 18:47
DX: S80.12XA Contusion of left lower leg, initial encounter (principal); Z79.01 Long term (current) use of anticoagulants; W01.0XXA Fall on same level from slipping, tripping and stumbling without subsequent striking against object, initial encounter; Y93.89 Activity, other specified; Y92.89 Other specified places as the place of occurrence of the external cause; Y99.8 Other external cause status
CPT/HCPCS: 73560; 73590; 99283; A9270

== ENCOUNTER 2016-08-24 15:48 | Inpatient (IN) | payer MEDICARE, OTHER ==
[~2016-08-24] VITALS: Ht 152.4 cm; Wt 136.0 kg
[~2016-08-24 15:48] MED LIST changes: +ACET-62 PO; +ASPI-1085 PO; -BENZ-16 PO; +BENZ200C36 PO; +DILT180C51 PO; +DOXY100C2 PO; -DOXY100T2 PO; -FLUT16SP EA NOSTRIL; -GUAI120015 PO; -HYDR-3995 PO; +INSU100I14 SQ; +INSU100I24 SQ; -INSU100V SQ; -INSU200I4 SQ; +LEVO25TA9 PO; +MAGN400O4 PO; +[UNRECOGNIZED DRUG - CODE] PO
--- OUTSIDE RECORDS SUMMARY | 2016-08-24 15:54 | XMS REPORT | Continuity of Care Document ---
Author Author [facility] Organization [facility] Address Unknown Phone Unavailable Support Name Relationship Address Phone AUGUSTYESICA DO Caregiver [address] [place] [address] Unavailable LEANNE THOMAS MD Caregiver [address] [place] [address] Unavailable KIEL CAMPOS Next Of Kin [address] [place], [place] [id number] C Insurance Providers Guarantor Paul Campos Address [address] [facility] [address] [place] [address] C Email DENIED 08-19-16 Payer Medicare Policy Number [id number] Subscriber's Name Paul Campos Relationship 18 Self Effective Date 08 Payer [facility] Preferred Policy Number [id number] Subscriber's Name Paul Campos Relationship 18 Self Group Number [id number] Chief Complaint and Reason for Visit Chief Complaint Low Back Pain or Injury Reason for Visit Hematoma Problems Active Problems Medical Problem Onset Date Status Acute Bronchitis Unknown Acute Anticoagulated on Coumadin Unknown Acute Atrial fibrillation Unknown Chronic Bronchiectasis Unknown Acute CHF (congestive heart failure) Unknown Acute COPD (chronic obstructive pulmonary disease) Unknown Chronic Cellulitis Unknown Acute Chronic back pain Unknown Chronic Chronic kidney disease (CKD), stage III (moderate) Unknown Chronic Chronic renal failure Unknown Contusion of right hip Unknown Acute Diabetes [...] Cellulitis Unknown Edema of both legs Unknown Hematoma Unknown History of dyspnea Unknown Hypoxemia Unknown Hypoxemia Unknown Hypoxemia Unknown Hypoxemia requiring supplemental oxygen Unknown Hypoxia Unknown Morbid obesity Unknown Peripheral edema Unknown Recurrent pneumonia Unknown Medications Current Home Medications Medication Dose Units Route Directions Days Qty Instructions Start Date Acetaminophen 500 Mg Tablet 1,000 Mg Oral Every 8 Hours as needed for Pain 08/19/16 Albuterol Sulfate (Proair Hfa 90 Mcg/Actuation) 8.5 Gm Hfa.aer.ad 2 Puff Inhalation Four Times Daily as needed for Wheezing 02/24/16 Allopurinol 300 Mg Tablet 300 Mg Oral Give At Noon 05/22/13 Amitriptyline Hcl 25 Mg Tablet 25 Mg Oral Bedtime 02/24/16 Apixaban (Eliquis) 5 Mg Tablet 5 Mg Oral Twice A Day 08/11/16 Aspirin (Aspirin Ec) 81 Mg Tablet.dr 81 Mg Oral Daily 08/19/16 Benzonatate 200 Mg Capsule 400 Mg Oral Three Times A Day as needed for Cough 08/19/16 Bumetanide 1 Mg Tablet 1 Mg Oral Daily 08/19/16 Clotrimazole/Betamethasone Dip (Clotrimazole-Betamethasone Crm) 15 Gm Cream..g. 1 Applic Topically Twice A Day 07/14/16 Cyclobenzaprine Hcl 10 Mg Tablet 10 Mg Oral Three Times A Day as needed for Prn Orders 05/22/13 Diltiazem Hcl (Cartia Xt) 180 Mg Capsule 180 Mg Oral Daily Doxycycline Hyclate 100 Mg Capsule 100 Mg Oral Twice A Day Fluticasone/Salmeterol (Advair 250-50 Diskus) 1 Disk W/Dev Inhaler 2 Puff Inhalation Twice A Day 01/17/14 Gabapentin 300 Mg Capsule 600 Mg Oral Bedtime 02/24/16 Glucagon,Human Recombinant (Glucagon Emergency Kit) 1 Mg/Kit Syringe 1 Mg Injection As Needed 02/24/16 Hydrocodone/Acetaminophen (Rock[place] 10-325 Tablet) 10-325 Tablet 2 Tab Oral Every 6 Hours as needed for Pain 08/19/16 Insulin Degludec (Tresiba Flextouch U-100) 100 Unit/1 Ml Insuln.pen 55 Unit Sub-Q Bedtime 08/19/16 Insulin Lispro (Humalog) 100 Unit/1 Ml Insuln.pen 40 Unit Sub-Q Three Times Daily With Meals 08/19/16 Ipratropium/Albuterol Sulfate (Iprat-Albut 0.5-3(2.5) Mg/3 Ml) 3 Ml Ampul.neb 1 Vial Aerosol Tx. Four Times Daily as needed for Prn Orders Levothyroxine Sodium 25 Mcg Tablet 25 Mcg Oral Daily 08/19/16 Magnesium Hydroxide (Milk Of Magnesia) 400 Mg/5 Ml Oral.susp 30 Ml Oral Daily as needed for Constipation 08/19/16 Melatonin 5 Mg Tablet 15 Mg Oral Bedtime 08/19/16 Metoclopramide Hcl 5 Mg Tablet 5 Mg Oral Before Meals And At Bedtime 05/29/10 Miconazole Nitrate (Zeasorb) 71 Gm Powder 1 Applic Topically Twice A Day as needed for Rash 08/11/16 Omeprazole 20 Mg Tablet.dr 20 Mg Oral Before Breakfast 01/17/14 Pitavastatin Calcium (Livalo) 2 Mg Tablet 2 Mg Oral Daily Polyethylene Glycol 3350 255 Gm Powder 17 Gm Oral Daily 08/11/16 Potassium Chloride 20 Meq Tablet.er 20 Meq Oral Twice Daily With Meals 08/19/16 Pramipexole Di-Hcl (Pramipexole Dihydrochloride) 0.25 Mg Tablet 0.25 Mg Oral Bedtime 02/24/16 Prednisone 20 Mg Tablet 20 Mg Oral Give With Breakfast 08/19/16 Past Home Medications Medication Directions Ordered Status Aspirin (Aspir 81) 81 Mg Tablet.dr, 1 Tab Oral Daily 01/17/14 Discontinued Azithromycin 250 Mg Tablet, 250 Mg Oral Every Thursday, Thursday, And Thursday02/24/16 Discontinued Calcium/Vit B12/Fa/Pyridoxine (Folic Acid/B-6/B-12 Tablet) 1 Tab Tablet, 1 Tab Oral Daily 05/29/10 Discontinued Ergocalciferol (Vitamin D) 50,000 Unit Capsule, 95611 Unit Oral 05/29/10 Discontinued Estradiol 1 Mg [...] Mg Oral Twice A Day 05/29/10 Discontinued [place]-3 Fatty Acids/Vitamin E ([place]-3 Fish Oil Softgel) 1 Cap Capsule, 1 [...] for Cough 06/05/16 Discontinued Sodium Chloride/Aloe Vera ([place] Saline Nasal Gel [place]) 22 Ml [place], 22 Ml Nasal As Needed 05/29/10 Discontinued [...] Applicable Not Applicable Hx Substance Use No 08/19/2016 7:42pm Not Applicable Not Applicable Hx Alcohol Use No 08/19/2016 7:42pm Not Applicable Not Applicable Has the pt used tobacco in the last 12 months No 08/11/2016 6:45pm Not Applicable Not Applicable Tobacco Usage none 01/20/2014 9:29am Not Applicable Not Applicable Query Response Start Date Stop Date Smoking Status Never smoker Hospital Discharge Instructions No hospital discharge instructions. Plan of Care Discharge Date 08/19/16 8:35pm Disposition 01 DISCHARGED HOME, SELF-CARE Condition at Discharge Improved Instructions/Education Provided Compartment Syndrome (DC) Hematoma (ED) Prescriptions See Medication Section Referrals LEANNE THOMAS MD Order Date: 3 Days Address: [address] [place] [phone] Note: Additional Instructions/Education You have a hematoma (blood collection similar to a bruise) in your leg. These can be very painful. Take your pain meds as needed. Watch for signs of decreased blood flow (coolness, increased swelling, blue color of the toes, etc). Follow up immediately if you have signs of compartment syndrome. Otherwise, follow up with your doctor in the next few day. Care Plan and Goals Physician Care Plan Problem: Hematoma Goal: Follow up with primary care provider Instructions: Take medications and follow care plan as discussed/written Functional Status No functional status results. Allergies, Adverse Reactions, Alerts Allergen Type Severity Reaction Status Last Updated NSAIDS (Non-Steroidal Anti-Inflamma Adverse Reaction Unknown MIGRAINE VICKERS, FLUID RETENTION Active 08/19/16 Naproxen Adverse Reaction Unknown MIGRAINE VICKERS,FLUID RETENTION Active 08/19 adhesive tape Allergy Mild RASH Active 08/19/16 Immunizations Query Response on File Recorded Date/Time Hx Influenza Vaccination Y Jan 2016 08/11/16 6:45pm Hx Pneumococcal Vaccination Y FALL 2009 [id number], FALL 2011 PREVNAR 13 6:45pm Hx Influenza Vaccination Y Jan 2016 08/11/16 6:45pm Influenza Vaccine Hx 01/201608/19/16 7:42pm Vital Signs Acute Vital Signs Vital Response Date/Time Temperature (Fahrenheit) 97.8 deg F (96.8 - 99.1) 08/19/2016 8:35pm Temperature (Calculated Celsius) 36.35995 degrees C (36.0 - 37.3) 08/19/2016 8:35pm Pulse Rate (adult) 97 bpm (60 - 100) 08/19/2016 8:35pm Respiratory Rate 24 breaths/min (10 - 20) 08/19/2016 8:35pm O2 Sat by Pulse Oximetry 94 % (90 - 100) 08/19/2016 8:35pm Oxygen Delivery Method Nasal Cannula 08/13/2016 4:49pm Oxygen Delivery Method Room Air 08/13/2016 4:29pm Oxygen Flow Rate 2.00 L/min 08/13/2016 4:49pm Blood Pressure 139/66 mm Hg 08/19/2016 8:35pm Blood Pressure Source Automatic Cuff 08/13/2016 3:13pm Height (Feet) 5 feet 08/19/2016 6:52pm Height (Inches) 0 inches 08/19/2016 6:52pm Weight (Kilograms) 140.000 kg 08/19/2016 6:52pm Body Mass Index (BMI) 60.0 08/19/2016 6:52pm Results Laboratory Results Test Name Result Units Flags Reference Collection Date/Time Result Date/ Time Comments Unconjugated Bilirubin 0.00 MG/DL 0.00-1.10 06/02/2016 4:39am 2016 5:00am Conjugated Bilirubin 0.00 MG/DL 0.00-0.30 06/02/2016 4:39am 06/02/2016 5:00am Hemoglobin A1c 7.1 % 6.1-7.9 06/05/2016 4:41am 06/05/2016 11:55am < 6.0 NON-DIABETIC RANGE 6.1-7.9 [facility] TARGET RANGE >8.0 ACTION SUGGESTED Arterial Blood pH 7.430 7.350-7.450 06/09/2016 4:25am 06/09/2016 4: 38am Arterial Blood Partial Pressure CO2 53 MMHG H 34-45 06/09/2016 4:25am 4:38am Arterial Blood pO2 at Patient Temp 60 MMHG L 80-100 06/09/2016 4:25am 4:38am Arterial Blood HCO3 35 MEQ/L H 22-26 06/09/2016 4:25am 06/09/2016 4: 38am Arterial Blood Total CO2 36.8 MEQ/L H 23-27 06/09/2016 4:25am 2016 4:38am Arterial Blood Base Excess 9.2 MMOL/L H -2.0-2.0 06/09/2016 4:25am 06/09 4:38am Arterial Blood Oxygen Saturation 91.0 % L 95.0-98.0 06/09/2016 4:25am 4:38am Blood Gas Oxygen Liter Flow 5.0 06/09/2016 4:2506/09/2016 4: 38am Oxygen Delivery Method (LAB) NASAL CANNULA,LITERS 06/09/2016 4:25am 06/09/2016 4:38am Influenza Type A Antigen NEGATIVE NEGATIVE [...] CLEAR 06/09/2016 4:46am 06/09/2016 4:54am Urine Specific [place] 1.020 1.015-1.025 06/09/2016 4:46am 2016 4:54am Urine [...] 5:16am Hematocrit 34.1 % L 36-46 08/12/2016 4:29am 08/12/2016 5:16am Mean Corpuscular Volume 84.6 UM3 80-100 [...] Absolute Monocytes (auto) 0.1 T/MM3 0-0.8 08/12/2016 4:08/12/2016 5:16am Absolute Eosinophils (auto) 0.0 T/MM3 0-0.5 [...] RECOMMENDED Icterus Index < 2 0-7 08/13/2016 5:2908/13/2016 6:19am Chemistry Specimen Hemolysis 76 H 0-25 [...] Calculated Osmolality 290 MOSM/KG H 261-280 08/13/2016 5:29am 2016 6:19am Calcium Level 9.3 MG/DL 8.4-10.2 08/13/2016 5:29am 08/13/2016 6:19am Phosphorus Level 4.3 MG/DL 2.5-4.5 08/12/2016 4:29am 08/12/2016 5:21am Total Bilirubin 0.70 MG/DL 0.20-1.30 08/11/2016 4:03pm 08/11/2016 4: 22pm Alkaline Phosphatase 108 U/L 38-126 08/11/2016 4:03pm 08/11/2016 4: 22pm Total Protein 7.0 G/DL 6.3-8.2 08/11/2016 4:03pm 08/11/2016 4:22pm Albumin 3.6 G/DL 3.5-5.0 08/12/2016 4:29am 08/12/2016 5:21am Globulin 3.5 G/DL 2.4-3.6 08/11/2016 4:03pm [...] by subsequent Troponin value, multiplied by 100) AS-Mhq-A-Type Natriuretic Peptide 1720 PG/ML H 0-175 08/13/2016 [...] Coronavirus Type HKU1 (PCR) NEGATIVE NEGATIVE 08/12/2016 7:am 08/12 8:50am Coronavirus Type NL63 (PCR) NEGATIVE NEGATIVE 08/12/2016 7:am 08/12 8:50am Coronavirus Type OC43 (PCR) NEGATIVE NEGATIVE 08/12/2016 7:08/12 8:50am Human Metapneumovirus (PCR) NEGATIVE NEGATIVE 08/12/2016 7:08/12 8:50am Enterovirus/Rhinovirus (PCR) NEGATIVE NEGATIVE 08/12/2016 7: 8:50am Influenza Virus Type A (PCR) NEGATIVE NEGATIVE 08/12/2016 7:am 8:50am Influenza Virus Type B (PCR) NEGATIVE [...] Chlamydia pneumoniae DNA (PCR) NEGATIVE NEGATIVE 08/12/2016 7: 8:50am Mycoplasma pneumoniae (PCR) NEGATIVE NEGATIVE 08/12/2016 [...] Completed 06/09/16 Emergency dept visit Completed 06/09/16 [id number]) Completed 06/09/16 303810"INJECTION, METHYLPREDNISOLONE SODIUM SUCCINATE, UP TO Completed 318172"INJECTION, VANCOMYCIN HCL, 500 MG" Completed 06/09/16 [id number]"INFUSION, NORMAL SALINE SOLUTION , 1000 CC" Completed 06/09/16 600050"INFUSION, NORMAL SALINE SOLUTION , 250 CC" Completed 06/09/16 704243"INFUSION, NORMAL SALINE SOLUTION , 250 CC" Completed 06/09/16 Chest x-ray 1 view frontal Completed 07/14/16 Assay of lactic acid Completed 07/14/16 Complete cbc w/auto diff wbc Completed 07/14/16 Airway inhalation treatment Completed 07/14/16 Airway inhalation treatment Completed 07/14/16 Ther/proph/diag inj iv push Completed 07/14/16 Emergency dept visit Completed 07/14/16 [id number]"INJECTION, METHYLPREDNISOLONE SODIUM SUCCINATE, UP TO Completed Encounters Encounter Location Arrival/Admit Date Discharge/Depart Date Attending Provider Departed Emergency Room [facility] 08/19/16 6:47pm 08/19/16 8: 35pm YESICA MARINELLI DO Discharged Inpatient [facility] 08/11/16 5:48pm 08/13/16 6:50pm PEGGY SILVA MD Departed Emergency Room [facility] 07/14/16 1:38am 07/14/16 3: 25am TERRELL RAPP MD Departed Emergency Room [facility] 06/09/16 2:31am 06/09/16 6: 08am AUGUSTYESICA DO Registered Recurring [facility] 06/06/16 8:26am LEANNE THOMAS MD Discharged Inpatient [facility] 05/28/16 11:52pm 06/05/16 2:16pm SCARLETT UGARTE MD Recent Diagnosis
--- OUTSIDE RECORDS SUMMARY | 2016-08-24 15:54 | XMS REPORT | Continuity of Care Document ---
Author Author [facility] Organization [facility] Address Unknown Phone Unavailable Support Name Relationship Address Phone YUSUF BRADFORD MD Caregiver [address] [place] [address] LEANNE THOMAS MD Caregiver [address] [place] [phone] KIEL CAMPOS Next Of Kin [address] [facility] [address] [place] [address] C Insurance Providers Payer Name Policy Number Subscriber Name Relationship Medicare [id number] Paul Campos 18 Self [facility] Preferred [id number] Kiel Campos 01 Spouse Advance Directives Directive [...] 1 Tab PO DAILY 05/29/10 11/18/10 Discontinued [place]-3 Fatty Acids/Vitamin E 1 Cap PO DAILY [...] POTENTIALLY BE LIFE THREATENING! Durable Medical Equipment: [employer] [phone] Notify Physician If: CALL YOUR SURGEON IF: [...] and call Dr. Wong with the result [phone]. Condition at time of discharge: Good Plan [...] F (96.8 - 99.1) Temperature (Calculated Celsius) 37.18069 degrees C (36.0 - 37.3) Temperature Source [...] 29, 2010 12:57pm LAB TEST FORM REQUEST [id number] - Lymphocytes # (Auto) January 16, 2014 [...] PREOPHas specimen been collected/obtained? Y Urine Specific [place] January 16, 2014 11:55am 1.010 L - [...] 2010 11:30am Name: PAUL CAMPOS Unit #: [id number] : 1945 Sex: F Loc / Svc: MED DOS: Signed Report #: [id number] DIAGNOSTIC IMAGING REPORT TYPE OF EXAM: CHEST [...] MD Encounters Encounter Location Date/Time Admitted Inpatient [facility] 01/17/14 5:31am Registered Clinic [facility] 12/20/13 11:45am Registered Clinic [facility] 10/21/13 9:21am Recent Diagnosis Diabetes Hypertension Hyperlipidemia COPD (chronic obstructive pulmonary disease) GERD (gastroesophageal reflux disease) Morbid obesity with BMI of 45.0-49.9, adult IBS (irritable bowel syndrome) Chronic kidney disease (CKD), stage III (moderate) Obstructive sleep apnea Mild aortic stenosis History of anemia Mild pulmonary hypertension Hypothyroidism
--- OUTSIDE RECORDS SUMMARY | 2016-08-24 15:55 | XMS REPORT | Continuity of Care Document ---
Author Author [facility] Organization [facility] Address Unknown Phone Unavailable Support Name Relationship Address Phone JANET LOO FACS, MD Caregiver [address] [place] [address] [place] [phone] LEANNE THOMAS MD Caregiver [address] [place] [address] [place] [phone] KIEL CAMPOS Next Of Kin [address] [facility] [address] [place], [place] [address] C Insurance Providers Payer Name Policy Number Subscriber Name Relationship Medicare [id number] Paul Campos 18 Self [facility] Preferred [id number] Kiel Campos 01 Spouse Advance Directives Directive [...] 1 Tab PO DAILY 05/29/10 11/18/10 Discontinued [place]-3 Fatty Acids/Vitamin E 1 Cap PO DAILY [...] AT 8:45AM FOR PHYSICAL THERAPY [place]. PHONE- [phone] Patient Instructions: Swelling 1.Elevate operative extremity above [...] of your legs. 3.During office hours, call [phone] 4. After hours, please call [facility] at [phone], and have the cigar making machine operator page your Surgeon IN THE EVENT [...] F (96.8 - 99.1) Temperature (Calculated Celsius) 36.46239 degrees C (36.0 - 37.3) Temperature Source [...] Has specimen been collected/obtained? Y Urine Specific [place] January 27, 2014 11:20am <=1.005 L - [...] 13, 2014 8:29pm LAB TEST FORM REQUEST [id number] - Methicillin-Resist S.aureus DNA PCR December 20, [...] 2010 11:30am Name: PAUL CAMPOS Unit #: [id number] : 1945 Sex: F Loc / Svc: ED DOS: 02/11/14 Signed Report #: [id number] DIAGNOSTIC IMAGING REPORT TYPE OF EXAM: HIP [...] Encounters Encounter Location Date/Time Departed Emergency Room [facility] 02/11/14 9:37am Discharged Recurring [facility] 01/30/14 11:09am Discharged Inpatient [facility] 01/19/14 4:45pm Discharged Inpatient [facility] 01/17/14 5:31am
--- OUTSIDE RECORDS SUMMARY | 2016-08-24 16:00 | XMS REPORT | Continuity of Care Document ---
Author Author [facility] Organization [facility] Address Unknown Phone Unavailable Allergies Active Description Code Type Severity Reaction Onset Reported/Identified Relationship to Patient Clinical Status Yes TAPE Drug Allergy N/A N/A Medications Medication Packaging Start Date Stop Date Route Dosage Sig [id number] 08/25/2014 ORAL daily Problems Procedures Results Encounters ACCT No. Visit Date/Time Discharge Status Pt. Type Provider Facility Loc./Unit Complaint [id number] 07/11/2013 09:30:00 07/11/2013 23 :59:59 CLS Outpatient [id number] 06/30/2013 08:12:00 06/30/2013 23 :59:59 CLS Outpatient [id number] 06/29/2013 10:05:00 06/29/2013 23 :59:59 CLS Outpatient [id number] 06/23/2013 11:28:00 06/23/2013 23 :59:59 CLS Outpatient [id number] 06/16/2013 08:03:00 06/16/2013 23 :59:59 CLS Outpatient [id number] 05/24/2013 10:45:00 05/24/2013 23 :59:59 CLS Outpatient [id number] 05/04/2013 11:36:00 05/04/2013 23 :59:59 CLS Outpatient
--- OUTSIDE RECORDS SUMMARY | 2016-08-24 16:00 | XMS REPORT | Continuity of Care Document ---
Author Author [facility] Organization [facility] Address Unknown Phone Unavailable Support Name Relationship Address Phone YUSUF BRADFORD MD Caregiver [address] [place] [address] LEANNE THOMAS MD Caregiver [address] [place] [phone] KIEL CAMPOS Next Of Kin [address] [facility] [address] [place] [address] C Insurance Providers Payer Name Policy Number Subscriber Name Relationship Medicare [id number] Paul Campos 18 Self [facility] Preferred [id number] Kiel Campos 01 Spouse Problems Medical Problems [...] 1 Tab PO DAILY 05/29/10 11/18/10 Discontinued [place]-3 Fatty Acids/Vitamin E 1 Cap PO DAILY [...] F (96.8 - 99.1) Temperature (Calculated Celsius) 36.24734 degrees C (36.0 - 37.3) Pulse Rate [...] 2014 11:54am 4.3 G/DL N 3.5-5.0 [facility], ALSO HAS UA ORDERED [...] Has specimen been collected/obtained? Y Urine Specific [place] January 27, 2014 11:20am <=1.005 L - [...] 13, 2014 8:29pm LAB TEST FORM REQUEST [id number] - Methicillin-Resist S.aureus DNA PCR December 20, [...] 2010 11:30am Name: PAUL CAMPOS Unit #: [id number] : 1945 Sex: F Loc / Svc: ED DOS: 02/11/14 Signed Report #: [id number] DIAGNOSTIC IMAGING REPORT TYPE OF EXAM: HIP [...] procedures. Encounters Encounter Location Date/Time Discharged Recurring [facility] 02/13/14 11:51am Departed Emergency Room [facility] 02/11/14 9:37am Discharged Inpatient [facility] 01/19/14 4:45pm Discharged Inpatient [facility] 01/17/14 5:31am
--- OUTSIDE RECORDS SUMMARY | 2016-08-24 16:03 | XMS REPORT | Continuity of Care Document ---
Author Author [facility] Organization [facility] Address Unknown Phone Unavailable Support Name Relationship Address Phone WILLY ARANA MD Caregiver [address] [place] [address] YUSUF MONTANO MD Caregiver [address] [place] [address] LEANNE THOMAS MD Caregiver [address] [place] [phone] KIEL CAMPOS Next Of Kin [address] [facility] [address] [place] [address] C Insurance Providers Payer Name Policy Number Subscriber Name Relationship Medicare [id number] Paul Campos 18 Self [facility] Preferred [id number] Kiel Campos 01 Spouse Advance Directives Directive [...] 1 Tab PO DAILY 05/29/10 11/18/10 Discontinued [place]-3 Fatty Acids/Vitamin E 1 Cap PO DAILY [...] the hospital because (patient own words): "Leaving [employer] when my started to fall and he [...] of your legs. 3.During office hours, call [phone] 4. After hours, please call [facility] at [phone], and have the asphalt paving machine operator page your Surgeon IN THE [...] F (96.8 - 99.1) Temperature (Calculated Celsius) 35.77192 degrees C (36.0 - 37.3) Temperature Source [...] 2014 11:54am 23 U/L N 9-52 [facility] ALSO HAS UA ORDERED Albumin January 16, 2014 11:54am 4.3 G/DL N 3.5-5.0 COMMENT [facility] PREOP, ALSO HAS UA ORDERED Albumin/Globulin Ratio January 16, 2014 11:54am 1.4 RATIO N 1.1-2.2 COMMENT [facility], ALSO HAS UA ORDERED Alkaline Phosphatase January 16, 2014 11:54am 107 U/L N 38-126 [facility], ALSO HAS UA ORDERED Anion Gap January 20, 2014 5:19am 6 MEQ/L N 5-15 Aspartate Amino Transf (AST/SGOT) January 16, 2014 11:54am 28 U/L N 14 -36 [facility], ALSO HAS UA ORDERED BUN/Creatinine [...] 29, 2010 12:57pm LAB TEST FORM REQUEST [id number] - Lymphocytes # (Auto) January 20, 2014 [...] Has specimen been collected/obtained? Y Urine Specific [place] January 27, 2014 11:20am <=1.005 L - [...] 2010 11:30am Name: PAUL CAMPOS Unit #: [id number] : 1945 Sex: F Loc / Svc: MED DOS: Signed Report #: [id number] DIAGNOSTIC IMAGING REPORT TYPE OF EXAM: CHEST [...] procedures. Encounters Encounter Location Date/Time Discharged Inpatient [facility] 01/19/14 4:45pm Discharged Inpatient [facility] 01/17/14 5:31am Registered Clinic [facility] 12/20/13 11:45am Recent Diagnosis Diabetes Hypertension GERD (gastroesophageal reflux disease) Morbid obesity with BMI of 45.0-49.9, adult Chronic kidney disease (CKD), stage III (moderate) History of anemia Anticoagulated on Coumadin
--- NOTE | 2016-08-24 16:04 | NUR ---
REPORT TO ALVIN CHAVEZ
--- OUTSIDE RECORDS SUMMARY | 2016-08-24 16:10 | XMS REPORT | Continuity of Care Document ---
Author Author [facility] Organization [facility] Address Unknown Phone Unavailable Support Name Relationship Address Phone YUSUF BRADFORD MD Caregiver [address] [place] [address] LEANNE THOMAS MD Caregiver [address] [place] [phone] KIEL CAMPOS Next Of Kin [address] [facility] [address] [place] [address] C Insurance Providers Payer Name Policy Number Subscriber Name Relationship Medicare [id number] Paul Campos 18 Self [facility] Preferred [id number] Kiel Campos 01 Spouse Advance Directives Directive [...] 1 Tab PO DAILY 05/29/10 11/18/10 Discontinued [place]-3 Fatty Acids/Vitamin E 1 Cap PO DAILY [...] POTENTIALLY BE LIFE THREATENING! Durable Medical Equipment: [employer] [phone] Notify Physician If: CALL YOUR SURGEON IF: [...] and call Dr. Wong with the result [phone]. Condition at time of discharge: Good Plan of Care Discharge Date 01/19/14 4:40pm Disposition 62 TO [facility] Instructions/Education Provided [facility] Ortho Postop DC Instruct Prescriptions See Medications [...] F (96.8 - 99.1) Temperature (Calculated Celsius) 37.97335 degrees C (36.0 - 37.3) Temperature Source [...] 29, 2010 12:57pm LAB TEST FORM REQUEST [id number] - Lymphocytes # (Auto) January 16, 2014 [...] PREOPHas specimen been collected/obtained? Y Urine Specific [place] January 16, 2014 11:55am 1.010 L - [...] 2010 11:30am Name: PAUL CAMPOS Unit #: [id number] : 1945 Sex: F Loc / Svc: MED DOS: Signed Report #: [id number] DIAGNOSTIC IMAGING REPORT TYPE OF EXAM: CHEST [...] MD Encounters Encounter Location Date/Time Admitted Inpatient [facility] 01/17/14 5:31am Registered Clinic [facility] 12/20/13 11:45am Registered Clinic [facility] 10/21/13 9:21am Recent Diagnosis Diabetes Hypertension Hyperlipidemia COPD (chronic obstructive pulmonary disease) GERD (gastroesophageal reflux disease) Morbid obesity with BMI of 45.0-49.9, adult IBS (irritable bowel syndrome) Chronic kidney disease (CKD), stage III (moderate) Obstructive sleep apnea Mild aortic stenosis History of anemia Mild pulmonary hypertension Hypothyroidism
--- OUTSIDE RECORDS SUMMARY | 2016-08-24 16:11 | XMS REPORT | Continuity of Care Document ---
Author Author [facility] Organization [facility] Address Unknown Phone Unavailable Support Name Relationship Address Phone JANET LOO FACS, MD Caregiver [address] [place] [address] [place] [phone] LEANNE THOMAS MD Caregiver [address] [place] [address] [place] [phone] KIEL CAMPOS Next Of Kin [address] [facility] [address] [place], [place] [address] C Insurance Providers Payer Name Policy Number Subscriber Name Relationship Medicare [id number] Paul Campos 18 Self [facility] Preferred [id number] Kiel Campos 01 Spouse Advance Directives Directive [...] 1 Tab PO DAILY 05/29/10 11/18/10 Discontinued [place]-3 Fatty Acids/Vitamin E 1 Cap PO DAILY [...] AT 8:45AM FOR PHYSICAL THERAPY [place]. PHONE- [phone] Patient Instructions: Swelling 1.Elevate operative extremity above [...] of your legs. 3.During office hours, call [phone] 4. After hours, please call [facility] at [phone], and have the rotary soil stabilizer operator page your Surgeon IN THE EVENT [...] F (96.8 - 99.1) Temperature (Calculated Celsius) 36.19659 degrees C (36.0 - 37.3) Temperature Source [...] Has specimen been collected/obtained? Y Urine Specific [place] January 27, 2014 11:20am <=1.005 L - [...] 13, 2014 8:29pm LAB TEST FORM REQUEST [id number] - Methicillin-Resist S.aureus DNA PCR December 20, [...] 2010 11:30am Name: PAUL CAMPOS Unit #: [id number] : 1945 Sex: F Loc / Svc: ED DOS: 02/11/14 Signed Report #: [id number] DIAGNOSTIC IMAGING REPORT TYPE OF EXAM: HIP [...] Encounters Encounter Location Date/Time Departed Emergency Room [facility] 02/11/14 9:37am Discharged Recurring [facility] 01/30/14 11:09am Discharged Inpatient [facility] 01/19/14 4:45pm Discharged Inpatient [facility] 01/17/14 5:31am
[2016-08-24] MEDS ORDERED: ALBUTEROL/IPRATROPIUM INHAL. 2.5mg-0.5mg/3ml Neb. AEROSOL ONE (16:15)
--- OUTSIDE RECORDS SUMMARY | 2016-08-24 16:16 | XMS REPORT | Continuity of Care Document ---
[...] Status Pt. Type Provider Facility Loc./Unit Complaint [id number] 07/11/2013 09:30:00 07/11/2013 23 :59:59 CLS Outpatient [id number] 06/30/2013 08:12:00 06/30/2013 23 :59:59 CLS Outpatient [id number] 06/29/2013 10:05:00 06/29/2013 23 :59:59 CLS Outpatient [id number] 06/23/2013 11:28:00 06/23/2013 23 :59:59 CLS Outpatient [id number] 06/16/2013 08:03:00 06/16/2013 23 :59:59 CLS Outpatient [id number] 05/24/2013 10:45:00 05/24/2013 23 :59:59 CLS Outpatient [id number] 05/04/2013 11:36:00 05/04/2013 23 :59:59 CLS Outpatient
--- OUTSIDE RECORDS SUMMARY | 2016-08-24 16:16 | XMS REPORT | Continuity of Care Document ---
Author Author [facility] Organization [facility] Address Unknown Phone Unavailable Support Name Relationship Address Phone YUSUF BRADFORD MD Caregiver [address] [place] [address] LEANNE THOMAS MD Caregiver [address] [place] [phone] KIEL CAMPOS Next Of Kin [address] [facility] [facility] [facility] [address] [place] [address] C Insurance Providers Payer Name Policy Number Subscriber Name Relationship Medicare [id number] Paul Campos 18 Self [facility] Preferred [id number] Kiel Campos 01 Spouse Problems Medical Problems [...] 1 Tab PO DAILY 05/29/10 11/18/10 Discontinued [place]-3 Fatty Acids/Vitamin E 1 Cap PO DAILY [...] F (96.8 - 99.1) Temperature (Calculated Celsius) 36.09052 degrees C (36.0 - 37.3) Pulse Rate [...] 2014 11:54am 4.3 G/DL N 3.5-5.0 [facility] ALSO [facility]A [...] Has specimen been collected/obtained? Y Urine Specific [place] January 27, 2014 11:20am <=1.005 L - [...] 13, 2014 8:29pm LAB TEST FORM REQUEST [id number] - Methicillin-Resist S.aureus DNA PCR December 20, [...] 2010 11:30am Name: PAUL CAMPOS Unit #: [id number] : 1945 Sex: F Loc / Svc: ED DOS: 02/11/14 Signed Report #: [id number] DIAGNOSTIC IMAGING REPORT TYPE OF EXAM: HIP [...] procedures. Encounters Encounter Location Date/Time Discharged Recurring [facility] 02/13/14 11:51am Departed Emergency Room [facility] 02/11/14 9:37am Discharged Inpatient [facility] 01/19/14 4:45pm Discharged Inpatient [facility] 01/17/14 5:31am
--- OUTSIDE RECORDS SUMMARY | 2016-08-24 16:19 | XMS REPORT | Continuity of Care Document ---
Author Author [facility] Organization [facility] Address Unknown Phone Unavailable Support Name Relationship Address Phone WILLY ARANA MD Caregiver [address] [place] [address] YUSUF MONTANO MD Caregiver [address] [place] [address] LEANEN THOMAS MD Caregiver [address] [place] [phone] KIEL CAMPOS Next Of Kin [address] [facility] [address] [place] [address] C Insurance Providers Payer Name Policy Number Subscriber Name Relationship Medicare [id number] Paul Campos 18 Self [facility] Preferred [id number] Kiel Campos 01 Spouse Advance Directives Directive [...] 1 Tab PO DAILY 05/29/10 11/18/10 Discontinued [place]-3 Fatty Acids/Vitamin E 1 Cap PO DAILY [...] the hospital because (patient own words): "Leaving [employer] when my started to fall and he [...] of your legs. 3.During office hours, call [phone] 4. After hours, please call [facility] at [phone], and have the dry chain operator page your Surgeon IN THE EVENT [...] F (96.8 - 99.1) Temperature (Calculated Celsius) 35.59431 degrees C (36.0 - 37.3) Temperature Source [...] 2014 11:54am 23 U/L N 9-52 COMMENT [facility] PREOP, ALSO HAS UA ORDERED Albumin January 16, 2014 11:54am 4.3 G/DL N 3.5-5.0 COMMENT [facility] PREOP, ALSO HAS UA ORDERED Albumin/Globulin Ratio January 16, 2014 11:54am 1.4 RATIO N 1.1-2.2 COMMENT [facility] PREOP, ALSO HAS UA ORDERED Alkaline Phosphatase January 16, 2014 11:54am 107 U/L N 38-126 COMMENT [facility] PREOP, ALSO HAS UA ORDERED Anion Gap January 20, 2014 5:19am 6 MEQ/L N 5-15 Aspartate Amino Transf (AST/SGOT) January 16, 2014 11:54am 28 U/L N 14 -36 COMMENT [facility] PREOP, ALSO HAS UA ORDERED BUN/Creatinine Ratio [...] 29, 2010 12:57pm LAB TEST FORM REQUEST [id number] - Lymphocytes # (Auto) January 20, 2014 [...] Has specimen been collected/obtained? Y Urine Specific [place] January 27, 2014 11:20am <=1.005 L - [...] Site December 23, 2010 11:30am Name: PAUL CMAPOS Unit #: [id number] : 1945 Sex: F Loc / Svc: MED DOS: Signed Report #: [id number] DIAGNOSTIC IMAGING REPORT TYPE OF EXAM: CHEST [...] procedures. Encounters Encounter Location Date/Time Discharged Inpatient [facility] 01/19/14 4:45pm Discharged Inpatient [facility] 01/17/14 5:31am Registered Clinic [facility] 12/20/13 11:45am Recent Diagnosis Diabetes Hypertension GERD (gastroesophageal reflux disease) Morbid obesity with BMI of 45.0-49.9, adult Chronic kidney disease (CKD), stage III (moderate) History of anemia Anticoagulated on Coumadin
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
[2016-08-24] MEDS ORDERED: BENZ-16 PO (16:21)
[2016-08-24 16:46] LABS: HCT - HEMATOCRIT 30.5 % (36-46); HGB - HEMOGLOBIN 8.9 GM/DL (12-16); MEAN CORPUSCULAR HGB 25.6 UUG (26-34); MEAN CORPUSCULAR HGB CONC(MCHC 29.2 GM/DL (31-37); MEAN CORPUSCULAR VOLUME 87.9 UM3 (80-100); MEAN PLATELET VOLUME 10.2 UM3 (9.4-12.4); RED BLOOD COUNT 3.47 M/MM3 (4.00-5.20); WBC - WHITE BLOOD COUNT 16.4 T/MM3 (4.5-11.0)
[2016-08-24 16:51] LABS: ALBUMIN 3.5 G/DL (3.5-5.0); ALBUMIN/GLOBULIN RATIO 1.2 RATIO (1.1-2.2); ALKALINE PHOSPHATASE 93 U/L (38-126); ALT (SGPT) 40 U/L (9-52); ANION GAP 14 MEQ/L (5-15); AST (SGOT) 22 U/L (14-36); BUN/CREATININE RATIO 15 RATIO (6-26); CALCIUM 9.2 MG/DL (8.4-10.2); CHLORIDE 100 MEQ/L (98-107); CO2 - CARBON DIOXIDE 32 MEQ/L (22-30); CREATININE 1.3 MG/DL (0.7-1.2); GLOMERULAR FILTRATION RATE 41; GLUCOSE 166 MG/DL (65-110); POTASSIUM 4.7 MEQ/L (3.6-5); SODIUM 146 MEQ/L (134-144); TOTAL PROTEIN 6.5 G/DL (6.3-8.2)
[2016-08-24 16:52] LABS: ANISOCYTOSIS 2+; BAND NEUTROPHILS # 0.3 T/MM3; EOSINOPHILS # (MANUAL) 0.2 T/MM3 (0-0.5); LYMPHOCYTES # (MANUAL) 2.5 T/MM3 (1-4.8); METAMYELOCYTES # 0.2 T/MM3; MONOCYTES # (MANUAL) 0.3 T/MM3 (0-0.8); POIKILOCYTOSIS 1+; TOTAL CELLS COUNTED 100 %
[2016-08-24 16:59] LABS: PROBNP 1150 PG/ML (0-175)
[2016-08-24] MEDS ORDERED: FUROSEMIDE 40 MG/4 ML INJECTION IV ONE (17:00)
[2016-08-24] MEDS ORDERED: CEFTRIAXONE I.V. (ER USE ONLY) 1 G in NORMAL SALINE 100 ML IV ONE (17:00)
--- NOTE | 2016-08-24 17:35 | NUR ---
VOID 650ML VOIDED ON COMMODE, PATIENT HAS MARKED INCREASED SOA WITH AMBULATION TO COMMODE
--- OUTSIDE RECORDS SUMMARY | 2016-08-24 17:45 | XMS REPORT | Continuity of Care Document ---
Author Author [facility] Organization [facility] Address Unknown Phone Unavailable Support Name Relationship Address Phone YUSUF BRADFORD MD Caregiver [address] [place] [address] LEANNE THOMAS MD Caregiver [address] [place] [phone] KIEL CAMPOS Next Of Kin [address] [facility] [place] [address] C Insurance Providers Payer Name Policy Number Subscriber Name Relationship Medicare [id number] Paul Campos [address] [facility] Preferred [id number] Kiel Campos 01 Spouse Advance Directives Directive [...] 1 Tab PO DAILY 05/29/10 11/18/10 Discontinued [place]-3 Fatty Acids/Vitamin E 1 Cap PO DAILY [...] POTENTIALLY BE LIFE THREATENING! Durable Medical Equipment: [employer] [phone] Notify Physician If: CALL YOUR SURGEON IF: [...] and call Dr. Wong with the result [phone]. Condition at time of discharge: Good Plan of Care Discharge Date 01/19/14 4:40pm Disposition 62 TO [facility] [place] IN[facility] Instructions/Education Provided [facility] [place] Ortho Postop DC Instruct Prescriptions See Medications [...] F (96.8 - 99.1) Temperature (Calculated Celsius) 37.47046 degrees C (36.0 - 37.3) Temperature Source [...] 29, 2010 12:57pm LAB TEST FORM REQUEST [id number] - Lymphocytes # (Auto) January 16, 2014 [...] PREOPHas specimen been collected/obtained? Y Urine Specific [place] January 16, 2014 11:55am 1.010 L - [...] 2010 11:30am Name: PAUL CAMPOS Unit #: [id number] : 1945 Sex: F Loc / Svc: MED DOS: Signed Report #: [id number] DIAGNOSTIC IMAGING REPORT TYPE OF EXAM: CHEST [...] MD Encounters Encounter Location Date/Time Admitted Inpatient [facility] 01/17/14 5:31am Registered Clinic [facility] 12/20/13 11:45am Registered Clinic [facility] 10/21/13 9:21am Recent Diagnosis Diabetes Hypertension Hyperlipidemia COPD (chronic obstructive pulmonary disease) GERD (gastroesophageal reflux disease) Morbid obesity with BMI of 45.0-49.9, adult IBS (irritable bowel syndrome) Chronic kidney disease (CKD), stage III (moderate) Obstructive sleep apnea Mild aortic stenosis History of anemia Mild pulmonary hypertension Hypothyroidism
--- OUTSIDE RECORDS SUMMARY | 2016-08-24 17:46 | XMS REPORT | Continuity of Care Document ---
Author Author [facility] Organization [facility] Address Unknown Phone Unavailable Support Name Relationship Address Phone JANET LOO FACS, MD Caregiver [address] [place] [address] [place] [phone] LEANNE THOMAS MD Caregiver [address] [place] [address] [place] [phone] KIEL CAMPOS Next Of Kin [address] [facility] [place], [place] [id number] C Insurance Providers Payer Name Policy Number Subscriber Name Relationship Medicare [id number] Paul Campos 18 Self [facility] Preferred [id number] Kiel Campos 01 Spouse Advance Directives Directive [...] 1 Tab PO DAILY 05/29/10 11/18/10 Discontinued [place]-3 Fatty Acids/Vitamin E 1 Cap PO DAILY [...] AT 8:45AM FOR PHYSICAL THERAPY [place]. PHONE- [phone] Patient Instructions: Swelling 1.Elevate operative extremity above [...] of your legs. 3.During office hours, call [phone] 4. After hours, please call [facility] at [phone], and have the stem threshing machine operator page your Surgeon IN THE [...] F (96.8 - 99.1) Temperature (Calculated Celsius) 36.97502 degrees C (36.0 - 37.3) Temperature Source [...] Has specimen been collected/obtained? Y Urine Specific [place] January 27, 2014 11:20am <=1.005 L - [...] 13, 2014 8:29pm LAB TEST FORM REQUEST [id number] - Methicillin-Resist S.aureus DNA PCR December 20, [...] 2010 11:30am Name: PAUL CAMPOS Unit #: [id number] : 1945 Sex: F Loc / Svc: ED DOS: 02/11/14 Signed Report #: [id number] DIAGNOSTIC IMAGING REPORT TYPE OF EXAM: HIP [...] Encounters Encounter Location Date/Time Departed Emergency Room [facility] 02/11/14 9:37am Discharged Recurring [facility] 01/30/14 11:09am Discharged Inpatient [facility] 01/19/14 4:45pm Discharged Inpatient [facility] 01/17/14 5:31am
--- NOTE | 2016-08-24 17:47 | NUR ---
PROVIDER DR KELLEY AT BEDSIDE
--- OUTSIDE RECORDS SUMMARY | 2016-08-24 17:50 | XMS REPORT | Continuity of Care Document ---
Author Author [facility] Organization [facility] Address Unknown Phone Unavailable Support Name Relationship Address Phone YUSUF BRADFORD MD Caregiver [address] [place] [address] LEANNE THOMAS MD Caregiver [address] [place] [phone] KIEL CAMPOS Next Of Kin [address] [facility] [address] [place] [address] C Insurance Providers Payer Name Policy Number Subscriber Name Relationship Medicare [id number] Paul Campos 18 Self [facility] Preferred [id number] Kiel Campos 01 Spouse Problems Medical Problems [...] 1 Tab PO DAILY 05/29/10 11/18/10 Discontinued [place]-3 Fatty Acids/Vitamin E 1 Cap PO DAILY [...] F (96.8 - 99.1) Temperature (Calculated Celsius) 36.33049 degrees C (36.0 - 37.3) Pulse Rate [...] 2014 11:54am 4.3 G/DL N 3.5-5.0 COMMENT [facility], ALSO HAS UA ORDERED Albumin/Globulin [...] Has specimen been collected/obtained? Y Urine Specific [place] January 27, 2014 11:20am <=1.005 L - [...] 13, 2014 8:29pm LAB TEST FORM REQUEST [id number] - Methicillin-Resist S.aureus DNA PCR December 20, [...] 2010 11:30am Name: PAUL CAMPOS Unit #: [id number] : 1945 Sex: F Loc / Svc: ED DOS: 02/11/14 Signed Report #: [id number] DIAGNOSTIC IMAGING REPORT TYPE OF EXAM: HIP [...] procedures. Encounters Encounter Location Date/Time Discharged Recurring [facility] 02/13/14 11:51am Departed Emergency Room [facility] 02/11/14 9:37am Discharged Inpatient [facility] 01/19/14 4:45pm Discharged Inpatient [facility] 01/17/14 5:31am
--- OUTSIDE RECORDS SUMMARY | 2016-08-24 17:50 | XMS REPORT | Continuity of Care Document ---
Author Author [facility] Organization [facility] Address Unknown Phone Unavailable Allergies Active Description Code Type Severity Reaction Onset Reported/Identified Relationship to Patient Clinical Status Yes TAPE Drug Allergy N/A N/A Medications Medication Packaging Start Date Stop Date Route Dosage Sig [id number] 08/25/2014 ORAL daily Problems Procedures Results Encounters ACCT No. Visit Date/Time Discharge Status Pt. Type Provider Facility Loc./Unit Complaint [id number] 07/11/2013 09:30:00 07/11/2013 23 :59:59 CLS Outpatient [id number] 06/30/2013 08:12:00 06/30/2013 23 :59:59 CLS Outpatient [id number] 06/29/2013 10:05:00 06/29/2013 23 :59:59 CLS Outpatient [id number] 06/23/2013 11:28:00 06/23/2013 23 :59:59 CLS Outpatient [id number] 06/16/2013 08:03:00 06/16/2013 23 :59:59 CLS Outpatient [id number] 05/24/2013 10:45:00 05/24/2013 23 :59:59 CLS Outpatient [id number] 05/04/2013 11:36:00 05/04/2013 23 :59:59 CLS Outpatient
--- NOTE | 2016-08-24 17:53 | NUR ---
REPORT REPORT GIVEN TO PRESTON CHAVEZ ON MEDICAL UNIT.
--- OUTSIDE RECORDS SUMMARY | 2016-08-24 17:53 | XMS REPORT | Continuity of Care Document ---
Author Author [facility] Organization [facility] Address Unknown Phone Unavailable Support Name Relationship Address Phone WILLY ARANA MD Caregiver [address] [place] [address] YUSUF MONTANO MD Caregiver [address] [place] [address] LEANNE THOMAS MD Caregiver [address] [place] [phone] KIEL CAMPOS Next Of Kin [address] [facility] [address] [place] [address] C Insurance Providers Payer Name Policy Number Subscriber Name Relationship Medicare [id number] Paul Campos 18 Self [facility] Preferred [id number] Kiel Campos 01 Spouse Advance Directives Directive [...] 1 Tab PO DAILY 05/29/10 11/18/10 Discontinued [place]-3 Fatty Acids/Vitamin E 1 Cap PO DAILY [...] the hospital because (patient own words): "Leaving [facility] when my started to fall and he [...] of your legs. 3.During office hours, call [phone] 4. After hours, please call [facility] at [phone], and have the unit reactor operator page your Surgeon IN THE EVENT [...] F (96.8 - 99.1) Temperature (Calculated Celsius) 35.16843 degrees C (36.0 - 37.3) Temperature Source [...] 23 U/L N 9-52 COMMENT [facility] PRE[facility], ALSO HAS UA ORDERED Albumin January 16, 2014 11:54am 4.3 G/DL N 3.5-5.0 COMMENT [facility] PREOP, ALSO HAS UA ORDERED Albumin/Globulin Ratio January 16, 2014 11:54am 1.4 RATIO N 1.1-2.2 COMMENT [facility] PREOP, ALSO HAS UA ORDERED Alkaline Phosphatase January 16, 2014 11:54am 107 U/L N 38-126 COMMENT [facility] PRE[facility], ALSO HAS UA ORDERED Anion Gap January 20, 2014 5:19am 6 MEQ/L N 5-15 Aspartate Amino Transf (AST/SGOT) January 16, 2014 11:54am 28 U/L N 14 -36 COMMENT [facility] PRE[facility], ALSO HAS UA ORDERED BUN/Creatinine [...] 29, 2010 12:57pm LAB TEST FORM REQUEST [id number] - Lymphocytes # (Auto) January 20, 2014 [...] Has specimen been collected/obtained? Y Urine Specific [place] January 27, 2014 11:20am <=1.005 L - [...] 2010 11:30am Name: PAUL CAMPOS Unit #: [id number] : 1945 Sex: F Loc / Svc: MED DOS: Signed Report #: [id number] DIAGNOSTIC IMAGING REPORT TYPE OF EXAM: CHEST [...]
--- NOTE | 2016-08-24 18:00 | NUR ---
ADMISSION PT ALERT AND ORIENTED X3. DENIES PAIN. UP WITH ONE PERSON STANDBY. WEARS 3L PER NC AT ALL TIMES AT HOME AND USES BIPAP AT NIGHT. PT FRIENDLY AND COOPERATIVE WITH STAFF. ORIENTED TO HOSPITAL ENVIRONMENT. EDUCATED PHYSICAL MEDICINE TEACHER LIGHT AND HIGH FALL RISK STATUS. AT BEDSIDE.
--- NOTE | 2016-08-24 18:00 | NUR ---
ADMIT PATIENT TAKEN TO ROOM 162 PER CART, STABLE. BELONGINGS WITH PATIENT.
[2016-08-24 18:02] VITALS: Ht 152.4 cm; Wt 136.0 kg
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
[2016-08-24 18:07] VITALS: BP 133/67; PULSE 98; RESP 22; TEMP 96.4; O2SAT 95
[2016-08-24] MEDS ORDERED: DEXTROSE 50% SYRINGE 50ml (Eq. 1 AMP) IV PRN (18:15)
[2016-08-24] MEDS ORDERED: GLUCOSE ORAL GEL 40% 37.5 G TUBE PO PRN (18:15)
[2016-08-24 18:18] VITALS: PULSE 98; RESP 22
[2016-08-24] MEDS ORDERED: CYCLOBENZAPRINE 10 MG TABLET PO PRN (18:30)
--- NOTE | 2016-08-24 18:40 | NUR ---
LOW BLOOD SUGAR PT HAS NOT HAD ANYTHING TO EAT FOR 5 HRS. BGM CHECK IS 47. GIVEN APPLESAUCE AND REGULAR LOR. WILL CONTINUE TO MONITOR Addendum: 08/24/16 at 1855 by PRESTON GORE RN 1849 PT BGM IS 66 WILL GIVE ANOTHER LOR AND CONTINUE TO MONITOR. Addendum: 08/24/16 at 190 by PRESTON GORE RN PT EATING [employer] [facility] HAD BROUGHT FOR DINNER. Addendum: 08/24/16 at 1915 by PRESTON GORE RN SUGAR NOW 182. GIVEN REPORT TO CARLEY CHAVEZ.
[2016-08-24 20:05] VITALS: O2SAT 94
[2016-08-24] MEDS: ALBUTEROL/IPRATROPIUM INHAL. 2.5mg-0.5mg/3ml Neb. AEROSOL SCH (20:05)
[2016-08-24] MEDS: CLOTRIMAZOLE TOP SCH (21:00)
[2016-08-24] MEDS: BETAMETHASONE TOP SCH (21:00)
[2016-08-24] MEDS: METOCLOPRAMIDE 5mg TABLET PO SCH (21:01)
[2016-08-24] MEDS: PRAMIPEXOLE 0.25 MG TABLET PO SCH (21:02)
[2016-08-24] MEDS: BENZONATATE 100 MG CAPSULE PO SCH (21:02)
[2016-08-24] MEDS: APIXABAN 5 MG TABLET PO SCH (21:02)
[2016-08-24] MEDS: DOXYCYCLINE 100 MG TABLET PO SCH (21:02)
--- NOTE | 2016-08-24 21:11 | NUR ---
PRN PT WAS GIVEN PAIN MEDICATION FOR 7/10 BLE PAIN. PT ALERT AND ORIENTED. AT BEDSIDE. WILL CONTINUE TO MONITOR.
--- NOTE | 2016-08-24 21:16 | DI ---
INDICATION: ITS.REASON: dyspnea PROCEDURE: CHEST 2-VIEWS UPRIGHT (PA \T\ LAT) Encounter: Initial COMPARISON: August 13, 2016 FINDINGS: Interval development of worsening pulmonary edema with small pleural effusions. The pleural effusions are similar in size to the prior study. Upper lung collins are clear. No pneumothorax. Cardiac silhouette remains enlarged. Mediastinal contours are stable. Impression: Worsening congestive failure. .
[2016-08-24] MEDS: INSULIN REGULAR 100 UNIT/ML SQ PRN (21:24)
[2016-08-24] MEDS ORDERED: GABAPENTIN 300 MG CAPSULE PO SCH (22:00)
[2016-08-24] MEDS ORDERED: AMITRIPTYLINE 25 MG TABLET PO SCH (22:00)
[2016-08-25] VITALS (7 sets, daily range): BP systolic 138–150; BP diastolic 65–69; PULSE 87–96; RESP 18–20; TEMP 95.8–97.8; O2SAT 96–97
[2016-08-25] MEDS: FUROSEMIDE 100 MG/10 ML INJECTION IV SCH ×4 (01:48→23:58)
[2016-08-25] MEDS: ALBUTEROL/IPRATROPIUM INHAL. 2.5mg-0.5mg/3ml Neb. AEROSOL SCH ×4 (03:04→20:25)
[2016-08-25 04:53] LABS: HCT - HEMATOCRIT 29.2 % (36-46); HGB - HEMOGLOBIN 8.4 GM/DL (12-16); MEAN CORPUSCULAR HGB 25.4 UUG (26-34); MEAN CORPUSCULAR HGB CONC(MCHC 28.8 GM/DL (31-37); MEAN CORPUSCULAR VOLUME 88.2 UM3 (80-100); MEAN PLATELET VOLUME 10.2 UM3 (9.4-12.4); RED BLOOD COUNT 3.31 M/MM3 (4.00-5.20); WBC - WHITE BLOOD COUNT 17.4 T/MM3 (4.5-11.0)
[2016-08-25 05:04] LABS: ANION GAP 12 MEQ/L (5-15); BUN/CREATININE RATIO 17 RATIO (6-26); CALCIUM 8.9 MG/DL (8.4-10.2); CHLORIDE 96 MEQ/L (98-107); CO2 - CARBON DIOXIDE 36 MEQ/L (22-30); CREATININE 1.3 MG/DL (0.7-1.2); GLOMERULAR FILTRATION RATE 41; GLUCOSE 163 MG/DL (65-110); MAGNESIUM 2.3 MG/DL (1.6-2.3); POTASSIUM 3.8 MEQ/L (3.6-5); SODIUM 144 MEQ/L (134-144)
--- NOTE | 2016-08-25 05:10 | NUR ---
PRN. PT WAS GIVEN PAIN MEDICATION PER HER REQUEST FOR 610 BLE AFTER AMBULATING TO THE BATHROOM. WILL CONTINUE TO MONITOR.
--- NOTE | 2016-08-25 05:59 | NUR ---
SUMMARY PT SLEEPING AT THE MOMENT. PT IS ALERT AND ORIENTED. WAS ASSISTED TO THE BATHROOM SEVERAL TIMES THIS SHIFT. PAIN MEDICATION WAS GIVEN TWICE THIS SHIFT FOR BLE PAIN. ADEQUATE URINE OUTPUT THIS SHIFT. LEFT FOOT HAS A BRUISING FROM A FALL AT HOME. PT EDUCATED ABOUT CALL LIGHT USE AND SAFETY. BED ALARM ON. PT USED HOME BIPAP OFF AND ON ALTERNATING WITH HER NASAL CANNULA OXYGEN. PT IS ON 3L OF O2 VIA NASAL CANNULA.
[2016-08-25] MEDS: METOCLOPRAMIDE 5mg TABLET PO SCH ×4 (06:15→21:55)
[2016-08-25] MEDS: OMEPRAZOLE 20 MG CAPSULE PO SCH (06:15)
[2016-08-25] MEDS: INSULIN REGULAR 100 UNIT/ML SQ PRN (06:47)
[2016-08-25 06:55] LABS: BASOPHILS # (MANUAL) 0.3 T/MM3 (0-0.2); LYMPHOCYTES # (MANUAL) 4.5 T/MM3 (1-4.8); MONOCYTES # (MANUAL) 0.7 T/MM3 (0-0.8); MYELOCYTES # 0.2 T/MM3; NEUTROPHILS #(MANUAL)-ABSOLUTE 11.7 T/MM3 (1.8-7.7); TOTAL CELLS COUNTED 100 %
[2016-08-25 06:56] LABS: ANISOCYTOSIS 1+
[2016-08-25] MEDS: BETAMETHASONE TOP SCH ×2 (07:53→21:00)
[2016-08-25] MEDS: CLOTRIMAZOLE TOP SCH ×2 (07:53→21:00)
[2016-08-25] MEDS ORDERED: PredniSONE 20 MG TABLET PO SCH (08:00)
[2016-08-25] MEDS: LEVOTHYROXINE 25 MCG TABLET PO SCH (08:49)
[2016-08-25] MEDS: DOXYCYCLINE 100 MG TABLET PO SCH (08:49)
[2016-08-25] MEDS: SPIRONOLACTONE 25 MG TABLET PO SCH (08:49)
[2016-08-25] MEDS: APIXABAN 5 MG TABLET PO SCH ×2 (08:49→21:55)
[2016-08-25] MEDS: POTASSIUM CHLORIDE 20 MEQ TABLET PO SCH ×2 (08:50→17:45)
[2016-08-25] MEDS ORDERED: [UNRECOGNIZED DRUG - OTHER] SQ SCH (09:00)
[2016-08-25] MEDS ORDERED: ASPIRIN *EC* 81mg TABLET PO SCH (09:00)
[2016-08-25] MEDS ORDERED: HUMALOG U SQ SCH (09:00)
[2016-08-25] MEDS ORDERED: [UNRECOGNIZED DRUG - OTHER] PO SCH (09:00)
[2016-08-25] MEDS ORDERED: CYCLOBENZAPRINE 10 MG PO PRN (09:15)
[2016-08-25] MEDS: INSULIN ASPART 100 UNIT/ML SQ SCH ×3 (09:21→17:45)
[2016-08-25] MEDS: BENZONATATE 100 MG CAPSULE PO SCH ×3 (09:21→21:55)
--- NOTE | 2016-08-25 09:53 | PNPDOC ---
Subjective Date DATE: 08/25/16 TIME: 09:53 Subjective Patient without complaints. States she is breathing better. States the swelling in her legs are better. She still complains of left leg pain where her hematoma is. No events overnight. Objective Vital Signs Vital signs Vital Signs Date Time Temp Pulse Resp B/P Pulse Ox O2 Delivery O2 Flow Rate FiO2 08/25/16 09:15 91 08/25/16 09:08 16 96 08/25/16 07:26 97.7 150/69 Nasal Cannula 3.00 Height (Feet): 5 Height (Inches): 0 Weight (Kilograms): 143.100 General Comments Gen.--she is awake alert oriented 3 in no acute distress HEENT--PERRLA EOMI Neck--supple no JVD no bruits Cardiovascular--irregularly irregular Lungs--decreased breath sounds bilaterally Abdomen--obese soft nontender nondistended bowel sounds are positive Extremities--2-3+ pitting edema bilaterally Neurological--nonfocal Rectal--deferred Genitourinary--deferred Skin she had a large ecchymotic area in her left lower extremity extending from her ankle to her knee on the lateral aspect secondary to a recent fall with an area consistent with a hematoma. Laboratory Laboratory Laboratory Tests 08/24/16 16:19 08/25/16 04:29 Laboratory Tests 08/24/16 16:19 08/25/16 04:29 Microbiology Microbiology Microbiology Date/Time Source Procedure Growth Status 08/24/16 17:11 Peripheral/Iv Start Blood Culture - Preliminary CULTURE INITIATED - RESULTS PENDING Resulted 08/24/16 17:06 Peripheral/Iv Start Blood Culture - Preliminary CULTURE INITIATED - RESULTS PENDING Resulted Assessment & Plan Assessment #1 acute on chronic systolic congestive heart failure exacerbation--we will treat with IV diuretics. We will hold her oral diuretics. We'll continue her outpatient medications. She has an echocardiogram that shows an ejection fraction of 30-40% recently. Clinically improving. May require 48 hrs of IV diuresis. #2 obstructive sleep apnea--we'll continue the patient's outpatient BiPAP. #3 diabetes mellitus type 2--we will continue the patient's outpatient medication regimen. We will also place her on Accu-Cheks and SSI. #4 chronic respiratory failure secondary to bronchiectasis--we will continue patient's nebulizers. We will continue her prednisone taper. The patient is on doxycycline as an outpatient for maintenance therapy. We will continue this. #5 atrial fibrillation--will continue the patient's outpatient medication regimen. #6 left lower extremity hematoma--we will monitor for further extravasation. She is hemodynamically stable. I do not believe that she is actively hemorrhaging further after her fall. Continue pain control. Code Status Full Code, unverified Hospital Course Summary Disclaimer The hospital course summary below is not to be considered part of the above Progress Note. TAMIKO KELLEY MD August 25, 2016 09:53 TAMIKO KELLEY MD August 25, 2016 09:53
[2016-08-25] MEDS: PITAVASTATIN 2 MG PO SCH (10:52)
--- NOTE | 2016-08-25 11:47 | NUR ---
BGM PT REPORTS FEELING LIKE HER BLOOD SUGAR WAS GETTING LOW, RECHECKED AND SNACK GIVEN.
[2016-08-25] MEDS ORDERED: --POM--ALLOPURINOL 300 MG TABLET PO SCH (12:00)
--- NOTE | 2016-08-25 15:00 | NUR ---
CM CM IN TO VISIT WITH PT AND FAMILY. CM EXPLAINED ROLE AND PROVIDED CONTACT INFORMATION. PT PLANS TO DC WITH [facility]. PT/FAMILY IS AWARE TO CALL CM SHOULD NEEDS ARISE.
--- NOTE | 2016-08-25 16:11 | NUR ---
Dm screen Diet: CC 1999 Minus having her A1C tested ,patient was positive on all diabetes self care behaviors. Patient states she test her blood sugars 3-4x/ day and it ranges from the low 100's-300's. Patient states she tries to watch her carbs but doesn't always follow a low-carb diet. Patient reports she's had diabetes education once before, but feels she could benefit from further diabetes education. paralegal internship went through "Healthy Eating 1,2,3" handout with patient. paralegal internship will refer patient to CDE for outpatient. RD available @ [phone] Addendum: 08/25/16 at 1646 by BECKY IRWIN Patient requested between meal snacks due to blood sugar drops to 40-50. FANS notified to sent protein snacks between meals Addendum: 08/25/16 at [address] Student charting reviewed by [employer].
[2016-08-25] MEDS ORDERED: DOXYCYCLINE 100 MG PO SCH (17:30)
--- NOTE | 2016-08-25 19:00 | NUR ---
SHIFT SUMMARY PT ALERT AND ORIENTED X3. PT ON 3L/NC, DENIES SOA HOWEVER IS TACHYPNEIC. PT RATES PAIN 5/10, PRN NORCO ADMINISTERED, SEE EMAR. PT DENIES N/V. UP WITH STAND BY ASSIST, GAIT BELT, STEADY ON FEET. IVL LEFT FOREARM PATENT. ADEQUATE URINE OUTPUT. PT ABLE TO MAKE NEEDS KNOWN. BED ALARM ON, CALL LIGHT WITHIN REACH.
[2016-08-25] MEDS: GABAPENTIN 300 MG CAPSULE PO SCH (21:55)
[2016-08-25] MEDS: AMITRIPTYLINE 25 MG TABLET PO SCH (21:56)
[2016-08-25] MEDS: PRAMIPEXOLE 0.25 MG TABLET PO SCH (21:57)
[2016-08-25] MEDS: INSULIN DEGLUDEC SQ SCH ×2 (21:58→22:00)
[2016-08-26] MEDS: CYCLOBENZAPRINE 10 MG TABLET PO PRN (01:10)
[2016-08-26 01:24] VITALS: O2SAT 94
[2016-08-26] MEDS: ALBUTEROL/IPRATROPIUM INHAL. 2.5mg-0.5mg/3ml Neb. AEROSOL SCH ×4 (01:28→21:00)
--- NOTE | 2016-08-26 04:25 | NUR ---
SUMMARY A&O X3, VSS. REPORTED PAIN 8/10, PRN NORCO 10 X2 GIVEN ORDERED, EFFECTIVE PT IS NOW SLEEPING WELL. PT HAS BRUISING FROM HER LT ANKLE ALMOST UP TO HER HIP FROM A FALL. PT BEING DIURESED, GOOD OUTPUT.
[2016-08-26] MEDS: OMEPRAZOLE 20 MG CAPSULE PO SCH (05:59)
[2016-08-26] MEDS: METOCLOPRAMIDE 5mg TABLET PO SCH ×4 (05:59→21:06)
[2016-08-26 07:18] VITALS: BP 142/66; PULSE 94; RESP 18; TEMP 98.1; O2SAT 98
--- NOTE | 2016-08-26 08:32 | PNPDOC ---
Subjective Date DATE: 08/26/16 TIME: 08:28 Subjective States that she is breathing and feeling much better today. Still complains of pain in the left leg where her injury occurred. Concerned that the edema is going to return when she goes home and is not receiving IV diuresis any longer. No events overnight. Objective Vital Signs Vital signs Vital Signs Date Time Temp Pulse Resp B/P Pulse Ox O2 Delivery O2 Flow Rate FiO2 08/26/16 07:18 98.1 94 18 142/66 98 Nasal Cannula 3.00 Height (Feet): 5 Height (Inches): 0 Weight (Kilograms): 140.900 General Comments Gen.--she is awake alert oriented 3 in no acute distress HEENT--PERRLA EOMI Neck--supple no JVD no bruits Cardiovascular--irregularly irregular Lungs--decreased breath sounds bilaterally Abdomen--obese soft nontender nondistended bowel sounds are positive Extremities--1-2+ pitting edema bilaterally Neurological--nonfocal Rectal--deferred Genitourinary--deferred Skin--large ecchymotic area in her left lower extremity extending from her ankle to her knee on the lateral aspect secondary to a recent fall with an area consistent with a hematoma that is improving with some concern for a possible cellulitis. Laboratory Laboratory Laboratory Tests 08/24/16 16:19 08/25/16 04:29 Laboratory Tests 08/24/16 16:19 08/25/16 04:29 Microbiology Microbiology Microbiology Date/Time Source Procedure Growth Status 08/24/16 17:11 Peripheral/Iv Start Blood Culture - Preliminary NO GROWTH AFTER 24 HOURS Resulted 08/24/16 17:06 Peripheral/Iv Start Blood Culture - Preliminary NO GROWTH AFTER 24 HOURS Resulted Assessment & Plan Assessment #1 acute on chronic systolic congestive heart failure exacerbation--continue IV diuresis. We'll continue her outpatient medications. She has an echocardiogram that shows an ejection fraction of 30-40% recently. Clinically improving. #2 obstructive sleep apnea--we'll continue the patient's outpatient BiPAP. #3 diabetes mellitus type 2--we will continue the patient's outpatient medication regimen. We will also place her on Accu-Cheks and SSI. #4 chronic respiratory failure secondary to bronchiectasis--we will continue patient's nebulizers. We will continue her prednisone taper. The patient is on doxycycline as an outpatient for maintenance therapy. We will continue this. #5 atrial fibrillation--will continue the patient's outpatient medication regimen. #6 left lower extremity hematoma--we will monitor for further extravasation. She is hemodynamically stable. I do not believe that she is actively hemorrhaging further after her fall. Continue pain control. Monitor for possible cellulitis. Code Status Full Code, unverified Hospital Course Summary Disclaimer The hospital course summary below is not to be considered part of the above Progress Note. TAMIKO KELLEY MD August 26, 2016 08:32
[2016-08-26] MEDS: LEVOTHYROXINE 25 MCG TABLET PO SCH (08:35)
[2016-08-26] MEDS: FUROSEMIDE 100 MG/10 ML INJECTION IV SCH ×2 (08:35→17:36)
[2016-08-26] MEDS: ASPIRIN *EC* 81mg TABLET PO SCH (08:36)
[2016-08-26] MEDS: DILTIAZEM 180 MG PO SCH (08:36)
[2016-08-26] MEDS: BENZONATATE 100 MG CAPSULE PO SCH ×3 (08:36→21:06)
[2016-08-26] MEDS: POTASSIUM CHLORIDE 20 MEQ TABLET PO SCH ×2 (08:36→17:35)
[2016-08-26] MEDS: PITAVASTATIN 2 MG PO SCH (08:36)
[2016-08-26] MEDS: APIXABAN 5 MG TABLET PO SCH ×2 (08:36→21:07)
[2016-08-26] MEDS: SPIRONOLACTONE 25 MG TABLET PO SCH (08:37)
[2016-08-26] MEDS: PredniSONE 10 MG TABLET PO SCH (08:37)
[2016-08-26] MEDS: DOXYCYCLINE 100 MG PO SCH ×2 (08:37→17:35)
[2016-08-26] MEDS: CLOTRIMAZOLE TOP SCH ×2 (08:46→21:00)
[2016-08-26] MEDS: BETAMETHASONE TOP SCH ×2 (08:46→21:00)
[2016-08-26] MEDS: INSULIN ASPART 100 UNIT/ML SQ SCH ×2 (08:46→12:11)
[2016-08-26] MEDS: ACETAMINOPHEN 500 MG TABLET PO PRN ×2 (12:10→20:04)
[2016-08-26] MEDS: ALLOPURINOL 300 MG TABLET PO SCH (12:10)
--- NOTE | 2016-08-26 14:51 | NUR ---
BGM Pt requested to have BGM checked, was 25. Egg ordered, cheese and OJ given. Will recheck.
[2016-08-26 15:25] VITALS: BP 127/62; PULSE 92; RESP 18; TEMP 96.6; O2SAT 99
--- NOTE | 2016-08-26 16:34 | NUR ---
status Pt A/O x3, V/S stable on 3L, her baseline O2 at home. BGM up to 64 from 25 this afternoon, Pt states she feels like it has come up. Ambulating well with 1x assist in room. Urine output good for shift with IV lasix given. Eating and drinking well, no N/V. LLE swollen and warm, keeping elevated. Pain rated at 7/10, PRN pain meds given w/ tylenol and pt states helping.
[2016-08-26 20:00] VITALS: PULSE 92; RESP 18
[2016-08-26] MEDS: GABAPENTIN 300 MG CAPSULE PO SCH (21:06)
[2016-08-26] MEDS: AMITRIPTYLINE 25 MG TABLET PO SCH (21:06)
[2016-08-26] MEDS: PRAMIPEXOLE 0.25 MG TABLET PO SCH (21:06)
[2016-08-26] MEDS: INSULIN DEGLUDEC SQ SCH (21:07)
[2016-08-26] MEDS ORDERED: POLYETHYL.GLYCOL 3350 PACKET 17gm PO PRN (21:30)
[2016-08-26 23:40] VITALS: BP 161/64; PULSE 89; RESP 18; TEMP 96.6; O2SAT 98
[2016-08-27] VITALS (7 sets, daily range): BP systolic 127–143; BP diastolic 66–68; PULSE 86–99; RESP 20–22; TEMP 96.6–97.2; O2SAT 84–98
[2016-08-27] MEDS: FUROSEMIDE 100 MG/10 ML INJECTION IV SCH ×3 (00:58→17:00)
[2016-08-27] MEDS: ALBUTEROL/IPRATROPIUM INHAL. 2.5mg-0.5mg/3ml Neb. AEROSOL SCH ×4 (03:00→20:52)
--- NOTE | 2016-08-27 04:57 | NUR ---
STATUS PT IS ALERT AND ORIENTED X 3. PLEASANT AND COOPERATIVE WITH CARES. PT HAS NUMBER OF SNACKS IN HER ROOM. ENCOURAGE PT TO MONITOR THE AMOUNT OF CARBS SHE IS EATING. PT REQUEST MIRALAX 17 G., NOTIFIED O/C PHYSICIAN FOR MIRALAX. ASKED PT WHAT SHE USED TO MIX THE MIRALAX WITH SHE SAID APPLE JUICE. OFFER DIET SODA, PT WAS OK TO TRY IT. CONTINUES TO BE ON 3 L OF 02 PER NC. WEARS BIPAP AT NIGHT. DENIES SOA AT REST, NOTED TO HAVE MILD SOA WITH WALKING. PT UP WITH SBA AND IS ABLE TO WALK WELL ONCE SHE IS OUT OF BED. PT HAS BRUISING TO HER LEFT LOWER LEG FROM HER KNEE DOWN TO THE HEEL. SHE SAID SHE WAS AT THE PHYSICIAN'S OFFICE WHEN SHE FALL MOVING OFF HER SCOOTER TO USE THE BR. CALL LIGHT WITHIN REACH.
[2016-08-27 05:21] LABS: HCT - HEMATOCRIT 31.9 % (36-46); HGB - HEMOGLOBIN 9.2 GM/DL (12-16); MEAN CORPUSCULAR HGB 25.3 UUG (26-34); MEAN CORPUSCULAR HGB CONC(MCHC 28.8 GM/DL (31-37); MEAN CORPUSCULAR VOLUME 87.6 UM3 (80-100); MEAN PLATELET VOLUME 10.3 UM3 (9.4-12.4); RED BLOOD COUNT 3.64 M/MM3 (4.00-5.20); WBC - WHITE BLOOD COUNT 15.3 T/MM3 (4.5-11.0)
[2016-08-27 05:30] LABS: ANION GAP 16 MEQ/L (5-15); BUN/CREATININE RATIO 25 RATIO (6-26); CALCIUM 8.3 MG/DL (8.4-10.2); CHLORIDE 91 MEQ/L (98-107); CO2 - CARBON DIOXIDE 33 MEQ/L (22-30); CREATININE 1.3 MG/DL (0.7-1.2); GLOMERULAR FILTRATION RATE 41; GLUCOSE 208 MG/DL (65-110); MAGNESIUM 2.3 MG/DL (1.6-2.3); POTASSIUM 3.7 MEQ/L (3.6-5); SODIUM 140 MEQ/L (134-144)
[2016-08-27] MEDS: METOCLOPRAMIDE 5mg TABLET PO SCH ×4 (06:32→21:59)
[2016-08-27] MEDS: OMEPRAZOLE 20 MG CAPSULE PO SCH (06:32)
[2016-08-27 07:03] LABS: EOSINOPHILS # (MANUAL) 0.2 T/MM3 (0-0.5); LYMPHOCYTES # (MANUAL) 2.9 T/MM3 (1-4.8); MONOCYTES # (MANUAL) 0.2 T/MM3 (0-0.8); NEUTROPHILS #(MANUAL)-ABSOLUTE 12.1 T/MM3 (1.8-7.7); NUCLEATED RED BLOOD CELLS 1; TOTAL CELLS COUNTED 100 %
[2016-08-27 07:04] LABS: ANISOCYTOSIS 1+
[2016-08-27] MEDS: INSULIN REGULAR 100 UNIT/ML SQ PRN ×4 (07:08→22:00)
[2016-08-27] MEDS: HYDROMORPHONE 2mg/ml INJECTION IV PRN ×3 (07:44→19:28)
[2016-08-27] MEDS: PredniSONE 10 MG TABLET PO SCH (08:19)
[2016-08-27] MEDS: DOXYCYCLINE 100 MG PO SCH ×2 (08:20→16:59)
[2016-08-27] MEDS: BENZONATATE 100 MG CAPSULE PO SCH ×3 (08:20→20:50)
[2016-08-27] MEDS: ASPIRIN *EC* 81mg TABLET PO SCH (08:20)
[2016-08-27] MEDS: POTASSIUM CHLORIDE 20 MEQ TABLET PO SCH ×2 (08:20→16:59)
[2016-08-27] MEDS: SPIRONOLACTONE 25 MG TABLET PO SCH (08:20)
[2016-08-27] MEDS: LEVOTHYROXINE 25 MCG TABLET PO SCH (08:20)
[2016-08-27] MEDS: APIXABAN 5 MG TABLET PO SCH ×2 (08:20→20:49)
[2016-08-27] MEDS: DILTIAZEM 180 MG PO SCH (08:20)
[2016-08-27] MEDS: CLOTRIMAZOLE TOP SCH ×2 (08:21→20:51)
[2016-08-27] MEDS: BETAMETHASONE TOP SCH ×2 (08:21→20:51)
[2016-08-27] MEDS: PITAVASTATIN 2 MG PO SCH (08:21)
--- NOTE | 2016-08-27 09:15 | PNPDOC ---
Subjective Date DATE: 08/27/16 TIME: 09:04 Subjective States pain and redness in her left leg are getting worse. States there is a spot on her right leg that is starting to become red as well. Breathing is improved. His swelling from the congestive heart failure is improved. Case discussed with at bedside. Objective Vital Signs Vital signs Vital Signs Date Time Temp Pulse Resp B/P Pulse Ox O2 Delivery O2 Flow Rate FiO2 08/27/16 07:44 18 08/27/16 07:33 96.6 99 127/68 96 Nasal Cannula 3.00 Height (Feet): 5 Height (Inches): 0 Weight (Kilograms): 140.900 General Comments General - AAO 3; NAD CV - RRR Lungs - CTAB Abdomen - benign Extremities - 1+ edema BLE Neuro--nonfocal Skin--LLE with cellulitis Laboratory Laboratory Laboratory Tests 08/27/16 04:24 Laboratory Tests 08/27/16 04:24 Microbiology Microbiology Microbiology Date/Time Source Procedure Growth Status 08/24/16 17:11 Peripheral/Iv Start Blood Culture - Preliminary NO GROWTH AFTER 48 HOURS Resulted 08/24/16 17:06 Peripheral/Iv Start Blood Culture - Preliminary NO GROWTH AFTER 48 HOURS Resulted Assessment & Plan Assessment #1 acute on chronic systolic congestive heart failure exacerbation--continue IV diuresis. We'll continue her outpatient medications. She has an echocardiogram that shows an ejection fraction of 30-40% recently. Clinically improving. #2 obstructive sleep apnea--we'll continue the patient's outpatient BiPAP. #3 diabetes mellitus type 2--we will continue the patient's outpatient medication regimen. We will also place her on Accu-Cheks and SSI. #4 chronic respiratory failure secondary to bronchiectasis--we will continue patient's nebulizers. We will continue her prednisone taper. The patient is on doxycycline as an outpatient for maintenance therapy. We will continue this. #5 atrial fibrillation--will continue the patient's outpatient medication regimen. #6 left lower extremity hematoma--we will monitor for further extravasation. She is hemodynamically stable. #7 LLE cellulitis--will obtain blood cultures and start Zosyn given she is diabetic. If no improvement, will obtain ultrasound to evaluate for abscess. DVT Prophylaxis: other (Eliquis) Code Status Full Code, unverified Hospital Course Summary Disclaimer The hospital course summary below is not to be considered part of the above Progress Note. TAMIKO KELLEY MD August 27, 2016 09:13
[2016-08-27] MEDS: NORMAL SALINE 500 ML IV PRN (10:09)
[2016-08-27] MEDS: PIPERACILLIN/TAZOBACTAM 3.375 G in NORMAL SALINE 100 ML IV SCH ×3 (10:09→20:50)
[2016-08-27] MEDS: ALLOPURINOL 300 MG TABLET PO SCH (11:48)
[2016-08-27] MEDS: CYCLOBENZAPRINE 10 MG TABLET PO PRN (12:52)
--- NOTE | 2016-08-27 18:59 | NUR ---
status Pt A/O x3, V/S stable on 3L, her home baseline. Ambulating well with 1x assist in room, denies dizziness or SOA. Up to chair for meals. Pain rated at 9/10, PRN meds given and catching on her pain, pt stated more managable this afternoon. Eating and drinking well, urine output good for shift with lasix given. No new concerns.
[2016-08-27] MEDS: AMITRIPTYLINE 25 MG TABLET PO SCH (20:48)
[2016-08-27] MEDS: GABAPENTIN 300 MG CAPSULE PO SCH (20:49)
[2016-08-27] MEDS: PRAMIPEXOLE 0.25 MG TABLET PO SCH (20:49)
[2016-08-27] MEDS: INSULIN DEGLUDEC SQ SCH (22:00)
[2016-08-28] VITALS (7 sets, daily range): BP systolic 122–138; BP diastolic 61–67; PULSE 85–98; RESP 14–20; TEMP 97.8–98.2; O2SAT 93–100
[2016-08-28] MEDS: FUROSEMIDE 100 MG/10 ML INJECTION IV SCH ×3 (01:26→17:01)
[2016-08-28] MEDS: PIPERACILLIN/TAZOBACTAM 3.375 G in NORMAL SALINE 100 ML IV SCH ×4 (02:36→21:21)
[2016-08-28] MEDS: HYDROMORPHONE 2mg/ml INJECTION IV PRN ×4 (02:49→21:39)
[2016-08-28] MEDS: ALBUTEROL/IPRATROPIUM INHAL. 2.5mg-0.5mg/3ml Neb. AEROSOL SCH ×4 (03:15→20:50)
--- NOTE | 2016-08-28 03:36 | NUR ---
SHIFT SUMMARY PT A/O X3. UP IN HER ROOM WITH 1 ASSIST. DENIES DIZZINESS, IS SOA AT FIRST WHEN STANDING UP. PT STATES IT IS MORE SO TONIGHT THEN LAST NIGHT. CONTINUES ON 3L OF 02 PER NC. PT WEAR 02/3L AT HOME. AT NIGHT PT WEARS BIPAP AND CONTINUES TO WEAR IT NOW. PT REQUEST FOR PAIN MEDICATION FOR LEFT LEG DISCOMFORT. STATES IT IS PAINFUL TO STAND OR WALK ON HER LEG. UP TO BATHROOM, VOIDS WITHOUT DIFFICULT. NEB. TX COMPLETED AT 0300. NOTED TO HELP LOOSEN THINGS UP PER PT, INCREASING HER COUGHING. CALL LIGHT WITHIN REACH. SCD'S ARE NOT USED DUE TO PT DISCOMFORT AND EDEMA TO BILAT LOWER LEGS.
[2016-08-28] MEDS: INSULIN REGULAR 100 UNIT/ML SQ PRN ×4 (06:03→21:20)
[2016-08-28] MEDS: METOCLOPRAMIDE 5mg TABLET PO SCH ×4 (06:06→21:19)
[2016-08-28] MEDS: OMEPRAZOLE 20 MG CAPSULE PO SCH (06:06)
[2016-08-28] MEDS: APIXABAN 5 MG TABLET PO SCH ×2 (08:04→21:20)
[2016-08-28] MEDS: BENZONATATE 100 MG CAPSULE PO SCH ×3 (08:04→21:20)
[2016-08-28] MEDS: ASPIRIN *EC* 81mg TABLET PO SCH (08:04)
[2016-08-28] MEDS: POTASSIUM CHLORIDE 20 MEQ TABLET PO SCH ×2 (08:05→17:01)
[2016-08-28] MEDS: DOXYCYCLINE 100 MG PO SCH (08:05)
[2016-08-28] MEDS: DILTIAZEM 180 MG PO SCH (08:05)
[2016-08-28] MEDS: LEVOTHYROXINE 25 MCG TABLET PO SCH (08:05)
[2016-08-28] MEDS: SPIRONOLACTONE 25 MG TABLET PO SCH (08:06)
[2016-08-28] MEDS: PredniSONE 10 MG TABLET PO SCH (08:06)
[2016-08-28] MEDS: BETAMETHASONE TOP SCH ×2 (08:08→21:00)
[2016-08-28] MEDS: PITAVASTATIN 2 MG PO SCH (08:08)
[2016-08-28] MEDS: CLOTRIMAZOLE TOP SCH ×2 (08:08→21:00)
--- NOTE | 2016-08-28 09:47 | PNPDOC ---
Subjective Date DATE: 08/28/16 TIME: 09:36 Subjective States breathing is near baseline. Still some mild wheezing. A dry cough. States the pain in her left leg is much improved. It's not as red as it was before. Still very tight. Objective Vital Signs Vital signs Vital Signs Date Time Temp Pulse Resp B/P Pulse Ox O2 Delivery O2 Flow Rate FiO2 08/28/16 09:27 84 08/28/16 09:27 16 100 08/28/16 09:27 Nasal Cannula 3.00 08/28/16 00:00 97.8 122/61 Height (Feet): 5 Height (Inches): 0 Weight (Kilograms): 140.900 General Comments General - AAO 3; NAD CV - RRR Lungs - CTAB Abdomen - benign Extremities - 1+ edema BLE Neuro--nonfocal Skin--LLE with cellulitis with minimal improvement; large area of ecchymosis and erythema Laboratory Laboratory Laboratory Tests 08/27/16 04:24 Laboratory Tests 08/27/16 04:24 Microbiology Microbiology Microbiology Date/Time Source Procedure Growth Status 08/27/16 09:19 Peripheral/Iv Start Blood Culture - Preliminary NO GROWTH AFTER 24 HOURS Resulted 08/27/16 09:16 Peripheral/Iv Start Blood Culture - Preliminary NO GROWTH AFTER 24 HOURS Resulted Assessment & Plan Assessment #1 acute on chronic systolic congestive heart failure exacerbation--continue IV diuresis. We'll continue her outpatient medications. She has an echocardiogram that shows an ejection fraction of 30-40% recently. Clinically improving. Likely restart oral meds in 24 hours. #2 obstructive sleep apnea--we'll continue the patient's outpatient BiPAP. #3 diabetes mellitus type 2--we will continue the patient's outpatient medication regimen. We will also place her on Accu-Cheks and SSI. #4 chronic respiratory failure secondary to bronchiectasis--we will continue patient's nebulizers. We will continue her prednisone taper. The patient is on doxycycline as an outpatient for maintenance therapy. We will continue this. #5 atrial fibrillation--will continue the patient's outpatient medication regimen. #6 left lower extremity hematoma--we will monitor for further extravasation. She is hemodynamically stable. #7 LLE cellulitis--blood cultures pending. Zosyn#2. Will obtain CT to evaluate for abscess. Code Status Full Code, unverified Hospital Course Summary Disclaimer The hospital course summary below is not to be considered part of the above Progress Note. TAMIKO KELLEY MD August 28, 2016 09:40
[2016-08-28] MEDS ORDERED: IOHEXOL 300 MG/ML 100ml INJECTION ONE (10:08)
[2016-08-28] MEDS ORDERED: NORMAL SALINE 100 ML ONE (10:08)
[2016-08-28] MEDS ORDERED: SALINE FLUSH 10ml SYRINGE ONE (10:08)
--- NOTE | 2016-08-28 10:09 | NUR ---
CM CM IN TO VISIT PT. PT DENIES QUESTIONS AND KNOWS TO CONTACT CM SHOULD NEEDS ARISE.
--- NOTE | 2016-08-28 11:56 | DI ---
Indication: ITS.REASON: Suspected abscess and hematoma in left calf PROCEDURE: CT LOWER EXTREMITY LT W CONT: Encounter: Initial Comparison: None Technique: Axial postcontrast CT imaging of the left lower leg was performed. Coronal and sagittal two-dimensional reformats. Automated Exposure Control and Iterative Reconstruction dose reducing techniques were utilized. Contrast: Omnipaque 300 99mL Findings: Bone windows show no acute fracture. No periosteal reaction or osteolysis to suggest osteomyelitis. Mild degenerative change noted incidentally in the knee joint. Mild degenerative change in the medial aspect of the ankle joint. Soft tissue windows show diffuse subcutaneous edema and induration throughout the lower leg with two small areas of arterial enhancement in the anterior soft tissues overlying the proximal tibia. This could represent small lymph nodes or vascular varicosities. There is an indurated heterogeneous collection overlying the tibialis anterior and peroneal musculature. This extends craniocaudally for 14 cm in length with an average thickness of 1.5 cm. This has some mixed attenuation in it without focal large fluid pocket. Subcutaneous edema extends through the lower leg into the calf. There is fatty atrophy of the gastrocnemius and soleus muscles. No subcutaneous gas identified. Impression: Diffuse subcutaneous edema throughout the left lower leg possibly representing a cellulitis. There is a more focal region of complexity in the lateral proximal to mid subcutaneous fat. This could represent subacute hematoma with or without infection or phlegmon/abscess. The fluid would be expected to be quite complex or thick based on the CT appearance. Inflammation and edema appears confined to the subcutaneous layer and does not appear to extend into the deeper fascial or muscular layers. .
[2016-08-28] MEDS: ALLOPURINOL 300 MG TABLET PO SCH (12:01)
--- NOTE | 2016-08-28 18:59 | NUR ---
SHIFT SUMMARY PT HAS BEEN COOPERATIVE AND COMPLIANT TODAY, WE HAVE BEEN TREATING HER PAIN WITH NORCO AND DILAUDID IN BETWEEN. TODAY PT WENT TO CT TO SCAN HER L LEG, RESULTS CONFIRMED CELLULITIS BUT NOT PRESENT ON DEEP TISSUE. PT HAS BEEN USING CALL LIGHT TO GET UP AND WE HAVE BEEN USING THE SLIDING SCALE, HER LAST BS WAS 257 AT 1700, 5 UNITS OF NOVOLIN WERE GIVEN.
[2016-08-28] MEDS: GABAPENTIN 300 MG CAPSULE PO SCH (21:20)
[2016-08-28] MEDS: AMITRIPTYLINE 25 MG TABLET PO SCH (21:20)
[2016-08-28] MEDS: PRAMIPEXOLE 0.25 MG TABLET PO SCH (21:20)
[2016-08-28] MEDS: INSULIN DEGLUDEC SQ SCH (21:40)
[2016-08-29] VITALS (7 sets, daily range): BP systolic 139–143; BP diastolic 67–69; PULSE 86–88; RESP 12–19; TEMP 96.2–98.6; O2SAT 94–99
[2016-08-29] MEDS: FUROSEMIDE 100 MG/10 ML INJECTION IV SCH ×3 (02:27→17:00)
[2016-08-29] MEDS: PIPERACILLIN/TAZOBACTAM 3.375 G in NORMAL SALINE 100 ML IV SCH ×4 (02:27→21:53)
[2016-08-29] MEDS: NORMAL SALINE 500 ML IV PRN (02:38)
[2016-08-29] MEDS: ALBUTEROL/IPRATROPIUM INHAL. 2.5mg-0.5mg/3ml Neb. AEROSOL SCH ×4 (03:03→21:21)
[2016-08-29] MEDS: OMEPRAZOLE 20 MG CAPSULE PO SCH (05:20)
[2016-08-29] MEDS: HYDROMORPHONE 2mg/ml INJECTION IV PRN ×5 (05:20→23:12)
[2016-08-29] MEDS: METOCLOPRAMIDE 5mg TABLET PO SCH ×4 (05:20→21:54)
[2016-08-29 05:31] LABS: HCT - HEMATOCRIT 30.4 % (36-46); HGB - HEMOGLOBIN 8.6 GM/DL (12-16); MEAN CORPUSCULAR HGB 24.8 UUG (26-34); MEAN CORPUSCULAR HGB CONC(MCHC 28.3 GM/DL (31-37); MEAN CORPUSCULAR VOLUME 87.6 UM3 (80-100); MEAN PLATELET VOLUME 10.1 UM3 (9.4-12.4); RED BLOOD COUNT 3.47 M/MM3 (4.00-5.20); WBC - WHITE BLOOD COUNT 13.9 T/MM3 (4.5-11.0)
[2016-08-29 05:45] LABS: ANION GAP 10 MEQ/L (5-15); BUN/CREATININE RATIO 21 RATIO (6-26); CHLORIDE 91 MEQ/L (98-107); CO2 - CARBON DIOXIDE 40 MEQ/L (22-30); CREATININE 1.3 MG/DL (0.7-1.2); GLOMERULAR FILTRATION RATE 41; GLUCOSE 144 MG/DL (65-110); MAGNESIUM 2.4 MG/DL (1.6-2.3); POTASSIUM 3.2 MEQ/L (3.6-5); SODIUM 141 MEQ/L (134-144)
[2016-08-29 06:40] LABS: BAND NEUTROPHILS # 0.1 T/MM3; BASOPHILS # (MANUAL) 0.1 T/MM3 (0-0.2); EOSINOPHILS # (MANUAL) 0.4 T/MM3 (0-0.5); LYMPHOCYTES # (MANUAL) 5.1 T/MM3 (1-4.8); MONOCYTES # (MANUAL) 0.4 T/MM3 (0-0.8); NEUTROPHILS #(MANUAL)-ABSOLUTE 7.6 T/MM3 (1.8-7.7); TOTAL CELLS COUNTED 100 %
[2016-08-29 06:41] LABS: ANISOCYTOSIS 1+; POLYCHROMASIA 1+
--- NOTE | 2016-08-29 07:50 | NUR ---
STATUS GAVE PT SS INSULIN IN EVENING FOR ELEVATED BGM. ALSO GAVE DILAUDID IV AND PO NORCO FOR PAIN IN LEGS. PT REPORTED SLIGHT DECREASE IN PAIN. AMBULATION AGGRAVATED PAIN. PT DENIED N/V. HAD GOOD ORAL INTAKE. CPAP ON DURING NIGHT WITH 3 L O2 USED THROUGHOUT SHIFT. VSS. BED ALARM ON. CALL LIGHT WITHIN REACH. USES CALL LIGHT APPROPRIATELY. WILL CONTINUE TO MONITOR.
[2016-08-29] MEDS: CLOTRIMAZOLE TOP SCH ×2 (09:00→21:00)
[2016-08-29] MEDS: BETAMETHASONE TOP SCH ×2 (09:00→21:00)
[2016-08-29] MEDS: BENZONATATE 200 MG CAPSULE PO SCH ×3 (09:10→21:53)
[2016-08-29] MEDS: APIXABAN 5 MG TABLET PO SCH ×2 (09:11→21:55)
[2016-08-29] MEDS: POTASSIUM CHLORIDE 20 MEQ TABLET PO SCH ×3 (09:11→17:04)
[2016-08-29] MEDS: DILTIAZEM 180 MG PO SCH (09:11)
[2016-08-29] MEDS: ASPIRIN *EC* 81mg TABLET PO SCH (09:12)
[2016-08-29] MEDS: SPIRONOLACTONE 25 MG TABLET PO SCH (09:13)
[2016-08-29] MEDS: PredniSONE 10 MG TABLET PO SCH (09:13)
[2016-08-29] MEDS: PITAVASTATIN 2 MG PO SCH (09:14)
[2016-08-29] MEDS: LEVOTHYROXINE 25 MCG TABLET PO SCH (09:16)
[2016-08-29] MEDS: INSULIN REGULAR 100 UNIT/ML SQ PRN ×3 (11:16→21:52)
[2016-08-29] MEDS: ALLOPURINOL 300 MG TABLET PO SCH (11:17)
--- NOTE | 2016-08-29 11:42 | PNPDOC ---
Subjective Date DATE: 08/29/16 TIME: 11:39 Subjective States the pain in her leg is slowly improving. She is able to walk on it a little better. roll tender to the touch. Also the CAT scan were discussed with the patient and at bedside. Patient states she is breathing a little better but still with a dry cough. Objective Vital Signs Vital signs Vital Signs Date Time Temp Pulse Resp B/P Pulse Ox O2 Delivery O2 Flow Rate FiO2 08/29/16 10:47 17 08/29/16 10:28 96 08/29/16 10:18 94 08/29/16 08:00 96.2 139/67 Nasal Cannula 3.00 Height (Feet): 5 Height (Inches): 0 Weight (Kilograms): 140.200 General Comments General--he is awake, alert, oriented 3, in no acute distress. HEENT--PERRLA; EOMI Neck.--Supple, no JVD, no bruits. Cardiovascular--IRR IRR Lungs--clear to auscultation bilaterally Abdomen--benign. Extremities--no edema, cyanosis or clubbing. Neurological--cranial nerves II through XII grossly intact Rectal--deferred. Genitourinary--deferred. Skin--there is an area of erythema and ecchymosis on the left lower extremity lateral aspect much improved from admission Laboratory Laboratory Laboratory Tests 08/29/16 04:56 Laboratory Tests 08/29/16 04:56 Microbiology Microbiology Microbiology Date/Time Source Procedure Growth Status 08/27/16 09:19 Peripheral/Iv Start Blood Culture - Preliminary NO GROWTH AFTER 48 HOURS Resulted 08/27/16 09:16 Peripheral/Iv Start Blood Culture - Preliminary NO GROWTH AFTER 48 HOURS Resulted Assessment & Plan Assessment #1 acute on chronic systolic congestive heart failure exacerbation--continue IV diuresis. We'll continue her outpatient medications. She has an echocardiogram that shows an ejection fraction of 30-40% recently. Clinically improving. Likely restart oral outpatient medications soon. #2 obstructive sleep apnea--we'll continue the patient's outpatient BiPAP. #3 diabetes mellitus type 2--we will continue the patient's outpatient medication regimen. We will also place her on Accu-Cheks and SSI. #4 chronic respiratory failure secondary to bronchiectasis--we will continue patient's nebulizers. I will decrease her prednisone again today to 5 mg.. The patient is on doxycycline as an outpatient for maintenance therapy. #5 atrial fibrillation--will continue the patient's outpatient medication regimen. #6 left lower extremity hematoma--we will monitor for further extravasation. She is hemodynamically stable. #7 LLE cellulitis--blood cultures pending. Zosyn#3. CT to evaluate for abscess showed hematoma and cellulitis. No defined abscess. Continue antibiotics.. Code Status Full Code, unverified Hospital Course Summary Disclaimer The hospital course summary below is not to be considered part of the above Progress Note. TAMIKO KELLEY MD August 29, 2016 11:42
--- NOTE | 2016-08-29 13:12 | NUR ---
STATUS PT REQUESTED TO AMBULATE IN HALLWAY. PT USED WALKER AND WAS ASSISTED BY THIS RN ALONG WITH AN 02 TANK CONNECTED TO HER NC AT 3L. PT WAS ABLE TO GET OUT OF HER ROOM, GET AROUND THE CHIEF OF PLANNING AND THEN WENT BACK TO HER ROOM. HER GAIT WAS SLOW BUT STEADY. PT FELL SOA AFTER A FEW STEPS SO SHE DECIDED TO GO BACK TO ROOM.
--- NOTE | 2016-08-29 14:14 | NUR ---
CM CM IN TO VISIT PT AND . PT AND FAMILY DENY NEEDS AND ARE AWARE TO CONTACT CM SHOULD NEEDS ARISE.
--- NOTE | 2016-08-29 15:39 | NUR ---
HANNA CM NOTES IF PT IS TO DC THIS WEEKEND [facility] NEEDS NOTIFIED OF DC AT [phone] AND CAMMY DEE APRN WITH RIGHT ON TRACK PROGRAM NEEDS NOTIFIED [phone].
--- NOTE | 2016-08-29 18:10 | NUR ---
SHIFT SUMMARY PT HAS BEEN COOPERATIVE TODAY. CONTINUES TO TAKE DILAUDID Q2-3HR 0.5MG IV FOR PAIN AND NORCO 5/2TABS Q 6HRS. PTS L LEGS IS STILL SWOLLEN, WITH ERYTHEMA PRESENT AND BRUISING NOTED TO THE CALF AREA. ALSO ERYTHEMA NOTED TO R POON AREA. PT AMBULATED TODAY FOR A SHORT DISTANCE ON HER REQUEST. RECEIVED INSULIN TWICE TODAY PER SLIDING SCALE. HAS GOOD URINE OUTPUT AND HAD BM THIS MORNING.
[2016-08-29] MEDS: INSULIN DEGLUDEC SQ SCH (21:53)
[2016-08-29] MEDS: AMITRIPTYLINE 25 MG TABLET PO SCH (21:53)
[2016-08-29] MEDS: GABAPENTIN 300 MG CAPSULE PO SCH (21:54)
[2016-08-29] MEDS: PRAMIPEXOLE 0.25 MG TABLET PO SCH (21:55)
[2016-08-30] VITALS (8 sets, daily range): BP systolic 140–147; BP diastolic 66–78; PULSE 83–90; RESP 18–20; TEMP 96.4; O2SAT 96–100
[2016-08-30] MEDS: FUROSEMIDE 100 MG/10 ML INJECTION IV SCH ×2 (01:09→08:56)
[2016-08-30] MEDS: ALBUTEROL/IPRATROPIUM INHAL. 2.5mg-0.5mg/3ml Neb. AEROSOL SCH ×4 (02:24→18:54)
[2016-08-30] MEDS: HYDROMORPHONE 2mg/ml INJECTION IV PRN ×4 (02:33→21:02)
[2016-08-30] MEDS: PIPERACILLIN/TAZOBACTAM 3.375 G in NORMAL SALINE 100 ML IV SCH ×4 (02:34→21:10)
[2016-08-30] MEDS: NORMAL SALINE 500 ML IV PRN (02:34)
--- NOTE | 2016-08-30 04:33 | NUR ---
Status Gave SS insulin as charted. PRN Manteca and Dilaudid given as charted for leg pain. Pt requests Dilaudid frequently. Uses 3 L O2 chronically at home and at hospital. Uses CPAP at night with 3 L O2. Keeping legs elevated to reduce swelling. Pt compliant with cares and helpful. Bed alarm on, and uses call light appropriately. Will continue to monitor.
[2016-08-30 05:49] LABS: HCT - HEMATOCRIT 29.9 % (36-46); HGB - HEMOGLOBIN 8.6 GM/DL (12-16); MEAN CORPUSCULAR HGB 25.1 UUG (26-34); MEAN CORPUSCULAR HGB CONC(MCHC 28.8 GM/DL (31-37); MEAN CORPUSCULAR VOLUME 87.4 UM3 (80-100); MEAN PLATELET VOLUME 10.1 UM3 (9.4-12.4); RED BLOOD COUNT 3.42 M/MM3 (4.00-5.20); WBC - WHITE BLOOD COUNT 12.6 T/MM3 (4.5-11.0)
[2016-08-30 06:01] LABS: ANION GAP 17 MEQ/L (5-15); BUN/CREATININE RATIO 25 RATIO (6-26); CALCIUM 8.4 MG/DL (8.4-10.2); CHLORIDE 90 MEQ/L (98-107); CO2 - CARBON DIOXIDE 33 MEQ/L (22-30); CREATININE 1.3 MG/DL (0.7-1.2); GLOMERULAR FILTRATION RATE 41; GLUCOSE 228 MG/DL (65-110); MAGNESIUM 2.5 MG/DL (1.6-2.3); POTASSIUM 3.4 MEQ/L (3.6-5); SODIUM 140 MEQ/L (134-144)
[2016-08-30] MEDS: OMEPRAZOLE 20 MG CAPSULE PO SCH (06:13)
[2016-08-30] MEDS: METOCLOPRAMIDE 5mg TABLET PO SCH ×4 (06:13→21:34)
[2016-08-30 06:17] LABS: EOSINOPHILS # (MANUAL) 0.3 T/MM3 (0-0.5); LYMPHOCYTES # (MANUAL) 2.9 T/MM3 (1-4.8); MONOCYTES # (MANUAL) 0.3 T/MM3 (0-0.8); NEUTROPHILS #(MANUAL)-ABSOLUTE 9.2 T/MM3 (1.8-7.7); TOTAL CELLS COUNTED 100 %
[2016-08-30 06:18] LABS: ANISOCYTOSIS 1+; POLYCHROMASIA 1+; STOMATOCYTES 1+
[2016-08-30] MEDS: INSULIN REGULAR 100 UNIT/ML SQ PRN ×4 (06:18→21:49)
[2016-08-30] MEDS: POTASSIUM CHLORIDE 20 MEQ TABLET PO SCH ×2 (08:49→17:28)
[2016-08-30] MEDS: PredniSONE 5 MG TABLET PO SCH (08:49)
[2016-08-30] MEDS: SPIRONOLACTONE 25 MG TABLET PO SCH (08:51)
[2016-08-30] MEDS: ASPIRIN *EC* 81mg TABLET PO SCH (08:52)
[2016-08-30] MEDS: DILTIAZEM 180 MG PO SCH (08:52)
[2016-08-30] MEDS: APIXABAN 5 MG TABLET PO SCH ×2 (08:53→21:10)
[2016-08-30] MEDS: LEVOTHYROXINE 25 MCG TABLET PO SCH (08:54)
[2016-08-30] MEDS: BENZONATATE 200 MG CAPSULE PO SCH ×3 (08:55→21:10)
[2016-08-30] MEDS: BETAMETHASONE TOP SCH ×2 (08:58→21:00)
[2016-08-30] MEDS: CLOTRIMAZOLE TOP SCH ×2 (08:58→21:00)
[2016-08-30] MEDS: PITAVASTATIN 2 MG PO SCH (08:59)
--- NOTE | 2016-08-30 11:24 | PNPDOC ---
IVETTE LUA V MYRNA 08/30/16 1109: Subjective Date DATE: 08/30/16 TIME: 10:53 Subjective Fabio is seen this morning while up in the chair. She is currently on her baseline 3 liters of oxygen by nasal canula and reports having shortness of breath with activity. She continues to have peripheral edema, worse on left at site of her cellulitis. Continued significant erythema, pain and swelling to the left lower extremity. Weight is down only 3 kilograms since admission on . Objective Vital Signs Vital signs Vital Signs Date Time Temp Pulse Resp B/P Pulse Ox O2 Delivery O2 Flow Rate FiO2 08/30/16 09:01 83 20 147/78 100 Nasal Cannula 3.00 08/29/16 23:19 98.3 Height (Feet): 5 Height (Inches): 0 Weight (Kilograms): 139.900 General General Appearance: Alert, Orientated x 3, Cooperative, No Acute Distress Eyes (Brief) Eyes: FOUND: EOMI ENMT (Brief) ENMT: FOUND: mucosa moist, normal dentition, NOT FOUND: pharnyx erythema Neck (Brief) Neck: FOUND: midline, NOT FOUND: adenopathy, carotid bruits, tracheal deviation Respiratory (Brief) Respiratory: FOUND: clear all collins, equal bilaterally, NOT FOUND: wheezes Cardiovascular (Brief) Cardiac: FOUND: regular rate, regular rhythm, NOT FOUND: murmur, pedal edema Capillary Refill: <2 sec Abdomen (Brief) Abdominal: FOUND: BS normo active x4, soft, NOT FOUND: distended, tender Extremities (Brief) Extremity : Side: Bilateral Extremity Finding: FOUND: deformity (left lower extremity), edema, pain, reddened (left lower extremity) Lymphatic (Brief) Lymphatic: NOT FOUND: adenopathy Musculoskeletal (Brief) Musculoskeletal: NOT FOUND: tenderness Integumentary (Brief) Integumentary: FOUND: dry, pink, warm Neurologic (Brief) Neurological: FOUND: cranial 2-12 intact Psychiatric (Brief) Psychiatric: FOUND: alert, attentive, normal affect, oriented Laboratory Laboratory Laboratory Tests 08/29/16 04:56 08/30/16 04:41 Laboratory Tests 08/29/16 04:56 08/30/16 04:41 Assessment & Plan Assessment Acute on chronic systolic congestive heart failure exacerbation- She has an echocardiogram that shows an ejection fraction of 30-40% recently. obstructive sleep apnea- diabetes mellitus type 2-- chronic respiratory failure secondary to bronchiectasis- atrial fibrillation left lower extremity hematoma- LLE cellulitis--blood cultures pending. Hypokalemia Plan/Intensity of Service 08/30/16 Although she is on her baseline oxygen of 3 liters by nasal cannula. Her breath sounds are wet and course. She has been on Lasix 80 milligrams IV every 8 hours since admission. She is only down 3 kilograms since that time. Will change to Bumex 2 milligrams IV every 8 hours for more aggressive diuresis. Monitor I/O. Continue with Zosyn IV for antimicrobial coverage of left lower extremity cellulitis. Blood cultures remain negative. Leukocytosis remains however overall is decreased to 12.6. The global stable at 8.6 Continue with oral supplementation. Potassium. Will increase to 40 milliequivalents twice a day. Continue to monitor blood sugars, Novolin sliding scale Prednisone was decreased to 5 milligrams daily with hopes to taper down eventually. Eliquis 5 gm BID for chronic anticoagulation Recheck CBC and BMP tomorrow morning Code Status Full Code, unverified Hospital Course Summary Disclaimer The hospital course summary below is not to be considered part of the above Progress Note. Hospital Course Summary 08/30/16 Although she is on her baseline oxygen of 3 liters by nasal cannula. Her breath sounds are wet and course. She has been on Lasix 80 milligrams IV every 8 hours since admission. She is only down 3 kilograms since that time. Will change to Bumex 2 milligrams IV every 8 hours for more aggressive diuresis. Monitor I/O. Continue with Zosyn IV for antimicrobial coverage of left lower extremity cellulitis. Blood cultures remain negative. Leukocytosis remains however overall is decreased to 12.6. The global stable at 8.6 Continue with oral supplementation. Potassium. Will increase to 40 milliequivalents twice a day. Continue to monitor blood sugars, Novolin sliding scale Prednisone was decreased to 5 milligrams daily with hopes to taper down eventually. Eliquis 5 gm BID for chronic anticoagulation Recheck CBC and BMP tomorrow morning MAURICE ASTUDILLO MD 08/30/16 1343: Subjective Subjective 71-year-old female seen and evaluated by myself as well as by MYRNA Lua. I have reviewed the chart agree with assessment and performed physical exam. Patient is resting comfortably with leg elevated. No acute complaints. Exam: Lungs crackles noted bilateral on inspiration greater than expiration. Cardiovascular regular rate and rhythm with no murmur heard Abdomen nontender no masses positive bowel sounds Extremities 2+ to 3+ bilateral edema lower extremities. Assessment and plan Attempt more aggressive diuresis by changing from Lasix to Bumex. Conversion factors approximately 41. Therefore 80 mg Lasix every 8 hours becomes 2 mg Bumex IV every 8 hours. We will try this and recheck tomorrow. Cellulitis continued to manage with Zosyn IV. Prednisone decreased to 5 mg daily. Continue anticoagulation with eliquis 5 mg twice a day. CBC and BMP chest x-ray ordered for a.m. Although she is on her baseline oxygen of 3 liters by nasal cannula. Her breath sounds are wet and course. She has been on Lasix 80 milligrams IV every 8 hours since admission. She is only down 3 kilograms since that time. Will change to Bumex 2 milligrams IV every 8 hours for more aggressive diuresis. Monitor I/O. Continue with Zosyn IV for antimicrobial coverage of left lower extremity cellulitis. Blood cultures remain negative. Leukocytosis remains however overall is decreased to 12.6. The global stable at 8.6 Continue with oral supplementation. Potassium. Will increase to 40 milliequivalents twice a day. Continue to monitor blood sugars, Novolin sliding scale Prednisone was decreased to 5 milligrams daily with hopes to taper down eventually. Eliquis 5 gm BID for chronic anticoagulation Recheck CBC and BMP tomorrow morning IVETTE LUA APRN August 30, 2016 11:09 MAURICE ASTUDILLO MD August 30, 2016 13:43
[2016-08-30] MEDS: ALLOPURINOL 300 MG TABLET PO SCH (12:11)
--- NOTE | 2016-08-30 13:30 | NUR ---
STATUS PT REQUIRED PRN PAIN CONTROL CHARTED SEE EMAR. APPLIED CARLITA WRAPS TO BILATERAL LOWER EXTREMITIES. PT AMBULATED IN IRVIN WITH WALKER AND STAND BY ASSIST AND 3L NC OXYGEN. PT AMBULATED APPROXIMATELY 50-75 FEET. PT VERY SHORT OF AIR WITH AMBULATION.
--- NOTE | 2016-08-30 14:15 | NUR ---
STATUS PT ASSISTED INTO BED AT THIS TIME. REMAINS ON 3L NC. PT DENIES COMPLAINTS OR NEEDS AT THIS TIME. PT COMFORTABLE IN BED WITH HEAD UP LEGS ELEVATED. BILATERAL PEDAL PULSES PRESENT MONITORING CHECK FOLLOWING PLACEMENT OF BILATERAL CARLITA WRAPS. LIGHTS DIMMED. RAILS UP X2. BED ALARM ON. BED IN LOW POSITION AND CALL LIGHT IN REACH BELONGINGS IN REACH.
--- NOTE | 2016-08-30 16:31 | NUR ---
STATUS 1602 RECEIVED CALL FROM TELE MONITORING PT HAVING RUN OF V-TACH. PT HAD 20 HEART BEAT RUN OF V-TACH AT 1602. AT 1605 THIS RN IS AT PT BEDSIDE ASSESSING PT. PT IS RESTING COMFORTABLE IN BED WITH NO COMPLAINTS. WHEN QUESTIONED PT REPORTS SHE DID FEEL "FILIPPO TIGHT" IN HER CHEST AND LIKE HER BREATHING WAS "FUNNY" BUT IT WENT AWAY AND SHE "DIDN'T THINK ANYTHING OF IT". PT PLAYING ON TABLET NO COMPLAINTS. RESPIRATIONS SHALLOW REGULAR EVEN COARSE LUNG SOUNDS. A-FIB PRESENT ON MONITOR RATE IN 80'S AT THIS TIME. 1607 DR. ASTUDILLO NOTIFIED OF FINDINGS AND PATIENT STATUS. AWAITING NEW INSTRUCTIONS/ORDERS FROM PROVIDER.
[2016-08-30 17:22] LABS: MAGNESIUM 2.3 MG/DL (1.6-2.3)
[2016-08-30] MEDS: BUMETANIDE 1 MG/4 ML INJECTION IV SCH (17:27)
--- NOTE | 2016-08-30 18:23 | NUR ---
SUMMARY PT ALERT AND ORIENTED X3. PT PLEASANT AND COOPERATIVE WITH CARE. PT IS OBESE AND ADMISSION FOR CHF. PT HAS BILATERAL LOWER EXTREMITY SWELLING LEFT LEG WORSE THAN RIGHT. PITTING +2. LEFT LEG IS HAS ECCHYMOSIS, HOT TO PALPATION AND TENDER WITH PALPATION. BACK OF LEFT LEG IS BRUISED AND VERY TENDER. RIGHT LEG HAS REDNESS AND IS WARM TO TOUCH AND TENDER BUT LESS SO THAN LEFT LEG. CARLITA WRAPS WERE PLACED ON BILATERAL LOWER EXTREMITIES REMOVED AT DINNER TIME DUE TO DISCOMFORT WITH THEM. PT HAD RUN OF V-TACH SEE NOTE, DR. ASTUDILLO NOTIFIED CONSULTING CARDIOLOGY. PT DENIED COMPLAINTS OF CHEST PAIN OR INCREASED SOA. PT SPENT MOST OF THE DAY SITTING UP IN CHAIR WITH LEGS PROPPED UP WITH PILLOWS. PT USED PRN MEDICATIONS FOR PAIN SEE EMAR. PT REQUIRED SLIDING SCALE INSULIN FOR BLOOD GLUCOSE READINGS SEE EMAR.
[2016-08-30] MEDS: AMITRIPTYLINE 25 MG TABLET PO SCH (21:08)
[2016-08-30] MEDS: PRAMIPEXOLE 0.25 MG TABLET PO SCH (21:09)
[2016-08-30] MEDS: GABAPENTIN 300 MG CAPSULE PO SCH (21:10)
[2016-08-30] MEDS: INSULIN DEGLUDEC SQ SCH (21:35)
[2016-08-31] VITALS (9 sets, daily range): BP systolic 136–150; BP diastolic 60–69; PULSE 84–88; RESP 16–20; TEMP 97.4–98.5; O2SAT 92–99
[2016-08-31] MEDS: BUMETANIDE 1 MG/4 ML INJECTION IV SCH ×3 (01:13→17:46)
[2016-08-31] MEDS: ALBUTEROL/IPRATROPIUM INHAL. 2.5mg-0.5mg/3ml Neb. AEROSOL SCH ×4 (02:50→21:05)
[2016-08-31] MEDS: PIPERACILLIN/TAZOBACTAM 3.375 G in NORMAL SALINE 100 ML IV SCH ×2 (03:06→09:15)
[2016-08-31] MEDS: HYDROMORPHONE 2mg/ml INJECTION IV PRN ×4 (03:25→16:52)
[2016-08-31 05:43] LABS: BASOPHILS # (AUTO) 0.1 T/MM3 (0-0.2); BASOPHILS % (AUTO) 0.4 % (0-2); EOSINOPHILS # (AUTO) 0.3 T/MM3 (0-0.5); EOSINOPHILS % (AUTO) 2.3 % (0-4); HCT - HEMATOCRIT 31.7 % (36-46); HGB - HEMOGLOBIN 8.9 GM/DL (12-16); IMMATURE GRANULOCYTE # (AUTO) 0.07 T/MM3 (0.00-0.03); IMMATURE GRANULOCYTE % (AUTO) 0.5 % (0.0-0.5); LYMPHOCYTES # (AUTO) 3.8 T/MM3 (1-4.8); LYMPHOCYTES % (AUTO) 29.6 % (23-45); MEAN CORPUSCULAR HGB 24.5 UUG (26-34); MEAN CORPUSCULAR HGB CONC(MCHC 28.1 GM/DL (31-37); MEAN CORPUSCULAR VOLUME 87.3 UM3 (80-100); MEAN PLATELET VOLUME 9.9 UM3 (9.4-12.4); MONOCYTES # (AUTO) 0.8 T/MM3 (0-0.8); MONOCYTES % (AUTO) 6.5 % (0-9.0); NEUTROPHILS #(AUTO)-ABSOLUTE 7.8 T/MM3 (1.8-7.7); NEUTROPHILS % (AUTO) 60.7 % (33-66); RED BLOOD COUNT 3.63 M/MM3 (4.00-5.20); WBC - WHITE BLOOD COUNT 12.8 T/MM3 (4.5-11.0)
[2016-08-31 05:55] LABS: ANION GAP 12 MEQ/L (5-15); BUN/CREATININE RATIO 23 RATIO (6-26); CALCIUM 8.6 MG/DL (8.4-10.2); CHLORIDE 94 MEQ/L (98-107); CO2 - CARBON DIOXIDE 35 MEQ/L (22-30); CREATININE 1.2 MG/DL (0.7-1.2); GLOMERULAR FILTRATION RATE 45; GLUCOSE 163 MG/DL (65-110); POTASSIUM 3.5 MEQ/L (3.6-5); SODIUM 141 MEQ/L (134-144)
[2016-08-31 05:56] LABS: PROBNP 842 PG/ML (0-175)
--- NOTE | 2016-08-31 06:53 | NUR ---
SUMMARY: Alert and orientated. Pleasant and cooperative. O2 at 3/L per NC. continually during the day hours. Wears C-PAP at night. Adventitous lung sounds ausculated. Loose sounding cough; rattley at times; strong cough clears airway. Telemetry shows a-Fib. No other arrythmias demonstrated. BUMEX IV started last evening. Second 8 mg. IV dose was given at 0100 this morning. Assisted to bathroom several times during the night. Void large amounts clear yellow urine. CARLITA wraps to lower legs; lessens edema. Left lower leg very warm to touch, very red and painful. Right leg, with less edema, ecchymosis present to back of leg. DILAUDID 0.5 mg. IV given X2 and NORCO 2 tabs given once during this shift. Blood Sugars were 279 at 2100 last evening and 151 this morning. Sliding scale insulin administered accordingly.
[2016-08-31] MEDS: METOCLOPRAMIDE 5mg TABLET PO SCH ×4 (07:05→20:15)
[2016-08-31] MEDS: OMEPRAZOLE 20 MG CAPSULE PO SCH (07:05)
[2016-08-31] MEDS: BENZONATATE 200 MG CAPSULE PO SCH ×3 (08:38→20:07)
[2016-08-31] MEDS: DILTIAZEM 180 MG PO SCH (08:38)
[2016-08-31] MEDS: LEVOTHYROXINE 25 MCG TABLET PO SCH (08:39)
[2016-08-31] MEDS: ASPIRIN *EC* 81mg TABLET PO SCH (08:39)
[2016-08-31] MEDS: PITAVASTATIN 2 MG PO SCH (08:39)
[2016-08-31] MEDS: APIXABAN 5 MG TABLET PO SCH ×2 (08:39→20:08)
[2016-08-31] MEDS: SPIRONOLACTONE 25 MG TABLET PO SCH (08:39)
[2016-08-31] MEDS: POTASSIUM CHLORIDE 20 MEQ TABLET PO SCH ×2 (08:39→17:47)
[2016-08-31] MEDS: PredniSONE 5 MG TABLET PO SCH (08:39)
[2016-08-31] MEDS: BETAMETHASONE TOP SCH ×2 (09:00→20:11)
[2016-08-31] MEDS: CLOTRIMAZOLE TOP SCH ×2 (09:00→20:11)
--- NOTE | 2016-08-31 09:49 | DI ---
INDICATION: ITS.REASON: dyspnea, CHF PROCEDURE: CHEST 2-VIEWS UPRIGHT (PA \T\ LAT) Encounter: Initial COMPARISON: August 24, 2016 FINDINGS: Prior CHF has resolved. Lungs are now clear. No pleural effusion or pneumothorax. Heart size and mediastinal contours are stable. Left upper quadrant surgical clips. Degenerative change in the spine. Impression: Resolution of the prior congestive failure. .
[2016-08-31] MEDS: INSULIN REGULAR 100 UNIT/ML SQ PRN ×3 (12:07→23:33)
[2016-08-31] MEDS: ALLOPURINOL 300 MG TABLET PO SCH (12:07)
--- NOTE | 2016-08-31 12:22 | CONSPD ---
CAMMY TERRY [employer] SALES REPRESENTATIVE 08/31/16 1219: Consultation Info Date DATE: 08/31/16 TIME: 12:16 Date of Consultation: August 30, 2016 Attending Physician: Evelia Reason for Consultation: vtach HPI - Adult Date DATE: 08/31/16 TIME: 12:16 General Date of Admission Date of Admission: August 25, 2016 at 16:05 Chief Complaint: shortness of breath and swelling; VTach History of Present Illness Fabio is a 71 y/o female who came in this admission with increasing SOA and LE swelling for the past 2 weeks. She reports that she has been in the hospital approx 5 times since the beginning of 2016 both here and in [facility]. Was diagnosed with CHF and Afib recently. Has had to start using oxygen at home in the past month. Reports gaining approx 12 lbs in the past 2 weeks even though she is taking her meds as prescribed. [facility], Dr. Noriega was her locomotive supervisor. SHe is fine with having Dr. Luna assume her cardiology care. SHe denies chest discomfort. Has had bronchiectasis for >25 years so is use to having some SOA and "bubbling in her chest." No N/V or diaphoresis. She has been diagnosed with cellulitis of LLE and is on antibiotics. Yesterday she had a short run of vtach. Was sitting in her chair completely unaware of any arrhythmia until the nurses came into the room to check on her. Her potassium was 3.4 yesterday; is being supplemented. Past Medical History Past Medical History Metabolic: diabetes, hypercholesterolemia, hypertension, hypothyroidism Cardiac: A-fib, CHF Respiratory: COPD GI: GERD, IBS Female: UTI, renal insufficiency Musculoskeletal: back pain, osteoarthritis Hematologic: DVT, anemia Surgical History General: appendix, back, other Reproductive/: hysterectomy Joint: hip, knee, other Current Medications Home Meds Reported Medications Benzonatate (Benzonatate) 100 Mg Capsule, 200 MG PO TID 08/24/16 Acetaminophen (Acetaminophen) 500 Mg Tablet, 1000 MG PO Q8H Y for PAIN 08/19/16 Magnesium Hydroxide (Milk of Magnesia) 400 Mg/5 Ml Oral.susp, 30 ML PO DAILY Y for CONSTIPATION 08/19/16 Prednisone (Prednisone) 20 Mg Tablet, 20 MG PO WB 08/19/16 Potassium Chloride (Potassium Chloride) 20 Meq Tablet.er, 20 MEQ PO BIDWM 08/19/16 Melatonin (Melatonin) 5 Mg Tablet, 15 MG PO HS 08/19/16 Levothyroxine Sodium (Levothyroxine Sodium) 25 Mcg Tablet, 25 MCG PO DAILY 08/19/16 Insulin Lispro (Humalog) 100 Unit/1 Ml Insuln.pen, 40 UNIT SQ TIDWM 08/19/16 Insulin Degludec (Tresiba Flextouch U-100) 100 Unit/1 Ml Insuln.pen, 55 UNIT SQ HS 08/19/16 Hydrocodone/Acetaminophen ([place] 10-325 Tablet) 10-325 Tablet, 2 TAB PO Q6H Y for PAIN 08/19/16 Doxycycline Hyclate (Doxycycline Hyclate) 100 Mg Capsule, 100 MG PO BID 08/19/16 Diltiazem HCl (Cartia Xt) 180 Mg Capsule, 180 MG PO DAILY 08/19/16 Bumetanide (Bumetanide) 1 Mg Tablet, 1 MG PO DAILY 08/19/16 Aspirin *EC* (Aspirin EC) 81 Mg Tablet.dr, 81 MG PO DAILY 08/19/16 Polyethylene Glycol 3350 (Polyethylene Glycol 3350) 255 Gm Powder, 17 GM PO DAILY 08/11/16 Miconazole Nitrate (Zeasorb) 71 Gm Powder, 1 APPLIC TOP BID Y for RASH 08/11/16 Apixaban (Eliquis) 5 Mg Tablet, 5 MG PO BID 08/11/16 Pitavastatin Calcium (Livalo) 2 Mg Tablet, 2 MG PO DAILY 07/14/16 Clotrimazole/Betamethasone Dip (Clotrimazole-Betamethasone Crm) 15 Gm Cream..g. , 1 APPLIC TOP BID, G 07/14/16 Pramipexole Di-HCl (Pramipexole Dihydrochloride) 0.25 Mg Tablet, 0.25 MG PO HS 02/24/16 Ipratropium/Albuterol Sulfate (Iprat-Albut 0.5-3(2.5) mg/3 ml) 3 Ml Ampul.neb, 1 VIAL AEROSOL QID Y for PRN ORDERS 02/24/16 Glucagon,Human Recombinant (Glucagon Emergency Kit) 1 Mg/Kit Syringe, 1 MG INJ PRN 02/24/16 Gabapentin (Gabapentin) 300 Mg Capsule, 600 MG PO HS 02/24/16 Amitriptyline HCl (Amitriptyline HCl) 25 Mg Tablet, 25 MG PO HS 02/24/16 Albuterol Sulfate (Proair HFA 90 mcg/actuation) 8.5 Gm Hfa.aer.ad, 2 PUFF INH QID Y for WHEEZING 02/24/16 Fluticasone/Salmeterol (Advair 250-50 Diskus) 1 Disk W/Dev Inhaler, 2 PUFF INH BID 01/17/14 Omeprazole (Omeprazole) 20 Mg Tablet.dr, 20 MG PO ACB 01/17/14 Allopurinol (Allopurinol) 300 Mg Tablet, 300 MG PO NOON 05/22/13 Cyclobenzaprine Hcl (Cyclobenzaprine Hcl) 10 Mg Tablet, 10 MG PO TID Y for PRN ORDERS 05/22/13 Metoclopramide Hcl (Metoclopramide Hcl) 5 Mg Tablet, 5 MG PO ACHS 05/29/10 Allergies: Coded Allergies: adhesive tape (Verified Allergy, Mild, RASH, 08/24/16) NSAIDS (Non-Steroidal Anti-Inflamma (Verified Adverse Reaction, Unknown, MIGRAINE VICKERS,FLUID RETENTION, 08/24/16) naproxen (Verified Adverse Reaction, Unknown, MIGRAINE VICKERS,FLUID RETENTION , 08/24/16) Family History FOUND: diabetes Vaccines jan 2016fall [id number], FALL 2011 PREVNAR 13 Social History Substance Use Type: does not use Sexuality: male partner Housing: house Current Occupational Status: retired Advance Directives: Yes DPOA for Healthcare Only ([employer]), Yes Living Will Review of Systems Unable to Obtain Comments All Other Systems: Reviewed (remainder of 10-point ROS Neg.) Comments As per history of present illness. All systems were reviewed and otherwise negative. Constitutional: REPORTS: weight gain, DENIES: chills, dizziness, fever, syncope , weakness Eyes Vision: DENIES: loss of visual collins ENMT Sinuses: NOT FOUND: rhinorrhea Nose: NOT FOUND: obstruction Mouth/Throat: DENIES: sore throat Cardiovascular dyspnea on exertion, DENIES: chest pain Rhythm/Rate: irregular beat, DENIES: palpitations Vascular: pedal edema (Both LE) Pulmonary Respiratory: cough, dyspnea GI Upper Abdomen: DENIES: nausea, vomiting Lower Abdomen: DENIES: constipation, diarrhea, melena General: DENIES: dysuria, frequency, urgency Integumentary Skin: color change (redness of LLE) Neurological General: DENIES: seizures, syncope, weakness Physical Exam General General Nourishment: obese (morbidly) Vital Signs Vital Signs Date Time Temp Pulse Resp B/P Pulse Ox O2 Delivery O2 Flow Rate FiO2 08/31/16 12:07 18 08/31/16 11:00 97.4 08/31/16 10:30 99 08/31/16 10:28 86 08/31/16 08:00 150/69 Room Air 08/31/16 00:00 3.00 Height (Feet): 5 Height (Inches): 0 Telemetry Rhythm: V-Tachycardia (short burst x 1), Atrial Fibrillation Eyes Brief: FOUND: EOMI ENMT Brief: FOUND: mucosa moist Neck Brief: NOT FOUND: JVD, carotid bruits Respiratory Brief: FOUND: other (rhonchi scattered throughout), wheezes ( scattered exp throughout) Cardiovascular (brief) Cardiac Brief: FOUND: peripheral edema (2-3+ feet to knees bilaterally), NOT FOUND: murmur (obscured by resp sounds) Abdomen (brief) Abdominal Brief: FOUND: soft Integumentary (brief) Integumentary Brief: FOUND: other (erythema LLE), pink, warm Neurologic RN Documented GCS Eye Opening: Verbal: Motor: Total: Psychiatric (brief) FOUND: alert, attentive, normal affect, oriented Laboratory Laboratory Tests Test 08/29/16 16:55 08/29/16 21:18 08/30/16 04:41 08/30/16 06:14 Glucometer 292mg/dL 281mg/dL 206mg/dL White Blood Count 12.6T/MM3 Red Blood Count 3.42M/MM3 Hemoglobin 8.6GM/DL Hematocrit 29.9% Mean Corpuscular Volume 87.4UM3 Mean Corpuscular Hemoglobin 25.1UUG Mean Corpuscular Hemoglobin Concent 28.8GM/DL RDW Standard Deviation 58.4FL Platelet Count 378T/MM3 Mean Platelet Volume 10.1UM3 Neutrophils % (Manual) 73.0% Lymphocytes % (Manual) 23.0% Monocytes % (Manual) 2.0% Eosinophils % (Manual) 2.0% Absolute Neutrophils (Manual) 9.2T/MM3 Lymphocytes # (Manual) 2.9T/MM3 Monocytes # (Manual) 0.3T/MM3 Eosinophils # (Manual) 0.3T/MM3 Polychromasia 1+ Anisocytosis 1+ Stomatocytes 1+ Red Cell Morphology Comment Abnormal Turbidity < 20 Sodium Level 140MEQ/L Potassium Level 3.4MEQ/L Chloride Level 90MEQ/L Carbon Dioxide Level 33MEQ/L Anion Gap 17MEQ/L Blood Urea Nitrogen 32.0MG/DL Creatinine 1.3MG/DL Glomerular Filtration Rate Calc 41 BUN/Creatinine Ratio 25RATIO Glucose Level 228MG/DL Calculated Osmolality 283MOSM/KG Calcium Level 8.4MG/DL Magnesium Level 2.5MG/DL Icterus Index < 2 Chemistry Specimen Hemolysis 18 Test 08/30/16 11:15 08/30/16 16:53 08/30/16 16:56 08/30/16 20:56 Glucometer 165mg/dL 300mg/dL 279mg/dL Magnesium Level 2.3MG/DL Thyroid Stimulating Hormone (TSH) 1.19MIU/L Test 08/31/16 04:55 08/31/16 06:12 White Blood Count 12.8T/MM3 Red Blood Count 3.63M/MM3 Hemoglobin 8.9GM/DL Hematocrit 31.7% Mean Corpuscular Volume 87.3UM3 Mean Corpuscular Hemoglobin 24.5UUG Mean Corpuscular Hemoglobin Concent 28.1GM/DL RDW Standard Deviation 58.5FL Platelet Count 369T/MM3 Mean Platelet Volume 9.9UM3 Immature Granulocyte % (Auto) 0.5% Neutrophils (%) (Auto) 60.7% Lymphocytes (%) (Auto) 29.6% Monocytes (%) (Auto) 6.5% Eosinophils (%) (Auto) 2.3% Basophils (%) (Auto) 0.4% Absolute Immature Granulocyte (auto 0.07T/MM3 Absolute Neutrophils (auto) 7.8T/MM3 Absolute Lymphocytes (auto) 3.8T/MM3 Absolute Monocytes (auto) 0.8T/MM3 Absolute Eosinophils (auto) 0.3T/MM3 Absolute Basophils (auto) 0.1T/MM3 Turbidity < 20 Sodium Level 141MEQ/L Potassium Level 3.5MEQ/L Chloride Level 94MEQ/L Carbon Dioxide Level 35MEQ/L Anion Gap 12MEQ/L Blood Urea Nitrogen 27.0MG/DL Creatinine 1.2MG/DL Glomerular Filtration Rate Calc 45 BUN/Creatinine Ratio 23RATIO Glucose Level 163MG/DL Calculated Osmolality 280MOSM/KG Calcium Level 8.6MG/DL Icterus Index < 2 C-Reactive Protein 75.0MG/L [id number]-[id number]-Type Natriuretic Peptide 842PG/ML Chemistry Specimen Hemolysis < 15 Glucometer 159mg/dL Radiology DATE OF EXAM: 08/31/16 ORDERING DOCTOR: MAURICE ASTUDILLO MD TYPE OF EXAM: CHEST, PA & LATERAL REASON FOR EXAM: dyspnea, CHF INDICATION: ITS.REASON: dyspnea, CHF PROCEDURE: CHEST 2-VIEWS UPRIGHT (PA \\T\\ LAT) Encounter: Initial COMPARISON: August 24, 2016 FINDINGS: Prior CHF has resolved. Lungs are now clear. No pleural effusion or pneumothorax. Heart size and mediastinal contours are stable. Left upper quadrant surgical clips. Degenerative change in the spine. Impression: Resolution of the prior congestive failure. Impression/Recommendation Problems: (1) V-tach Status: Acute Assessment & Plan: Had short burst of Vtach; was asymptomatic; potassium was slightly low which could have contributed to arrhythmia; continue to monitor closely. (2) HFrEF (heart failure with reduced ejection fraction) Status: Chronic Assessment & Plan: Has significant edema; continue diuresis; monitor renal and lytes. Obtain echo. (3) Atrial fibrillation Status: Chronic (4) Hyperlipidemia Status: Chronic (5) Diabetes Status: Chronic (6) Hypertension Status: Chronic (7) Chronic kidney disease (CKD), stage III (moderate) Status: Chronic (8) Morbid obesity with BMI of 45.0-49.9, adult Status: Chronic (9) Bronchiectasis Status: Chronic (10) Cellulitis of left lower extremity Status: Acute Recommendation 08/31/16 Had short burst of Vtach; was asymptomatic; potassium was slightly low which could have contributed to arrhythmia; continue to monitor closely. Obtain records from [facility] regarding previous testing. Obtain echo. is in Afib with controlled rate. Continue bumex, potassium, asa, cardizem, eliquis and spironolactone. NUSRAT LUNA MD 09/01/16 6530: Past Medical History Current Medications Home Meds Reported Medications Benzonatate (Benzonatate) 100 Mg Capsule, 200 MG PO TID 08/24/16 Acetaminophen (Acetaminophen) 500 Mg Tablet, 1000 MG PO Q8H Y for PAIN 08/19/16 Magnesium Hydroxide (Milk of Magnesia) 400 Mg/5 Ml Oral.susp, 30 ML PO DAILY Y for CONSTIPATION 08/19/16 Prednisone (Prednisone) 20 Mg Tablet, 20 MG PO WB 08/19/16 Potassium Chloride (Potassium Chloride) 20 Meq Tablet.er, 20 MEQ PO BIDWM 08/19/16 Melatonin (Melatonin) 5 Mg Tablet, 15 MG PO HS 08/19/16 Levothyroxine Sodium (Levothyroxine Sodium) 25 Mcg Tablet, 25 MCG PO DAILY 08/19/16 Insulin Lispro (Humalog) 100 Unit/1 Ml Insuln.pen, 40 UNIT SQ TIDWM 08/19/16 Insulin Degludec (Tresiba Flextouch U-100) 100 Unit/1 Ml Insuln.pen, 55 UNIT SQ HS 08/19/16 Hydrocodone/Acetaminophen ([place] 10-325 Tablet) 10-325 Tablet, 2 TAB PO Q6H Y for PAIN 08/19/16 Doxycycline Hyclate (Doxycycline Hyclate) 100 Mg Capsule, 100 MG PO BID 08/19/16 Diltiazem HCl (Cartia Xt) 180 Mg Capsule, 180 MG PO DAILY 08/19/16 Bumetanide (Bumetanide) 1 Mg Tablet, 1 MG PO DAILY 08/19/16 Aspirin *EC* (Aspirin EC) 81 Mg Tablet.dr, 81 MG PO DAILY 08/19/16 Polyethylene Glycol 3350 (Polyethylene Glycol 3350) 255 Gm Powder, 17 GM PO DAILY 08/11/16 Miconazole Nitrate (Zeasorb) 71 Gm Powder, 1 APPLIC TOP BID Y for RASH 08/11/16 Apixaban (Eliquis) 5 Mg Tablet, 5 MG PO BID 08/11/16 Pitavastatin Calcium (Livalo) 2 Mg Tablet, 2 MG PO DAILY 07/14/16 Clotrimazole/Betamethasone Dip (Clotrimazole-Betamethasone Crm) 15 Gm Cream..g. , 1 APPLIC TOP BID, G 07/14/16 Pramipexole Di-HCl (Pramipexole Dihydrochloride) 0.25 Mg Tablet, 0.25 MG PO HS 02/24/16 Ipratropium/Albuterol Sulfate (Iprat-Albut 0.5-3(2.5) mg/3 ml) 3 Ml Ampul.neb, 1 VIAL AEROSOL QID Y for PRN ORDERS 02/24/16 Glucagon,Human Recombinant (Glucagon Emergency Kit) 1 Mg/Kit Syringe, 1 MG INJ PRN 02/24/16 Gabapentin (Gabapentin) 300 Mg Capsule, 600 MG PO HS 02/24/16 Amitriptyline HCl (Amitriptyline HCl) 25 Mg Tablet, 25 MG PO HS 02/24/16 Albuterol Sulfate (Proair HFA 90 mcg/actuation) 8.5 Gm Hfa.aer.ad, 2 PUFF INH QID Y for WHEEZING 02/24/16 Fluticasone/Salmeterol (Advair 250-50 Diskus) 1 Disk W/Dev Inhaler, 2 PUFF INH BID 01/17/14 Omeprazole (Omeprazole) 20 Mg Tablet.dr, 20 MG PO ACB 01/17/14 Allopurinol (Allopurinol) 300 Mg Tablet, 300 MG PO NOON 05/22/13 Cyclobenzaprine Hcl (Cyclobenzaprine Hcl) 10 Mg Tablet, 10 MG PO TID Y for PRN ORDERS 05/22/13 Metoclopramide Hcl (Metoclopramide Hcl) 5 Mg Tablet, 5 MG PO ACHS 05/29/10 Allergies: Coded Allergies: adhesive tape (Verified Allergy, Mild, RASH, 08/24/16) NSAIDS (Non-Steroidal Anti-Inflamma (Verified Adverse Reaction, Unknown, MIGRAINE VICKERS,FLUID RETENTION, 08/24/16) naproxen (Verified Adverse Reaction, Unknown, MIGRAINE VICKERS,FLUID RETENTION , 08/24/16) Impression/Recommendation Recommendation My [employer] SALES REPRESENTATIVE examined this patient and I agree. I am involved in the formulation of the patient's plan of care. CAMMY TERRY APRN August 31, 2016 12:19 NUSRAT LUNA MD September 01, 2016 14:09
--- NOTE | 2016-08-31 13:11 | PNPDOC ---
MAYURI GOLDSTEIN APRN 08/31/16 1257: Subjective Date DATE: 08/31/16 TIME: 12:53 Subjective Fabio is seen today in follow up. She continues to have significant swelling and pain in the left leg. It remains quite red. Patient reports some marginal improvement. No fever. Some SOA at times, continues to have some edema. Wearing her CPAP. BG has been elevated- she remains on insulin with sliding scale. She continues to have elevated BP, HR at times. No further documentation of VTach. CV consulted. Objective Vital Signs Vital signs Vital Signs Date Time Temp Pulse Resp B/P Pulse Ox O2 Delivery O2 Flow Rate FiO2 08/31/16 12:07 18 08/31/16 11:00 97.4 08/31/16 10:30 99 08/31/16 10:28 86 08/31/16 08:00 150/69 Room Air 08/31/16 00:00 3.00 Telemetry Rhythm: Atrial Fibrillation Height (Feet): 5 Height (Inches): 0 Weight (Kilograms): 140.100 General General Appearance: Alert, Obese, Orientated x 3, Cooperative, No Acute Distress Eyes (Brief) Eyes: FOUND: EOMI, PERRL, NOT FOUND: scleral icterus Comments Periorbital puffiness. Neck (Brief) Neck: FOUND: midline, NOT FOUND: JVD, adenopathy, nuchal rigidity, spasm, thyromegaly Respiratory (Brief) Respiratory: FOUND: equal bilaterally, symmetrical, NOT FOUND: rales, wheezes Comments Diminished. No crackles or wheezes on anterior exam. She is up in chair- exams are limited. Cardiovascular (Brief) Cardiac: FOUND: pedal edema, peripheral edema, regular rate, NOT FOUND: murmur , regular rhythm Abdomen (Brief) Abdominal: FOUND: BS normo active x4, soft, NOT FOUND: distended, tender Extremities (Brief) Extremity : Side: Right Extremity Finding: FOUND: edema, pain, reddened, warm Musculoskeletal (Brief) Musculoskeletal: FOUND: loss of motion, tenderness Integumentary (Brief) Integumentary: FOUND: dry, pink, warm Psychiatric (Brief) Psychiatric: FOUND: alert, attentive, oriented Laboratory Laboratory Laboratory Tests 08/30/16 04:41 08/31/16 04:55 Laboratory Tests 08/30/16 04:41 08/31/16 04:55 Microbiology Microbiology [facility] NGT[facility]. Radiology CT left leg Impression: Diffuse subcutaneous edema throughout the left lower leg possibly representing a cellulitis. There is a more focal region of complexity in the lateral proximal to mid subcutaneous fat. This could represent subacute hematoma with or without infection or phlegmon/abscess. The fluid would be expected to be quite complex or thick based on the CT appearance. Inflammation and edema appears confined to the subcutaneous layer and does not appear to extend into the deeper fascial or muscular layers. Sepsis Diagnostic Criteria Sepsis Confirmed/Suspected Infection: Yes SIRS Criteria: Temp<=96.8 or >=100.4, WBC >=12,000 or <=4,000, Plasma CRP>2 above normal Assessment & Plan Problems: (1) Cellulitis of left lower extremity Status: Acute (2) Severe sepsis Status: Acute (3) HFrEF (heart failure with reduced ejection fraction) Status: Chronic Qualifiers: Heart failure chronicity: chronic Qualified Codes: I50.22 - Chronic systolic (congestive) heart failure (4) V-tach Status: Acute (5) Atrial fibrillation Status: Chronic Qualifiers: Atrial fibrillation type: chronic Qualified Codes: I48.2 - Chronic atrial fibrillation (6) Obesity hypoventilation syndrome Status: Chronic (7) Hypoxia Status: Chronic (8) THOMAS on CPAP Status: Chronic (9) IDDM (insulin dependent diabetes mellitus) Status: Chronic (10) Hypertension Status: Chronic Qualifiers: Hypertension type: essential hypertension Qualified Codes: I10 - Essential (primary) hypertension (11) Mild pulmonary hypertension Status: Chronic (12) Hypothyroidism Status: Chronic (13) Hyperlipidemia Status: Chronic Qualifiers: Hyperlipidemia type: unspecified Qualified Codes: E78.5 - Hyperlipidemia, unspecified Assessment 71 yo WF with complicated cellulitis, severe Morbid obesity Plan/Intensity of Service 08/31/16- *Severe cellulitis with possible abscess Need more aggressive antibiotic coverage. She has been on Zosyn and PO doxy without significant improvement. BMI of 60 is complicating factor. Add Ceftriaxone BID due to BMI. Add Clinda for better anaerobic/MRSA coverage. Repeat labs, CRP in AM. If no significant improvement in next 24-48 hours, consider repeat CT and possible ortho evaluation. Chronic immunosuppression on steroids- decreased to 5mg of prednisone. *Sepsis- BP is stable. Monitor *HFrEF, OHS, Chronic respiratory failure- Changed to IV Bumex. Weight is only down a little, but she is breathing somewhat better. Lungs are fairly clear, but diminished. Continue O2, CPAP, support. Continue Aldactone, KCL, Add beta-elba for rate control and HF treatment. Consider CARLITA/ARB per HF guidlelines. *DM2- BG variable. Continue current insulin and SSI. She did have some hypoglycemia previously. *Hypothyroid. TSH OK. Continue current. *AFib/VTach- CV consulted. Add beta-elba. continue Diltiazem for now- may want to decrease due to HFrEF and optimize beta elba. *DVT prophylaxis- On Eliquis DVT Prophylaxis: other Code Status Full Code, unverified Hospital Course Summary Disclaimer The hospital course summary below is not to be considered part of the above Progress Note. Hospital Course Summary 08/30/16 Although she is on her baseline oxygen of 3 liters by nasal cannula. Her breath sounds are wet and course. She has been on Lasix 80 milligrams IV every 8 hours since admission. She is only down 3 kilograms since that time. Will change to Bumex 2 milligrams IV every 8 hours for more aggressive diuresis. Monitor I/O. Continue with Zosyn IV for antimicrobial coverage of left lower extremity cellulitis. Blood cultures remain negative. Leukocytosis remains however overall is decreased to 12.6. The global stable at 8.6 Continue with oral supplementation. Potassium. Will increase to 40 milliequivalents twice a day. Continue to monitor blood sugars, Novolin sliding scale Prednisone was decreased to 5 milligrams daily with hopes to taper down eventually. Eliquis 5 gm BID for chronic anticoagulation Recheck CBC and BMP tomorrow morning 08/31/16- *Severe cellulitis with possible abscess Need more aggressive antibiotic coverage. She has been on Zosyn and PO doxy without significant improvement. BMI of 60 is complicating factor. Add Ceftriaxone BID due to BMI. Add Clinda for better anaerobic/MRSA coverage. Repeat labs, CRP in AM. If no significant improvement in next 24-48 hours, consider repeat CT and possible ortho evaluation. Chronic immunosuppression on steroids- decreased to 5mg of prednisone. *Sepsis- BP is stable. Monitor *HFrEF, OHS, Chronic respiratory failure- Changed to IV Bumex. Weight is only down a little, but she is breathing somewhat better. Lungs are fairly clear, but diminished. Continue O2, CPAP, support. Continue Aldactone, KCL, Add beta-elba for rate control and HF treatment. Consider CARLITA/ARB per HF guidlelines. *DM2- BG variable. Continue current insulin and SSI. She did have some hypoglycemia previously. *Hypothyroid. TSH OK. Continue current. *AFib/VTach- CV consulted. Add beta-elba. continue Diltiazem for now- may want to decrease due to HFrEF and optimize beta elba. *DVT prophylaxis- On MAURICE Aguilar MD 08/31/16 1331: Assessment & Plan Plan/Intensity of Service 08/31/16 I have personally seen and evaluated this pt, I agree with assesment and plan as in note. S- Pt feels she is breathing a little better today. Still too weak to move around. Leg still too painful as well. O- Lungs -- decreased crackles bilat CV- rrr, no irreg heard. Leg - little improvement noted in redness of leg. A/P 1 Cellulitis leg. Not improving as expected. Plan to add broader coverage with rocephin and clinda. Repeat imaging if not improving in 48 hours. follow labs. 2 Sepsis stable, cont with abx as above. 3 CHF Pt has shown some improvement with Bumex, IV. continue with this and reassess in am. 4 DM type II Requiring med changes, cont to follow sugars and adjust as needed with sliding scale. 5 Afib with run of VTACH. Cardiology consulted and betablocker increased. Cardiology to see pt. She has been stable since one run of VTACH. MAYURI Mai MD [employer] August 31, 2016 12:57 MAURICE ASTUDILLO MD August 31, 2016 13:31
[2016-08-31] MEDS: CLINDAMYCIN 600mg IVPB 50 ML IV SCH ×2 (15:17→20:07)
[2016-08-31] MEDS: CARVEDILOL 6.25 MG TABLET PO SCH (17:48)
--- NOTE | 2016-08-31 18:39 | NUR ---
Shift Summary Patient alert and oriented x3. VSS. On 3L NC, which is patient's baseline. Up in recliner for most of the day. Ambulated in room with assist x1, gb and walker. Legs elevated and wrapped in CARLITA wrap d/t edema. Left leg still reddened and bruised. Patient c/o pain in legs, PRN [place] and Dilaudid given. Telemetry a-fib all day, to have possible cardioversion tomorrow with Dr. Mello. Patient educated on cardioversion as well as diabetes and CHF monitoring. Patient has had high volume urine output on Bumex IV. Adequate intake at meals. Family present at bedside today.
[2016-08-31] MEDS: CEFTRIAXONE 1 G in NORMAL SALINE 100 ML IV SCH (20:07)
[2016-08-31] MEDS: PRAMIPEXOLE 0.25 MG TABLET PO SCH (20:08)
[2016-08-31] MEDS: AMITRIPTYLINE 25 MG TABLET PO SCH (20:08)
[2016-08-31] MEDS: GABAPENTIN 300 MG CAPSULE PO SCH (20:09)
[2016-08-31] MEDS: INSULIN DEGLUDEC SQ SCH (23:00)
[2016-09-01] VITALS (19 sets, daily range): BP systolic 111–161; BP diastolic 53–85; PULSE 66–87; RESP 16–25; TEMP 96.1–98.1; O2SAT 92–100
[2016-09-01] MEDS: HYDROMORPHONE 2mg/ml INJECTION IV PRN ×4 (00:09→20:38)
[2016-09-01] MEDS: CLINDAMYCIN 600mg IVPB 50 ML IV SCH ×3 (02:38→15:06)
[2016-09-01] MEDS: BUMETANIDE 1 MG/4 ML INJECTION IV SCH ×3 (02:39→17:00)
[2016-09-01] MEDS: ALBUTEROL/IPRATROPIUM INHAL. 2.5mg-0.5mg/3ml Neb. AEROSOL SCH ×4 (02:58→21:09)
--- NOTE | 2016-09-01 05:30 | NUR ---
Shift Pt request wrap to left leg be taken off, c/o pain. Rewrapped but she still wanted it removed. SCOUTS at this time. Up to BR with one person assist, pain x2 tonight. Resting with cpap in place.
[2016-09-01 05:38] LABS: BASOPHILS # (AUTO) 0.1 T/MM3 (0-0.2); BASOPHILS % (AUTO) 0.4 % (0-2); EOSINOPHILS # (AUTO) 0.4 T/MM3 (0-0.5); HCT - HEMATOCRIT 29.9 % (36-46); HGB - HEMOGLOBIN 8.6 GM/DL (12-16); IMMATURE GRANULOCYTE % (AUTO) 0.8 % (0.0-0.5); LYMPHOCYTES % (AUTO) 33.3 % (23-45); MEAN CORPUSCULAR HGB 25.1 UUG (26-34); MEAN CORPUSCULAR HGB CONC(MCHC 28.8 GM/DL (31-37); MEAN CORPUSCULAR VOLUME 87.2 UM3 (80-100); MEAN PLATELET VOLUME 9.5 UM3 (9.4-12.4); MONOCYTES # (AUTO) 0.7 T/MM3 (0-0.8); MONOCYTES % (AUTO) 5.8 % (0-9.0); NEUTROPHILS #(AUTO)-ABSOLUTE 6.8 T/MM3 (1.8-7.7); NEUTROPHILS % (AUTO) 56.7 % (33-66); RED BLOOD COUNT 3.43 M/MM3 (4.00-5.20)
[2016-09-01 05:56] LABS: ALBUMIN 3.6 G/DL (3.5-5.0); ANION GAP 15 MEQ/L (5-15); BUN/CREATININE RATIO 20 RATIO (6-26); CALCIUM 8.6 MG/DL (8.4-10.2); CHLORIDE 91 MEQ/L (98-107); CO2 - CARBON DIOXIDE 33 MEQ/L (22-30); CREATININE 1.3 MG/DL (0.7-1.2); GLOMERULAR FILTRATION RATE 41; GLUCOSE 238 MG/DL (65-110); MAGNESIUM 2.4 MG/DL (1.6-2.3); PHOSPHORUS 3.1 MG/DL (2.5-4.5); POTASSIUM 3.6 MEQ/L (3.6-5); SODIUM 139 MEQ/L (134-144)
[2016-09-01] MEDS: INSULIN REGULAR 100 UNIT/ML SQ PRN (06:20)
[2016-09-01] MEDS: OMEPRAZOLE 20 MG CAPSULE PO SCH (06:36)
[2016-09-01] MEDS: METOCLOPRAMIDE 5mg TABLET PO SCH ×4 (06:36→22:00)
[2016-09-01] MEDS: INSULIN ASPART 100 UNIT/ML SQ SCH ×2 (08:18→16:53)
[2016-09-01] MEDS: BENZONATATE 200 MG CAPSULE PO SCH ×3 (08:19→20:39)
[2016-09-01] MEDS: CARVEDILOL 6.25 MG TABLET PO SCH ×2 (08:20→16:56)
[2016-09-01] MEDS: APIXABAN 5 MG TABLET PO SCH ×2 (08:20→20:40)
[2016-09-01] MEDS: ASPIRIN *EC* 81mg TABLET PO SCH (08:20)
[2016-09-01] MEDS: LEVOTHYROXINE 25 MCG TABLET PO SCH (08:20)
[2016-09-01] MEDS: DILTIAZEM 180 MG PO SCH (08:22)
[2016-09-01] MEDS: PredniSONE 5 MG TABLET PO SCH (08:22)
[2016-09-01] MEDS: SPIRONOLACTONE 25 MG TABLET PO SCH (08:22)
[2016-09-01] MEDS: POTASSIUM CHLORIDE 20 MEQ TABLET PO SCH ×2 (08:22→17:22)
[2016-09-01] MEDS: PITAVASTATIN 2 MG PO SCH (08:23)
[2016-09-01] MEDS: BETAMETHASONE TOP SCH ×2 (08:24→20:41)
[2016-09-01] MEDS: CLOTRIMAZOLE TOP SCH ×2 (08:24→20:41)
[2016-09-01] MEDS: CEFTRIAXONE 1 G in NORMAL SALINE 100 ML IV SCH ×2 (08:24→20:39)
--- NOTE | 2016-09-01 09:00 | PNPDOC ---
IVETTE LUA V BACK HOE MACHINE OPERATOR 09/01/16 0851: Subjective Date DATE: 09/01/16 TIME: 08:42 Subjective Julita is seen this morning during breakfast. She continues on oxygen however lungs sound worse this morning with increased wheezing and crackles. She agrees that her breathing is more "Rattling". Continues to have increased pain, swelling and erythema to the LLE. Blood sugars variable. Remains in rate controlled A-fib. Objective Vital Signs Vital signs Vital Signs Date Time Temp Pulse Resp B/P Pulse Ox O2 Delivery O2 Flow Rate FiO2 09/01/16 08:00 96.5 87 19 142/71 96 Nasal Cannula 3.00 Telemetry Rhythm: V-Tachycardia (short burst x 1), Atrial Fibrillation Height (Feet): 5 Height (Inches): 0 Weight (Kilograms): 139.900 General General Appearance: Alert, Orientated x 3, Cooperative, No Acute Distress Eyes (Brief) Eyes: FOUND: EOMI ENMT (Brief) ENMT: FOUND: mucosa moist, normal dentition, NOT FOUND: pharnyx erythema Neck (Brief) Neck: FOUND: midline, NOT FOUND: adenopathy, carotid bruits, tracheal deviation Respiratory (Brief) Respiratory: FOUND: wheezes Comments Course breath sounds Cardiovascular (Brief) Cardiac: FOUND: regular rate, regular rhythm, NOT FOUND: murmur, pedal edema Capillary Refill: <2 sec Abdomen (Brief) Abdominal: FOUND: BS normo active x4, soft, NOT FOUND: distended, tender Extremities (Brief) Extremity : Side: Left Extremity: leg Extremity Finding: FOUND: edema, pain, reddened Lymphatic (Brief) Lymphatic: NOT FOUND: adenopathy Musculoskeletal (Brief) Musculoskeletal: NOT FOUND: tenderness Integumentary (Brief) Integumentary: FOUND: dry, pink, warm Neurologic (Brief) Neurological: FOUND: cranial 2-12 intact Psychiatric (Brief) Psychiatric: FOUND: alert, attentive, normal affect, oriented Laboratory Laboratory Laboratory Tests 08/31/16 04:55 09/01/16 05:22 Laboratory Tests 08/31/16 04:55 09/01/16 05:22 Sepsis Diagnostic Criteria Sepsis Confirmed/Suspected Infection: Yes SIRS Criteria: Temp<=96.8 or >=100.4, WBC >=12,000 or <=4,000, Plasma CRP>2 above normal Assessment & Plan Problems: (1) Cellulitis of left lower extremity Status: Acute (2) Severe sepsis Status: Acute (3) HFrEF (heart failure with reduced ejection fraction) Status: Chronic Qualifiers: Heart failure chronicity: chronic Qualified Codes: I50.22 - Chronic systolic (congestive) heart failure (4) V-tach Status: Acute (5) Atrial fibrillation Status: Chronic Qualifiers: Atrial fibrillation type: chronic Qualified Codes: I48.2 - Chronic atrial fibrillation (6) Obesity hypoventilation syndrome Status: Chronic (7) Hypoxia Status: Chronic (8) THOMAS on CPAP Status: Chronic (9) IDDM (insulin dependent diabetes mellitus) Status: Chronic (10) Hypertension Status: Chronic Qualifiers: Hypertension type: essential hypertension Qualified Codes: I10 - Essential (primary) hypertension (11) Mild pulmonary hypertension Status: Chronic (12) Hypothyroidism Status: Chronic (13) Hyperlipidemia Status: Chronic Qualifiers: Hyperlipidemia type: unspecified Qualified Codes: E78.5 - Hyperlipidemia, unspecified Plan/Intensity of Service 09/01/16 Lungs sound worse today. Continue with oxygen and scheduled DuoNeb breathing treatments. Diuresis changed (08/30) to Bumex 2 milligrams IV every 8 hours and Spironolactone Regarding sepsis and LLE cellulitis, Antibiotics switched yesterday to Clindamycin and Rocephin. Minimal improvement on Zosyn and Doxycycline Seen by Dr Em this morning. Mealtime NovoLog changed to 25 units with meals Appreciate cardiac consultation by Dr. Mello. Complete echocardiogram ordered for today. Patient made nothing by mouth after breakfast for possible cardioversion. Continue on Cardizem and Coreg. Reviewed telemetry, no further episodes of V. tach since 08/26. In rate controlled atrial fibrillation. Chronically has been on prednisone. Was decreased down to 5 milligrams daily starting 08/30. Continue with oral potassium supplementation, 40 milliequivalents twice a day Eliquis BID for anticoagulation WBC count remains slightly elevated at 12, however, this is likely due to the steroid use. Hemoglobin stable at 8.6. Creatinine stable at 1.3 Will discuss further plan of care with attending, Dr. Villa Code Status Full Code, unverified Hospital Course Summary Disclaimer The hospital course summary below is not to be considered part of the above Progress Note. Hospital Course Summary 08/30/16 Although she is on her baseline oxygen of 3 liters by nasal cannula. Her breath sounds are wet and course. She has been on Lasix 80 milligrams IV every 8 hours since admission. She is only down 3 kilograms since that time. Will change to Bumex 2 milligrams IV every 8 hours for more aggressive diuresis. Monitor I/O. Continue with Zosyn IV for antimicrobial coverage of left lower extremity cellulitis. Blood cultures remain negative. Leukocytosis remains however overall is decreased to 12.6. The global stable at 8.6 Continue with oral supplementation. Potassium. Will increase to 40 milliequivalents twice a day. Continue to monitor blood sugars, Novolin sliding scale Prednisone was decreased to 5 milligrams daily with hopes to taper down eventually. Eliquis 5 gm BID for chronic anticoagulation Recheck CBC and BMP tomorrow morning 08/31/16- *Severe cellulitis with possible abscess Need more aggressive antibiotic coverage. She has been on Zosyn and PO doxy without significant improvement. BMI of 60 is complicating factor. Add Ceftriaxone BID due to BMI. Add Clinda for better anaerobic/MRSA coverage. Repeat labs, CRP in AM. If no significant improvement in next 24-48 hours, consider repeat CT and possible ortho evaluation. Chronic immunosuppression on steroids- decreased to 5mg of prednisone. *Sepsis- BP is stable. Monitor *HFrEF, OHS, Chronic respiratory failure- Changed to IV Bumex. Weight is only down a little, but she is breathing somewhat better. Lungs are fairly clear, but diminished. Continue O2, CPAP, support. Continue Aldactone, KCL, Add beta-elba for rate control and HF treatment. Consider CARLITA/ARB per HF guidlelines. *DM2- BG variable. Continue current insulin and SSI. She did have some hypoglycemia previously. *Hypothyroid. TSH OK. Continue current. *AFib/VTach- CV consulted. Add beta-elba. continue Diltiazem for now- may want to decrease due to HFrEF and optimize beta elba. *DVT prophylaxis- On Eliquis 09/01/16 Lungs sound worse today. Continue with oxygen and scheduled DuoNeb breathing treatments. Diuresis changed (08/30) to Bumex 2 milligrams IV every 8 hours and Spironolactone Regarding sepsis and LLE cellulitis, Antibiotics switched yesterday to Clindamycin and Rocephin. Minimal improvement on Zosyn and Doxycycline Seen by Dr Em this morning. Mealtime NovoLog changed to 25 units with meals Appreciate cardiac consultation by Dr. Mello. Complete echocardiogram ordered for today. Patient made nothing by mouth after breakfast for possible cardioversion. Continue on Cardizem and Coreg. Reviewed telemetry, no further episodes of V. tach since 08/26. In rate controlled atrial fibrillation. Chronically has been on prednisone. Was decreased down to 5 milligrams daily starting 08/30. Continue with oral potassium supplementation, 40 milliequivalents twice a day Eliquis BID for anticoagulation WBC count remains slightly elevated at 12, however, this is likely due to the steroid use. Hemoglobin stable at 8.6. Creatinine stable at 1.3 Will discuss further plan of care with attending, PEGGY Laird MD 09/01/16 8394: Assessment & Plan Assessment I have independently evaluated and examined this patient. I reviewed the chart, the patient's history, and the BACK HOE MACHINE OPERATOR's documented findings as above. We discussed and formulated the assessment and plan as above with additions as below: Mrs. Campos was seen with family members at the bedside. She reports anxiety about possible cardioversion today (subsequently discussed with Dr. Mello, no cardioversion but heart catheterization in the near future will be discussed) and ongoing exertional dyspnea. Dyspnea has been significantly improved with addition of home oxygen. Edema and discoloration persist in the left lower extremity. Breath sounds are diminished bilaterally but respirations are nonlabored. Cardiac rhythm is irregular, there is no right lower extremity edema. Left lower extremity has +2 edema with discoloration from the knee to the ankle and some bruising on the lateral thigh. There is a large hematoma on the proximal lateral left calf contributing to discoloration and edema. Continue current antibiotics however will convert from IV to oral clindamycin. Unclear how much of the lower extremity discoloration is due to hematoma/blood and soft tissues versus infection. CRP is elevated and white count was modestly elevated on admission although exam favors hematoma as the primary pathology. Appreciate Dr. Em's assistance, discussed with Dr. Mello-cardiac catheterization anticipated. Recurrent hospitalizations this year due to CHF/ COPD/hypoxia. In addition to above diagnoses please add: #1 CKD stage III Plan/Intensity of Service Discussed with Dr. Mello, chest x-ray and CT leg reviewed by myself, laboratory data reviewed. IVETTE LUA APRN September 01, 2016 08:51 PEGGY VILLA MD September 01, 2016 17:47
[2016-09-01 09:55] LABS: C-REACTIVE PROTEIN 78.2 MG/L (0-9)
--- NOTE | 2016-09-01 10:21 | CONSF ---
DATE OF CONSULT 09/01/2016 REASON FOR CONSULTATION Uncontrolled type 2 diabetes mellitus. HISTORY OF PRESENT ILLNESS Mrs. Campos was admitted again for an exacerbation of congestive heart failure. She is known to me from the office where she is followed for type 2 diabetes mellitus that has been insulin requiring as well as a history of hypothyroidism. To control her diabetes, she usually takes 40 units of Humalog t.i.d. a.c. plus 55 units of Tresiba h.s. She was last seen in the office on 07/29/2016 at which time she had a hemoglobin A1c of 8.4%. For her hypothyroidism, she uses 25 mcg of levothyroxine daily. During her hospitalization, she experienced some severe hypoglycemia and was taken off her scheduled mealtime doses of insulin and placed on a sliding scale. Since then, her blood sugars have been running in the 200s most of the time. ALLERGIES NO KNOWN DRUG ALLERGIES. PAST MEDICAL HISTORY Positive for: Type 2 diabetes mellitus. Hypertension. Atrial fibrillation. Congestive heart failure. Rheumatoid arthritis. Osteoarthritis. COPD. Bronchiectasis. Hyperlipidemia. Irritable bowel syndrome. Status post right total hip replacement. Hysterectomy. Lumbar surgery x2. Gastric stapling. Three breast biopsies. Two minor ankle surgeries. FAMILY HISTORY Remarkable for bronchiectasis. SOCIAL HISTORY The patient does not smoke nor drink alcohol. PHYSICAL EXAMINATION VITALS: Afebrile with stable vital signs. GENERAL: Well-developed, morbidly obese female, alert, oriented, in no acute distress. HEENT: Unremarkable. NECK: Without thyromegaly or lymphadenopathy. LUNGS: Decreased breath sounds. HEART: Regular rate and rhythm. ABDOMEN: Normal bowel sounds. Soft without tenderness. EXTREMITIES: 1+ pitting edema. NEUROLOGICAL: Grossly normal. SKIN: Warm and dry. LABS TSH 1.19. Glucose for the past 24 hours: 280; 277; 323 and 203 fasting this morning. ASSESSMENT 1. Uncontrolled type 2 diabetes mellitus, insulin requiring. The patient has been uncontrolled since her scheduled prandial insulin was halted. While 40 units may have been too much, 0 units is certainly not enough. She needs to be started back on scheduled insulin so that the sliding scale is only used as a correction, not as the main means of control during the day. 2. Hypothyroidism, clinically and chemically euthyroid. 3. Morbid obesity. 4. CHF. RECOMMENDATIONS Restart prandial insulin at 25 units before each meal and titrate up as tolerated while avoiding hypoglycemia. Continue same Tresiba at bedtime. Continue same levothyroxine. Change glucose monitoring to fasting and two hours PC. Thank you very much for asking me to assist caring for this pleasant woman. I will follow her along with you while she remains in the hospital. DIANA
[2016-09-01] MEDS: ALLOPURINOL 300 MG TABLET PO SCH (12:00)
--- NOTE | 2016-09-01 14:45 | NUR ---
CARDIOVERSION ATTEMPTED TO CARDIOVERT PT AT 1430, AFTER 2 SHOCKS AT 360J, PTS HEART RHYTHM CONTINUED TO BE IN AFIB. PTS POST OP VITALS WILL BE STARTED AT THIS TIME AND WILL CONTINUE TO MONITOR PT UNTIL SHE IS MORE AWAKE.
[2016-09-01] MEDS ORDERED: MIDAZOLAM 2mg/2ml INJECTION IV ONE (15:07)
[2016-09-01] MEDS ORDERED: FENTANYL 100mcg/2ml INJECTION IV ONE (15:07)
[2016-09-01] MEDS ORDERED: SALINE FLUSH 10ml SYRINGE IVF ONE (15:07)
[2016-09-01] MEDS: BUMETANIDE 2.5mg INJECTION IV SCH (17:22)
--- NOTE | 2016-09-01 18:30 | NUR ---
SHIFT SUMMARY PT WAS NPO ALL MORNING AND SOME OF THE AFTERNOON FOR CARDIOVERSION PROCEDURE. PTS AFIB DID NOT CONVERT AFTER 2 SHOCKS. PT POST OP VITALS HAVE BEEN STABLE. PT WAS SWITCHED TO A CARDIAC 2000CC DIET. PT INSULIN REGIMEN WAS ALSO SWITCHED TO 25UNITS OF NOVOLOG 5-10 MINS BEFORE MEALS. WHEN HELPING PT TO THE BATHROOM NOTICED SOME ERYTHEMA TO MID BACK WERE CARDIOVERSION PATCH WAS PLACED. PT WAS ABLE TO HAVE 100% OF HER DINNER HAS HAD GOOD OUTPUT. DR SILVA CALLED FOR A INCENTIVE SPIROMETRY ORDER SINCE IT COULD PROBABLY HELP PT IMPROVE RESPIRATORY CROWLEY, PT STILL HAS AUDIBLE RALES LIKE SHE DID THIS MORNING TO UPPER LUNG DONOHUE BILAT.
--- NOTE | 2016-09-01 18:40 | DC CARDIOF ---
DATE OF PROCEDURE September 01, 2016 The patient is a 71-year-old lady with atrial fibrillation and congestive heart failure and run of ventricular tachycardia on chronic anticoagulation and was referred for DC cardioversion. Informed consent was obtained after explaining the procedure and the potential risks to the patient who agreed to proceed with the procedure. PROCEDURE DC cardioversion. Conscious sedation was performed using Versed and fentanyl. Anterior-posterior Zoll pads were applied. 360 joules of energy was delivered in synchronized manner and patient failed to convert to sinus. Repeat cardioversion was performed at previous settings and again patient failed to convert to sinus. The patient tolerated the procedure well with no complications. IMPRESSION Unsuccessful attempt in cardioversion of atrial fibrillation to sinus rhythm. PLAN Will continue rate control and anticoagulation. MTDD
[2016-09-01] MEDS: GABAPENTIN 300 MG CAPSULE PO SCH (20:40)
[2016-09-01] MEDS: AMITRIPTYLINE 25 MG TABLET PO SCH (20:40)
[2016-09-01] MEDS: PRAMIPEXOLE 0.25 MG TABLET PO SCH (20:40)
[2016-09-01] MEDS: CLINDAMYCIN 300 MG CAPSULE PO SCH (20:41)
[2016-09-01] MEDS: INSULIN DEGLUDEC SQ SCH (20:45)
[2016-09-02 00:15] VITALS: BP 146/70; PULSE 81; RESP 15; TEMP 97.3; O2SAT 95
[2016-09-02] MEDS: CYCLOBENZAPRINE 10 MG TABLET PO PRN ×2 (00:20→21:25)
[2016-09-02] MEDS: HYDROMORPHONE 2mg/ml INJECTION IV PRN ×4 (00:20→21:25)
[2016-09-02] MEDS: BUMETANIDE 2.5mg INJECTION IV SCH ×3 (02:17→17:15)
[2016-09-02 02:42] VITALS: O2SAT 96
[2016-09-02] MEDS: ALBUTEROL/IPRATROPIUM INHAL. 2.5mg-0.5mg/3ml Neb. AEROSOL SCH ×4 (02:48→20:44)
[2016-09-02 05:35] LABS: BASOPHILS % (AUTO) 0.2 % (0-2); EOSINOPHILS # (AUTO) 0.4 T/MM3 (0-0.5); EOSINOPHILS % (AUTO) 3.2 % (0-4); HCT - HEMATOCRIT 31.4 % (36-46); HGB - HEMOGLOBIN 8.8 GM/DL (12-16); IMMATURE GRANULOCYTE # (AUTO) 0.08 T/MM3 (0.00-0.03); IMMATURE GRANULOCYTE % (AUTO) 0.7 % (0.0-0.5); LYMPHOCYTES # (AUTO) 4.2 T/MM3 (1-4.8); LYMPHOCYTES % (AUTO) 34.9 % (23-45); MEAN CORPUSCULAR HGB 24.4 UUG (26-34); MEAN CORPUSCULAR VOLUME 87.2 UM3 (80-100); MEAN PLATELET VOLUME 9.8 UM3 (9.4-12.4); MONOCYTES # (AUTO) 0.9 T/MM3 (0-0.8); MONOCYTES % (AUTO) 7.3 % (0-9.0); NEUTROPHILS #(AUTO)-ABSOLUTE 6.5 T/MM3 (1.8-7.7); NEUTROPHILS % (AUTO) 53.7 % (33-66); WBC - WHITE BLOOD COUNT 12.1 T/MM3 (4.5-11.0)
[2016-09-02 05:49] LABS: ANION GAP 11 MEQ/L (5-15); BUN/CREATININE RATIO 19 RATIO (6-26); CALCIUM 8.9 MG/DL (8.4-10.2); CHLORIDE 93 MEQ/L (98-107); CO2 - CARBON DIOXIDE 38 MEQ/L (22-30); CREATININE 1.3 MG/DL (0.7-1.2); GLOMERULAR FILTRATION RATE 41; GLUCOSE 120 MG/DL (65-110); POTASSIUM 3.7 MEQ/L (3.6-5); SODIUM 142 MEQ/L (134-144)
--- NOTE | 2016-09-02 06:00 | NUR ---
Status Pt resting with bipap in place. C/O pain to left LE and being sore from cardioversion yesterday, pain meds x3 this shift. Remains in A Fib. A/O x3, SBA to bathroom. Productive/loose cough, states she is unable to clear her airway by coughing. Sats stable on 3L/NC while awake.
[2016-09-02] MEDS: OMEPRAZOLE 20 MG CAPSULE PO SCH (06:40)
[2016-09-02] MEDS: METOCLOPRAMIDE 5mg TABLET PO SCH ×4 (06:42→21:26)
[2016-09-02] MEDS ORDERED: INSULIN ASPART 100 UNIT/ML SQ SCH (07:45)
[2016-09-02 08:00] VITALS: BP 124/68; PULSE 88; RESP 19; TEMP 96.6; O2SAT 98
[2016-09-02] MEDS: BENZONATATE 200 MG CAPSULE PO SCH ×3 (08:06→21:26)
[2016-09-02] MEDS: ASPIRIN *EC* 81mg TABLET PO SCH (08:06)
[2016-09-02] MEDS: LEVOTHYROXINE 25 MCG TABLET PO SCH (08:06)
[2016-09-02] MEDS: CLINDAMYCIN 300 MG CAPSULE PO SCH ×3 (08:06→21:26)
[2016-09-02] MEDS: INSULIN ASPART 100 UNIT/ML SQ SCH ×3 (08:06→17:16)
[2016-09-02] MEDS: DILTIAZEM 180 MG PO SCH (08:07)
[2016-09-02] MEDS: POTASSIUM CHLORIDE 20 MEQ TABLET PO SCH ×2 (08:07→17:15)
[2016-09-02] MEDS: CARVEDILOL 6.25 MG TABLET PO SCH (08:07)
[2016-09-02] MEDS: PredniSONE 5 MG TABLET PO SCH (08:08)
[2016-09-02] MEDS: SPIRONOLACTONE 25 MG TABLET PO SCH (08:08)
[2016-09-02] MEDS: APIXABAN 5 MG TABLET PO SCH ×2 (08:08→21:27)
[2016-09-02] MEDS: PITAVASTATIN 2 MG PO SCH (08:09)
[2016-09-02] MEDS: CLOTRIMAZOLE TOP SCH ×2 (08:12→21:27)
[2016-09-02] MEDS: BETAMETHASONE TOP SCH ×2 (08:12→21:27)
[2016-09-02] MEDS: CEFTRIAXONE 1 G in NORMAL SALINE 100 ML IV SCH ×2 (08:12→21:24)
--- NOTE | 2016-09-02 08:36 | PNPDOC ---
Subjective Date DATE: 09/02/16 TIME: 08:29 Subjective Breathing a little better. Blood sugars improved. Objective Vital Signs Vital Signs Vital Signs 09/01/16 09/01/16 09/01/16 09/01/16 20:38 21:09 21:09 21:09 Pulse 78 Resp 22 18 O2 Delivery Nasal Cannula O2 Flow Rate 3.00 09/01/16 09/01/16 09/02/16 09/02/16 21:19 22:30 00:15 00:20 Temp 96.5 97.3 Pulse 84 82 81 Resp 18 15 18 B/P 132/64 146/70 Pulse Ox 98 95 O2 Delivery Nasal Cannula Nasal Cannula O2 Flow Rate 3.00 3.00 09/02/16 09/02/16 09/02/16 09/02/16 01:26 02:42 02:42 02:51 Pulse 76 80 Resp 18 16 Pulse Ox 96 Height (Feet): 5 Height (Inches): 0 Weight (Kilograms): 139.900 General General Nourishment: Well Nourished, Well Developed, Obese, Adult Eyes (Brief) Eyes Brief: FOUND: PERRL Neck (Brief) Neck Brief: NOT FOUND: adenopathy, thyromegaly Respiratory (Brief) Respiratory Brief: FOUND clear all collins Cardiovascular (Brief) Cardiac Brief: FOUND: regular rate, regular rhythm Abdomen (Brief) Abdominal Brief: FOUND: BS normo active x4, soft Integumentary(Brief) Integumentary Brief: FOUND: dry, warm Neurologic(Brief) Neurological Brief: NOT FOUND: tremor Psychiatric(Brief) Psychiatric Brief: FOUND: alert, attentive, normal affect, oriented Laboratory Laboratory Laboratory Tests Test 09/01/16 09:53 09/01/16 21:20 09/02/16 04:51 09/02/16 06:08 Glucometer 161mg/dL (65-110) 147mg/dL (65-110) 164mg/dL (65-110) Anion Gap 11MEQ/L (5-15) BUN/Creatinine Ratio 19RATIO (6-26) Blood Urea Nitrogen 25.0MG/DL (7-17) Calcium Level 8.9MG/DL (8.4-10.2) Calculated Osmolality 278MOSM/KG (261-280) Carbon Dioxide Level 38MEQ/L (22-30) Chloride Level 93MEQ/L (98-107) Creatinine 1.3MG/DL (0.7-1.2) Glomerular Filtration Rate Calc 41 Glucose Level 120MG/DL (65-110) Potassium Level 3.7MEQ/L (3.6-5) Sodium Level 142MEQ/L (134-144) Laboratory Tests Test 09/01/16 09:53 09/01/16 21:20 09/02/16 04:51 09/02/16 06:08 Glucometer 161mg/dL (65-110) 147mg/dL (65-110) 164mg/dL (65-110) White Blood Count 12.1T/MM3 (4.5-11.0) Red Blood Count 3.60M/MM3 (4.00-5.20) Hemoglobin 8.8GM/DL (12-16) Hematocrit 31.4% (36-46) Mean Corpuscular Volume 87.2UM3 (80-100) Mean Corpuscular Hemoglobin 24.4UUG (26-34) Mean Corpuscular Hemoglobin Concent 28.0GM/DL (31-37) RDW Standard Deviation 58.1FL (36.9-50.2) Platelet Count 402T/MM3 (130-400) Mean Platelet Volume 9.8UM3 (9.4-12.4) Immature Granulocyte % (Auto) 0.7% (0.0-0.5) Neutrophils (%) (Auto) 53.7% (33-66) Lymphocytes (%) (Auto) 34.9% (23-45) Monocytes (%) (Auto) 7.3% (0-9.0) Eosinophils (%) (Auto) 3.2% (0-4) Basophils (%) (Auto) 0.2% (0-2) Absolute Immature Granulocyte (auto 0.08T/MM3 (0.00-0.03) Absolute Neutrophils (auto) 6.5T/MM3 (1.8-7.7) Absolute Lymphocytes (auto) 4.2T/MM3 (1-4.8) Absolute Monocytes (auto) 0.9T/MM3 (0-0.8) Absolute Eosinophils (auto) 0.4T/MM3 (0-0.5) Absolute Basophils (auto) 0.0T/MM3 (0-0.2) Turbidity < 20 (0-20) Sodium Level 142MEQ/L (134-144) Potassium Level 3.7MEQ/L (3.6-5) Chloride Level 93MEQ/L (98-107) Carbon Dioxide Level 38MEQ/L (22-30) Anion Gap 11MEQ/L (5-15) Blood Urea Nitrogen 25.0MG/DL (7-17) Creatinine 1.3MG/DL (0.7-1.2) Glomerular Filtration Rate Calc 41 BUN/Creatinine Ratio 19RATIO (6-26) Glucose Level 120MG/DL (65-110) Calculated Osmolality 278MOSM/KG (261-280) Calcium Level 8.9MG/DL (8.4-10.2) Icterus Index < 2 (0-7) Chemistry Specimen Hemolysis < 15 (0-25) Assessment & Plan Problems: (1) Type II diabetes mellitus, uncontrolled Status: Chronic Assessment & Plan: Glucose levels over past 24 hours have been 161, 149, 147, and 164 fasting this morning. Still needs a bit more insulin overnight and for breakfast. Will add 10% at those times. (2) Hypothyroidism Status: Chronic Assessment & Plan: Clinically and chemically euthyroid. Continue same Synthroid. JOSÉ MIGUEL REYNOLDS MD September 02, 2016 08:32
[2016-09-02] MEDS ORDERED: CARVEDILOL 6.25 MG TABLET PO ONE (08:45)
--- NOTE | 2016-09-02 09:09 | NUR ---
CM CM IN TO VISIT WITH , PT WAS BUSY, ASKED QUESTIONS ABOUT MEDICATIONS AND IF BUMEX COULD BE GIVEN IV IN A HOME SETTING THROUGH IV OR PAC, DID REQUEST TALK WITH DOCTOR WHEN SHE IS IN TODAY. WE DISCUSSED PT IS ON HOME HEALTH AND COULD [facility] PROVIDE IV MEDICATIONS. CM WILL CONTACT HOME HEALTH. PT AWARE TO CALL CM SHOULD NEEDS [facility].
--- NOTE | 2016-09-02 09:18 | PNPDOC ---
AMELIA ZARAGOZA RECOVERY AGENT 09/02/16 0916: Subjective Date DATE: 09/02/16 TIME: 09:12 Subjective Fabio is sitting up eating breakfast this morning. Discussed need to do heart cath in the future. She denies cardiac complaints at this time Objective Vital Signs Vital signs Vital Signs 09/01/16 09/01/16 09/02/16 09/02/16 21:19 22:30 00:15 00:20 Temp 96.5 97.3 Pulse 84 82 81 Resp 18 15 18 B/P 132/64 146/70 Pulse Ox 98 95 O2 Delivery Nasal Cannula Nasal Cannula O2 Flow Rate 3.00 3.00 09/02/16 09/02/16 09/02/16 09/02/16 01:26 02:42 02:42 02:51 Pulse 76 80 Resp 18 16 Pulse Ox 96 Telemetry Rhythm: V-Tachycardia (short burst x 1), Atrial Fibrillation Height (Feet): 5 Height (Inches): 0 Weight (Kilograms): 139.900 General Alert, Obese, Orientated x 3, Cooperative, No Acute Distress ENMT (Brief) mucosa moist Neck (Brief) NOT FOUND: JVD, carotid bruits Respiratory (Brief) clear all collins, equal bilaterally (diminished), NOT FOUND: rales, wheezes Cardiovascular (Brief) pedal edema (L > R), NOT FOUND: click, gallop, murmur, regular rate, regular rhythm, rub Abdomen (Brief) BS normo active x4, soft, NOT FOUND: tender Integumentary (Brief) dry, other (LLE erythema), pink, warm Psychiatric (Brief) alert, attentive, normal affect, oriented Laboratory Laboratory Laboratory Tests Test 08/31/16 12:03 08/31/16 16:58 08/31/16 21:04 09/01/16 05:22 Glucometer 280mg/dL 277mg/dL 323mg/dL White Blood Count 12.0T/MM3 Red Blood Count 3.43M/MM3 Hemoglobin 8.6GM/DL Hematocrit 29.9% Mean Corpuscular Volume 87.2UM3 Mean Corpuscular Hemoglobin 25.1UUG Mean Corpuscular Hemoglobin Concent 28.8GM/DL RDW Standard Deviation 58.3FL Platelet Count 365T/MM3 Mean Platelet Volume 9.5UM3 Immature Granulocyte % (Auto) 0.8% Neutrophils (%) (Auto) 56.7% Lymphocytes (%) (Auto) 33.3% Monocytes (%) (Auto) 5.8% Eosinophils (%) (Auto) 3.0% Basophils (%) (Auto) 0.4% Absolute Immature Granulocyte (auto 0.10T/MM3 Absolute Neutrophils (auto) 6.8T/MM3 Absolute Lymphocytes (auto) 4.0T/MM3 Absolute Monocytes (auto) 0.7T/MM3 Absolute Eosinophils (auto) 0.4T/MM3 Absolute Basophils (auto) 0.1T/MM3 Turbidity < 20 Sodium Level 139MEQ/L Potassium Level 3.6MEQ/L Chloride Level 91MEQ/L Carbon Dioxide Level 33MEQ/L Anion Gap 15MEQ/L Blood Urea Nitrogen 26.0MG/DL Creatinine 1.3MG/DL Glomerular Filtration Rate Calc 41 BUN/Creatinine Ratio 20RATIO Glucose Level 238MG/DL Calculated Osmolality 281MOSM/KG Calcium Level 8.6MG/DL Phosphorus Level 3.1MG/DL Magnesium Level 2.4MG/DL Icterus Index < 2 C-Reactive Protein 78.2MG/L Albumin 3.6G/DL Chemistry Specimen Hemolysis < 15 Test 09/01/16 06:00 09/01/16 09:53 09/01/16 21:20 09/02/16 04:51 Glucometer 203mg/dL 161mg/dL 147mg/dL White Blood Count 12.1T/MM3 Red Blood Count 3.60M/MM3 Hemoglobin 8.8GM/DL Hematocrit 31.4% Mean Corpuscular Volume 87.2UM3 Mean Corpuscular Hemoglobin 24.4UUG Mean Corpuscular Hemoglobin Concent 28.0GM/DL RDW Standard Deviation 58.1FL Platelet Count 402T/MM3 Mean Platelet Volume 9.8UM3 Immature Granulocyte % (Auto) 0.7% Neutrophils (%) (Auto) 53.7% Lymphocytes (%) (Auto) 34.9% Monocytes (%) (Auto) 7.3% Eosinophils (%) (Auto) 3.2% Basophils (%) (Auto) 0.2% Absolute Immature Granulocyte (auto 0.08T/MM3 Absolute Neutrophils (auto) 6.5T/MM3 Absolute Lymphocytes (auto) 4.2T/MM3 Absolute Monocytes (auto) 0.9T/MM3 Absolute Eosinophils (auto) 0.4T/MM3 Absolute Basophils (auto) 0.0T/MM3 Turbidity < 20 Sodium Level 142MEQ/L Potassium Level 3.7MEQ/L Chloride Level 93MEQ/L Carbon Dioxide Level 38MEQ/L Anion Gap 11MEQ/L Blood Urea Nitrogen 25.0MG/DL Creatinine 1.3MG/DL Glomerular Filtration Rate Calc 41 BUN/Creatinine Ratio 19RATIO Glucose Level 120MG/DL Calculated Osmolality 278MOSM/KG Calcium Level 8.9MG/DL Icterus Index < 2 Chemistry Specimen Hemolysis < 15 Test 09/02/16 06:08 Glucometer 164mg/dL Laboratory Tests 09/02/16 04:51 Laboratory Tests 09/02/16 04:51 Medications Current Medications Albuterol/ Ipratropium 3 ml 3 ml O ONCE AEROSOL Last administered on 16:17; Start 08/24/16 at 16:15; Stop 08/24/16 at 16:16; Status DC Ceftriaxone Sodium/Sodium Chloride (Rocephin/NS) 100 ml @ 100 mls/hr O ONCE IV Last administered on 08/24/16 17:09; Start 08/24/16 at 17:00; Stop at 17:59; Status DC Glucose (Glutose 15) 37.5 g PRN PRN PO HYPOGLYCEMIA; Start 08/24/16 at 18:15 Dextrose (D50w) 25 ml PRN PRN IV HYPOGLYCEMIA; Start 08/24/16 at 18:15 Insulin Human Regular (Novolin R) SS PRN SQ Last administered on 09/01/16 06: 20; Start 08/24/16 at 18:15 Furosemide (Lasix) 80 mg Q8HR IV Last administered on 08/30/16 08:56; Start 08/25/16 at 01:00; Stop 08/30/16 at 11:04; Status DC Albuterol/ Ipratropium (Duoneb) 3 ml Q6HR AEROSOL Last administered on 02:48; Start 08/24/16 at 21:00 Spironolactone (Aldactone) 12.5 mg DAILY PO Last administered on 09/02/16 08:08 ; Start 08/25/16 at 09:00 Acetaminophen (Tylenol Extra Strength) 1,000 mg Q8H PRN PO PAIN Last administered on 08/26/16 20:04; Start 08/24/16 at 18:30 Benzonatate (TESSALON PERLES 100 mg) 200 mg TID PO Last administered on 21:20; Start 08/24/16 at 21:00; Stop 08/29/16 at 07:29; Status DC Clotrimazole (Lotrisone) 1 applic BID TOP Last administered on 09/01/16 20:41; Start 08/24/16 at 21:00 Acetaminophen/ Hydrocodone Bitart ([place] 10/325) 2 tab Q6H PRN PO PAIN Last administered on 09/02/16 08:07; Start 08/24/16 at 18:30 Levothyroxine Sodium (Synthroid) 25 mcg DAILY PO Last administered on 09/02/16 08:06; Start 08/25/16 at 09:00 Metoclopramide HCl (Reglan) 5 mg ACHS PO Last administered on 09/02/16 06:42; Start 08/24/16 at 22:00 Omeprazole (Prilosec) 20 mg ACB PO Last administered on 09/02/16 06:40; Start 08/25/16 at 06:30 Pramipexole Dihydrochloride (Mirapex) 0.25 mg HS PO Last administered on 20:40; Start 08/24/16 at 22:00 Amitriptyline HCl (Elavil) 25 mg HS PO Last administered on 09/01/16 20:40; Start 08/25/16 at 22:00 Apixaban (Eliquis) 5 mg BID PO Last administered on 09/02/16 08:08; Start at 21:00 Aspirin (Ecotrin) 81 mg DAILY PO Last administered on 09/02/16 08:06; Start 08/26/16 at 09:00; Stop 09/02/16 at 08:35; Status DC Diltiazem HCl (Cardizem Cd) 180 mg DAILY PO Last administered on 09/02/16 08:07 ; Start 08/26/16 at 09:00; Stop 09/02/16 at 08:42; Status DC Gabapentin (Neurontin) 600 mg HS PO Last administered on 09/01/16 20:40; Start 08/25/16 at 22:00 Allopurinol (ZYLOPRIM 300 mg) 300 mg NOON PO Last administered on 08/31/16 12: 07; Start 08/26/16 at 12:00 Cyclobenzaprine HCl (Flexeril) 10 mg TID PRN PO PRN ORDERS Last administered on 09/02/16 00:20; Start 08/25/16 at 18:00 Doxycycline Hyclate (Vibramycin) 100 mg BIDWM PO Last administered on 08/28/16 08:05; Start 08/26/16 at 08:00; Stop 08/31/16 at 13:12; Status DC Polyethylene Glycol (Miralax) 17 g DAILY PRN PO Last administered on 08/28/16 08:18; Start 08/26/16 at 21:30 Hydromorphone HCl 0.5 mg 0.5 mg Q2H PRN IV Last administered on 09/02/16 00:20 ; Start 08/27/16 at 07:00 Piperacillin Sod/ Tazobactam Sod/ Sodium Chloride (Zosyn/NS) 100 ml @ 200 mls/ hr Q6HR IV Last administered on 08/31/16 09:15; Start 08/27/16 at 09:00; Stop at 13:12; Status DC Iohexol 1 bottle 1 bottle STK-MED ONCE .ROUTE ; Start 08/28/16 at 10:08; Stop 08/28/16 at 10:09; Status DC Sodium Chloride (NS) 100 ml @ As Directed STK-MED ONCE .ROUTE ; Start 08/28/16 at 10:08; Stop 08/28/16 at 10:09; Status DC Potassium Chloride (Kdur) 20 meq TIDWM PO Last administered on 08/30/16 08:49; Start 08/29/16 at 08:00; Stop 08/30/16 at 11:08; Status DC Benzonatate (TESSALON PERLES 200 mg) 200 mg TID PO Last administered on 08:06; Start 08/29/16 at 09:00 Prednisone (PredniSONE) 5 mg WB PO Last administered on 09/02/16 08:08; Start 08/30/16 at 08:00 Bumetanide (BUMEX INJ 1 mg/ 4 ml) 2 mg Q8HR IV Last administered on 09/01/16 08 :19; Start 08/30/16 at 17:00; Stop 09/01/16 at 17:01; Status DC Potassium Chloride 40 meq 40 meq BIDWM PO Last administered on 09/02/16 08:07; Start 08/30/16 at 17:30 Ceftriaxone Sodium 1 g/Sodium Chloride 100 ml @ 200 mls/hr BID IV Last administered on 09/02/16 08:12; Start 08/31/16 at 21:00 Clindamycin HCl/ Dextrose (CLEOCIN 600 mg in D5W 50 mL) 50 ml @ 100 mls/hr Q6HR IV Last administered on 09/01/16 15:06; Start 08/31/16 at 15:00; Stop at 17:50; Status DC Fentanyl (Fentanyl) 100 mcg STK-MED ONCE IV ; Start 09/01/16 at 15:07; Stop at 15:08; Status DC Midazolam HCl (Versed) 2 mg STK-MED ONCE IV ; Start 09/01/16 at 15:07; Stop at 15:08; Status DC Sodium Chloride (Iv Flush) 10 ml STK-MED ONCE IVF ; Start 09/01/16 at 15:07; Stop 09/01/16 at 15:08; Status DC Bumetanide (Bumex Inj. 2.5 Mg/10 ml) 2 mg Q8HR IV Last administered on 08:10; Start 09/01/16 at 17:00 Clindamycin HCl (Cleocin) 600 mg TID PO Last administered on 09/02/16 08:06; Start 09/01/16 at 21:00 Insulin Aspart (Novolog) 27 unit 0745 SQ Last administered on 09/02/16 08:06; Start 09/02/16 at 07:45 Non-Formulary Medication 60 unit HS SQ ; Start 09/02/16 at 22:00 Amlodipine Besylate (Norvasc) 10 mg DAILY PO ; Start 09/03/16 at 09:00 Carvedilol (Coreg) 6.25 mg O ONCE PO ; Start 09/02/16 at 08:45; Stop 09/02/16 at 08:46; Status Cancel Sepsis Diagnostic Criteria Sepsis Confirmed/Suspected Infection: Yes SIRS Criteria: Temp<=96.8 or >=100.4, WBC >=12,000 or <=4,000, Plasma CRP>2 above normal Assessment & Plan Problems: (1) V-tach Status: Acute Assessment & Plan: Had short burst of Vtach; was asymptomatic; potassium was slightly low which could have contributed to arrhythmia; continue to monitor closely. (2) Atrial fibrillation Status: Chronic Qualifiers: Atrial fibrillation type: chronic Qualified Codes: I48.2 - Chronic atrial fibrillation Assessment & Plan: attempted DCCV 09/01/16 X2 without success, Amiodarone is contraindicated due to lung disease. Anticoagulated with Eliquis, stop aspirin (3) Diastolic heart failure Status: Acute Qualifiers: Heart failure chronicity: acute on chronic Qualified Codes: I50.33 - Acute on chronic diastolic (congestive) heart failure Assessment & Plan: Echo showed EF of 50%. Has significant edema; continue diuresis; monitor renal and lytes. (4) Hyperlipidemia Status: Chronic Qualifiers: Hyperlipidemia type: unspecified Qualified Codes: E78.5 - Hyperlipidemia, unspecified (5) Diabetes Status: Chronic (6) Hypertension Status: Chronic Qualifiers: Hypertension type: essential hypertension Qualified Codes: I10 - Essential (primary) hypertension (7) Chronic kidney disease (CKD), stage III (moderate) Status: Chronic (8) Morbid obesity with BMI of 45.0-49.9, adult Status: Chronic (9) Bronchiectasis Status: Chronic (10) Cellulitis of left lower extremity Status: Acute Plan/Intensity of Service 08/31/16 Had short burst of Vtach; was asymptomatic; potassium was slightly low which could have contributed to arrhythmia; continue to monitor closely. Obtain records from [facility] regarding previous testing. Obtain echo. is in Afib with controlled rate. Continue bumex, potassium, asa, cardizem, eliquis and spironolactone. 09/02/16 attempted DCCV 09/01/16 X2 without success, Amiodarone is contraindicated due to lung disease. Anticoagulated with Eliquis, stop aspirin. Beginning tomorrw stop diltiazem and start Amlodipine 10mg daily,and increase Coreg to 12.5mg (todays meds already given per nursing) AMIRANI,NUSRAT MD 09/08/16 1200: Assessment & Plan Plan/Intensity of Service After examining the patient I agree with the above assessment. I am involved in the formulation of the patient's plan of care. AMELIA ZARAGOZA APRN September 02, 2016 09:16 NUSRAT LUNA MD September 08, 2016 12:00
[2016-09-02 09:27] VITALS: O2SAT 99
[2016-09-02] MEDS: INSULIN REGULAR 100 UNIT/ML SQ PRN ×3 (10:30→21:28)
--- NOTE | 2016-09-02 10:55 | DI ---
EXAM: US VENOUS DUPLEX, LOWER EXT LT LOCATION OF DICTATION: [place] HISTORY: ITS.REASON: le swelling COMPARISON: No prior studies available for comparison. TECHNIQUE: Multiple real-time grayscale sonographic images were obtained of the left lower extremity with color flow and spectral analysis. FINDINGS: The left common femoral, femoral, deep femoral, popliteal, posterior tibial, and peroneal veins are widely patent without filling defects. These vessels demonstrate normal response to augmentation and compression. There are no abnormal fluid collections within the surrounding soft tissues. IMPRESSION: No evidence for left lower extremity deep venous thrombosis. .
[2016-09-02] MEDS: ALLOPURINOL 300 MG TABLET PO SCH (11:58)
[2016-09-02] MEDS: NYSTATIN 500,000 units/5ml Susp UD PO SCH ×3 (13:14→21:25)
--- NOTE | 2016-09-02 14:47 | ECHOF ---
DATE OF PROCEDURE September 01, 2016 This is a two-dimensional echo with spectral Doppler, color-flow and M-mode. It was obtained in a patient with atrial fibrillation and shortness of breath. Left atrium is dilated. Left ventricular end-diastolic dimension is normal. Left ventricular wall thickness is increased. LV systolic function is at the lower limits of normal with ejection fraction of about 50%. However, all baldwin were not visualized. Right atrium is dilated. Right ventricle is normal. Aortic root dimension is normal. Mitral annulus is calcified. Mitral valve leaflets are normal with mild mitral regurgitation. Aortic valve was not visualized well. However, it appears to be the sclerotic with no stenosis or insufficiency. Tricuspid valve shows mild tricuspid regurgitation with mild pulmonary hypertension with estimated pulmonary artery systolic pressure of 38. Pulmonary valve was not visualized but Doppler studies indicate mild pulmonary insufficiency. There is no pericardial effusion. IMPRESSION 1. Technically difficult study. 2. Grossly, LV function at the lower limits of normal with ejection fraction of about 50%. However, all baldwin were not visualized. 3. Mitral annulus calcification with mild mitral regurgitation. 4. Aortic sclerosis. 5. Mild tricuspid regurgitation with mild pulmonary hypertension with estimated pulmonary artery systolic pressure of 38. 6. Mild pulmonary insufficiency. 7. Biatrial dilation. 8. Concentric left ventricular hypertrophy. MTDD
--- NOTE | 2016-09-02 14:57 | PNPDOC ---
IVETTE LUA V ORCHID WORKER 09/02/16 1446: Subjective Date DATE: 09/02/16 TIME: 14:43 Subjective Fabio is seen this afternoon while resting in her room. She is alert and orientated and states she feels that her breathing has improved today. She continues on 3 liters of oxygen by nasal cannula. She remains in A-fib as cardioversion attempt yesterday was unsuccessful. Denied feeling chest pain, palpations or GI complains. Continued RLL erythema and swelling. Bp 124/68. Objective Vital Signs Vital signs Vital Signs Date Time Temp Pulse Resp B/P Pulse Ox O2 Delivery O2 Flow Rate FiO2 09/02/16 11:18 18 09/02/16 09:27 99 09/02/16 09:25 88 09/02/16 09:25 Nasal Cannula 3.00 09/02/16 08:00 96.6 124/68 Telemetry Rhythm: V-Tachycardia (short burst x 1), Atrial Fibrillation Height (Feet): 5 Height (Inches): 0 Weight (Kilograms): 139.900 General General Appearance: Alert, Orientated x 3, Cooperative, No Acute Distress Eyes (Brief) Eyes: FOUND: EOMI ENMT (Brief) ENMT: FOUND: mucosa moist, normal dentition, NOT FOUND: pharnyx erythema Neck (Brief) Neck: FOUND: midline, NOT FOUND: adenopathy, carotid bruits, tracheal deviation Respiratory (Brief) Respiratory: NOT FOUND: wheezes Comments Diminished bilaterally Cardiovascular (Brief) Cardiac: FOUND: regular rate, regular rhythm, NOT FOUND: murmur, pedal edema Capillary Refill: <2 sec Abdomen (Brief) Abdominal: FOUND: BS normo active x4, soft, NOT FOUND: distended, tender Extremities (Brief) Extremity : Side: Left Extremity: leg Extremity Finding: FOUND: discoloration, edema, pain, warm Comments Hematoma present Lymphatic (Brief) Lymphatic: NOT FOUND: adenopathy Musculoskeletal (Brief) Musculoskeletal: NOT FOUND: tenderness Integumentary (Brief) Integumentary: FOUND: dry, pink, warm Neurologic (Brief) Neurological: FOUND: cranial 2-12 intact Psychiatric (Brief) Psychiatric: FOUND: alert, attentive, normal affect, oriented Laboratory Laboratory Laboratory Tests 09/01/16 05:22 09/02/16 04:51 Laboratory Tests 09/01/16 05:22 09/02/16 04:51 Sepsis Diagnostic Criteria Sepsis Confirmed/Suspected Infection: Yes SIRS Criteria: Temp<=96.8 or >=100.4, WBC >=12,000 or <=4,000, Plasma CRP>2 above normal Assessment & Plan Problems: (1) Cellulitis of left lower extremity Status: Acute (2) Severe sepsis Status: Acute (3) HFrEF (heart failure with reduced ejection fraction) Status: Chronic Qualifiers: Heart failure chronicity: chronic Qualified Codes: I50.22 - Chronic systolic (congestive) heart failure (4) V-tach Status: Acute (5) Atrial fibrillation Status: Chronic Qualifiers: Atrial fibrillation type: chronic Qualified Codes: I48.2 - Chronic atrial fibrillation (6) Obesity hypoventilation syndrome Status: Chronic (7) Hypoxia Status: Chronic (8) THOMAS on CPAP Status: Chronic (9) IDDM (insulin dependent diabetes mellitus) Status: Chronic (10) Hypertension Status: Chronic Qualifiers: Hypertension type: essential hypertension Qualified Codes: I10 - Essential (primary) hypertension (11) Mild pulmonary hypertension Status: Chronic (12) Hypothyroidism Status: Chronic (13) Hyperlipidemia Status: Chronic Qualifiers: Hyperlipidemia type: unspecified Qualified Codes: E78.5 - Hyperlipidemia, unspecified (14) Chronic kidney disease (CKD), stage III (moderate) Status: Chronic Plan/Intensity of Service 09/02/16 Appreciate cardiology consultation by Dr Mello. Cardioversion yesterday was unsuccessful. Planning to make changes to medications tomorrow including stopping Cardizem, adding amlodipine 10 milligrams daily and increasing Coreg to 12.5 milligrams. Continue with anticoagulation on eloquence. Cardiology recommended stopping aspirin. Anticipate Cardiac cath in the future. Venous Doppler of LLE negative for DVT IV Rocephin and Oral Clindamycin for treatment of possible cellulitis to LLE Weight continues to trend down on Bumex 2 mg IV every 8 hours Labs remains stable. Continue to monitor blood sugars and use Novolin sliding scale. Will discuss further plan with attending, Dr Villa Code Status Do Not Resuscitate Hospital Course Summary Disclaimer The hospital course summary below is not to be considered part of the above Progress Note. Hospital Course Summary 08/30/16 Although she is on her baseline oxygen of 3 liters by nasal cannula. Her breath sounds are wet and course. She has been on Lasix 80 milligrams IV every 8 hours since admission. She is only down 3 kilograms since that time. Will change to Bumex 2 milligrams IV every 8 hours for more aggressive diuresis. Monitor I/O. Continue with Zosyn IV for antimicrobial coverage of left lower extremity cellulitis. Blood cultures remain negative. Leukocytosis remains however overall is decreased to 12.6. The global stable at 8.6 Continue with oral supplementation. Potassium. Will increase to 40 milliequivalents twice a day. Continue to monitor blood sugars, Novolin sliding scale Prednisone was decreased to 5 milligrams daily with hopes to taper down eventually. Eliquis 5 gm BID for chronic anticoagulation Recheck CBC and BMP tomorrow morning 08/31/16- *Severe cellulitis with possible abscess Need more aggressive antibiotic coverage. She has been on Zosyn and PO doxy without significant improvement. BMI of 60 is complicating factor. Add Ceftriaxone BID due to BMI. Add Clinda for better anaerobic/MRSA coverage. Repeat labs, CRP in AM. If no significant improvement in next 24-48 hours, consider repeat CT and possible ortho evaluation. Chronic immunosuppression on steroids- decreased to 5mg of prednisone. *Sepsis- BP is stable. Monitor *HFrEF, OHS, Chronic respiratory failure- Changed to IV Bumex. Weight is only down a little, but she is breathing somewhat better. Lungs are fairly clear, but diminished. Continue O2, CPAP, support. Continue Aldactone, KCL, Add beta-elba for rate control and HF treatment. Consider CARLITA/ARB per HF guidlelines. *DM2- BG variable. Continue current insulin and SSI. She did have some hypoglycemia previously. *Hypothyroid. TSH OK. Continue current. *AFib/VTach- CV consulted. Add beta-elba. continue Diltiazem for now- may want to decrease due to HFrEF and optimize beta elba. *DVT prophylaxis- On Eliquis 09/01/16 Lungs sound worse today. Continue with oxygen and scheduled DuoNeb breathing treatments. Diuresis changed (08/30) to Bumex 2 milligrams IV every 8 hours and Spironolactone Regarding sepsis and LLE cellulitis, Antibiotics switched yesterday to Clindamycin and Rocephin. Minimal improvement on Zosyn and Doxycycline Seen by Dr Em this morning. Mealtime NovoLog changed to 25 units with meals Appreciate cardiac consultation by Dr. Mello. Complete echocardiogram ordered for today. Patient made nothing by mouth after breakfast for possible cardioversion. Continue on Cardizem and Coreg. Reviewed telemetry, no further episodes of V. tach since 08/26. In rate controlled atrial fibrillation. Chronically has been on prednisone. Was decreased down to 5 milligrams daily starting 08/30. Continue with oral potassium supplementation, 40 milliequivalents twice a day Eliquis BID for anticoagulation WBC count remains slightly elevated at 12, however, this is likely due to the steroid use. Hemoglobin stable at 8.6. Creatinine stable at 1.3 Will discuss further plan of care with attending, Dr. Villa 09/02/16 Apprec[address] cardiology consultation by Dr Mello. Cardioversion yesterday was unsuccessful. Planning to make changes to medications tomorrow including stopping Cardizem, adding amlodipine 10 milligrams daily and increasing Coreg to 12.5 milligrams. Continue with anticoagulation on eloquence. Cardiology recommended stopping aspirin. Anticipate Cardiac cath in the future. Venous Doppler of LLE negative for DVT IV Rocephin and Oral Clindamycin for treatment of possible cellulitis to LLE Weight continues to trend down on Bumex 2 mg IV every 8 hours Labs remains stable. Continue to monitor blood sugars and use Novolin sliding scale. Will discuss further plan with attending, PEGGY Ignacio MD 09/02/16 1636: Assessment & Plan Assessment I have independently evaluated and examined this patient. I reviewed the chart, the patient's history, and the ORCHID WORKER's documented findings as above. We discussed and formulated the assessment and plan as above with additions as below: Mrs. Campos was seen with her at the bedside. Patient reports her breathing is better today and that she feels less "rattly". She is concerned that her tongue is beginning to feel sore and asked to start nystatin before it gets significantly worse. She additionally advised me that her sleep medicine doctor changed her from CPAP to BiPAP with oxygen at her last appointment. Oropharynx is without evidence of plaques although tongue is slightly shiny. Respirations are nonlabored. Breath sounds are coarse anteriorly obscuring heart tones at the time of examination. There is no right lower extremity edema but left has persistent +2 edema with decreased erythema/general discoloration compared to yesterday. Hematoma on the lateral left proximal calf is unchanged. Medication changes reviewed with cardiology, insulin modification noted. Note patient is on Eliquis for anticoagulation. Nystatin suspension initiated for possible thrush. Continue Bumex, weight down 5.2 kg from admission. Left lower extremity Doppler negative for clot. Plan/Intensity of Service Venous Doppler reviewed by myself, discussed with cardiology and , laboratory data reviewed. IVETTE LUA APRN September 02, 2016 14:46 PEGGY VILLA MD September 02, 2016 16:36
--- NOTE | 2016-09-02 15:28 | NUR ---
STATUS PT AMBULATED IN HALLWAY, AND SAT BY WINDOWS FOR AT LEAST 15 MINS. PT WALKED BACK TO ROOM WITH STEADY GAIT AND 2L OF O2 BY NC. PT ABLE TO MAINTAIN 02 SATS ABOVE 92%.
[2016-09-02 16:00] VITALS: BP 134/61; PULSE 80; RESP 17; TEMP 96.7; O2SAT 97
--- NOTE | 2016-09-02 18:18 | NUR ---
SHIFT SUMMARY PT HAS BEEN PLEASANT AND COMPLIANT WITH MEDICATIONS TODAY. PT HAS BEEN GIVEN DILAUDID IV FOR PAIN WELL NORCO SCHEDULED. PT RECEIVED A DOPPLER TODAY OF THE L LEG WITH WAS NEGATIVE FOR DVT. PTS SCHEDULED INSULIN WAS INCREASED TO 27 UNITS FOR THE MORNING TIME AND PTS OWN INSULIN SHOULD BE GIVEN AT NIGHT TIME. PT CONTINUES TO BE ON SLIDING SCALE. REGULAR INSULIN WAS ADMINISTERED TWICE PER SLIDING SCALE. EVEN THOUGH PT CONTINUES TO HAVE AUDIBLE RALES PTS LUNG SOUNDS ARE A LITTLE BIT IMPROVED FROM YESTERDAY. PTS OUTPUT CONTINUES TO BE GOOD. WILL CONTINUE TO MONITOR.
[2016-09-02 20:00] VITALS: RESP 18
[2016-09-02] MEDS: PRAMIPEXOLE 0.25 MG TABLET PO SCH (21:25)
[2016-09-02] MEDS: AMITRIPTYLINE 25 MG TABLET PO SCH (21:25)
[2016-09-02] MEDS: GABAPENTIN 300 MG CAPSULE PO SCH (21:27)
[2016-09-02] MEDS: INSULIN DEGLUDEC 60 UNIT SQ SCH (22:00)
[2016-09-03] VITALS (25 sets, daily range): BP systolic 113–147; BP diastolic 56–83; PULSE 76–92; RESP 15–37; TEMP 97–98.7; O2SAT 91–100
[2016-09-03] MEDS: BUMETANIDE 2.5mg INJECTION IV SCH ×3 (01:18→18:28)
[2016-09-03] MEDS: HYDROMORPHONE 2mg/ml INJECTION IV PRN ×4 (02:41→20:23)
[2016-09-03] MEDS: ALBUTEROL/IPRATROPIUM INHAL. 2.5mg-0.5mg/3ml Neb. AEROSOL SCH ×4 (03:22→21:00)
--- NOTE | 2016-09-03 05:20 | NUR ---
Status Pt up to BR with SBA, steady gait. O2 @ 3L/NC, VSS. [place] and Dilaudid given for pain to left lower leg. Slept well, good output, pt is alert and able to make needs known. Productive cough noted.
[2016-09-03 06:03] LABS: ANION GAP 12 MEQ/L (5-15); BUN/CREATININE RATIO 19 RATIO (6-26); CALCIUM 8.6 MG/DL (8.4-10.2); CHLORIDE 91 MEQ/L (98-107); CO2 - CARBON DIOXIDE 36 MEQ/L (22-30); CREATININE 1.3 MG/DL (0.7-1.2); GLOMERULAR FILTRATION RATE 41; GLUCOSE 210 MG/DL (65-110); MAGNESIUM 2.6 MG/DL (1.6-2.3); POTASSIUM 4.1 MEQ/L (3.6-5); SODIUM 139 MEQ/L (134-144)
[2016-09-03] MEDS: METOCLOPRAMIDE 5mg TABLET PO SCH ×4 (06:42→21:33)
[2016-09-03] MEDS: OMEPRAZOLE 20 MG CAPSULE PO SCH (06:42)
[2016-09-03] MEDS: INSULIN ASPART 100 UNIT/ML SQ SCH ×5 (07:45→17:55)
--- NOTE | 2016-09-03 07:58 | PNPDOC ---
Subjective Date DATE: 09/03/16 TIME: 07:55 Subjective Breathing a little better. Blood sugars improving. Objective Vital Signs Vital Signs Vital Signs 09/02/16 09/02/16 09/02/16 09/02/16 20:00 20:44 20:44 20:44 Pulse 72 Resp 18 16 O2 Delivery Nasal Cannula O2 Flow Rate 3.00 09/02/16 09/02/16 09/03/16 09/03/16 20:54 21:25 00:11 03:19 Temp 97.0 Pulse 78 84 82 Resp 20 18 B/P 147/83 Pulse Ox 97 O2 Delivery CPAP O2 Flow Rate 3.00 09/03/16 09/03/16 03:27 03:42 Pulse 84 Resp 18 Height (Feet): 5 Height (Inches): 0 Weight (Kilograms): 139.900 General General Nourishment: Well Nourished, Well Developed, Obese, Adult Eyes (Brief) Eyes Brief: FOUND: PERRL Neck (Brief) Neck Brief: NOT FOUND: adenopathy, thyromegaly Respiratory (Brief) Respiratory Brief: FOUND clear all collins Cardiovascular (Brief) Cardiac Brief: FOUND: regular rate, regular rhythm Abdomen (Brief) Abdominal Brief: FOUND: BS normo active x4, soft Integumentary(Brief) Integumentary Brief: FOUND: dry, pink, warm Comments Minor skin tear on RUE. Neurologic(Brief) Neurological Brief: NOT FOUND: tremor Psychiatric(Brief) Psychiatric Brief: FOUND: alert, attentive, normal affect, oriented Laboratory Laboratory Laboratory Tests Test 09/02/16 10:25 09/02/16 14:15 09/02/16 19:51 09/03/16 05:29 Glucometer 293mg/dL (65-110) 224mg/dL (65-110) 214mg/dL (65-110) Anion Gap 12MEQ/L (5-15) BUN/Creatinine Ratio 19RATIO (6-26) Blood Urea Nitrogen 25.0MG/DL (7-17) Calcium Level 8.6MG/DL (8.4-10.2) Calculated Osmolality 278MOSM/KG (261-280) Carbon Dioxide Level 36MEQ/L (22-30) Chloride Level 91MEQ/L (98-107) Creatinine 1.3MG/DL (0.7-1.2) Glomerular Filtration Rate Calc 41 Glucose Level 210MG/DL (65-110) Potassium Level 4.1MEQ/L (3.6-5) Sodium Level 139MEQ/L (134-144) Laboratory Tests Test 09/02/16 10:25 09/02/16 14:15 09/02/16 19:51 09/03/16 05:29 Glucometer 293mg/dL (65-110) 224mg/dL (65-110) 214mg/dL (65-110) Turbidity < 20 (0-20) Sodium Level 139MEQ/L (134-144) Potassium Level 4.1MEQ/L (3.6-5) Chloride Level 91MEQ/L (98-107) Carbon Dioxide Level 36MEQ/L (22-30) Anion Gap 12MEQ/L (5-15) Blood Urea Nitrogen 25.0MG/DL (7-17) Creatinine 1.3MG/DL (0.7-1.2) Glomerular Filtration Rate Calc 41 BUN/Creatinine Ratio 19RATIO (6-26) Glucose Level 210MG/DL (65-110) Calculated Osmolality 278MOSM/KG (261-280) Calcium Level 8.6MG/DL (8.4-10.2) Magnesium Level 2.6MG/DL (1.6-2.3) Icterus Index < 2 (0-7) Chemistry Specimen Hemolysis 30 (0-25) Assessment & Plan Problems: (1) Type II diabetes mellitus, uncontrolled Status: Chronic Assessment & Plan: Glucose still rising excessively after breakfast. Still needs a bit more insulin for breakfast. Will add another 10%. (2) Hypothyroidism Status: Chronic Assessment & Plan: Clinically and chemically euthyroid. Continue same Synthroid. JOSÉ MIGUEL REYNOLDS MD September 03, 2016 07:58
[2016-09-03] MEDS: NYSTATIN 500,000 units/5ml Susp UD PO SCH ×5 (08:04→21:32)
[2016-09-03] MEDS: APIXABAN 5 MG TABLET PO SCH ×2 (08:05→21:32)
[2016-09-03] MEDS: CLINDAMYCIN 300 MG CAPSULE PO SCH ×3 (08:05→21:32)
[2016-09-03] MEDS: LEVOTHYROXINE 25 MCG TABLET PO SCH (08:05)
[2016-09-03] MEDS: BENZONATATE 200 MG CAPSULE PO SCH ×3 (08:05→21:32)
[2016-09-03] MEDS: CARVEDILOL 12.5 MG TABLET PO SCH ×2 (08:06→17:53)
[2016-09-03] MEDS: SPIRONOLACTONE 25 MG TABLET PO SCH (08:06)
[2016-09-03] MEDS: POTASSIUM CHLORIDE 20 MEQ TABLET PO SCH ×2 (08:06→17:54)
[2016-09-03] MEDS: PredniSONE 5 MG TABLET PO SCH (08:07)
[2016-09-03] MEDS: CEFTRIAXONE 1 G in NORMAL SALINE 100 ML IV SCH (08:07)
[2016-09-03] MEDS: AMLODIPINE 10 MG TABLET PO SCH (08:07)
[2016-09-03] MEDS: BETAMETHASONE TOP SCH ×2 (08:08→21:00)
[2016-09-03] MEDS: PITAVASTATIN 2 MG PO SCH (08:08)
[2016-09-03] MEDS: CLOTRIMAZOLE TOP SCH ×2 (08:08→21:00)
[2016-09-03] MEDS: INSULIN REGULAR 100 UNIT/ML SQ PRN (10:30)
[2016-09-03] MEDS ORDERED: LIDOCAINE 1% (10mg/ml) 30ml SDV ONE (10:47)
[2016-09-03] MEDS ORDERED: HEPARIN 1,000units in NS 500ml BAG IV ONE (10:47)
[2016-09-03] MEDS: ALLOPURINOL 300 MG TABLET PO SCH (12:00)
--- NOTE | 2016-09-03 12:15 | NUR ---
UPDATE PT BEING TRANSFERRED TO [facility] AT THIS TIME BY CART.
[2016-09-03] MEDS ORDERED: VERAPAMIL 5mg/2ml INJECTION IV ONE (12:17)
[2016-09-03] MEDS ORDERED: FENTANYL 100mcg/2ml INJECTION ONE (12:17)
[2016-09-03] MEDS ORDERED: MIDAZOLAM 2mg/2ml INJECTION ONE (12:17)
[2016-09-03] MEDS ORDERED: NITROGLYCERIN 50mg/10ml INJECTION IV ONE (12:18)
[2016-09-03] MEDS ORDERED: SALINE FLUSH 10ml SYRINGE ONE (12:18)
[2016-09-03] MEDS ORDERED: NORMAL SALINE 1,000 ML ONE (12:30)
[2016-09-03] MEDS ORDERED: ONDANSETRON 4mg/2ml INJECTION IV PRN (13:00)
[2016-09-03] MEDS ORDERED: NITROGLYCERIN 0.4 MG SUBLINGUAL TABLET SL PRN (13:00)
[2016-09-03] MEDS ORDERED: MAG-AL + SIM LIQUID 30 ML UDC PO PRN (13:00)
[2016-09-03] MEDS ORDERED: MORPHINE SULFATE 4 MG SYRINGE IV PRN ×2 (13:00)
[2016-09-03] MEDS ORDERED: HYDROCODONE/APAP 5 mg/325 mg TABLET PO PRN (13:00)
[2016-09-03] MEDS ORDERED: BISACODYL 10 MG SUPPOSITORY RECTALLY PRN (13:00)
[2016-09-03] MEDS ORDERED: METOCLOPRAMIDE 10mg/2ml INJECTION IV PRN (13:00)
[2016-09-03] MEDS ORDERED: ATROPINE 1 MG/ML VIAL IV PRN (13:00)
[2016-09-03] MEDS ORDERED: LORAZEPAM 0.5 MG TABLET PO PRN (13:00)
[2016-09-03] MEDS ORDERED: LORAZEPAM 2 MG/ML INJECTION IV PRN (13:00)
[2016-09-03] MEDS ORDERED: BISACODYL 5 MG E.C. TABLET PO PRN (13:00)
[2016-09-03] MEDS ORDERED: MILK OF MAGNESIA 30 ML SUSP PO PRN (13:00)
[2016-09-03] MEDS ORDERED: ACETAMINOPHEN 325 MG TABLET PO PRN (13:00)
[2016-09-03] MEDS ORDERED: PROMETHAZINE 25 MG INJECTION IV PRN (13:00)
--- NOTE | 2016-09-03 13:15 | NUR ---
To room 126 to room 126 at this time following heart cath. pt transferred to bed [id number] using slide board. pt states having back pain at this time. Will continue to monitor.
--- NOTE | 2016-09-03 13:15 | NUR ---
UPDATE PATIENT'S BELONGINGS MOVED TO ROOM 106 WELL MEDICATIONS.
--- NOTE | 2016-09-03 14:47 | CVPROF ---
DATE OF PROCEDURE September 03, 2016 REFERRING PHYSICIAN Niya Villa MD PRIMARY CARE PHYSICIAN Werner Haider MD INDICATION The patient is a pleasant 71-year-old lady who has had multiple episodes of congestive heart failure and a run of ventricular tachycardia and was referred for further evaluation by cardiac catheterization and possible intervention. INFORMED CONSENT Informed consent was obtained after explaining the procedure and the potential risks to the patient who agreed to proceed with the procedure. PROCEDURE 1. Left heart catheterization. 2. Coronary angiography. 3. Left ventriculography. TECHNIQUE She was prepped and draped in the usual sterile techniques. Conscious sedation was performed using Versed and fentanyl. 1% lidocaine was used for local anesthesia. Using modified Seldinger technique, arterial access was obtained into the right radial artery with placement of a 6-Irish arterial sheath. 3000 units of heparin, 300 mcg of nitroglycerin, and 2.5 mg of verapamil were given through the arterial sheath. LEFT VENTRICULOGRAPHY Left ventriculography in single-plane TORRES shallow projection showed apical hypokinesia with ejection fraction of about 55% with no mitral regurgitation. There was about 15-20 mm of gradient across the aortic valve. LVEDP was about 17. CORONARY ANGIOGRAPHY Left main was free of significant lesions. Left anterior descending artery had diffuse disease of up to about 30-40%. Diagonals were free of significant lesions. Left circumflex artery was large with no significant lesions except for irregularities and stenosis up to about 20%. Right coronary artery had diffuse irregularities and stenosis up to about 20-30% with no hemodynamically significant lesions. The patient tolerated the procedure well with no complications. IMPRESSION 1. Mild to moderate coronary artery disease as described above. 2. Apical hypokinesia with ejection fraction of about 55%. 3. 15-20 mm of gradient across the aortic valve. PLAN Will continue medical management for coronary artery disease. Will review the echocardiogram for further evaluation of the aortic valve. DIANA
--- NOTE | 2016-09-03 16:48 | PNPDOC ---
Subjective Date DATE: 09/03/16 TIME: 16:25 Subjective Mrs. Campos was seen with her prior to cardiac catheterization this morning. She reports that she rested well last night and describes minimal exertional dyspnea today. She denied cough or sputum production and has had no chest pain or palpitation. She denied nausea or constipation. Her appetite is good. She's having some some achy discomfort in her left calf associated with the ongoing hematoma. Denies oropharyngeal discomfort today. Objective Vital Signs Vital signs Vital Signs Date Time Temp Pulse Resp B/P Pulse Ox O2 Delivery O2 Flow Rate FiO2 09/03/16 16:15 83 37 119/58 98 Nasal Cannula 3.00 09/03/16 13:20 98.7 I/O 3600/5550 weight down 0.3 kg over the past 24 hours EXAM General-NAD, alert, cooperative HEENT-conjunctiva clear, conjugate gaze, oropharynx clear Lungs-respirations nonlabored, diminished airflow throughout, breath sounds clear other than occasional "squeak" Cardiac-irregular rhythm, diminished heart tones Abd-soft and nontender, bowel sounds present Ext-now for right lower extremity edema, +1 edema left lower extremity, fading erythema distally, residual hematoma proximal left lateral calf Psych-Calm, euthymic Telemetry Rhythm: V-Tachycardia (short burst x 1), Atrial Fibrillation Height (Feet): 5 Height (Inches): 0 Weight (Kilograms): 138.400 Laboratory Laboratory Laboratory Tests 09/02/16 04:51 09/03/16 05:29 Laboratory Tests 09/02/16 04:51 Magnesium 2.6 Fasting blood sugar 210 with postprandials 227-136 EKG Telemetry strips reviewed, consistently atrial fibrillation; no recurrent NSVT Microbiology Microbiology Blood cultures 2 08/24 and 08/27 all negative after 5 days Sepsis Diagnostic Criteria Sepsis Confirmed/Suspected Infection: Yes SIRS Criteria: Temp<=96.8 or >=100.4, WBC >=12,000 or <=4,000, Plasma CRP>2 above normal Assessment & Plan Problems: (1) Cellulitis of left lower extremity Status: Acute (2) Severe sepsis Status: Acute (3) HFrEF (heart failure with reduced ejection fraction) Status: Chronic Qualifiers: Heart failure chronicity: chronic Qualified Codes: I50.22 - Chronic systolic (congestive) heart failure (4) NSVT (nonsustained ventricular tachycardia) Status: Acute Assessment & Plan: Short run NSVT on 08/30, mild preceding hypokalemia. (5) Atrial fibrillation Status: Chronic Qualifiers: Atrial fibrillation type: chronic Qualified Codes: I48.2 - Chronic atrial fibrillation (6) Obesity hypoventilation syndrome Status: Chronic (7) THOMAS on CPAP Status: Chronic Assessment & Plan: Recent conversion from CPAP to BiPAP per sleep medicine (8) Hypoxia Status: Chronic (9) IDDM (insulin dependent diabetes mellitus) Status: Chronic (10) Hypertension Status: Chronic Qualifiers: Hypertension type: essential hypertension Qualified Codes: I10 - Essential (primary) hypertension (11) Mild pulmonary hypertension Status: Chronic (12) Hypothyroidism Status: Chronic (13) Hyperlipidemia Status: Chronic Qualifiers: Hyperlipidemia type: unspecified Qualified Codes: E78.5 - Hyperlipidemia, unspecified (14) Chronic kidney disease (CKD), stage III (moderate) Status: Chronic Assessment Diuresing well-remains on Bumex 2 mg every 8 hours. Potassium stable with current supplemental dose/spironolactone. For cardiac catheterization today to determine if revascularization needed and if silent ischemia contributing to recurring CHF. On low-dose prednisone for COPD exacerbation-has been tapered down to 5 mg for past 5 days. Discontinue prednisone. Blood sugar control improving progressively with resumption of scheduled insulins, appreciate Dr. Em's assistance. Oxygenation stable with supplemental O2. Tolerating nocturnal BiPAP. Hematoma on left calf minimally changed, anticipate very slow resolution based on size. Cellulitis improving on clindamycin/ceftriaxone. Afebrile since admission. Discontinue ceftriaxone and continue clinda as a single antibiotic. Other problems stable. Plan/Intensity of Service Discussed with cardiology, telemetry strips reviewed by myself, discussed with ; laboratory data reviewed. Discussed with Dr. Em. Code Status Do Not Resuscitate Hospital Course Summary Disclaimer The hospital course summary below is not to be considered part of the above Progress Note. Hospital Course Summary 08/30/16 Although she is on her baseline oxygen of 3 liters by nasal cannula. Her breath sounds are wet and course. She has been on Lasix 80 milligrams IV every 8 hours since admission. She is only down 3 kilograms since that time. Will change to Bumex 2 milligrams IV every 8 hours for more aggressive diuresis. Monitor I/O. Continue with Zosyn IV for antimicrobial coverage of left lower extremity cellulitis. Blood cultures remain negative. Leukocytosis remains however overall is decreased to 12.6. The global stable at 8.6 Continue with oral supplementation. Potassium. Will increase to 40 milliequivalents twice a day. Continue to monitor blood sugars, Novolin sliding scale Prednisone was decreased to 5 milligrams daily with hopes to taper down eventually. Eliquis 5 gm BID for chronic anticoagulation Recheck CBC and BMP tomorrow morning 08/31/16- *Severe cellulitis with possible abscess Need more aggressive antibiotic coverage. She has been on Zosyn and PO doxy without significant improvement. BMI of 60 is complicating factor. Add Ceftriaxone BID due to BMI. Add Clinda for better anaerobic/MRSA coverage. Repeat labs, CRP in AM. If no significant improvement in next 24-48 hours, consider repeat CT and possible ortho evaluation. Chronic immunosuppression on steroids- decreased to 5mg of prednisone. *Sepsis- BP is stable. Monitor *HFrEF, OHS, Chronic respiratory failure- Changed to IV Bumex. Weight is only down a little, but she is breathing somewhat better. Lungs are fairly clear, but diminished. Continue O2, CPAP, support. Continue Aldactone, KCL, Add beta-elba for rate control and HF treatment. Consider CARLITA/ARB per HF guidlelines. *DM2- BG variable. Continue current insulin and SSI. She did have some hypoglycemia previously. *Hypothyroid. TSH OK. Continue current. *AFib/VTach- CV consulted. Add beta-ebla. continue Diltiazem for now- may want to decrease due to HFrEF and optimize beta elba. *DVT prophylaxis- On Eliquis 09/01/16 Lungs sound worse today. Continue with oxygen and scheduled DuoNeb breathing treatments. Diuresis changed (08/30) to Bumex 2 milligrams IV every 8 hours and Spironolactone Regarding sepsis and LLE cellulitis, Antibiotics switched yesterday to Clindamycin and Rocephin. Minimal improvement on Zosyn and Doxycycline Seen by Dr Em this morning. Mealtime NovoLog changed to 25 units with meals Appreciate cardiac consultation by Dr. Mello. Complete echocardiogram ordered for today. Patient made nothing by mouth after breakfast for possible cardioversion. Continue on Cardizem and Coreg. Reviewed telemetry, no further episodes of V. tach since 08/26. In rate controlled atrial fibrillation. Chronically has been on prednisone. Was decreased down to 5 milligrams daily starting 08/30. Continue with oral potassium supplementation, 40 milliequivalents twice a day Eliquis BID for anticoagulation WBC count remains slightly elevated at 12, however, this is likely due to the steroid use. Hemoglobin stable at 8.6. Creatinine stable at 1.3 09/02/16 Appreciate cardiology consultation by Dr Mello. Cardioversion yesterday was unsuccessful. Planning to make changes to medications tomorrow including stopping Cardizem, adding amlodipine 10 milligrams daily and increasing Coreg to 12.5 milligrams. Continue with anticoagulation on eloquence. Cardiology recommended stopping aspirin. Anticipate Cardiac cath in the future. Venous Doppler of LLE negative for DVT IV Rocephin and Oral Clindamycin for treatment of possible cellulitis to LLE Weight continues to trend down on Bumex 2 mg IV every 8 hours Labs remains stable. 09/03/16 Diuresing well-remains on Bumex 2 mg every 8 hours. Potassium stable with current supplemental dose/spironolactone. For cardiac catheterization today to determine if revascularization needed and if silent ischemia contributing to recurring CHF. Prednisone discontinued after having been tapered throughout hospitalization for recent COPD exacerbation. Blood sugar control improving progressively with resumption of scheduled insulins, appreciate Dr. Em's assistance. Oxygenation stable with supplemental O2. Tolerating nocturnal BiPAP. Hematoma on left calf minimally changed, anticipate very slow resolution based on size. Cellulitis improving on clindamycin/ceftriaxone. Afebrile since admission. Discontinue ceftriaxone and continue clinda as a single antibiotic. Other problems stable. PEGGY SILVA MD September 03, 2016 16:32
[2016-09-03] MEDS: INSULIN DEGLUDEC 60 UNIT SQ SCH (21:31)
[2016-09-03] MEDS: AMITRIPTYLINE 25 MG TABLET PO SCH (21:32)
[2016-09-03] MEDS: PRAMIPEXOLE 0.25 MG TABLET PO SCH (21:33)
[2016-09-03] MEDS: GABAPENTIN 300 MG CAPSULE PO SCH (21:33)
[2016-09-04] VITALS (12 sets, daily range): BP systolic 118–146; BP diastolic 56–67; PULSE 81–93; RESP 16–22; TEMP 97.6–99; O2SAT 93–100
[2016-09-04] MEDS: BUMETANIDE 2.5mg INJECTION IV SCH ×3 (01:32→17:35)
--- NOTE | 2016-09-04 02:23 | NUR ---
Chart Check 24 hour chart check completed
[2016-09-04] MEDS: HYDROMORPHONE 2mg/ml INJECTION IV PRN (02:56)
[2016-09-04] MEDS: ALBUTEROL/IPRATROPIUM INHAL. 2.5mg-0.5mg/3ml Neb. AEROSOL SCH ×4 (03:46→21:43)
[2016-09-04 05:14] LABS: BASOPHILS % (AUTO) 0.4 % (0-2); EOSINOPHILS # (AUTO) 0.4 T/MM3 (0-0.5); EOSINOPHILS % (AUTO) 3.3 % (0-4); HCT - HEMATOCRIT 32.6 % (36-46); HGB - HEMOGLOBIN 9.3 GM/DL (12-16); IMMATURE GRANULOCYTE # (AUTO) 0.05 T/MM3 (0.00-0.03); IMMATURE GRANULOCYTE % (AUTO) 0.5 % (0.0-0.5); LYMPHOCYTES # (AUTO) 3.9 T/MM3 (1-4.8); LYMPHOCYTES % (AUTO) 37.5 % (23-45); MEAN CORPUSCULAR HGB 24.7 UUG (26-34); MEAN CORPUSCULAR HGB CONC(MCHC 28.5 GM/DL (31-37); MEAN CORPUSCULAR VOLUME 86.5 UM3 (80-100); MONOCYTES # (AUTO) 0.7 T/MM3 (0-0.8); MONOCYTES % (AUTO) 6.8 % (0-9.0); NEUTROPHILS #(AUTO)-ABSOLUTE 5.4 T/MM3 (1.8-7.7); NEUTROPHILS % (AUTO) 51.5 % (33-66); RED BLOOD COUNT 3.77 M/MM3 (4.00-5.20); WBC - WHITE BLOOD COUNT 10.5 T/MM3 (4.5-11.0)
[2016-09-04 05:23] LABS: ALBUMIN 3.8 G/DL (3.5-5.0); ANION GAP 13 MEQ/L (5-15); BUN/CREATININE RATIO 18 RATIO (6-26); CALCIUM 9.2 MG/DL (8.4-10.2); CHLORIDE 92 MEQ/L (98-107); CO2 - CARBON DIOXIDE 35 MEQ/L (22-30); CREATININE 1.2 MG/DL (0.7-1.2); GLOMERULAR FILTRATION RATE 45; GLUCOSE 187 MG/DL (65-110); PHOSPHORUS 3.7 MG/DL (2.5-4.5); POTASSIUM 3.7 MEQ/L (3.6-5); SODIUM 140 MEQ/L (134-144)
[2016-09-04] MEDS: LEVOTHYROXINE 25 MCG TABLET PO SCH (06:34)
[2016-09-04] MEDS: METOCLOPRAMIDE 5mg TABLET PO SCH ×4 (06:34→22:00)
[2016-09-04] MEDS: OMEPRAZOLE 20 MG CAPSULE PO SCH (06:34)
[2016-09-04] MEDS: INSULIN REGULAR 100 UNIT/ML SQ PRN ×2 (06:35→20:36)
--- NOTE | 2016-09-04 07:29 | NUR ---
SUMMARY BREATHING MUCH BETTER THIS A.M. AFTER 0100 BUMEX. NO AUDIBLE CRACKLES HEARD LISTENING AT BEDSIDE. REMAINS ON 3L NC. PAIN IS MOSTLY TO LEFT LOWER LEG (7/10), MEDICATED WITH NORCO 10( 2 TABS) AND 0.5MG IV DILAUDID, LAST GIVEN AT 0300. PT CURRENTLY IN RECLINER SINCE LAST BATHROOM TRIP.
[2016-09-04] MEDS: INSULIN ASPART 100 UNIT/ML SQ SCH ×3 (07:45→18:05)
--- NOTE | 2016-09-04 08:22 | PNPDOC ---
Subjective Date DATE: 09/04/16 TIME: 08:16 Subjective Breathing OK. Less pedal edema. Blood sugars continue to improve. Heart cath yesterday reportedly showed no significant blockage. Objective Vital Signs Vital Signs Vital Signs 09/03/16 09/03/16 09/03/16 09/03/16 20:23 21:15 21:15 21:15 Pulse 84 Resp 16 18 Pulse Ox 97 O2 Delivery Nasal Cannula O2 Flow Rate 3.00 09/03/16 09/03/16 09/04/16 09/04/16 21:26 23:30 01:18 02:56 Temp 97.8 Pulse 84 81 Resp 22 22 18 B/P 113/56 Pulse Ox 94 O2 Delivery Nasal Cannula O2 Flow Rate 3.00 09/04/16 09/04/16 09/04/16 09/04/16 03:11 03:40 03:40 03:49 Temp 97.6 Pulse 88 86 88 Resp 20 18 B/P 122/65 Pulse Ox 97 95 O2 Delivery Nasal Cannula O2 Flow Rate 3.00 09/04/16 09/04/16 06:34 07:49 Pulse 90 Resp 20 16 B/P 118/56 Pulse Ox 94 O2 Delivery Nasal Cannula O2 Flow Rate 3.00 Height (Feet): 5 Height (Inches): 0 Weight (Kilograms): 138.400 General General Nourishment: Well Nourished, Well Developed, Apparant Age, Adult Eyes (Brief) Eyes Brief: FOUND: PERRL Neck (Brief) Neck Brief: NOT FOUND: adenopathy, thyromegaly Respiratory (Brief) Respiratory Brief: FOUND clear all [place] Cardiovascular (Brief) Cardiac Brief: FOUND: regular rate, regular rhythm Abdomen (Brief) Abdominal Brief: FOUND: BS normo active x4, soft Integumentary(Brief) Integumentary Brief: FOUND: dry, pink, warm Neurologic(Brief) Neurological Brief: NOT FOUND: tremor Psychiatric(Brief) Psychiatric Brief: FOUND: alert, attentive, normal affect, oriented Laboratory Laboratory Laboratory Tests Test 09/03/16 10:15 09/03/16 14:15 09/03/16 19:55 09/04/16 04:38 Glucometer 227mg/dL (65-110) 136mg/dL (65-110) 149mg/dL (65-110) Anion Gap 13MEQ/L (5-15) BUN/Creatinine Ratio 18RATIO (6-26) Blood Urea Nitrogen 22.0MG/DL (7-17) Calcium Level 9.2MG/DL (8.4-10.2) Calculated Osmolality 277MOSM/KG (261-280) Carbon Dioxide Level 35MEQ/L (22-30) Chloride Level 92MEQ/L (98-107) Creatinine 1.2MG/DL (0.7-1.2) Glomerular Filtration Rate Calc 45 Glucose Level 187MG/DL (65-110) Potassium Level 3.7MEQ/L (3.6-5) Sodium Level 140MEQ/L (134-144) Test 09/04/16 06:08 Glucometer 177mg/dL (65-110) Laboratory Tests Test 09/03/16 10:15 09/03/16 14:15 09/03/16 19:55 09/04/16 04:38 Glucometer 227mg/dL (65-110) 136mg/dL (65-110) 149mg/dL (65-110) White Blood Count 10.5T/MM3 (4.5-11.0) Red Blood Count 3.77M/MM3 (4.00-5.20) Hemoglobin 9.3GM/DL (12-16) Hematocrit 32.6% (36-46) Mean Corpuscular Volume 86.5UM3 (80-100) Mean Corpuscular Hemoglobin 24.7UUG (26-34) Mean Corpuscular Hemoglobin Concent 28.5GM/DL (31-37) RDW Standard Deviation 58.0FL (36.9-50.2) Platelet Count 397T/MM3 (130-400) Mean Platelet Volume 10.0UM3 (9.4-12.4) Immature Granulocyte % (Auto) 0.5% (0.0-0.5) Neutrophils (%) (Auto) 51.5% (33-66) Lymphocytes (%) (Auto) 37.5% (23-45) Monocytes (%) (Auto) 6.8% (0-9.0) Eosinophils (%) (Auto) 3.3% (0-4) Basophils (%) (Auto) 0.4% (0-2) Absolute Immature Granulocyte (auto 0.05T/MM3 (0.00-0.03) Absolute Neutrophils (auto) 5.4T/MM3 (1.8-7.7) Absolute Lymphocytes (auto) 3.9T/MM3 (1-4.8) Absolute Monocytes (auto) 0.7T/MM3 (0-0.8) Absolute Eosinophils (auto) 0.4T/MM3 (0-0.5) Absolute Basophils (auto) 0.0T/MM3 (0-0.2) Turbidity < 20 (0-20) Sodium Level 140MEQ/L (134-144) Potassium Level 3.7MEQ/L (3.6-5) Chloride Level 92MEQ/L (98-107) Carbon Dioxide Level 35MEQ/L (22-30) Anion Gap 13MEQ/L (5-15) Blood Urea Nitrogen 22.0MG/DL (7-17) Creatinine 1.2MG/DL (0.7-1.2) Glomerular Filtration Rate Calc 45 BUN/Creatinine Ratio 18RATIO (6-26) Glucose Level 187MG/DL (65-110) Calculated Osmolality 277MOSM/KG (261-280) Calcium Level 9.2MG/DL (8.4-10.2) Phosphorus Level 3.7MG/DL (2.5-4.5) Icterus Index < 2 (0-7) Albumin 3.8G/DL (3.5-5.0) Chemistry Specimen Hemolysis < 15 (0-25) Test 09/04/16 06:08 Glucometer 177mg/dL (65-110) Assessment & Plan Problems: (1) Type II diabetes mellitus, uncontrolled Status: Chronic Assessment & Plan: Glucose rising less after breakfast. But still needs a bit more insulin for breakfast. Will add another 10%. (2) Hypothyroidism Status: Chronic Assessment & Plan: Clinically and chemically euthyroid. Continue same Synthroid. JOSÉ MIGUEL REYNOLDS MD September 04, 2016 08:20
[2016-09-04] MEDS: BETAMETHASONE TOP SCH ×2 (09:00→22:01)
[2016-09-04] MEDS: CLOTRIMAZOLE TOP SCH ×2 (09:00→22:01)
[2016-09-04] MEDS: CARVEDILOL 12.5 MG TABLET PO SCH ×2 (09:25→18:08)
[2016-09-04] MEDS: POTASSIUM CHLORIDE 20 MEQ TABLET PO SCH ×2 (09:30→18:07)
[2016-09-04] MEDS: SPIRONOLACTONE 25 MG TABLET PO SCH (09:34)
[2016-09-04] MEDS: CLINDAMYCIN 300 MG CAPSULE PO SCH ×3 (09:35→22:01)
[2016-09-04] MEDS: APIXABAN 5 MG TABLET PO SCH ×2 (09:36→22:01)
[2016-09-04] MEDS: AMLODIPINE 10 MG TABLET PO SCH (09:38)
[2016-09-04] MEDS: BENZONATATE 200 MG CAPSULE PO SCH ×3 (09:39→22:00)
[2016-09-04] MEDS: NYSTATIN 500,000 units/5ml Susp UD PO SCH ×4 (09:44→21:59)
[2016-09-04] MEDS: PITAVASTATIN 2 MG PO SCH (09:44)
--- NOTE | 2016-09-04 10:38 | PNPDOC ---
IVETTE LUA V DIRECTOR STAFFING 09/04/16 1017: Subjective Date DATE: 09/04/16 TIME: 10:13 Subjective Julita is seen today while resting up in the chair. She continues on 3 liters of oxygen by nasal cannula. However, does state that she feels less "rattling". She denies having chest pain or GI complaints. Left lower ext erythema appears to be improved, however hematoma is still present. Fasting BGM this morning 177. BP 118/56. Objective Vital Signs Vital signs Vital Signs Date Time Temp Pulse Resp B/P Pulse Ox O2 Delivery O2 Flow Rate FiO2 09/04/16 09:00 22 100 09/04/16 08:53 81 118/56 Nasal Cannula 3.00 09/04/16 03:11 97.6 Telemetry Rhythm: V-Tachycardia (short burst x 1), Atrial Fibrillation Height (Feet): 5 Height (Inches): 0 Weight (Kilograms): 138.400 General General Appearance: Alert, Orientated x 3, Cooperative, No Acute Distress Eyes (Brief) Eyes: FOUND: EOMI ENMT (Brief) ENMT: FOUND: mucosa moist, normal dentition, NOT FOUND: pharnyx erythema Neck (Brief) Neck: FOUND: midline, NOT FOUND: adenopathy, carotid bruits, tracheal deviation Respiratory (Brief) Respiratory: FOUND: wheezes (mild inspiratory wheezing) Cardiovascular (Brief) Cardiac: FOUND: pedal edema, regular rate, regular rhythm, NOT FOUND: murmur Capillary Refill: <2 sec Abdomen (Brief) Abdominal: FOUND: BS normo active x4, soft, NOT FOUND: distended, tender Extremities (Brief) Extremity : Side: Left Extremity: leg Extremity Finding: FOUND: edema, pain, reddened, warm Lymphatic (Brief) Lymphatic: NOT FOUND: adenopathy Musculoskeletal (Brief) Musculoskeletal: NOT FOUND: tenderness Integumentary (Brief) Integumentary: FOUND: dry, pink, warm Neurologic (Brief) Neurological: FOUND: cranial 2-12 intact Psychiatric (Brief) Psychiatric: FOUND: alert, attentive, normal affect, oriented Laboratory Laboratory Laboratory Tests 09/03/16 05:29 09/04/16 04:38 Laboratory Tests 09/04/16 04:38 Sepsis Diagnostic Criteria Sepsis Confirmed/Suspected Infection: Yes SIRS Criteria: Temp<=96.8 or >=100.4, WBC >=12,000 or <=4,000, Plasma CRP>2 above normal Assessment & Plan Problems: (1) Cellulitis of left lower extremity Status: Acute (2) Severe sepsis Status: Acute (3) HFrEF (heart failure with reduced ejection fraction) Status: Chronic Qualifiers: Heart failure chronicity: chronic Qualified Codes: I50.22 - Chronic systolic (congestive) heart failure (4) NSVT (nonsustained ventricular tachycardia) Status: Acute Assessment & Plan: Short run NSVT on 08/30, mild preceding hypokalemia. (5) Atrial fibrillation Status: Chronic Qualifiers: Atrial fibrillation type: chronic Qualified Codes: I48.2 - Chronic atrial fibrillation (6) Obesity hypoventilation syndrome Status: Chronic (7) THOMAS on CPAP Status: Chronic Assessment & Plan: Recent conversion from CPAP to BiPAP per sleep medicine (8) Hypoxia Status: Chronic (9) IDDM (insulin dependent diabetes mellitus) Status: Chronic (10) Hypertension Status: Chronic Qualifiers: Hypertension type: essential hypertension Qualified Codes: I10 - Essential (primary) hypertension (11) Mild pulmonary hypertension Status: Chronic (12) Hypothyroidism Status: Chronic (13) Hyperlipidemia Status: Chronic Qualifiers: Hyperlipidemia type: unspecified Qualified Codes: E78.5 - Hyperlipidemia, unspecified (14) Chronic kidney disease (CKD), stage III (moderate) Status: Chronic Assessment Plan/Intensity of Service 09/04/16 Continue with aggressive diuresis seen on Bumex 2 milligrams every 8 hours. Continue to monitor weights. Overall breathing is about the same on 3 liters of baseline oxygen Heart catheter performed yesterday by Dr. Mello did reveal mild/moderate coronary artery disease, EF 55%. Medical management is recommended by Dr. Mello. Continue to work on glycemic control. Appreciate Dr. Em's recommendations and expertise. Currently on NovoLog 33 units with breakfast, 25 units with lunch , 25 units with supper Continue with oral clindamycin for treatment of underlying cellulitis. There continues to be a large hematoma to the left lower extremity, however, erythema appears to be improved. Chronic anticoagulation Eliquis 5 milligrams twice a day Hemoglobin remained stable at 9.3 Overall appears to be feeling better. Will discuss further with attending, Dr. Vlila Code Status Do Not Resuscitate Hospital Course Summary Disclaimer The hospital course summary below is not to be considered part of the above Progress Note. Hospital Course Summary 08/30/16 Although she is on her baseline oxygen of 3 liters by nasal cannula. Her breath sounds are wet and course. She has been on Lasix 80 milligrams IV every 8 hours since admission. She is only down 3 kilograms since that time. Will change to Bumex 2 milligrams IV every 8 hours for more aggressive diuresis. Monitor I/O. Continue with Zosyn IV for antimicrobial coverage of left lower extremity cellulitis. Blood cultures remain negative. Leukocytosis remains however overall is decreased to 12.6. The global stable at 8.6 Continue with oral supplementation. Potassium. Will increase to 40 milliequivalents twice a day. Continue to monitor blood sugars, Novolin sliding scale Prednisone was decreased to 5 milligrams daily with hopes to taper down eventually. Eliquis 5 gm BID for chronic anticoagulation Recheck CBC and BMP tomorrow morning 08/31/16- *Severe cellulitis with possible abscess Need more aggressive antibiotic coverage. She has been on Zosyn and PO doxy without significant improvement. BMI of 60 is complicating factor. Add Ceftriaxone BID due to BMI. Add Clinda for better anaerobic/MRSA coverage. Repeat labs, CRP in AM. If no significant improvement in next 24-48 hours, consider repeat CT and possible ortho evaluation. Chronic immunosuppression on steroids- decreased to 5mg of prednisone. *Sepsis- BP is stable. Monitor *HFrEF, OHS, Chronic respiratory failure- Changed to IV Bumex. Weight is only down a little, but she is breathing somewhat better. Lungs are fairly clear, but diminished. Continue O2, CPAP, support. Continue Aldactone, KCL, Add beta-elba for rate control and HF treatment. Consider CARLITA/ARB per HF guidlelines. *DM2- BG variable. Continue current insulin and SSI. She did have some hypoglycemia previously. *Hypothyroid. TSH OK. Continue current. *AFib/VTach- CV consulted. Add beta-elba. continue Diltiazem for now- may want to decrease due to HFrEF and optimize beta elba. *DVT prophylaxis- On Eliquis 09/01/16 Lungs sound worse today. Continue with oxygen and scheduled DuoNeb breathing treatments. Diuresis changed (08/30) to Bumex 2 milligrams IV every 8 hours and Spironolactone Regarding sepsis and LLE cellulitis, Antibiotics switched yesterday to Clindamycin and Rocephin. Minimal improvement on Zosyn and Doxycycline Seen by Dr Em this morning. Mealtime NovoLog changed to 25 units with meals Appreciate cardiac consultation by Dr. Mello. Complete echocardiogram ordered for today. Patient made nothing by mouth after breakfast for possible cardioversion. Continue on Cardizem and Coreg. Reviewed telemetry, no further episodes of V. tach since 08/26. In rate controlled atrial fibrillation. Chronically has been on prednisone. Was decreased down to 5 milligrams daily starting 08/30. Continue with oral potassium supplementation, 40 milliequivalents twice a day Eliquis BID for anticoagulation WBC count remains slightly elevated at 12, however, this is likely due to the steroid use. Hemoglobin stable at 8.6. Creatinine stable at 1.3 09/02/16 Appreciate cardiology consultation by Dr Mello. Cardioversion yesterday was unsuccessful. Planning to make changes to medications tomorrow including stopping Cardizem, adding amlodipine 10 milligrams daily and increasing Coreg to 12.5 milligrams. Continue with anticoagulation on eloquence. Cardiology recommended stopping aspirin. Anticipate Cardiac cath in the future. Venous Doppler of LLE negative for DVT IV Rocephin and Oral Clindamycin for treatment of possible cellulitis to LLE Weight continues to trend down on Bumex 2 mg IV every 8 hours Labs remains stable. 09/03/16 Diuresing well-remains on Bumex 2 mg every 8 hours. Potassium stable with current supplemental dose/spironolactone. For cardiac catheterization today to determine if revascularization needed and if silent ischemia contributing to recurring CHF. Prednisone discontinued after having been tapered throughout hospitalization for recent COPD exacerbation. Blood sugar control improving progressively with resumption of scheduled insulins, appreciate Dr. Em's assistance. Oxygenation stable with supplemental O2. Tolerating nocturnal BiPAP. Hematoma on left calf minimally changed, anticipate very slow resolution based on size. Cellulitis improving on clindamycin/ceftriaxone. Afebrile since admission. Discontinue ceftriaxone and continue clinda as a single antibiotic. Other problems stable. 09/04/16 Continue with aggressive diuresis seen on Bumex 2 milligrams every 8 hours. Continue to monitor weights. Overall breathing is about the same on 3 liters of baseline oxygen Heart catheter performed yesterday by Dr. Mello did reveal mild/moderate coronary artery disease, EF 55%. Medical management is recommended by Dr. Mello. Continue to work on glycemic control. Appreciate Dr. Em's recommendations and expertise. Currently on NovoLog 33 units with breakfast, 25 units with lunch , 25 units with supper Continue with oral clindamycin for treatment of underlying cellulitis. There continues to be a large hematoma to the left lower extremity, however, erythema appears to be improved. Chronic anticoagulation Eliquis 5 milligrams twice a day Hemoglobin remained stable at 9.3 Overall appears to be feeling better. Will discuss further with attending, PEGGY Laird MD 09/04/16 1214: Assessment & Plan Assessment I have independently evaluated and examined this patient. I reviewed the chart, the patient's history, and the DIRECTOR STAFFING's documented findings as above. We discussed and formulated the assessment and plan as above with additions as below: Mrs. Campos was seen with her . She reports that she feels okay and is not wheezing as much with decreased cough. She feels a little short of breath if she walks to the bathroom without her oxygen. She continues to have a pressure feeling in her abdomen but think she needs to have MiraLAX resumed. Cardiac catheterization yesterday revealed minimal coronary disease and did not require intervention. Patient denies chest pain or palpitations. Continued pain in her left calf due to hematoma. No fevers reported. On examination the patient's respirations are nonlabored. Breath sounds are slightly coarse particularly in the right lower field at the time of exam. No wheezing was present. Cardiac rhythm is slightly irregular, no RLE edema, trace LLE edema and hematoma on the left calf unchanged. Fluid balance negative yesterday despite IV fluids given in conjunction with contrast dye. Discharge planning discussed with cardiology-will coordinate plan for diuretic adjustment at home to minimize recurrent hospitalizations. Patient may benefit from right on track follow-up as well. Repeat chest x-ray in a.m.-approaching discharge. Plan/Intensity of Service Discussed with cardiology, laboratory data reviewed, heart catheter reviewed, chest x-ray ordered; discussed with nursing and case management. IVETTE LUA APRN September 04, 2016 10:17 PEGGY VILLA MD September 04, 2016 12:14
[2016-09-04] MEDS: ALLOPURINOL 300 MG TABLET PO SCH (11:48)
[2016-09-04] MEDS ORDERED: HYDROMORPHONE 2mg/ml INJECTION IV PRN (12:00)
[2016-09-04] MEDS: POLYETHYL.GLYCOL 3350 PACKET 17gm PO SCH (12:45)
--- NOTE | 2016-09-04 14:25 | NUR ---
student development coordinator Chart reviewed by [facility] business and services instructor.
--- NOTE | 2016-09-04 17:34 | PNPDOC ---
AMELIA ZARAGOZA [employer] ASSOCIATE 09/04/16 1227: Subjective Date DATE: 09/04/16 TIME: 12:24 Subjective Fabio is up in the chair in her room alone. She denies chest pain or pressure , palpitations or dyspnea. She wears O2 at 3L/NC. Discussed with her at length the possible plans regarding her diuretics at home after discharge. Objective Vital Signs Vital signs Vital Signs 09/04/16 09/04/16 09/04/16 09/04/16 01:18 02:56 03:11 03:40 Temp 97.6 Pulse 88 Resp 22 18 20 18 B/P 122/65 Pulse Ox 97 95 O2 Delivery Nasal Cannula O2 Flow Rate 3.00 09/04/16 09/04/16 09/04/16 09/04/16 03:40 03:49 06:34 07:49 Pulse 86 88 90 Resp 20 16 B/P 118/56 Pulse Ox 94 O2 Delivery Nasal Cannula O2 Flow Rate 3.00 09/04/16 09/04/16 09/04/16 09/04/16 07:50 08:53 09:00 12:12 Temp 98.5 Pulse 90 81 84 Resp 16 16 22 16 B/P 118/56 131/67 Pulse Ox 93 100 96 O2 Delivery Nasal Cannula Nasal Cannula O2 Flow Rate 3.00 3.00 Telemetry Rhythm: V-Tachycardia (short burst x 1), Atrial Fibrillation Height (Feet): 5 Height (Inches): 0 Weight (Kilograms): 132.500 General Alert, Orientated x 3, Cooperative, No Acute Distress ENMT (Brief) mucosa moist Neck (Brief) NOT FOUND: JVD, carotid bruits Respiratory (Brief) wheezes, NOT FOUND: clear all collins, equal bilaterally, rales Cardiovascular (Brief) pedal edema (L > R), NOT FOUND: click, gallop, murmur, regular rate, regular rhythm, rub Abdomen (Brief) BS normo active x4, soft Integumentary (Brief) dry, pink, warm Psychiatric (Brief) alert, attentive, normal affect, oriented Laboratory Laboratory Laboratory Tests Test 09/02/16 14:15 09/02/16 19:51 09/03/16 05:29 09/03/16 06:34 Glucometer 224mg/dL 214mg/dL 196mg/dL Turbidity < 20 Sodium Level 139MEQ/L Potassium Level 4.1MEQ/L Chloride Level 91MEQ/L Carbon Dioxide Level 36MEQ/L Anion Gap 12MEQ/L Blood Urea Nitrogen 25.0MG/DL Creatinine 1.3MG/DL Glomerular Filtration Rate Calc 41 BUN/Creatinine Ratio 19RATIO Glucose Level 210MG/DL Calculated Osmolality 278MOSM/KG Calcium Level 8.6MG/DL Magnesium Level 2.6MG/DL Icterus Index < 2 Chemistry Specimen Hemolysis 30 Test 09/03/16 10:15 09/03/16 14:15 09/03/16 19:55 09/04/16 04:38 Glucometer 227mg/dL 136mg/dL 149mg/dL White Blood Count 10.5T/MM3 Red Blood Count 3.77M/MM3 Hemoglobin 9.3GM/DL Hematocrit 32.6% Mean Corpuscular Volume 86.5UM3 Mean Corpuscular Hemoglobin 24.7UUG Mean Corpuscular Hemoglobin Concent 28.5GM/DL RDW Standard Deviation 58.0FL Platelet Count 397T/MM3 Mean Platelet Volume 10.0UM3 Immature Granulocyte % (Auto) 0.5% Neutrophils (%) (Auto) 51.5% Lymphocytes (%) (Auto) 37.5% Monocytes (%) (Auto) 6.8% Eosinophils (%) (Auto) 3.3% Basophils (%) (Auto) 0.4% Absolute Immature Granulocyte (auto 0.05T/MM3 Absolute Neutrophils (auto) 5.4T/MM3 Absolute Lymphocytes (auto) 3.9T/MM3 Absolute Monocytes (auto) 0.7T/MM3 Absolute Eosinophils (auto) 0.4T/MM3 Absolute Basophils (auto) 0.0T/MM3 Turbidity < 20 Sodium Level 140MEQ/L Potassium Level 3.7MEQ/L Chloride Level 92MEQ/L Carbon Dioxide Level 35MEQ/L Anion Gap 13MEQ/L Blood Urea Nitrogen 22.0MG/DL Creatinine 1.2MG/DL Glomerular Filtration Rate Calc 45 BUN/Creatinine Ratio 18RATIO Glucose Level 187MG/DL Calculated Osmolality 277MOSM/KG Calcium Level 9.2MG/DL Phosphorus Level 3.7MG/DL Icterus Index < 2 Albumin 3.8G/DL Chemistry Specimen Hemolysis < 15 Test 09/04/16 06:08 09/04/16 10:15 09/04/16 12:23 Glucometer 177mg/dL 256mg/dL 130mg/dL Laboratory Tests 09/04/16 04:38 Laboratory Tests 09/04/16 04:38 Medications Current Medications Albuterol/ Ipratropium 3 ml 3 ml O ONCE AEROSOL Last administered on 16:17; Start 08/24/16 at 16:15; Stop 08/24/16 at 16:16; Status DC Ceftriaxone Sodium/Sodium Chloride (Rocephin/NS) 100 ml @ 100 mls/hr O ONCE IV Last administered on 08/24/16 17:09; Start 08/24/16 at 17:00; Stop at 17:59; Status DC Glucose (Glutose 15) 37.5 g PRN PRN PO HYPOGLYCEMIA; Start 08/24/16 at 18:15 Dextrose (D50w) 25 ml PRN PRN IV HYPOGLYCEMIA; Start 08/24/16 at 18:15 Insulin Human Regular (Novolin R) SS PRN SQ Last administered on 09/04/16 06 :35; Start 08/24/16 at 18:15 Furosemide (Lasix) 80 mg Q8HR IV Last administered on 08/30/16 08:56; Start 08/25/16 at 01:00; Stop 08/30/16 at 11:04; Status DC Albuterol/ Ipratropium (Duoneb) 3 ml Q6HR AEROSOL Last administered on 09:02; Start 08/24/16 at 21:00 Spironolactone (Aldactone) 12.5 mg DAILY PO Last administered on 09/04/16 09: 34; Start 08/25/16 at 09:00 Acetaminophen (Tylenol Extra Strength) 1,000 mg Q8H PRN PO PAIN Last administered on 08/26/16 20:04; Start 08/24/16 at 18:30 Benzonatate (TESSALON PERLES 100 mg) 200 mg TID PO Last administered on 21:20; Start 08/24/16 at 21:00; Stop 08/29/16 at 07:29; Status DC Clotrimazole (Lotrisone) 1 applic BID TOP Last administered on 09/02/16 21:27; Start 08/24/16 at 21:00 Acetaminophen/ Hydrocodone Bitart (Bridgeton 10/325) 2 tab Q6H PRN PO PAIN Last administered on 09/04/16 08:37; Start 08/24/16 at 18:30 Levothyroxine Sodium (Synthroid) 25 mcg DAILY PO Last administered on 06:34; Start 08/25/16 at 09:00 Metoclopramide HCl (Reglan) 5 mg ACHS PO Last administered on 09/04/16 11:46; Start 08/24/16 at 22:00 Omeprazole (Prilosec) 20 mg ACB PO Last administered on 09/04/16 06:34; Start 08/25/16 at 06:30 Pramipexole Dihydrochloride (Mirapex) 0.25 mg HS PO Last administered on 21:33; Start 08/24/16 at 22:00 Amitriptyline HCl (Elavil) 25 mg HS PO Last administered on 09/03/16 21:32; Start 08/25/16 at 22:00 Apixaban (Eliquis) 5 mg BID PO Last administered on 09/04/16 09:36; Start 08/25 at 21:00 Aspirin (Ecotrin) 81 mg DAILY PO Last administered on 09/02/16 08:06; Start 08/26/16 at 09:00; Stop 09/02/16 at 08:35; Status DC Diltiazem HCl (Cardizem Cd) 180 mg DAILY PO Last administered on 09/02/16 08:07 ; Start 08/26/16 at 09:00; Stop 09/02/16 at 08:42; Status DC Gabapentin (Neurontin) 600 mg HS PO Last administered on 09/03/16 21:33; Start 08/25/16 at 22:00 Allopurinol (ZYLOPRIM 300 mg) 300 mg NOON PO Last administered on 09/04/16 11: 48; Start 08/26/16 at 12:00 Cyclobenzaprine HCl (Flexeril) 10 mg TID PRN PO PRN ORDERS Last administered on 09/02/16 21:25; Start 08/25/16 at 18:00 Doxycycline Hyclate (Vibramycin) 100 mg BIDWM PO Last administered on 08/28/16 08:05; Start 08/26/16 at 08:00; Stop 08/31/16 at 13:12; Status DC Hydromorphone HCl 0.5 mg 0.5 mg Q2H PRN IV Last administered on 09/04/16 02: 56; Start 08/27/16 at 07:00; Stop 09/04/16 at 12:03; Status DC Piperacillin Sod/ Tazobactam Sod/ Sodium Chloride (Zosyn/NS) 100 ml @ 200 mls/ hr Q6HR IV Last administered on 08/31/16 09:15; Start 08/27/16 at 09:00; Stop at 13:12; Status DC Iohexol 1 bottle 1 bottle STK-MED ONCE .ROUTE ; Start 08/28/16 at 10:08; Stop 08/28/16 at 10:09; Status DC Sodium Chloride (NS) 100 ml @ As Directed STK-MED ONCE .ROUTE ; Start 08/28/16 at 10:08; Stop 08/28/16 at 10:09; Status DC Potassium Chloride (Kdur) 20 meq TIDWM PO Last administered on 08/30/16 08:49; Start 08/29/16 at 08:00; Stop 08/30/16 at 11:08; Status DC Benzonatate (TESSALON PERLES 200 mg) 200 mg TID PO Last administered on 09:39; Start 08/29/16 at 09:00 Prednisone (PredniSONE) 5 mg WB PO Last administered on 09/03/16 08:07; Start 08/30/16 at 08:00; Stop 09/03/16 at 16:47; Status DC Bumetanide (BUMEX INJ 1 mg/ 4 ml) 2 mg Q8HR IV Last administered on 09/01/16 08 :19; Start 08/30/16 at 17:00; Stop 09/01/16 at 17:01; Status DC Potassium Chloride 40 meq 40 meq BIDWM PO Last administered on 09/04/16 09:30 ; Start 08/30/16 at 17:30 Ceftriaxone Sodium 1 g/Sodium Chloride 100 ml @ 200 mls/hr BID IV Last administered on 09/03/16 08:07; Start 08/31/16 at 21:00; Stop 09/03/16 at 16:47 ; Status DC Clindamycin HCl/ Dextrose (CLEOCIN 600 mg in D5W 50 mL) 50 ml @ 100 mls/hr Q6HR IV Last administered on 09/01/16 15:06; Start 08/31/16 at 15:00; Stop at 17:50; Status DC Sodium Chloride (Iv Flush) 10 ml STK-MED ONCE IVF ; Start 09/01/16 at 15:07; Stop 09/01/16 at 15:08; Status DC Bumetanide (Bumex Inj. 2.5 Mg/10 ml) 2 mg Q8HR IV Last administered on 10:14; Start 09/01/16 at 17:00 Clindamycin HCl (Cleocin) 600 mg TID PO Last administered on 09/04/16 09:35; Start 09/01/16 at 21:00 Non-Formulary Medication 60 unit HS SQ Last administered on 09/03/16 21:31; Start 09/02/16 at 22:00 Amlodipine Besylate (Norvasc) 10 mg DAILY PO Last administered on 09/04/16 09: 38; Start 09/03/16 at 09:00 Carvedilol (Coreg) 6.25 mg O ONCE PO ; Start 09/02/16 at 08:45; Stop 09/02/16 at 08:46; Status Cancel Nystatin (Nystatin Susp.) 5 ml QID PO Last administered on 09/04/16 09:44; Start 09/02/16 at 13:00; Stop 09/12/16 at 12:59 Heparin Sodium/ Sodium Chloride (HEPARIN 1,000units in NS 500ml) 1,000 unit STK- MED ONCE IV ; Start 09/03/16 at 10:47; Stop 09/03/16 at 10:48; Status DC Lidocaine HCl (Xylocaine 1%) 300 mg STK-MED ONCE .ROUTE ; Start 09/03/16 at 10: 47; Stop 09/03/16 at 10:48; Status DC Iodixanol (Visipaque) 1 bottle STK-MED ONCE IV ; Start 09/03/16 at 10:47; Stop 09/03/16 at 10:48; Status DC Fentanyl (Fentanyl) 100 mcg STK-MED ONCE .ROUTE ; Start 09/03/16 at 12:17; Stop 09/03/16 at 12:18; Status DC Midazolam HCl (Versed) 2 mg STK-MED ONCE .ROUTE ; Start 09/03/16 at 12:17; Stop 09/03/16 at 12:18; Status DC Verapamil HCl (Verapamil) 5 mg STK-MED ONCE IV ; Start 09/03/16 at 12:17; Stop 09/03/16 at 12:18; Status DC Nitroglycerin (Nitroglycerin) 50 mg STK-MED ONCE IV ; Start 09/03/16 at 12:18; Stop 09/03/16 at 12:19; Status DC Heparin Sodium (Porcine) (Heparin Bolus) 10,000 unit STK-MED ONCE IV ; Start 02/10 at 12:18; Stop 09/03/16 at 12:19; Status DC Sodium Chloride 10 ml 10 ml STK-MED ONCE .ROUTE ; Start 09/03/16 at 12:18; Stop 09/03/16 at 12:19; Status DC Sodium Chloride (Normal Saline IV) 1,000 ml @ As Directed STK-MED ONCE .ROUTE ; Start 09/03/16 at 12:30; Stop 09/03/16 at 12:31; Status DC Atropine Sulfate (ATROPINE 1mg INJ) 0.5 mg Q5M PRN IV pulse < 40 bmp AND symptomatic; Start 09/03/16 at 13:00 Acetaminophen (Tylenol Regular Strength) 325-650 mg Q5H PRN PO PAIN; Start 02/10 at 13:00; Stop 09/04/16 at 12:03; Status DC Morphine Sulfate (Morphine) 2-4 mg Q5MIN PRN IV ANGINA; Start 09/03/16 at 13:00 ; Stop 09/04/16 at 12:03; Status DC Acetaminophen/ Hydrocodone Bitart (Bridgeton 5/325) 1-2 tabs Q5H PRN PO PAIN; Start 09/03/16 at 13:00; Stop 09/03/16 at 16:47; Status DC Promethazine HCl (Phenergan) 12.5-25 mg Q6H PRN IV NAUSEA &/OR VOMITING; Start 09/03/16 at 13:00 Nitroglycerin (Nitrostat) 0.4 mg Q5MIN PRN SL ANGINA; Start 09/03/16 at 13:00 Magnesium Hydroxide (Mom) 30 ml DAILY PRN PO CONSTIPATION; Start 09/03/16 at 13 :00 Bisacodyl (Dulcolax) 5-10 mg DAILY PRN PO CONSTIPATION; Start 09/03/16 at 13:00 Al Hydroxide/Mg Hydroxide (Maalox) 30 ml Q3H PRN PO INDIGESTION; Start at 13:00 Lorazepam (Ativan) 0.5-1 mg Q4H PRN IV ANXIETY; Start 09/03/16 at 13:00 Metoclopramide HCl (REGLAN Inj) 5-10 mg Q6H PRN IV NAUSEA &/OR VOMITING; Start 09/03/16 at 13:00; Stop 09/03/16 at 16:47; Status DC Ondansetron HCl (Zofran) 4 mg Q6H PRN IV NAUSEA &/OR VOMITING; Start 09/03/16 at 13:00 Insulin Aspart (Novolog) 33 unit 0745 SQ Last administered on 09/04/16t 09:43; Start 09/04/16 at 08:00 Hydromorphone HCl (Dilaudid) 0.5 mg Q4HR PRN IV ; Start 09/04/16 at 12:00 Polyethylene Glycol (Miralax) 17 g DAILY PO ; Start 09/04/16 at 12:00 Radiology DATE OF PROCEDURE September 03, 2016 REFERRING PHYSICIAN Niya Villa MD PRIMARY CARE PHYSICIAN Werner Haider MD INDICATION The patient is a pleasant 71-year-old lady who has had multiple episodes of congestive heart failure and a run of ventricular tachycardia and was referred for further evaluation by cardiac catheterization and possible intervention. INFORMED CONSENT Informed consent was obtained after explaining the procedure and the potential risks to the patient who agreed to proceed with the procedure. PROCEDURE 1. Left heart catheterization. 2. Coronary angiography. 3. Left ventriculography. TECHNIQUE She was prepped and draped in the usual sterile techniques. Conscious sedation was performed using Versed and fentanyl. 1% lidocaine was used for local anesthesia. Using modified Seldinger technique, arterial access was obtained into the right radial artery with placement of a 6- [place] arterial sheath. 3000 units of heparin, 300 mcg of nitroglycerin, and 2.5 mg of verapamil were given through the arterial sheath. LEFT VENTRICULOGRAPHY Left ventriculography in single-plane TORRES shallow projection showed apical hypokinesia with ejection fraction of about 55% with no mitral regurgitation. There was about 15-20 mm of gradient across the aortic valve. LVEDP was about 17. CORONARY ANGIOGRAPHY Left main was free of significant lesions. Left anterior descending artery had diffuse disease of up to about 30-40%. Diagonals were free of significant lesions. Left circumflex artery was large with no significant lesions except for irregularities and stenosis up to about 20%. Right coronary artery had diffuse irregularities and stenosis up to about 20-30% with no hemodynamically significant lesions. The patient tolerated the procedure well with no complications. IMPRESSION 1. Mild to moderate coronary artery disease as described above. 2. Apical hypokinesia with ejection fraction of about 55%. 3. 15-20 mm of gradient across the aortic valve. PLAN Will continue medical management for coronary artery disease. Will review the echocardiogram for further evaluation of the aortic valve. Sepsis Diagnostic Criteria Sepsis Confirmed/Suspected Infection: Yes SIRS Criteria: Temp<=96.8 or >=100.4, WBC >=12,000 or <=4,000, Plasma CRP>2 above normal Assessment & Plan Problems: (1) V-tach Status: Acute Assessment & Plan: Had short burst of Vtach; was asymptomatic; potassium was slightly low which could have contributed to arrhythmia; continue to monitor closely. (2) Atrial fibrillation Status: Chronic Qualifiers: Atrial fibrillation type: chronic Qualified Codes: I48.2 - Chronic atrial fibrillation Assessment & Plan: attempted DCCV 09/01/16 X2 without success, Amiodarone is contraindicated due to lung disease. Anticoagulated with Eliquis, stop aspirin (3) Diastolic heart failure Status: Acute Qualifiers: Heart failure chronicity: acute on chronic Qualified Codes: I50.33 - Acute on chronic diastolic (congestive) heart failure Assessment & Plan: Echo showed EF of 50%. Has significant edema; continue diuresis; monitor renal and lytes. (4) Hyperlipidemia Status: Chronic Qualifiers: Hyperlipidemia type: unspecified Qualified Codes: E78.5 - Hyperlipidemia, unspecified (5) Diabetes Status: Chronic (6) Hypertension Status: Chronic Qualifiers: Hypertension type: essential hypertension Qualified Codes: I10 - Essential (primary) hypertension (7) Chronic kidney disease (CKD), stage III (moderate) Status: Chronic (8) Morbid obesity with BMI of 45.0-49.9, adult Status: Chronic (9) Bronchiectasis Status: Chronic (10) Cellulitis of left lower extremity Status: Acute Plan/Intensity of Service 08/31/16 Had short burst of Vtach; was asymptomatic; potassium was slightly low which could have contributed to arrhythmia; continue to monitor closely. Obtain records from [facility] regarding previous testing. Obtain echo. is in Afib with controlled rate. Continue bumex, potassium, asa, cardizem, eliquis and spironolactone. 09/02/16 attempted DCCV 09/01/16 X2 without success, Amiodarone is contraindicated due to lung disease. Anticoagulated with Eliquis, stop aspirin. Beginning tomorrw stop diltiazem and start Amlodipine 10mg daily,and increase Coreg to 12.5mg (todays meds already given per nursing) 09/03/16 Left heart cath, see report above 09/04/16 Discussed fluid restriction and sodium restriction with patient and . We will manage her diuresis after discharge. Patient states understanding of importance of daily weights and diet restrictions. NUSRAT LUNA MD 09/08/16 1206: Assessment & Plan Plan/Intensity of Service After examining the patient I agree with the above assessment. I am involved in the formulation of the patient's plan of care. AMELIA ZARAGOZA APRN September 04, 2016 12:27 NUSRAT LUNA MD September 08, 2016 12:06
--- NOTE | 2016-09-04 18:38 | NUR ---
SHIFT SUMMARY PATIENT IS ALERT AND ORIENTED X3. PATIENT VITALS ARE STABLE AND PATIENT IS ON 3L OF 02 VIA NC. PATIENT REQUIRED 1X PRN PAIN MEDICATIONS. PATIENT AMBULATED WITH PT 1X. PATIENT IS UP WITH 1X ASSIST GB, AND FWW. PATIENT IS ON FLUID RESTRICTION AND TOLERATING IT WELL. PATIENT AT TIMES IS INCONTINENT OF BLADDER. PRESSURE DRESSING ON RT RADIAL REMOVED BY DR LUNA. RT WRIST HAS BRUISING BUT PULSE IS STRONG. AT BEDSIDE. WILL CONTINUE TO MONITOR.
[2016-09-04] MEDS: GABAPENTIN 300 MG CAPSULE PO SCH (22:01)
[2016-09-04] MEDS: AMITRIPTYLINE 25 MG TABLET PO SCH (22:01)
[2016-09-04] MEDS: PRAMIPEXOLE 0.25 MG TABLET PO SCH (22:01)
[2016-09-04] MEDS: INSULIN DEGLUDEC 60 UNIT SQ SCH (22:08)
[2016-09-05] VITALS (7 sets, daily range): BP systolic 109–152; BP diastolic 55–66; PULSE 86–91; RESP 13–18; TEMP 98–98.3; O2SAT 95–99
[2016-09-05] MEDS: BUMETANIDE 2.5mg INJECTION IV SCH ×2 (02:08→08:17)
[2016-09-05] MEDS: ALBUTEROL/IPRATROPIUM INHAL. 2.5mg-0.5mg/3ml Neb. AEROSOL SCH ×3 (03:14→15:00)
--- NOTE | 2016-09-05 03:45 | NUR ---
Chart Check 24 hour chart check completed
[2016-09-05 04:52] LABS: ANION GAP 14 MEQ/L (5-15); BUN/CREATININE RATIO 15 RATIO (6-26); CALCIUM 9.1 MG/DL (8.4-10.2); CHLORIDE 94 MEQ/L (98-107); CO2 - CARBON DIOXIDE 35 MEQ/L (22-30); CREATININE 1.3 MG/DL (0.7-1.2); GLOMERULAR FILTRATION RATE 41; GLUCOSE 144 MG/DL (65-110); POTASSIUM 3.8 MEQ/L (3.6-5); SODIUM 143 MEQ/L (134-144)
--- NOTE | 2016-09-05 06:00 | NUR ---
SHIFT SUMMARY PATIENT IS ALERT AND ORIENTED X3. PATIENT VITALS ARE STABLE OTHER THAN ON 1L O2 VIA NC. PT GIVEN NORCO FOR PAIN, SEE EMAR FOR TIMES. DENIES N/V. PATIENT UP WITH ASSIST OF ONE,GB, AND WALKER TO BATHROOM. PATIENT IS ON 1800ML FLUID RESTRICTION AND TOLERATING IT WELL. PATIENT AT TIMES IS INCONTINENT OF BLADDER. RT WRIST HAS BRUISING, STRONG PULSES. CARDIAC 1800 ADA/2GM NA DIET. IVL IN LEFT AC. TELEMETRY REMAINS A-FIB. BED LOCKED AND LOW, BED ALARM ON. CALL LIGHT WITHIN REACH. WILL CONTINUE TO MONITOR. Addendum: 09/05/16 at 0624 by SHIVA MAC RN PT ON 3L O2 VIA NC.
[2016-09-05] MEDS: OMEPRAZOLE 20 MG CAPSULE PO SCH (06:11)
[2016-09-05] MEDS: METOCLOPRAMIDE 5mg TABLET PO SCH ×2 (06:11→11:43)
[2016-09-05] MEDS: INSULIN ASPART 100 UNIT/ML SQ SCH ×2 (07:45→12:18)
[2016-09-05] MEDS ORDERED: INSULIN ASPART 100 UNIT/ML SQ SCH ×3 (07:45→17:15)
--- NOTE | 2016-09-05 08:06 | PNPDOC ---
Subjective Date DATE: 09/05/16 TIME: 08:01 Subjective Breathing OK. Blood sugars are high after breakfast and lunch. Objective Vital Signs Vital Signs Vital Signs 09/04/16 09/04/16 09/04/16 09/04/16 20:23 21:41 21:41 21:41 Temp 99.0 Pulse 90 92 Resp 18 18 B/P 146/63 Pulse Ox 94 96 O2 Delivery Nasal Cannula Nasal Cannula O2 Flow Rate 3.00 3.00 09/05/16 09/05/16 09/05/16 09/05/16 00:00 03:10 03:11 03:18 Temp 98.3 Pulse 89 94 90 Resp 13 14 B/P 133/60 Pulse Ox 96 95 O2 Delivery Bi-pap O2 Flow Rate 3.00 09/05/16 09/05/16 09/05/16 04:38 05:07 07:44 Temp 98.2 98.0 Pulse 91 86 Resp 18 18 B/P 109/55 152/66 Pulse Ox 99 97 99 O2 Delivery Nasal Cannula Nasal Cannula Nasal Cannula O2 Flow Rate 3.50 3.00 3.00 Height (Feet): 5 Height (Inches): 0 Weight (Kilograms): 132.500 General General Nourishment: Well Nourished, Well Developed, Obese, Adult Eyes (Brief) Eyes Brief: FOUND: PERRL Neck (Brief) Neck Brief: NOT FOUND: adenopathy, thyromegaly Respiratory (Brief) Respiratory Brief: FOUND clear all collins Cardiovascular (Brief) Cardiac Brief: FOUND: regular rate, regular rhythm Abdomen (Brief) Abdominal Brief: FOUND: BS normo active x4, soft Integumentary(Brief) Integumentary Brief: FOUND: dry, warm Comments Left pretibial erythema and warmth. Neurologic(Brief) Neurological Brief: NOT FOUND: tremor Psychiatric(Brief) Psychiatric Brief: FOUND: alert, attentive, normal affect, oriented Laboratory Laboratory Laboratory Tests Test 09/04/16 10:15 09/04/16 12:23 09/04/16 13:56 09/04/16 20:13 Glucometer 256mg/dL (65-110) 130mg/dL (65-110) 158mg/dL (65-110) 216mg/dL (65-110) Test 09/05/16 04:07 09/05/16 06:07 Anion Gap 14MEQ/L (5-15) BUN/Creatinine Ratio 15RATIO (6-26) Blood Urea Nitrogen 20.0MG/DL (7-17) Calcium Level 9.1MG/DL (8.4-10.2) Calculated Osmolality 281MOSM/KG (261-280) Carbon Dioxide Level 35MEQ/L (22-30) Chloride Level 94MEQ/L (98-107) Creatinine 1.3MG/DL (0.7-1.2) Glomerular Filtration Rate Calc 41 Glucose Level 144MG/DL (65-110) Potassium Level 3.8MEQ/L (3.6-5) Sodium Level 143MEQ/L (134-144) Glucometer 145mg/dL (65-110) Laboratory Tests Test 09/04/16 10:15 09/04/16 12:23 09/04/16 13:56 09/04/16 20:13 Glucometer 256mg/dL (65-110) 130mg/dL (65-110) 158mg/dL (65-110) 216mg/dL (65-110) Test 09/05/16 04:07 09/05/16 06:07 Turbidity < 20 (0-20) Sodium Level 143MEQ/L (134-144) Potassium Level 3.8MEQ/L (3.6-5) Chloride Level 94MEQ/L (98-107) Carbon Dioxide Level 35MEQ/L (22-30) Anion Gap 14MEQ/L (5-15) Blood Urea Nitrogen 20.0MG/DL (7-17) Creatinine 1.3MG/DL (0.7-1.2) Glomerular Filtration Rate Calc 41 BUN/Creatinine Ratio 15RATIO (6-26) Glucose Level 144MG/DL (65-110) Calculated Osmolality 281MOSM/KG (261-280) Calcium Level 9.1MG/DL (8.4-10.2) Icterus Index < 2 (0-7) Chemistry Specimen Hemolysis < 15 (0-25) Glucometer 145mg/dL (65-110) Assessment & Plan Problems: (1) Type II diabetes mellitus, uncontrolled Status: Chronic Assessment & Plan: Glucose rising after breakfast and supper. Will increase Novolog another 10% for those meals. (2) Hypothyroidism Status: Chronic Assessment & Plan: Clinically and chemically euthyroid. Continue same Synthroid. REYNOLDS,JOSÉ MIGUEL M MD September 05, 2016 08:04
[2016-09-05] MEDS: NYSTATIN 500,000 units/5ml Susp UD PO SCH ×2 (08:15→13:06)
[2016-09-05] MEDS: LEVOTHYROXINE 25 MCG TABLET PO SCH (08:16)
[2016-09-05] MEDS: SPIRONOLACTONE 25 MG TABLET PO SCH (08:16)
[2016-09-05] MEDS: BENZONATATE 200 MG CAPSULE PO SCH ×2 (08:16→15:20)
[2016-09-05] MEDS: CARVEDILOL 12.5 MG TABLET PO SCH (08:16)
[2016-09-05] MEDS: APIXABAN 5 MG TABLET PO SCH (08:16)
[2016-09-05] MEDS: AMLODIPINE 10 MG TABLET PO SCH (08:16)
[2016-09-05] MEDS: CLINDAMYCIN 300 MG CAPSULE PO SCH ×2 (08:16→15:20)
[2016-09-05] MEDS: POTASSIUM CHLORIDE 20 MEQ TABLET PO SCH (08:17)
[2016-09-05] MEDS: POLYETHYL.GLYCOL 3350 PACKET 17gm PO SCH (08:17)
[2016-09-05] MEDS: PITAVASTATIN 2 MG PO SCH (08:18)
[2016-09-05] MEDS: CLOTRIMAZOLE TOP SCH (08:19)
[2016-09-05] MEDS: BETAMETHASONE TOP SCH (08:19)
--- NOTE | 2016-09-05 10:00 | DI ---
Indication: ITS.REASON: CHF CHEST, PA LATERAL: Comparison: 08/31/2016 Technique: PA and lateral chest Findings: Patient shows slight decrease in the heart size. Central vascularity is unremarkable. Mediastinum is not widened. Lungs currently are clear. No acute bony findings are seen. Patient does show numerous vascular clips in the left upper quadrant of the abdomen. Impression: No acute cardiopulmonary findings seen .
[2016-09-05] MEDS: INSULIN REGULAR 100 UNIT/ML SQ PRN ×2 (10:25→14:03)
[2016-09-05] MEDS: ALLOPURINOL 300 MG TABLET PO SCH (11:43)
--- NOTE | 2016-09-05 13:47 | PNPDOC ---
AMELIA ZARAGOZA UPPER TRIMMER 09/05/16 1344: Subjective Date DATE: 09/05/16 TIME: 13:40 Subjective Fabio is in her room with her Corey. She denies cardiac complaints, she is struggling with the fluid restriction as she has always been a drinker. Recommend dietary consult for further education of salt and fluid restriction. Patient and agree, as does Dr. Villa. Objective Vital Signs Vital signs Vital Signs 09/05/16 09/05/16 09/05/16 09/05/16 03:10 03:11 03:18 04:38 Temp 98.2 Pulse 94 90 91 Resp 14 18 B/P 109/55 Pulse Ox 95 99 O2 Delivery Nasal Cannula O2 Flow Rate 3.50 09/05/16 09/05/16 09/05/16 09/05/16 05:07 07:44 08:09 09:21 Temp 98.0 Pulse 86 86 Resp 18 18 14 B/P 152/66 Pulse Ox 97 99 98 O2 Delivery Nasal Cannula Nasal Cannula O2 Flow Rate 3.00 3.00 09/05/16 09/05/16 09:22 09:26 Pulse 87 89 Telemetry Rhythm: V-Tachycardia (short burst x 1), Atrial Fibrillation Height (Feet): 5 Height (Inches): 0 Weight (Kilograms): 132.500 General Alert, Obese, Orientated x 3, Cooperative, No Acute Distress ENMT (Brief) mucosa moist Neck (Brief) NOT FOUND: JVD, carotid bruits Respiratory (Brief) equal bilaterally, wheezes, NOT FOUND: clear all collins, rales Cardiovascular (Brief) pedal edema (L > R), NOT FOUND: click, gallop, murmur, regular rate, regular rhythm, rub Abdomen (Brief) BS normo active x4 Integumentary (Brief) dry, pink, warm Psychiatric (Brief) alert, attentive, oriented Laboratory Laboratory Laboratory Tests Test 09/03/16 14:15 09/03/16 19:55 09/04/16 04:38 09/04/16 06:08 Glucometer 136mg/dL 149mg/dL 177mg/dL White Blood Count 10.5T/MM3 Red Blood Count 3.77M/MM3 Hemoglobin 9.3GM/DL Hematocrit 32.6% Mean Corpuscular Volume 86.5UM3 Mean Corpuscular Hemoglobin 24.7UUG Mean Corpuscular Hemoglobin Concent 28.5GM/DL RDW Standard Deviation 58.0FL Platelet Count 397T/MM3 Mean Platelet Volume 10.0UM3 Immature Granulocyte % (Auto) 0.5% Neutrophils (%) (Auto) 51.5% Lymphocytes (%) (Auto) 37.5% Monocytes (%) (Auto) 6.8% Eosinophils (%) (Auto) 3.3% Basophils (%) (Auto) 0.4% Absolute Immature Granulocyte (auto 0.05T/MM3 Absolute Neutrophils (auto) 5.4T/MM3 Absolute Lymphocytes (auto) 3.9T/MM3 Absolute Monocytes (auto) 0.7T/MM3 Absolute Eosinophils (auto) 0.4T/MM3 Absolute Basophils (auto) 0.0T/MM3 Turbidity < 20 Sodium Level 140MEQ/L Potassium Level 3.7MEQ/L Chloride Level 92MEQ/L Carbon Dioxide Level 35MEQ/L Anion Gap 13MEQ/L Blood Urea Nitrogen 22.0MG/DL Creatinine 1.2MG/DL Glomerular Filtration Rate Calc 45 BUN/Creatinine Ratio 18RATIO Glucose Level 187MG/DL Calculated Osmolality 277MOSM/KG Calcium Level 9.2MG/DL Phosphorus Level 3.7MG/DL Icterus Index < 2 Albumin 3.8G/DL Chemistry Specimen Hemolysis < 15 Test 09/04/16 10:15 09/04/16 12:23 09/04/16 13:56 09/04/16 20:13 Glucometer 256mg/dL 130mg/dL 158mg/dL 216mg/dL Test 09/05/16 04:07 09/05/16 06:07 09/05/16 10:17 Turbidity < 20 Sodium Level 143MEQ/L Potassium Level 3.8MEQ/L Chloride Level 94MEQ/L Carbon Dioxide Level 35MEQ/L Anion Gap 14MEQ/L Blood Urea Nitrogen 20.0MG/DL Creatinine 1.3MG/DL Glomerular Filtration Rate Calc 41 BUN/Creatinine Ratio 15RATIO Glucose Level 144MG/DL Calculated Osmolality 281MOSM/KG Calcium Level 9.1MG/DL Icterus Index < 2 Chemistry Specimen Hemolysis < 15 Glucometer 145mg/dL 198mg/dL Laboratory Tests 09/05/16 04:07 Medications Current Medications Albuterol/ Ipratropium 3 ml 3 ml O ONCE AEROSOL Last administered on 16:17; Start 08/24/16 at 16:15; Stop 08/24/16 at 16:16; Status DC Ceftriaxone Sodium/Sodium Chloride (Rocephin/NS) 100 ml @ 100 mls/hr O ONCE IV Last administered on 08/24/16 17:09; Start 08/24/16 at 17:00; Stop at 17:59; Status DC Glucose (Glutose 15) 37.5 g PRN PRN PO HYPOGLYCEMIA; Start 08/24/16 at 18:15 Dextrose (D50w) 25 ml PRN PRN IV HYPOGLYCEMIA; Start 08/24/16 at 18:15 Insulin Human Regular (Novolin R) SS PRN SQ Last administered on 09/05/16 10 :25; Start 08/24/16 at 18:15 Furosemide (Lasix) 80 mg Q8HR IV Last administered on 08/30/16 08:56; Start 08/25/16 at 01:00; Stop 08/30/16 at 11:04; Status DC Albuterol/ Ipratropium (Duoneb) 3 ml Q6HR AEROSOL Last administered on 09:21; Start 08/24/16 at 21:00 Spironolactone (Aldactone) 12.5 mg DAILY PO Last administered on 09/05/16 08: 16; Start 08/25/16 at 09:00 Acetaminophen (Tylenol Extra Strength) 1,000 mg Q8H PRN PO PAIN Last administered on 08/26/16 20:04; Start 08/24/16 at 18:30 Benzonatate (TESSALON PERLES 100 mg) 200 mg TID PO Last administered on 21:20; Start 08/24/16 at 21:00; Stop 08/29/16 at 07:29; Status DC Clotrimazole (Lotrisone) 1 applic BID TOP Last administered on 09/02/16 21:27; Start 08/24/16 at 21:00 Acetaminophen/ Hydrocodone Bitart ([place] 10/325) 2 tab Q6H PRN PO PAIN Last administered on 09/04/16 22:00; Start 08/24/16 at 18:30 Levothyroxine Sodium (Synthroid) 25 mcg DAILY PO Last administered on 08:16; Start 08/25/16 at 09:00 Metoclopramide HCl (Reglan) 5 mg ACHS PO Last administered on 09/05/16 11:43; Start 08/24/16 at 22:00 Omeprazole (Prilosec) 20 mg ACB PO Last administered on 09/05/16 06:11; Start 08/25/16 at 06:30 Pramipexole Dihydrochloride (Mirapex) 0.25 mg HS PO Last administered on 22:01; Start 08/24/16 at 22:00 Amitriptyline HCl (Elavil) 25 mg HS PO Last administered on 09/04/16 22:01; Start 08/25/16 at 22:00 Apixaban (Eliquis) 5 mg BID PO Last administered on 09/05/16 08:16; Start 08/25 at 21:00 Aspirin (Ecotrin) 81 mg DAILY PO Last administered on 09/02/16 08:06; Start 08/26/16 at 09:00; Stop 09/02/16 at 08:35; Status DC Diltiazem HCl (Cardizem Cd) 180 mg DAILY PO Last administered on 09/02/16 08:07 ; Start 08/26/16 at 09:00; Stop 09/02/16 at 08:42; Status DC Gabapentin (Neurontin) 600 mg HS PO Last administered on 09/04/16 22:01; Start 08/25/16 at 22:00 Allopurinol (ZYLOPRIM 300 mg) 300 mg NOON PO Last administered on 09/05/16 11: 43; Start 08/26/16 at 12:00 Cyclobenzaprine HCl (Flexeril) 10 mg TID PRN PO PRN ORDERS Last administered on 09/02/16 21:25; Start 08/25/16 at 18:00 Doxycycline Hyclate (Vibramycin) 100 mg BIDWM PO Last administered on 08/28/16 08:05; Start 08/26/16 at 08:00; Stop 08/31/16 at 13:12; Status DC Hydromorphone HCl 0.5 mg 0.5 mg Q2H PRN IV Last administered on 09/04/16 02: 56; Start 08/27/16 at 07:00; Stop 09/04/16 at 12:03; Status DC Piperacillin Sod/ Tazobactam Sod/ Sodium Chloride (Zosyn/NS) 100 ml @ 200 mls/ hr Q6HR IV Last administered on 08/31/16 09:15; Start 08/27/16 at 09:00; Stop at 13:12; Status DC Iohexol 1 bottle 1 bottle STK-MED ONCE .ROUTE ; Start 08/28/16 at 10:08; Stop 08/28/16 at 10:09; Status DC Sodium Chloride (NS) 100 ml @ As Directed STK-MED ONCE .ROUTE ; Start 08/28/16 at 10:08; Stop 08/28/16 at 10:09; Status DC Potassium Chloride (Kdur) 20 meq TIDWM PO Last administered on 08/30/16 08:49; Start 08/29/16 at 08:00; Stop 08/30/16 at 11:08; Status DC Benzonatate (TESSALON PERLES 200 mg) 200 mg TID PO Last administered on 08:16; Start 08/29/16 at 09:00 Prednisone (PredniSONE) 5 mg WB PO Last administered on 09/03/16 08:07; Start 08/30/16 at 08:00; Stop 09/03/16 at 16:47; Status DC Bumetanide (BUMEX INJ 1 mg/ 4 ml) 2 mg Q8HR IV Last administered on 09/01/16 08 :19; Start 08/30/16 at 17:00; Stop 09/01/16 at 17:01; Status DC Potassium Chloride 40 meq 40 meq BIDWM PO Last administered on 09/05/16 08:17 ; Start 08/30/16 at 17:30 Ceftriaxone Sodium 1 g/Sodium Chloride 100 ml @ 200 mls/hr BID IV Last administered on 09/03/16 08:07; Start 08/31/16 at 21:00; Stop 09/03/16 at 16:47 ; Status DC Clindamycin HCl/ Dextrose (CLEOCIN 600 mg in D5W 50 mL) 50 ml @ 100 mls/hr Q6HR IV Last administered on 09/01/16 15:06; Start 08/31/16 at 15:00; Stop at 17:50; Status DC Sodium Chloride (Iv Flush) 10 ml STK-MED ONCE IVF ; Start 09/01/16 at 15:07; Stop 09/01/16 at 15:08; Status DC Bumetanide (Bumex Inj. 2.5 Mg/10 ml) 2 mg Q8HR IV Last administered on 08:17; Start 09/01/16 at 17:00 Clindamycin HCl (Cleocin) 600 mg TID PO Last administered on 09/05/16 08:16; Start 09/01/16 at 21:00 Non-Formulary Medication 60 unit HS SQ Last administered on 09/04/16 22:08; Start 09/02/16 at 22:00 Amlodipine Besylate (Norvasc) 10 mg DAILY PO Last administered on 09/05/16 08: 16; Start 09/03/16 at 09:00 Carvedilol (Coreg) 6.25 mg O ONCE PO ; Start 09/02/16 at 08:45; Stop 09/02/16 at 08:46; Status Cancel Nystatin (Nystatin Susp.) 5 ml QID PO Last administered on 09/05/16 13:06; Start 09/02/16 at 13:00; Stop 09/12/16 at 12:59 Heparin Sodium/ Sodium Chloride (HEPARIN 1,000units in NS 500ml) 1,000 unit STK- MED ONCE IV ; Start 09/03/16 at 10:47; Stop 09/03/16 at 10:48; Status DC Lidocaine HCl (Xylocaine 1%) 300 mg STK-MED ONCE .ROUTE ; Start 09/03/16 at 10: 47; Stop 09/03/16 at 10:48; Status DC Iodixanol (Visipaque) 1 bottle STK-MED ONCE IV ; Start 09/03/16 at 10:47; Stop 09/03/16 at 10:48; Status DC Fentanyl (Fentanyl) 100 mcg STK-MED ONCE .ROUTE ; Start 09/03/16 at 12:17; Stop 09/03/16 at 12:18; Status DC Midazolam HCl (Versed) 2 mg STK-MED ONCE .ROUTE ; Start 09/03/16 at 12:17; Stop 09/03/16 at 12:18; Status DC Verapamil HCl (Verapamil) 5 mg STK-MED ONCE IV ; Start 09/03/16 at 12:17; Stop 09/03/16 at 12:18; Status DC Nitroglycerin (Nitroglycerin) 50 mg STK-MED ONCE IV ; Start 09/03/16 at 12:18; Stop 09/03/16 at 12:19; Status DC Heparin Sodium (Porcine) (Heparin Bolus) 10,000 unit STK-MED ONCE IV ; Start 02/10 at 12:18; Stop 09/03/16 at 12:19; Status DC Sodium Chloride 10 ml 10 ml STK-MED ONCE .ROUTE ; Start 09/03/16 at 12:18; Stop 09/03/16 at 12:19; Status DC Sodium Chloride (Normal Saline IV) 1,000 ml @ As Directed STK-MED ONCE .ROUTE ; Start 09/03/16 at 12:30; Stop 09/03/16 at 12:31; Status DC Atropine Sulfate (ATROPINE 1mg INJ) 0.5 mg Q5M PRN IV pulse < 40 bmp AND symptomatic; Start 09/03/16 at 13:00 Acetaminophen (Tylenol Regular Strength) 325-650 mg Q5H PRN PO PAIN; Start 02/10 at 13:00; Stop 09/04/16 at 12:03; Status DC Morphine Sulfate (Morphine) 2-4 mg Q5MIN PRN IV ANGINA; Start 09/03/16 at 13:00 ; Stop 09/04/16 at 12:03; Status DC Acetaminophen/ Hydrocodone Bitart ([place] 5/325) 1-2 tabs Q5H PRN PO PAIN; Start 09/03/16 at 13:00; Stop 09/03/16 at 16:47; Status DC Promethazine HCl (Phenergan) 12.5-25 mg Q6H PRN IV NAUSEA &/OR VOMITING; Start 09/03/16 at 13:00 Nitroglycerin (Nitrostat) 0.4 mg Q5MIN PRN SL ANGINA; Start 09/03/16 at 13:00 Magnesium Hydroxide (Mom) 30 ml DAILY PRN PO CONSTIPATION; Start 09/03/16 at 13 :00 Bisacodyl (Dulcolax) 5-10 mg DAILY PRN PO CONSTIPATION; Start 09/03/16 at 13:00 Al Hydroxide/Mg Hydroxide (Maalox) 30 ml Q3H PRN PO INDIGESTION; Start at 13:00 Lorazepam (Ativan) 0.5-1 mg Q4H PRN IV ANXIETY; Start 09/03/16 at 13:00 Metoclopramide HCl (REGLAN Inj) 5-10 mg Q6H PRN IV NAUSEA &/OR VOMITING; Start 09/03/16 at 13:00; Stop 09/03/16 at 16:47; Status DC Ondansetron HCl (Zofran) 4 mg Q6H PRN IV NAUSEA &/OR VOMITING; Start 09/03/16 at 13:00 Hydromorphone HCl (Dilaudid) 0.5 mg Q4HR PRN IV ; Start 09/04/16 at 12:00 Polyethylene Glycol (Miralax) 17 g DAILY PO Last administered on 09/05/16t 08: 17; Start 09/04/16 at 12:00 Insulin Aspart (Novolog) 27 unit 1715 SQ ; Start 09/05/16 at 17:15 Sepsis Diagnostic Criteria Sepsis Confirmed/Suspected Infection: Yes SIRS Criteria: Temp<=96.8 or >=100.4, WBC >=12,000 or <=4,000, Plasma CRP>2 above normal Assessment & Plan Problems: (1) V-tach Status: Acute Assessment & Plan: Had short burst of Vtach; was asymptomatic; potassium was slightly low which could have contributed to arrhythmia; continue to monitor closely. (2) Atrial fibrillation Status: Chronic Qualifiers: Atrial fibrillation type: chronic Qualified Codes: I48.2 - Chronic atrial fibrillation Assessment & Plan: attempted DCCV 09/01/16 X2 without success, Amiodarone is contraindicated due to lung disease. Anticoagulated with Eliquis, stop aspirin (3) Diastolic heart failure Status: Acute Qualifiers: Heart failure chronicity: acute on chronic Qualified Codes: I50.33 - Acute on chronic diastolic (congestive) heart failure Assessment & Plan: Echo showed EF of 50%. Has significant edema; continue diuresis; monitor renal and lytes. (4) Hyperlipidemia Status: Chronic Qualifiers: Hyperlipidemia type: unspecified Qualified Codes: E78.5 - Hyperlipidemia, unspecified (5) Diabetes Status: Chronic (6) Hypertension Status: Chronic Qualifiers: Hypertension type: essential hypertension Qualified Codes: I10 - Essential (primary) hypertension (7) Chronic kidney disease (CKD), stage III (moderate) Status: Chronic (8) Morbid obesity with BMI of 45.0-49.9, adult Status: Chronic (9) Bronchiectasis Status: Chronic (10) Cellulitis of left lower extremity Status: Acute Plan/Intensity of Service 08/31/16 Had short burst of Vtach; was asymptomatic; potassium was slightly low which could have contributed to arrhythmia; continue to monitor closely. Obtain records from [facility] regarding previous testing. Obtain echo. is in Afib with controlled rate. Continue bumex, potassium, asa, cardizem, eliquis and spironolactone. 09/02/16 attempted DCCV 09/01/16 X2 without success, Amiodarone is contraindicated due to lung disease. Anticoagulated with Eliquis, stop aspirin. Beginning tomorrw stop diltiazem and start Amlodipine 10mg daily,and increase Coreg to 12.5mg (todays meds already given per nursing) 09/03/16 Left heart cath, see report above 09/04/16 Discussed fluid restriction and sodium restriction with patient and . We will manage her diuresis after discharge. Patient states understanding of importance of daily weights and diet restrictions. 09/05/16 Still struggling with importance of fluid restriction. Recommend dietary consult for further education of salt and fluid restriction. NUSRAT LUNA MD 09/08/16 1208: Assessment & Plan Plan/Intensity of Service After examining the patient I agree with the above assessment. I am involved in the formulation of the patient's plan of care. AMELIA ZARAGOZA APRN September 05, 2016 13:44 NUSRAT LUNA MD September 08, 2016 12:08
--- NOTE | 2016-09-05 14:38 | NUR ---
HANNA FERREIRA FAXED HOME HEALTH ORDERS TO [facility].
[2016-09-05] MEDS ORDERED: CLIN300C86 PO (15:14)
[2016-09-05] MEDS ORDERED: CEPH-583 PO (15:14)
[2016-09-05] MEDS ORDERED: SPIR25TA PO (15:14)
[2016-09-05] MEDS ORDERED: NYST5ORA7 PO (15:14)
[2016-09-05] MEDS ORDERED: BUME1TAB17 PO (15:14)
[2016-09-05] MEDS ORDERED: CARV12.5 PO (15:14)
[2016-09-05] MEDS ORDERED: AMLO10TA2 PO (15:14)
[2016-09-05] MEDS ORDERED: LACT1CAP58 PO (15:25)
[2016-09-05] MEDS ORDERED: INSU100I24 SQ (15:33)
[2016-09-05] MEDS ORDERED: INSU100V13 SQ ×3 (15:33)
--- NOTE | 2016-09-05 16:01 | NUR ---
Dietary Consult R/T [id number] mg sodium diet with [address] met with pt and regarding 1500 - 2000 mg sodium diet with 1800 ml fluid restriction Pt states she knows she needs to take this seriously. Pt states this is why I ended up here again. Pt reports her has been starting to do more cooking at home. states he bought No Salt Added canned vegetables recently. showed interest in cooking suggestions and how to season with herbs and spices. Pt states she usually drinks diet coke or diet ICE flavored water. RD provided and reviewed handouts from [facility] manual on 1500 mg - 2000 mg sodium diet, Salt free flavoring tips, shopping tips for cardiac pts and a conversion guide and schedule to follow for the 1800 ml fluid restriction. Pt and verbalized understanding and willingness to follow RD provided contact information for questions. RD available at ext [phone]
--- NOTE | 2016-09-05 16:07 | DSPDOC ---
CAMMY DEE ELECTRONIC SYSTEMS SECURITY ASSESSMENT 09/05/16 1538: General Date Date DATE: 09/05/16 TIME: 15:26 Attending Physician Niya Villa MD Admitting Physician Niya Villa MD Consulting Physician Carlos Luna MD Admitting Diagnosis CHF exacerbation Discharge Diagnosis Left lower extremity cellulitis. Systolic CHF. Nonsustained V. tach, with preceding mild hypokalemia. Chronic atrial fibrillation. Obstructive sleep apnea on BiPAP. Chronic kidney disease stage III Procedures Echocardiogram 09/01/16 1. Technically difficult study. 2. Grossly, LV function at the lower limits of normal with ejection fraction of about 50%. However, all baldwin were not visualized. 3. Mitral annulus calcification with mild mitral regurgitation. 4. Aortic sclerosis. 5. Mild tricuspid regurgitation with mild pulmonary hypertension with estimated pulmonary artery systolic pressure of 38. 6. Mild pulmonary insufficiency. 7. Biatrial dilation. 8. Concentric left ventricular hypertrophy. Cardioversion 09/01/16: Unsuccessful attempt to cardiovert atrial fibrillation to sinus rhythm Cardiac catheterization 09/03/16 IMPRESSION 1. Mild to moderate coronary artery disease as described above. 2. Apical hypokinesia with ejection fraction of about 55%. 3. 15-20 mm of gradient across the aortic valve. PLAN Will continue medical management for coronary artery disease. Will review the echocardiogram for further evaluation of the aortic valve. Laboratory Laboratory Tests Test 09/04/16 04:38 09/04/16 06:08 09/04/16 10:15 09/04/16 12:23 White Blood Count 10.5T/MM3 (4.5-11.0) Red Blood Count 3.77M/MM3 (4.00-5.20) Hemoglobin 9.3GM/DL (12-16) Hematocrit 32.6% (36-46) Mean Corpuscular Volume 86.5UM3 (80-100) Mean Corpuscular Hemoglobin 24.7UUG (26-34) Mean Corpuscular Hemoglobin Concent 28.5GM/DL (31-37) RDW Standard Deviation 58.0FL (36.9-50.2) Platelet Count 397T/MM3 (130-400) Mean Platelet Volume 10.0UM3 (9.4-12.4) Immature Granulocyte % (Auto) 0.5% (0.0-0.5) Neutrophils (%) (Auto) 51.5% (33-66) Lymphocytes (%) (Auto) 37.5% (23-45) Monocytes (%) (Auto) 6.8% (0-9.0) Eosinophils (%) (Auto) 3.3% (0-4) Basophils (%) (Auto) 0.4% (0-2) Absolute Immature Granulocyte (auto 0.05T/MM3 (0.00-0.03) Absolute Neutrophils (auto) 5.4T/MM3 (1.8-7.7) Absolute Lymphocytes (auto) 3.9T/MM3 (1-4.8) Absolute Monocytes (auto) 0.7T/MM3 (0-0.8) Absolute Eosinophils (auto) 0.4T/MM3 (0-0.5) Absolute Basophils (auto) 0.0T/MM3 (0-0.2) Turbidity < 20 (0-20) Sodium Level 140MEQ/L (134-144) Potassium Level 3.7MEQ/L (3.6-5) Chloride Level 92MEQ/L (98-107) Carbon Dioxide Level 35MEQ/L (22-30) Anion Gap 13MEQ/L (5-15) Blood Urea Nitrogen 22.0MG/DL (7-17) Creatinine 1.2MG/DL (0.7-1.2) Glomerular Filtration Rate Calc 45 BUN/Creatinine Ratio 18RATIO (6-26) Glucose Level 187MG/DL (65-110) Calculated Osmolality 277MOSM/KG (261-280) Calcium Level 9.2MG/DL (8.4-10.2) Phosphorus Level 3.7MG/DL (2.5-4.5) Icterus Index < 2 (0-7) Albumin 3.8G/DL (3.5-5.0) Chemistry Specimen Hemolysis < 15 (0-25) Glucometer 177mg/dL (65-110) 256mg/dL (65-110) 130mg/dL (65-110) Test 09/04/16 13:56 09/04/16 20:13 09/05/16 04:07 09/05/16 06:07 Glucometer 158mg/dL (65-110) 216mg/dL (65-110) 145mg/dL (65-110) Turbidity < 20 (0-20) Sodium Level 143MEQ/L (134-144) Potassium Level 3.8MEQ/L (3.6-5) Chloride Level 94MEQ/L (98-107) Carbon Dioxide Level 35MEQ/L (22-30) Anion Gap 14MEQ/L (5-15) Blood Urea Nitrogen 20.0MG/DL (7-17) Creatinine 1.3MG/DL (0.7-1.2) Glomerular Filtration Rate Calc 41 BUN/Creatinine Ratio 15RATIO (6-26) Glucose Level 144MG/DL (65-110) Calculated Osmolality 281MOSM/KG (261-280) Calcium Level 9.1MG/DL (8.4-10.2) Icterus Index < 2 (0-7) Chemistry Specimen Hemolysis < 15 (0-25) Test 09/05/16 10:17 09/05/16 13:59 Glucometer 198mg/dL (65-110) 156mg/dL (65-110) Microbiology 2 sets of blood cultures were both negative after 5 days Radiology Chest x-ray on 08/24/16 showed worsening congestive failure, and serial chest x- rays revealed resolution of radiographic evidence of CHF. CT LOWER EXTREMITY LT 08/28/16 Diffuse subcutaneous edema throughout the left lower leg possibly representing a cellulitis. There is a more focal region of complexity in the lateral proximal to mid subcutaneous fat. This could represent subacute hematoma with or without infection or phlegmon/abscess. The fluid would be expected to be quite complex or thick based on the CT appearance. Inflammation and edema appears confined to the subcutaneous layer and does not appear to extend into the deeper fascial or muscular layers US VENOUS DUPLEX, LOWER EXT LT 09/02/16 No evidence for left lower extremity deep venous thrombosis. History of Present Illness This is a 71-year-old female who states that she has evolved worsening shortness of breath and swelling over the past 2 weeks. Patient was discharged from this facility roughly 2 weeks ago. States that she feels as though she has gained a pound a day. at bedside relates that she was 302 pounds when she was discharged and is now 314 pounds. Patient states that she has been taking her medications as prescribed. She denies any chest pain nausea vomiting or diaphoresis. She denies any abdominal pain, diarrhea or darker stools. She denies any dysuria or hematuria. She denies any fever chills or night sweats. She feels much better after receiving IV Lasix in the emergency department. Hospital Course The patient was admitted to the hospital on 08/24/16 and was treated with IV diuretics. Home doxycycline and prednisone taper were continued. She had a hematoma to her left leg, which was monitored initially, but became worse around August 27. Blood cultures were drawn and she was started on Zosyn. A CT scan was also obtained, showing cellulitis. While her respiratory status improved, she did not diuresis very quickly, and her diuretics were changed from Lasix to Bumex on 08/30/16. With the increase in diuresis, potassium decreased and her oral potassium was increased. There was little improvement in the cellulitis and antibiotics were changed to Rocephin and clindamycin on 08/31/16; Rocephin was discontinued on 09/03/16. A venous Doppler was negative for DVT. Coreg was initiated and later increased to 12.5 mg twice a day. She developed a short run of V. tach, and Dr. Luna was consulted. Mild hypokalemia was thought to precede the nonsustained V. tach. Her breathing worsened on 09/01/16 and her diuresis was increased to Bumex 2 mg every 8 hours plus spironolactone. Cardioversion was attempted but was unsuccessful. They recommended to stop Cardizem, and add amlodipine 10 mg daily. Heart catheterization was obtained, and medical management was recommended. Her weight gradually trended down. Her prednisone taper was completed during her hospital course. Leukocytosis persisted, thought to be secondary to steroids, but was normal on 09/04/16. Erythema to left lower extremity improved, but hematoma persisted and we expect to see a slow improvement. In regards to her poorly controlled type 2 diabetes, Dr. Em was consulted, and her insulin doses were adjusted numerous times. By 09/05/16, she was stable for discharge. She was A&O x3, lungs were coarse, heart irregular, Abd nontender, LLE erythemic with hematoma to left lateral calf noted. Dietary consult was requested to review heart healthy and low sodium diet. Her Don had already ordered books on this topic as well. She understands she will be sent home on a fluid restriction of 1800 ml/day. She was given the CHF zones educational handout and was instructed to monitor her weight everyday. Her insulin doses were adjusted to what Dr. Em recommended: NovoLog 36 units with breakfast, 25 units with lunch and 27 units with supper, and Tresiba 60 units at night. New Prescriptions include: Amlodipine 10 mg daily, Bumex 2 mg twice a day, Coreg 12.5 mg twice a day, Keflex 500 mg 4 times a day 7 days, clindamycin 600 mg 3 times a day 3 days, lactobacillus 3 times a day, nystatin 4 times a day for 10 days, Aldactone 25 mg daily. Discontinued medications include: Aspirin, Bumex 1 mg daily, diltiazem 180 mg, doxycycline, and prednisone. A follow-up appointment has been scheduled with Dr. Luna on 09/18/16 at 1:20 PM. She should also follow-up with Dr. Thomas in 1 week; she has an appointment with her sleep specialist in [place] on 10/16/16. She has been set up with home health, and also was enrolled in the right on track transitional program. Orders were discussed with Dr. Villa, the patient, and her . Questions were answered. Monitor for worsening edema while on amlodipine. This is a General Information patient's hospital course. For more details, please refer to the entire electronic medical record. Time spent in discharge: 60 minutes. Problems: (1) Cellulitis of left lower extremity Status: Acute (2) HFrEF (heart failure with reduced ejection fraction) Status: Chronic (3) NSVT (nonsustained ventricular tachycardia) Status: Acute Assessment & Plan: Short run NSVT on 08/30, mild preceding hypokalemia. (4) Severe sepsis Status: Resolved (5) Atrial fibrillation Status: Chronic (6) Obesity hypoventilation syndrome Status: Chronic (7) THOMAS on CPAP Status: Chronic Assessment & Plan: Recent conversion from CPAP to BiPAP per sleep medicine (8) Hypoxia Status: Chronic (9) IDDM (insulin dependent diabetes mellitus) Status: Chronic (10) Hypertension Status: Chronic (11) Mild pulmonary hypertension Status: Chronic (12) Hypothyroidism Status: Chronic (13) Hyperlipidemia Status: Chronic (14) Chronic kidney disease (CKD), stage III (moderate) Status: Chronic DVT Prophylaxis: other (Eliquis) Code Status Do Not Resuscitate Home Meds Active Scripts Insulin Degludec (Tresiba Flextouch U-100) 100 Unit/1 Ml Insuln.pen, 60 UNIT SQ HS for 30 Days, EACH Prov:CAMMY DEE APRN 09/05/16 Insulin Aspart (Novolog) 100 Unit/Ml Inj, 27 UNIT SQ 1715 for 10 Days Prov:CAMMY DEE APRN 09/05/16 Insulin Aspart (Novolog) 100 Unit/Ml Inj, 36 UNIT SQ 0745 for 10 Days Prov:CAMMY DEE APRN 09/05/16 Insulin Aspart (Novolog) 100 Unit/Ml Inj, 25 UNIT SQ WL for 10 Days Prov:CAMMY DEE APRN 09/05/16 Lactobacillus Rhamnosus GG (Culturelle) 1 Each Capsule, 1 CAP PO TIDWM for 30 Days, #90 CAP Prov:CAMMY DEE APRN 09/05/16 Clindamycin HCl (Clindamycin HCl) 300 Mg Capsule, 600 MG PO TID for 3 Days, #18 CAP Prov:CAMMY DEE APRN 09/05/16 Nystatin (Nystatin) 100,000 Unit/1 Ml Oral.susp, 5 ML PO QID for 10 Days Prov:CAMMY DEE APRN 09/05/16 Cephalexin (Keflex) 500 Mg Capsule, 1 CAP PO QID for 7 Days, #28 CAP Prov:CAMMY DEE APRN 09/05/16 Bumetanide (Bumetanide) 1 Mg Tablet, 2 MG PO BID. for 30 Days, #120 TAB Prov:CAMMY DEE APRN 09/05/16 Spironolactone (Aldactone) 25 Mg Tablet, 25 MG PO DAILY for 30 Days, #30 TAB Prov:CAMMY DEE APRN 09/05/16 Amlodipine Besylate (Amlodipine Besylate) 10 Mg Tablet, 10 MG PO DAILY for 30 Days, #30 TAB Prov:CAMMY DEE APRN 09/05/16 Carvedilol (Coreg) 12.5 Mg Tablet, 12.5 MG PO BIDWM for 30 Days, #60 TAB Prov:CAMMY DEE APRN 09/05/16 Reported Medications Benzonatate (Benzonatate) 100 Mg Capsule, 200 MG PO TID 08/24/16 Acetaminophen (Acetaminophen) 500 Mg Tablet, 1000 MG PO Q8H Y for PAIN 08/19/16 Magnesium Hydroxide (Milk of Magnesia) 400 Mg/5 Ml Oral.susp, 30 ML PO DAILY Y for CONSTIPATION 08/19/16 Potassium Chloride (Potassium Chloride) 20 Meq Tablet.er, 20 MEQ PO BIDWM 08/19/16 Melatonin (Melatonin) 5 Mg Tablet, 15 MG PO HS 08/19/16 Levothyroxine Sodium (Levothyroxine Sodium) 25 Mcg Tablet, 25 MCG PO DAILY 08/19/16 Hydrocodone/Acetaminophen ([place] 10-325 Tablet) 10-325 Tablet, 2 TAB PO Q6H Y for PAIN 08/19/16 Polyethylene Glycol 3350 (Polyethylene Glycol 3350) 255 Gm Powder, 17 GM PO DAILY 08/11/16 Miconazole Nitrate (Zeasorb) 71 Gm Powder, 1 APPLIC TOP BID Y for RASH 08/11/16 Apixaban (Eliquis) 5 Mg Tablet, 5 MG PO BID 08/11/16 Pitavastatin Calcium (Livalo) 2 Mg Tablet, 2 MG PO DAILY 07/14/16 Clotrimazole/Betamethasone Dip (Clotrimazole-Betamethasone Crm) 15 Gm Cream..g. , 1 APPLIC TOP BID, G 07/14/16 Pramipexole Di-HCl (Pramipexole Dihydrochloride) 0.25 Mg Tablet, 0.25 MG PO HS 02/24/16 Ipratropium/Albuterol Sulfate (Iprat-Albut 0.5-3(2.5) mg/3 ml) 3 Ml Ampul.neb, 1 VIAL AEROSOL QID Y for PRN ORDERS 02/24/16 Glucagon,Human Recombinant (Glucagon Emergency Kit) 1 Mg/Kit Syringe, 1 MG INJ PRN 02/24/16 Gabapentin (Gabapentin) 300 Mg Capsule, 600 MG PO HS 02/24/16 Amitriptyline HCl (Amitriptyline HCl) 25 Mg Tablet, 25 MG PO HS 02/24/16 Albuterol Sulfate (Proair HFA 90 mcg/actuation) 8.5 Gm Hfa.aer.ad, 2 PUFF INH QID Y for WHEEZING 02/24/16 Fluticasone/Salmeterol (Advair 250-50 Diskus) 1 Disk W/Dev Inhaler, 2 PUFF INH BID 01/17/14 Omeprazole (Omeprazole) 20 Mg Tablet.dr, 20 MG PO ACB 01/17/14 Allopurinol (Allopurinol) 300 Mg Tablet, 300 MG PO NOON 05/22/13 Cyclobenzaprine Hcl (Cyclobenzaprine Hcl) 10 Mg Tablet, 10 MG PO TID Y for PRN ORDERS 05/22/13 Metoclopramide Hcl (Metoclopramide Hcl) 5 Mg Tablet, 5 MG PO ACHS 05/29/10 Discontinued Reported Medications Prednisone (Prednisone) 20 Mg Tablet, 20 MG PO WB 08/19/16 Doxycycline Hyclate (Doxycycline Hyclate) 100 Mg Capsule, 100 MG PO BID 08/19/16 Diltiazem HCl (Cartia Xt) 180 Mg Capsule, 180 MG PO DAILY 08/19/16 Bumetanide (Bumetanide) 1 Mg Tablet, 1 MG PO DAILY 08/19/16 Aspirin *EC* (Aspirin EC) 81 Mg Tablet.dr, 81 MG PO DAILY 08/19/16 Face to Face Encounter I met with patient on the day of dismissal and discussed follow up appointments , medications, and safety plan. Discharge Disposition DC home with spouse, stable Copies To 1: CARLOS LUNA MD Copies To 2: LEANNE THOMAS MD Documentation Requirements Documenting Diagnosis BMI Low or High, CHF, Chronic Kidney Disease, SIRS, Diabetes CHF Type and Acuity Type of CHF: Systolic Acuity CHF: Acute on Chronic Chronic Kidney Disease Stage of CKD: Stage 3 GFR 30-59 BMI Low or High Assoc. dx for low or high BMI: Morbid obesity >40 SIRS SIRS due to: Infection Diabetes Diabetes Type: Type 2 Diabetes Is Diabetes Contolled?: Uncontolled Related to Diabetes: Not related to NIYA VILLA MD 09/05/16 1740: Hospital Course I have independently evaluated and examined this patient. I reviewed the chart, the patient's history, and the ELECTRONIC SYSTEMS SECURITY ASSESSMENT's documented findings as above. We discussed and formulated the assessment and plan as above with additions as below: Mrs. Campos was seen with her at the bedside. Discharge plans were reviewed with both Cammy and with cardiology. Fluid and salt restrictions reviewed with nutrition and with the patient/her . Patient reports that she isn't feeling as good today due to sensation of medications sticking in the lower esophagus which she attributes to fluid restriction. She continues to complain of her chest being "rattley" with minimal sputum production. Weight was down slightly today with reported weight of 136 kg although patient notes she was weighed on a different scale today than in the past. Breath sounds are slightly coarse anteriorly-left greater than right. Cardiac rhythm remains irregular. There is faint erythema the distal right lentz and slightly increased erythema on the left with no change in the proximal left calf hematoma. Laboratory data reviewed-renal function and electrolytes stable. Chest x-ray reviewed by myself and unremarkable without pleural effusion or increased vascular markings. Stable for discharge on medications as noted above. Multiple chronic medical problems. At high risk for rehospitalization. Primary discharge diagnosis: Acute on chronic diastolic heart failure (please note above indicates reduced function which is incorrect, EF-50%) Problems: (1) Diastolic heart failure Status: Acute Assessment & Plan: Acute on chronic; ejection fraction 50% (2) Cellulitis of left lower extremity Status: Acute (3) NSVT (nonsustained ventricular tachycardia) Status: Acute Assessment & Plan: Short run NSVT on 08/30, mild preceding hypokalemia. (4) Severe sepsis Status: Resolved (5) Atrial fibrillation Status: Chronic (6) Obesity hypoventilation syndrome Status: Chronic (7) THOMAS on CPAP Status: Chronic Assessment & Plan: Recent conversion from CPAP to BiPAP per sleep medicine (8) Hypoxia Status: Chronic (9) IDDM (insulin dependent diabetes mellitus) Status: Chronic (10) Hypertension Status: Chronic (11) Mild pulmonary hypertension Status: Chronic (12) Hypothyroidism Status: Chronic (13) Hyperlipidemia Status: Chronic (14) Chronic kidney disease (CKD), stage III (moderate) Status: Chronic (15) Hematoma of left lower extremity Status: Acute Assessment & Plan: Left calf Home Meds Active Scripts Insulin Degludec (Tresiba Flextouch U-100) 100 Unit/1 Ml Insuln.pen, 60 UNIT SQ HS for 30 Days, EACH Prov:CAMMY DEE APRN 09/05/16 Insulin Aspart (Novolog) 100 Unit/Ml Inj, 27 UNIT SQ 1715 for 10 Days Prov:CAMMY DEE APRN 09/05/16 Insulin Aspart (Novolog) 100 Unit/Ml Inj, 36 UNIT SQ 0745 for 10 Days Prov:CAMMY DEE APRN 09/05/16 Insulin Aspart (Novolog) 100 Unit/Ml Inj, 25 UNIT SQ WL for 10 Days Prov:CAMMY DEE APRN 09/05/16 Lactobacillus Rhamnosus GG (Culturelle) 1 Each Capsule, 1 CAP PO TIDWM for 30 Days, #90 CAP Prov:CAMMY DEE APRN 09/05/16 Clindamycin HCl (Clindamycin HCl) 300 Mg Capsule, 600 MG PO TID for 3 Days, #18 CAP Prov:CAMMY DEE ELECTRONIC SYSTEMS SECURITY ASSESSMENT 09/05/16 Nystatin (Nystatin) 100,000 Unit/1 Ml Oral.susp, 5 ML PO QID for 10 Days Prov:CAMMY DEE APRN 09/05/16 Cephalexin (Keflex) 500 Mg Capsule, 1 CAP PO QID for 7 Days, #28 CAP Prov:CAMMY DEE APRN 09/05/16 Bumetanide (Bumetanide) 1 Mg Tablet, 2 MG PO BID. for 30 Days, #120 TAB Prov:CAMMY DEE APRN 09/05/16 Spironolactone (Aldactone) 25 Mg Tablet, 25 MG PO DAILY for 30 Days, #30 TAB Prov:CAMMY DEE ELECTRONIC SYSTEMS SECURITY ASSESSMENT 09/05/16 Amlodipine Besylate (Amlodipine Besylate) 10 Mg Tablet, 10 MG PO DAILY for 30 Days, #30 TAB Prov:CAMMY DEE APRN 09/05/16 Carvedilol (Coreg) 12.5 Mg Tablet, 12.5 MG PO BIDWM for 30 Days, #60 TAB Prov:CAMMY DEE APRN 09/05/16 Reported Medications Benzonatate (Benzonatate) 100 Mg Capsule, 200 MG PO TID 08/24/16 Acetaminophen (Acetaminophen) 500 Mg Tablet, 1000 MG PO Q8H Y for PAIN 08/19/16 Magnesium Hydroxide (Milk of Magnesia) 400 Mg/5 Ml Oral.susp, 30 ML PO DAILY Y for CONSTIPATION 08/19/16 Potassium Chloride (Potassium Chloride) 20 Meq Tablet.er, 20 MEQ PO BIDWM 08/19/16 Melatonin (Melatonin) 5 Mg Tablet, 15 MG PO HS 08/19/16 Levothyroxine Sodium (Levothyroxine Sodium) 25 Mcg Tablet, 25 MCG PO DAILY 08/19/16 Hydrocodone/Acetaminophen ([place] 10-325 Tablet) 10-325 Tablet, 2 TAB PO Q6H Y for PAIN 08/19/16 Polyethylene Glycol 3350 (Polyethylene Glycol 3350) 255 Gm Powder, 17 GM PO DAILY 08/11/16 Miconazole Nitrate (Zeasorb) 71 Gm Powder, 1 APPLIC TOP BID Y for RASH 08/11/16 Apixaban (Eliquis) 5 Mg Tablet, 5 MG PO BID 08/11/16 Pitavastatin Calcium (Livalo) 2 Mg Tablet, 2 MG PO DAILY 07/14/16 Clotrimazole/Betamethasone Dip (Clotrimazole-Betamethasone Crm) 15 Gm Cream..g. , 1 APPLIC TOP BID, G 07/14/16 Pramipexole Di-HCl (Pramipexole Dihydrochloride) 0.25 Mg Tablet, 0.25 MG PO HS 02/24/16 Ipratropium/Albuterol Sulfate (Iprat-Albut 0.5-3(2.5) mg/3 ml) 3 Ml Ampul.neb, 1 VIAL AEROSOL QID Y for PRN ORDERS 02/24/16 Glucagon,Human Recombinant (Glucagon Emergency Kit) 1 Mg/Kit Syringe, 1 MG INJ PRN 02/24/16 Gabapentin (Gabapentin) 300 Mg Capsule, 600 MG PO HS 02/24/16 Amitriptyline HCl (Amitriptyline HCl) 25 Mg Tablet, 25 MG PO HS 02/24/16 Albuterol Sulfate (Proair HFA 90 mcg/actuation) 8.5 Gm Hfa.aer.ad, 2 PUFF INH QID Y for WHEEZING 02/24/16 Fluticasone/Salmeterol (Advair 250-50 Diskus) 1 Disk W/Dev Inhaler, 2 PUFF INH BID 01/17/14 Omeprazole (Omeprazole) 20 Mg Tablet.dr, 20 MG PO ACB 01/17/14 Allopurinol (Allopurinol) 300 Mg Tablet, 300 MG PO NOON 05/22/13 Cyclobenzaprine Hcl (Cyclobenzaprine Hcl) 10 Mg Tablet, 10 MG PO TID Y for PRN ORDERS 05/22/13 Metoclopramide Hcl (Metoclopramide Hcl) 5 Mg Tablet, 5 MG PO ACHS 05/29/10 Discontinued Reported Medications Prednisone (Prednisone) 20 Mg Tablet, 20 MG PO WB 08/19/16 Doxycycline Hyclate (Doxycycline Hyclate) 100 Mg Capsule, 100 MG PO BID 08/19/16 Diltiazem HCl (Cartia Xt) 180 Mg Capsule, 180 MG PO DAILY 08/19/16 Bumetanide (Bumetanide) 1 Mg Tablet, 1 MG PO DAILY 08/19/16 Aspirin *EC* (Aspirin EC) 81 Mg Tablet.dr, 81 MG PO DAILY 08/19/16 Copies To 1: CARLOS LUNA MD Copies To 2: LEANNE THOMAS MD Documentation Requirements CHF Type and Acuity Type of CHF: Diastolic Acuity CHF: Acute on Chronic CAMMY DEE APRN September 05, 2016 15:38 NIYA VILLA MD September 05, 2016 17:40
--- NOTE | 2016-09-05 16:44 | NUR ---
DISMISSAL PT DISMISSED TO HOME VIA WHEELCHAIR WITH . GO HOME INSTRUCTIONS GIVEN, PT DRESSED, IVL PULLED AND SCRIPTS CALLED TO [facility].
[2016-09-05] MEDS ORDERED: BUMETANIDE 1 MG TABLET PO SCH (17:00)
[2016-09-05] MEDS ORDERED: POTASSIUM CHLORIDE 20 MEQ TABLET PO SCH (17:30)
[2016-09-06] MEDS ORDERED: SPIRONOLACTONE 25 MG TABLET PO SCH (09:00)
--- NOTE | 2016-09-06 11:43 | PDONTRACK ---
Right on Track Program Date of Discharge September 05, 2016 at 16:00 Scheduled Allopurinol (Allopurinol), 300 MG PO NOON, (Reported) Amitriptyline HCl (Amitriptyline HCl), 25 MG PO HS, (Reported) Amlodipine Besylate (Amlodipine Besylate), 10 MG PO DAILY Apixaban (Eliquis), 5 MG PO BID, (Reported) Benzonatate (Benzonatate), 200 MG PO TID, (Reported) Bumetanide (Bumetanide), 2 MG PO BID. Carvedilol (Coreg), 12.5 MG PO BIDWM Cephalexin (Keflex), 1 CAP PO QID Clindamycin HCl (Clindamycin HCl), 600 MG PO TID Clotrimazole/Betamethasone Dip (Clotrimazole-Betamethasone Crm), 1 APPLIC TOP BID, (Reported) Fluticasone/Salmeterol (Advair 250-50 Diskus), 2 PUFF INH BID, (Reported) Gabapentin (Gabapentin), 600 MG PO HS, (Reported) Glucagon,Human Recombinant (Glucagon Emergency Kit), 1 MG INJ PRN, (Reported) Insulin Aspart (Novolog), 25 UNIT SQ WL Insulin Aspart (Novolog), 36 UNIT SQ 0745 Insulin Aspart (Novolog), 27 UNIT SQ 1715 Insulin Degludec (Tresiba Flextouch U-100), 60 UNIT SQ HS Lactobacillus Rhamnosus GG (Culturelle), 1 CAP PO TIDWM Levothyroxine Sodium (Levothyroxine Sodium), 25 MCG PO DAILY, (Reported) Melatonin (Melatonin), 15 MG PO HS, (Reported) Metoclopramide Hcl (Metoclopramide Hcl), 5 MG PO ACHS, (Reported) Nystatin (Nystatin), 5 ML PO QID Omeprazole (Omeprazole), 20 MG PO ACB, (Reported) Pitavastatin Calcium (Livalo), 2 MG PO DAILY, (Reported) Polyethylene Glycol 3350 (Polyethylene Glycol 3350), 17 GM PO DAILY, (Reported) Potassium Chloride (Potassium Chloride), 20 MEQ PO BIDWM, (Reported) Pramipexole Di-HCl (Pramipexole Dihydrochloride), 0.25 MG PO HS, (Reported) Spironolactone (Aldactone), 25 MG PO DAILY Scheduled PRN Acetaminophen (Acetaminophen), 1,000 MG PO Q8H PRN for PAIN, (Reported) Albuterol Sulfate (Proair HFA 90 mcg/actuation), 2 PUFF INH QID PRN for WHEEZING , (Reported) Cyclobenzaprine Hcl (Cyclobenzaprine Hcl), 10 MG PO TID PRN for PRN ORDERS, ( Reported) Hydrocodone/Acetaminophen ([place] 10-325 Tablet), 2 TAB PO Q6H PRN for PAIN, ( Reported) Ipratropium/Albuterol Sulfate (Iprat-Albut 0.5-3(2.5) mg/3 ml), 1 VIAL AEROSOL QID PRN for PRN ORDERS, (Reported) Magnesium Hydroxide (Milk of Magnesia), 30 ML PO DAILY PRN for CONSTIPATION, ( Reported) Miconazole Nitrate (Zeasorb), 1 APPLIC TOP BID PRN for RASH, (Reported) Discontinued Medications Aspirin *EC* (Aspirin EC), 81 MG PO DAILY, (Reported) Bumetanide (Bumetanide), 1 MG PO DAILY, (Reported) Diltiazem HCl (Cartia Xt), 180 MG PO DAILY, (Reported) Doxycycline Hyclate (Doxycycline Hyclate), 100 MG PO BID, (Reported) Prednisone (Prednisone), 20 MG PO WB, (Reported) Date: September 06, 2016 Right on Track Program: 24 Hour Follow-Up Discharge Summary Received: Yes Care Plan Received: Yes Follow up: Follow Up Appt. Scheduled Education: Diagnosis Ed. Review, Education to Sewer Repairer Referrals: Case Management Total LACE Score: 8 Comments I spoke to Fabio on 09/06/16. Her first night at home went well, except she didn't urinate as much as she thought she would after taking the Bumex last night. Her weight this morning was 299 and she's keeping a daily log. We reviewed the CHF zones instructions. She's working on the fluid restriction and the dietary changes. She saw that her insulin doses were lower and she denies any hypoglycemia. The only medication she had a question about was lactobacillus - we discussed the rationale and where to find it. I encouraged her to call if she had any questions. Home health will be over tomorrow am at 0800. Discussed w/pt and caregiver: Yes Recommendations for follow-up 1. F/U with Dr. Mello as planned on 09/18/16 2. F/U with Dr. Haider 3. Continue home health 4. Review CHF zones and dietary changes frequently 5. Continue to follow through [facility] Problems: (1) Hematoma of left lower extremity Status: Acute Assessment & Plan: Left calf (2) Cellulitis of left lower extremity Status: Acute (3) Diastolic heart failure Status: Acute Assessment & Plan: Acute on chronic; ejection fraction 50% (4) NSVT (nonsustained ventricular tachycardia) Status: Acute Assessment & Plan: Short run NSVT on 08/30, mild preceding hypokalemia. (5) Atrial fibrillation Status: Chronic (6) Obesity hypoventilation syndrome Status: Chronic (7) THOMAS on CPAP Status: Chronic Assessment & Plan: Recent conversion from CPAP to BiPAP per sleep medicine (8) IDDM (insulin dependent diabetes mellitus) Status: Chronic (9) Chronic kidney disease (CKD), stage III (moderate) Status: Chronic Copies To 1: NUSRAT MELLO MD; LEANNE HAIDER MD, KAREN D APRN September 06, 2016 11:36
== END 2016-09-05 16:00 | disposition home health service (06) | DRG 286 ==
LOC: ED 15:48 → EDHOLD 17:36 → MED 18:00 → OBSVTOIN 08-25 16:05 → SRG 09-03 13:15
PROVIDERS: ADMIT Internal Medicine; ATTEND Internal Medicine
PROC: 5A09357 Assistance with Respiratory Ventilation, Less than 24 Consecutive Hours, Continuous Positive Airway Pressure (ICD-10-PCS; 2016-08-25)
PROC: 5A2204Z Restoration of Cardiac Rhythm, Single (ICD-10-PCS; principal; 2016-09-01)
PROC: 4A023N7 Measurement of Cardiac Sampling and Pressure, Left Heart, Percutaneous Approach (ICD-10-PCS; 2016-09-03)
PROC: B211YZZ Fluoroscopy of Multiple Coronary Arteries using Other Contrast (ICD-10-PCS; 2016-09-03)
PROC: B215YZZ Fluoroscopy of Left Heart using Other Contrast (ICD-10-PCS; 2016-09-03)
DX: I13.0 Hypertensive heart and chronic kidney disease with heart failure and stage 1 through stage 4 chronic kidney disease, or unspecified chronic kidney disease (principal); I50.23 Acute on chronic systolic (congestive) heart failure; A41.9 Sepsis, unspecified organism; R65.20 Severe sepsis without septic shock; E66.2 Morbid (severe) obesity with alveolar hypoventilation; Z68.44 Body mass index [BMI] 60.0-69.9, adult; J96.10 Chronic respiratory failure, unspecified whether with hypoxia or hypercapnia; L03.116 Cellulitis of left lower limb; I47.2 Ventricular tachycardia; N18.3 Chronic kidney disease, stage 3 (moderate); E11.22 Type 2 diabetes mellitus with diabetic chronic kidney disease; E11.65 Type 2 diabetes mellitus with hyperglycemia; J47.9 Bronchiectasis, uncomplicated; S80.12XA Contusion of left lower leg, initial encounter; I48.91 Unspecified atrial fibrillation; E87.6 Hypokalemia; Z66 Do not resuscitate; I25.10 Atherosclerotic heart disease of native coronary artery without angina pectoris; E03.9 Hypothyroidism, unspecified; E78.5 Hyperlipidemia, unspecified; I27.2 Other secondary pulmonary hypertension; K58.9 Irritable bowel syndrome, unspecified; Z79.4 Long term (current) use of insulin; Z79.82 Long term (current) use of aspirin; Z79.52 Long term (current) use of systemic steroids; Z86.718 Personal history of other venous thrombosis and embolism; W19.XXXA Unspecified fall, initial encounter
CPT/HCPCS: 36415; 80048; 80053; 80069; 82948; 83605; 83735; 83880; 84145; 84443; 84484; 85007; 85025; 85027; 86140; 87040; 93005; 93306; 93458; 94640; 96365; 96372; 96375; 99218

== ENCOUNTER 2016-09-12 18:18 | Emergency (ER) | payer MEDICARE, OTHER ==
[~2016-09-12] VITALS: Ht 152.4 cm; Wt 138.3 kg
[~2016-09-12 18:18] MED LIST changes: +AMLO10TA2 PO; -ASPI-1085 PO; +BENZ-16 PO; -BENZ200C36 PO; +CARV12.5 PO; +CEPH-583 PO; +CLIN300C86 PO; -DILT180C51 PO; -DOXY100C2 PO; -INSU100I14 SQ; +INSU100V13 SQ; +LACT1CAP58 PO; +NYST5ORA7 PO; -PRED20TA PO; +SPIR25TA PO
--- OUTSIDE RECORDS SUMMARY | 2016-09-12 18:24 | XMS REPORT | Continuity of Care Document ---
Author Author [facility] Organization [facility] Address Unknown Phone Unavailable Support Name Relationship Address Phone YUSUF BRADFORD MD Caregiver [address] [place] [address] LEANNE THOMAS MD Caregiver [address] [place] [phone] KIEL CAMPOS Next Of Kin [address] [facility] [address] [place] [address] C Insurance Providers Payer Name Policy Number Subscriber Name Relationship Medicare [id number] Paul Campos 20 Self [facility] Preferred [id number] Kiel Campos 01 Spouse Advance Directives Directive [...] 1 Tab PO DAILY 05/29/10 11/18/10 Discontinued [place]-3 Fatty Acids/Vitamin E 1 Cap PO DAILY [...] POTENTIALLY BE LIFE THREATENING! Durable Medical Equipment: [employer] [phone] Notify Physician If: CALL YOUR SURGEON IF: [...] and call Dr. Wong with the result [phone]. Condition at time of discharge: Good Plan of Care Discharge Date 01/19/14 4:40pm Disposition 62 TO [facility] Instructions/Education Provided [facility] Postop DC Instruct Prescriptions See Medications [...] F (96.8 - 99.1) Temperature (Calculated Celsius) 37.97013 degrees C (36.0 - 37.3) Temperature Source [...] 29, 2010 12:57pm LAB TEST FORM REQUEST [id number] - Lymphocytes # (Auto) January 16, 2014 [...] PREOPHas specimen been collected/obtained? Y Urine Specific [place] January 16, 2014 11:55am 1.010 L - [...] 2010 11:30am Name: PAUL CAMPOS Unit #: [id number] : 1945 Sex: F Loc / Svc: MED DOS: Signed Report #: [id number] DIAGNOSTIC IMAGING REPORT TYPE OF EXAM: CHEST [...] MD Encounters Encounter Location Date/Time Admitted Inpatient [facility] 01/17/14 5:31am Registered Clinic [facility] 12/20/13 11:45am Registered Clinic [facility] 10/21/13 9:21am Recent Diagnosis Diabetes Hypertension Hyperlipidemia COPD (chronic obstructive pulmonary disease) GERD (gastroesophageal reflux disease) Morbid obesity with BMI of 45.0-49.9, adult IBS (irritable bowel syndrome) Chronic kidney disease (CKD), stage III (moderate) Obstructive sleep apnea Mild aortic stenosis History of anemia Mild pulmonary hypertension Hypothyroidism
[2016-09-12 18:25] VITALS: Ht 152.4 cm; Wt 138.3 kg
--- OUTSIDE RECORDS SUMMARY | 2016-09-12 18:25 | XMS REPORT | Continuity of Care Document ---
Author Author [facility] Organization [facility] Address Unknown Phone Unavailable Support Name Relationship Address Phone JANET LOO FACS, MD Caregiver [address] [place] [address] [place] [phone] LEANNE THOMAS MD Caregiver [address] [place] [address] [place] [phone] IKEL CAMPOS Next Of Kin [address] [facility] [address] [place], [place] [id number] C Insurance Providers Payer Name Policy Number Subscriber Name Relationship Medicare [id number] Paul Campos 20 Self [facility] Preferred [id number] Kiel Campos 01 Spouse Advance Directives Directive [...] 1 Tab PO DAILY 05/29/10 11/18/10 Discontinued [place]-3 Fatty Acids/Vitamin E 1 Cap PO DAILY [...] AT 8:45AM FOR PHYSICAL THERAPY [place]. PHONE- [phone] Patient Instructions: Swelling 1.Elevate operative extremity above [...] of your legs. 3.During office hours, call [phone] 4. After hours, please call [facility] at [phone], and have the textile cutting machine operator page your Surgeon IN THE [...] F (96.8 - 99.1) Temperature (Calculated Celsius) 36.20935 degrees C (36.0 - 37.3) Temperature Source [...] Has specimen been collected/obtained? Y Urine Specific [place] January 27, 2014 11:20am <=1.005 L - [...] 13, 2014 8:29pm LAB TEST FORM REQUEST [id number] - Methicillin-Resist S.aureus DNA PCR December 20, [...] 2010 11:30am Name: PAUL CAMPOS Unit #: [id number] : 1945 Sex: F Loc / Svc: ED DOS: 02/11/14 Signed Report #: [id number] DIAGNOSTIC IMAGING REPORT TYPE OF EXAM: HIP [...] Encounters Encounter Location Date/Time Departed Emergency Room [facility] 02/11/14 9:37am Discharged Recurring [facility] 01/30/14 11:09am Discharged Inpatient [facility] 01/19/14 4:45pm Discharged Inpatient [facility] 01/17/14 5:31am
--- OUTSIDE RECORDS SUMMARY | 2016-09-12 18:29 | XMS REPORT | Continuity of Care Document ---
Author Author [facility] Organization [facility] Address Unknown Phone Unavailable Allergies Active Description Code Type Severity Reaction Onset Reported/Identified Relationship to Patient Clinical Status Yes TAPE Drug Allergy N/A N/A Medications Medication Packaging Start Date Stop Date Route Dosage Sig [id number] 08/25/2014 ORAL daily Problems Procedures Results Encounters ACCT No. Visit Date/Time Discharge Status Pt. Type Provider Facility Loc./Unit Complaint [id number] 07/11/2013 09:30:00 07/11/2013 23 :59:59 CLS Outpatient [id number] 06/30/2013 08:12:00 06/30/2013 23 :59:59 CLS Outpatient [id number] 06/29/2013 10:05:00 06/29/2013 23 :59:59 CLS Outpatient [id number] 06/23/2013 11:28:00 06/23/2013 23 :59:59 CLS Outpatient [id number] 06/16/2013 08:03:00 06/16/2013 23 :59:59 CLS Outpatient [id number] 05/24/2013 10:45:00 05/24/2013 23 :59:59 CLS Outpatient [id number] 05/04/2013 11:36:00 05/04/2013 23 :59:59 CLS Outpatient
--- OUTSIDE RECORDS SUMMARY | 2016-09-12 18:30 | XMS REPORT | Continuity of Care Document ---
Author Author [facility] Organization [facility] Address Unknown Phone Unavailable Support Name Relationship Address Phone YUSUF BRADFORD MD Caregiver [address] [place] [address] LEANNE THOMAS MD Caregiver [address] [place] [phone] KIEL CAMPOS Next Of Kin [address] [facility] [address] [place] [address] C Insurance Providers Payer Name Policy Number Subscriber Name Relationship Medicare [id number] Paul Campos 20 Self [facility] Preferred [id number] Kiel Campos 01 Spouse Problems Medical Problems [...] 1 Tab PO DAILY 05/29/10 11/18/10 Discontinued [place]-3 Fatty Acids/Vitamin E 1 Cap PO DAILY [...] F (96.8 - 99.1) Temperature (Calculated Celsius) 36.39809 degrees C (36.0 - 37.3) Pulse Rate [...] 2014 11:54am 4.3 G/DL N 3.5-5.0 COMMENT BANNERU PREOP, ALSO HAS UA ORDERED Albumin/Globulin Ratio [...] Has specimen been collected/obtained? Y Urine Specific [place] January 27, 2014 11:20am <=1.005 L - [...] 13, 2014 8:29pm LAB TEST FORM REQUEST [id number] - Methicillin-Resist S.aureus DNA PCR December 20, [...] 2010 11:30am Name: PAUL CAMPOS Unit #: [id number] : 1945 Sex: F Loc / Svc: ED DOS: 02/11/14 Signed Report #: [id number] DIAGNOSTIC IMAGING REPORT TYPE OF EXAM: HIP [...]
--- OUTSIDE RECORDS SUMMARY | 2016-09-12 18:31 | XMS REPORT | Continuity of Care Document ---
Author Author [facility] Organization [facility] Address Unknown Phone Unavailable Support Name Relationship Address Phone TAMIKO KELLEY MD Caregiver [address] [place] [address] Unavailable PEGGY SILVA MD Caregiver [address] [place] [address] Unavailable YARITZA SIMMS MD Caregiver [address] [place] [address] [place] [address] Unavailable LEANNE THOMAS MD Caregiver [address] [place] [address] Unavailable KIEL CAMPOS Next Of Kin [address] [facility] [address] [place], [place] [id number] C Insurance Providers Guarantor Paul Campos Address [address] [facility] [address] [place] [address] C Email DENIED 08-24-16 Payer Medicare Policy Number [id number] Subscriber's Name Paul Campos Relationship 18 Self Effective Date 08 Payer [facility] Preferred Policy Number [id number] Subscriber's Name Paul Campos Relationship 18 Self Group Number [id number] Advance Directives Directive Response Recorded Date/Time Advanced Directives Type DNR Documentation Living Will DPOA for Healthcare 08/24/16 3:50pm Dr Sofia Resuscitation Status Do Not Resuscitate 09/01/16 3:47pm Resuscitation Documents on File Y FULL CODE 08/24/16 6:11pm DPOA for Healthcare Only Y ARTURO CAMPOS 08/31/16 12:22pm Living Will Yes 08/24/16 6:11pm Problems Active Problems Medical Problem Onset Date Status Acute Bronchitis Unknown Acute Anticoagulated on Coumadin Unknown Acute Atrial fibrillation Unknown Chronic Bronchiectasis Unknown Chronic COPD (chronic obstructive pulmonary disease) Unknown Chronic Cellulitis Unknown Acute Cellulitis of left lower extremity Unknown Acute Chronic back pain Unknown Chronic Chronic kidney disease (CKD), stage III (moderate) Unknown Chronic Chronic renal failure Unknown Contusion of right hip Unknown Acute Diabetes Unknown Chronic Diastolic heart failure Unknown Chronic Edema of both legs Unknown Acute Elevated liver enzymes Unknown Acute GERD (gastroesophageal reflux disease) Unknown Chronic Generalized weakness Unknown Acute HFrEF (heart failure with reduced ejection fraction) Unknown Chronic History of anemia Unknown Chronic History of dyspnea Unknown Acute Hyperlipidemia Unknown Chronic Hypertension Unknown Chronic Hypoglycemia associated with diabetes Unknown Acute Hypoglycemia associated with diabetes Unknown Acute Hypothyroidism Unknown Chronic Hypoxia Unknown Chronic IBS (irritable bowel syndrome) Unknown Chronic IDDM (insulin dependent diabetes mellitus) Unknown Chronic Influenza A Unknown Resolved Leukocytosis Unknown Acute Mild aortic stenosis Unknown Chronic Mild pulmonary hypertension Unknown Chronic Morbid obesity with BMI of 45.0-49.9, adult Unknown Chronic Morbid obesity with BMI of 50.0-59.9, adult Unknown Chronic Morbid obesity with BMI of 60.0-69.9, adult Unknown Chronic NSVT (nonsustained ventricular tachycardia) Unknown Acute THOAMS on CPAP Unknown Chronic Obesity hypoventilation syndrome Unknown Chronic Obstructive sleep apnea Unknown Chronic Osteoarthritis Unknown Chronic Prophylactic antibiotic Unknown Restless leg syndrome Unknown Chronic Severe sepsis Unknown Resolved Thrush Unknown Type II diabetes mellitus, uncontrolled Unknown Chronic V-tach Unknown Acute Surgical Problem Onset Date Status S/P hip replacement Unknown Acute Past Problems Medical Problem Onset Date Acute respiratory failure Unknown Bronchiectasis Unknown Bronchiectasis Unknown Bronchiectasis Unknown CHF (congestive heart failure) Unknown COPD exacerbation Unknown Cellulitis Unknown Edema [...] Mg Tablet 25 Mg Oral Bedtime 02/24/16 Amlodipine Besylate 10 Mg Tablet 10 Mg Oral Daily 30 Days 30 Tablet 09/05/16 Apixaban (Eliquis) 5 Mg Tablet 5 Mg Oral Twice A Day 08/11/16 Benzonatate 100 Mg Capsule 200 Mg Oral Three Times A Day 08/24/16 Bumetanide 1 Mg Tablet 2 Mg Oral Give 0900 & 1700 30 Days 120 Tablet 09/05/16 Carvedilol (Coreg) 12.5 Mg Tablet 12.5 Mg Oral Twice Daily With Meals 30 Days 60 Tablet 09/05/16 Cephalexin (Keflex) 500 Mg Capsule 1 Cap Oral Four Times Daily 7 Days 28 Capsule 09/05/16 Clindamycin Hcl 300 Mg Capsule 600 Mg Oral Three Times A Day 3 Days 18 Capsule 09/05/16 Clotrimazole/Betamethasone Dip (Clotrimazole-Betamethasone Crm) 15 Gm Cream..g. 1 Applic Topically Twice A Day 07/14/16 Cyclobenzaprine Hcl 10 Mg Tablet 10 Mg Oral Three Times A Day as needed for Prn Orders 05/22/13 Fluticasone/Salmeterol (Advair 250-50 Diskus) 1 Disk W/Dev Inhaler 2 Puff Inhalation Twice A Day 01/17/14 Gabapentin 300 Mg Capsule 600 Mg Oral Bedtime 02/24/16 Glucagon,Human Recombinant (Glucagon Emergency Kit) 1 Mg/Kit Syringe 1 Mg Injection As Needed 02/24/16 Hydrocodone/Acetaminophen ([place] 10-325 Tablet) 10-325 Tablet 2 Tab Oral Every 6 Hours as needed for Pain 08/19/16 Insulin Aspart (Novolog) 100 Unit/Ml Inj 25 Unit Sub-Q Give With Lunch 10 Days 09/05/16 Insulin Aspart (Novolog) 100 Unit/Ml Inj 36 Unit Sub-Q 0745 10 Days 09/05/16 Insulin Aspart (Novolog) 100 Unit/Ml Inj 27 Unit Sub-Q 1715 10 Days 09/05/16 Insulin Degludec (Tresiba Flextouch U-100) 100 Unit/1 Ml Insuln.pen 60 Unit Sub-Q Bedtime 30 Days 09/05/16 Ipratropium/Albuterol Sulfate (Iprat-Albut 0.5-3(2.5) Mg/3 Ml) 3 Ml Ampul.neb 1 Vial Aerosol Tx. Four Times Daily as needed for Prn Orders Lactobacillus Rhamnosus Gg (Culturelle) 1 Each Capsule 1 Cap Oral Three Times Daily With Meals 30 Days 90 Capsule 09/05/16 Levothyroxine Sodium 25 Mcg Tablet 25 Mcg [...] A Day as needed for Rash 08/11/16 Nystatin 100,000 Unit/1 Ml Oral.susp 5 Ml Oral Four Times Daily 10 Days 09/05/16 Omeprazole 20 Mg Tablet.dr 20 Mg Oral Before Breakfast 01/17/14 Pitavastatin Calcium (Livalo) 2 Mg Tablet 2 Mg Oral Daily Polyethylene Glycol 3350 255 Gm Powder 17 Gm Oral Daily 08/11/16 Potassium Chloride 20 Meq Tablet.er 20 Meq Oral Twice Daily With Meals 08/19/16 Pramipexole Di-Hcl (Pramipexole Dihydrochloride) 0.25 Mg Tablet 0.25 Mg Oral Bedtime 02/24/16 Spironolactone (Aldactone) 25 Mg Tablet 25 Mg Oral Daily 30 Days 30 Tablet 09/05/16 Past Home Medications Medication Directions Ordered Status Aspirin (Aspirin Ec) 81 Mg Tablet.dr, 81 Mg Oral Daily 08/19/16 Discontinued Aspirin (Aspir 81) 81 Mg Tablet.dr, 1 Tab Oral Daily 01/17/14 Discontinued Azithromycin 250 Mg Tablet, 250 Mg Oral Every Thursday, Thursday, And Thursday02/24/16 Discontinued Bumetanide 1 Mg Tablet, 1 Mg Oral Daily 08/19/16 Discontinued Calcium/Vit B12/Fa/Pyridoxine (Folic Acid/B-6/B-12 Tablet) 1 Tab Tablet, 1 Tab Oral Daily 05/29/10 Discontinued Diltiazem Hcl (Cartia Xt) 180 Mg Capsule, 180 Mg Oral Daily 08/19/16 Discontinued Doxycycline Hyclate 100 Mg Capsule, 100 Mg Oral Twice A Day 08/19/16 Discontinued Ergocalciferol (Vitamin D) 50,000 Unit Capsule, 29303 Unit Oral 05/29/10 Discontinued Estradiol 1 Mg [...] Mg Oral Twice A Day 05/29/10 Discontinued [place]k-3 Fatty Acids/Vitamin E ([place]-3 Fish Oil Softgel) 1 Cap Capsule, 1 [...] Bedtime 05/29/10 Discontinued Prednisone 20 Mg Tablet, 20 Mg Oral Give With Breakfast 08/19/16 Discontinued Prednisone 20 Mg Tablet, 40 Mg Oral Give With Breakfast for Copd 06/05/16 Discontinued Promethazine Hcl/Codeine (Promethazine-Codeine Syrup) 118 Ml Syrup, 5 Ml Oral Every 6 Hours as needed for Cough 06/05/16 Discontinued Sodium Chloride/Aloe Vera ([place] Saline Nasal Gel [place]) 22 Ml [place], 22 Ml Nasal As Needed 05/29/10 Discontinued Terbinafine Hcl (Lamisil) 15 Gm Cream.gm., 15 Gm Topical Twice A Day Discontinued Tolterodine Tartrate (Detrol La) 4 Mg Cap.sr.24h, 4 Mg Oral Daily 05/29/10 Discontinued Vitamin B Complex 1 Cap Capsule, 1 Cap Oral Daily 05/29/10 Discontinued Social History Social History Problem Response Recorded Date/Time Onset Date Status Reason for Hospitalization CHF 09/05/2016 3:31pm Not Applicable Not Applicable Chewing Tobacco Status No 09/09/2013 6:15pm Not Applicable Not Applicable Hx Substance Use No 08/24/2016 4:15pm Not Applicable Not Applicable Hx Alcohol Use No 08/24/2016 4:15pm Not Applicable Not Applicable Has the pt used tobacco in the last 12 months No 08/24/2016 6:13pm Not Applicable Not Applicable Tobacco Usage none 01/20/2014 9:29am Not Applicable Not Applicable Query Response Start Date Stop Date Smoking Status Never smoker Hospital Discharge Instructions Instructions: Care Instructions: Reason for Hospitalization: CHF Discharge Diet: Diabetic, Low salt, fluid restriction (1800 ml/day) Discharge Activity: Routine Follow Up Appointments: Call Dr. Thomas for an appointment next week. Dr. Mello on 09/18/16 at 1:20 pm Sleep specialist on 10/16/16 Pending Lab / Results: Will be notified Patient Instructions: We will ask Home Health to draw labs between 09/16-09/18. Wound/Incision Care: Monitor left leg closely. Durable Medical Equipment: Monitor blood sugars - fasting and 2 hours after meals Scale for daily weights. Chronic oxygen. Pain Scale Utilized to Educate Patient: 0-10 Pain Scale Pain Management/Treatment: Neurontin Flexeril Tylenol Expected Signs/Symptoms: Shortness of breath and weakness should improve The redness and swelling on your leg should also gradually subside. Notify Physician If: CHF symptoms - weight gain, difficulty breathing, increased swelling. Follow CHF Heart Failiure Zones instructions. Leg - monitor for increased redness, swelling, warmth, fevers. During Business Hours:: Please call Dr. Mello's office at to discuss whether or not to change Bumex dose or if you develop CHF problems. After Business Hours:: Please call [phone] and have the cnc wood lathe operator page the physician. Condition at time of discharge: Fair Plan of Care Discharge Date 09/05/16 4:00pm Disposition 06 HOME HEALTH SERVICE Instructions/Education Provided [facility] Congestive Heart Failure [facility] Heart Cath Trans Rad Prescriptions See Medication Section Care Plan and Goals See Discharge Instructions Section Functional Status Query Response Date Recorded Mobility Status Ambulatory w/assist September 05, 2016 3:31pm Assistive Devices Standard Walker September 05, 2016 3:31pm Feeding Ability Independent September 05, 2016 3:31pm Toileting Ability Independent September 02, 2016 6:00pm Grooming Ability Independent September 05, 2016 3:31pm Dressing Ability Independent September 05, 2016 3:31pm Driving Ability Assist September 05, 2016 3:31pm Housework Ability Assist September 05, 2016 3:31pm Meal Preparation Ability Assist September 05, 2016 3:31pm Stair Climbing Ability Assist September 05, 2016 3:31pm Ability to complete ADL's impeded by Impaired Mobility September 05, 2016 3:31pm Cognitive/Perceptual Impairments Impaired vision September 05, 2016 3:31pm Visual Assistive Devices Glasses September 02, 2016 6:00pm Allergies, Adverse Reactions, Alerts Allergen Type Severity Reaction Status Last Updated NSAIDS (Non-Steroidal Anti-Inflamma Adverse Reaction Unknown MIGRAINE VICKERS, FLUID RETENTION Active 08/24/16 Naproxen Adverse Reaction Unknown MIGRAINE VICKERS,FLUID RETENTION Active 08/24 adhesive tape Allergy Mild RASH Active 08/24/16 Immunizations Query Response on File Recorded Date/Time Hx Influenza Vaccination Y Jan 2016 08/24/16 6:13pm Hx Pneumococcal Vaccination Y FALL 2009 [id number], FALL 2011 PREVNAR 13 6:13pm Hx Influenza Vaccination Y Jan 2016 08/24/16 6:13pm Influenza Vaccine Hx jan 2016 08/25/16 2:59pm Vital Signs Acute Vital Signs Vital Response Date/Time Temperature (Fahrenheit) 98.0 deg F (96.8 - 99.1) 09/05/2016 7:44am Temperature (Calculated Celsius) 36.51712 degrees C (36.0 - 37.3) 09/05/2016 7:44am Temperature Source Oral 09/05/2016 12:00am Pulse Rate (adult) 86 bpm (60 - 100) 09/05/2016 8:09am Respiratory Rate 18 breaths/min (10 - 20) 09/05/2016 8:09am O2 Sat by Pulse Oximetry 98 % (90 - 100) 09/05/2016 9:21am Oxygen Delivery Method Nasal Cannula 09/05/2016 4:19pm Oxygen Delivery Method Nasal Cannula 09/05/2016 7:44am Oxygen Flow Rate 3.00 L/min 09/05/2016 7:44am Blood Pressure 152/66 mm Hg 09/05/2016 7:44am Blood Pressure Source Automatic Cuff 09/05/2016 7:44am Height (Feet) 5 feet 09/05/2016 1:47pm Height (Inches) 0 inches 09/05/2016 1:47pm Weight (Kilograms) 136.000 kg 09/05/2016 8:00am Body Mass Index (BMI) 62.0 08/24/2016 6:02pm Results Laboratory Results Test Name Result Units Flags Reference Collection Date/Time Result Date/ Time Comments Arterial Blood pH 7.430 7.350-7.450 06/09/2016 4:06/09/2016 [...] Blood Gas Oxygen Liter Flow 5.0 06/09/2016 4:25am 06/09/2016 4: 38am Oxygen Delivery Method (LAB) NASAL [...] CLEAR 06/09/2016 4:46am 06/09/2016 4:54am Urine Specific [place] 1.020 1.015-1.025 06/09/2016 4:46am 2016 4:54am Urine [...] MICROSCOPIC NOT IND. 06/09/2016 4:46am 2016 4:54am D-Dimer < 150 NG/ML 0-230 08/11/2016 4:03pm 08/11/2016 4:39pm <230 NG/ ML D-DU=PRESUMPTIVE NEGATIVE FOR PE OR DVT >230 NG/ML D-DU=ADDITIONAL EVAL FOR PE OR DVT RECOMMENDED Adenovirus (PCR) NEGATIVE NEGATIVE 08/12/2016 7:08/12/2016 8: [...] 8:50am Mycoplasma pneumoniae (PCR) NEGATIVE NEGATIVE 08/12/2016 7:08/12 8:50am White Blood Count 10.5 T/MM3 4.5-11.0 09/04/2016 4:3809/04/2016 5: 14am Red Blood Count 3.77 M/MM3 L 4.00-5.20 09/04/2016 4:3809/04/2016 5: 14am Hemoglobin 9.3 GM/DL L 12-16 09/04/2016 4:3809/04/2016 5:14am Hematocrit 32.6 % L 36-46 09/04/2016 4:3809/04/2016 5:14am Mean Corpuscular Volume 86.5 UM3 80-100 09/04/2016 4:3809/04/2016 5: 14am Mean Corpuscular Hemoglobin 24.7 UUG L 26-34 09/04/2016 4:382016 5:14am Mean Corpuscular Hemoglobin Concent 28.5 GM/DL L 31-37 09/04/2016 4:3809/04/2016 5:14am RDW Standard Deviation 58.0 FL H 36.9-50.2 09/04/2016 4:3809/04/2016 5:14am Platelet Count 397 T/MM3 130-400 09/04/2016 4:3809/04/2016 5:14am Mean Platelet Volume 10.0 UM3 9.4-12.4 09/04/2016 4:3809/04/2016 5: 14am Neutrophils (%) (Auto) 51.5 % 33-66 09/04/2016 4:09/04/2016 5: 14am Lymphocytes (%) (Auto) 37.5 % 23-45 09/04/2016 4:3809/04/2016 5: 14am Monocytes (%) (Auto) 6.8 % 0-9.0 09/04/2016 4:3809/04/2016 5:14am Eosinophils (%) (Auto) 3.3 % 0-4 09/04/2016 4:3809/04/2016 5:14am Basophils (%) (Auto) 0.4 % 0-2 09/04/2016 4:3809/04/2016 5:14am Immature Granulocyte % (Auto) 0.5 % 0.0-0.5 09/04/2016 4:38am 2016 5:14am Absolute Neutrophils (auto) 5.4 T/MM3 1.8-7.7 09/04/2016 4:38am 2016 5:14am Absolute Lymphocytes (auto) 3.9 T/MM3 1-4.8 09/04/2016 4:38am 2016 5:14am Absolute Monocytes (auto) 0.7 T/MM3 0-0.8 09/04/2016 4:38am 09/04/2016 5:14am Absolute Eosinophils (auto) 0.4 T/MM3 0-0.5 09/04/2016 4:38am 2016 5:14am Absolute Basophils (auto) 0.0 T/MM3 0-0.2 09/04/2016 4:38am 09/04/2016 5:14am Absolute Immature Granulocyte (auto 0.05 T/MM3 H 0.00-0.03 09/04/2016 4: 38am 09/04/2016 5:14am Neutrophils % (Manual) 73.0 % H 33-66 08/30/2016 4:41am 08/30/2016 6: 19am Band Neutrophils % 1.0 % 0-6 08/29/2016 4:56am 08/29/2016 6:41am Lymphocytes % (Manual) 23.0 % 23-45 08/30/2016 4:41am 08/30/2016 6: 19am Monocytes % (Manual) 2.0 % 0-9.0 08/30/2016 4:41am 08/30/2016 6:19am Eosinophils % (Manual) 2.0 % 0-4 08/30/2016 4:41am 08/30/2016 6:19am Basophils % (Manual) 1.0 % 0-2 08/29/2016 4:56am 08/29/2016 6:41am Metamyelocytes % 1.0 % H 0-0 08/24/2016 4:19pm 08/24/2016 4:52pm Myelocytes % 1.0 % H 0-0 08/25/2016 4:29am 08/25/2016 6:56am Band Neutrophils # 0.1 T/MM3 08/29/2016 4:56am 08/29/2016 6:41am Absolute Neutrophils (Manual) 9.2 T/MM3 H 1.8-7.7 08/30/2016 4:41am 09/2016 6:19am Lymphocytes # (Manual) 2.9 T/MM3 1-4.8 08/30/2016 4:41am 08/30/2016 6: 19am Monocytes # (Manual) 0.3 T/MM3 0-0.8 08/30/2016 4:41am 08/30/2016 6: 19am Eosinophils # (Manual) 0.3 T/MM3 0-0.5 08/30/2016 4:41am 08/30/2016 6: 19am Basophils # (Manual) 0.1 T/MM3 0-0.2 08/29/2016 4:56am 08/29/2016 6: 41am Metamyelocytes # 0.2 T/MM3 08/24/2016 4:19pm 08/24/2016 4:52pm Myelocytes # 0.2 T/MM3 08/25/2016 4:29am 08/25/2016 6:56am Nucleated Red Blood Cells 1 08/27/2016 4:24am 08/27/2016 7:04am Red Cell Morphology Comment ABNORMAL 08/30/2016 4:41am 08/30/2016 6 :19am Anisocytosis 1+ 08/30/2016 4:41am 08/30/2016 6:19am Poikilocytosis 1+ 08/24/2016 4:19pm 08/24/2016 4:52pm Polychromasia 1+ 08/30/2016 4:41am 08/30/2016 6:19am Stomatocytes 1+ 08/30/2016 4:41am 08/30/2016 6:19am Icterus Index < 2 0-7 09/05/2016 4:07am 09/05/2016 4:52am Chemistry Specimen Hemolysis < 15 0-25 09/05/2016 4:07am 09/05/2016 4 :52am 0-25: Specimen Exhibited No Hemolysis. Turbidity < 20 0-20 09/05/2016 4:07am 09/05/2016 4:52am Sodium Level 143 MEQ/L 134-144 09/05/2016 4:07am 09/05/2016 4:52am Potassium Level 3.8 MEQ/L 3.6-5 09/05/2016 4:09/05/2016 4:52am Chloride Level 94 MEQ/L L 98-107 09/05/2016 4:09/05/2016 4:52am Carbon Dioxide Level 35 MEQ/L H 22-30 09/05/2016 4:09/05/2016 4: 52am Anion Gap 14 MEQ/L 5-15 09/05/2016 4:09/05/2016 4:52am Blood Urea Nitrogen 20.0 MG/DL H 7-17 09/05/2016 4:09/05/2016 4: 52am Creatinine 1.3 MG/DL D H 0.7-1.2 09/05/2016 4:09/05/2016 5:07am BUN/Creatinine Ratio 15 RATIO 6-26 09/05/2016 4:09/05/2016 4:52am Glomerular Filtration Rate Calc 41 09/05/2016 4:09/05/2016 4: 52am Glucose Level 144 MG/DL H 65-110 09/05/2016 4:09/05/2016 4:52am Calculated Osmolality 281 MOSM/KG H 261-280 09/05/2016 4:2016 4:52am Calcium Level 9.1 MG/DL 8.4-10.2 09/05/2016 4:09/05/2016 4:52am Phosphorus Level 3.7 MG/DL 2.5-4.5 09/04/2016 4:3809/04/2016 5:23am Total Bilirubin 0.70 MG/DL 0.20-1.30 08/24/2016 4:19pm 08/24/2016 4: 51pm Alkaline Phosphatase 93 U/L 38-126 08/24/2016 4:1908/24/2016 4:51pm Total Protein 6.5 G/DL 6.3-8.2 08/24/2016 4:19pm 08/24/2016 4:51pm Albumin 3.8 G/DL 3.5-5.0 09/04/2016 4:38am 09/04/2016 5:23am Globulin 3.0 G/DL 2.4-3.6 08/24/2016 4:19pm 08/24/2016 4:51pm Albumin/Globulin Ratio 1.2 RATIO 1.1-2.2 08/24/2016 4:19pm 08/24/2016 4 :51pm Aspartate Amino Transf (AST/SGOT) 22 U/L 14-36 08/24/2016 4:19pm 2016 4:51pm Alanine Aminotransferase (ALT/SGPT) 40 U/L 9-52 08/24/2016 4:19pm 08/24 4:51pm Troponin I 0.023 ng/ml 0-0.12 08/24/2016 4:19pm 08/24/2016 5:04pm Troponin values with a difference of 55% increase from orginal troponin value represent a true biological DELTA value. (%increase Calc=Orginal Troponin value, divided by subsequent Troponin value, multiplied by 100) C-Reactive Protein 78.2 MG/L H 0-9 09/01/2016 5:22am 09/01/2016 9:55am KM-Gbv-K-Type Natriuretic Peptide 842 PG/ML H 0-175 08/31/2016 4:55am 5:56am Rule in cut points: <50 years old=450; 50-75 years old=900; >75 years old=1800; When utilizing ProBNP rule-in cut points, adjustment for impaired renal function is typically not required. Magnesium Level 2.6 MG/DL H 1.6-2.3 09/03/2016 5:29am 09/03/2016 6:03am Plasma Lactate 2.2 MMOL/L 0.6-2.2 08/24/2016 9:28pm 08/24/2016 9:55pm Procalcitonin < 0.05 NG/ML 08/24/2016 5:06pm 08/24/2016 5:41pm PCT < /=0.5 ng/mL - sepsis not likely; PCT >0.5 and </=2 ng/mL - sepsis possible; PCT >2 ng/mL - sepsis likely; PCT >/=10 ng/mL - systemic inflammatory response - sepsis or septic shock highly indicated. Thyroid Stimulating Hormone (TSH) 1.19 MIU/L 0.47-4.68 08/30/2016 4: 53pm 08/30/2016 5:54pm Glucometer 156 mg/dL H 65-110 09/05/2016 1:59pm 09/05/2016 2:01pm Microbiology Results Procedure Source Organism/Result Collection Date/Time Result Date/Time Result Status Blood Culture Peripheral/Iv Start NO GROWTH AFTER 5 DAYS 08/27/2016 9:19am 09/01/2016 9:21am Final Name: PAUL CAMPOS Unit #: [id number] : [id number] Sex: F Admit Date: 08/25/16 Loc / Svc: SRG Discharge Date: DIAGNOSTIC IMAGING REPORT Report #: [id number] [facility] JESSICA Carvalho Indication: ITS.REASON: CHF CHEST, PA LATERAL: Comparison: 08/31/2016 Technique: PA and lateral chest Findings: Patient shows slight decrease in the heart size. Central vascularity is unremarkable. Mediastinum is not widened. Lungs currently are clear. No acute bony findings are seen. Patient does show numerous vascular clips in the left upper quadrant of the abdomen. Impression: No acute cardiopulmonary findings seen . Procedures Procedure Status Date Provider(s) Routine venipuncture [...] Completed 06/09/16 Emergency dept visit Completed 06/09/16 [id number]) Completed 06/09/16 [id number]"INJECTION, METHYLPREDNISOLONE SODIUM SUCCINATE, UP TO Completed [id number]"INJECTION, VANCOMYCIN HCL, 500 MG" Completed 06/09/16431348"INFUSION, NORMAL SALINE SOLUTION , 1000 CC" Completed 06/09/16596928"INFUSION, NORMAL SALINE SOLUTION , 250 CC" Completed 06/09/16953088"INFUSION, NORMAL SALINE SOLUTION , 250 CC" Completed 06/09/16 Chest x-ray 1 view frontal Completed 07/14/16 Assay of lactic acid Completed 07/14/16 Complete cbc w/auto diff wbc Completed 07/14/16 Airway inhalation treatment Completed 07/14/16 Airway inhalation treatment Completed 07/14/16 Ther/proph/diag inj iv push Completed 07/14/16 Emergency dept visit Completed 07/14/16407504"INJECTION, METHYLPREDNISOLONE SODIUM SUCCINATE, UP TO Completed X-ray exam of knee 1 or 2 Completed 08/19/16 X-ray exam of lower leg Completed 08/19/16 Emergency dept visit Completed 08/19/16 [id number] ITEM OR SERVICE Completed 08/19/16 Encounters Encounter Location Arrival/Admit Date Discharge/Depart Date Attending Provider Discharged Inpatient [facility] 08/25/16 4:05pm 09/05/16 4:00pm PEGGY SILVA MD Departed Emergency Room [facility] 08/19/16 6:47pm 08/19/16 8: 35pm YESICA MARINELLI DO Discharged Inpatient [facility] 08/11/16 5:48pm 08/13/16 6:50pm PEGGY SILVA MD Departed Emergency Room [facility] 07/14/16 1:38am 07/14/16 3: 25am TERRELL RAPP MD Departed Emergency Room [facility] 06/09/16 2:31am 06/09/16 6: 08am YESICA MARINELLI DO
--- OUTSIDE RECORDS SUMMARY | 2016-09-12 18:33 | XMS REPORT | Continuity of Care Document ---
Author Author [facility] Organization [facility] Address Unknown Phone Unavailable Support Name Relationship Address Phone WILLY ARANA MD Caregiver [address] [place] [address] YUSUF MONTANO MD Caregiver [address] [place] [address] LEANNE THOMAS MD Caregiver [address] [facility] [facility] [place] [phone] KIEL CAMPOS Next Of Kin [address] [facility] [address] [place] [address] C Insurance Providers Payer Name Policy Number Subscriber Name Relationship Medicare [id number] Paul Campos 20 Self [facility] Preferred [id number] Kiel Camops 01 Spouse Advance Directives Directive Response Recorded [...] 1 Tab PO DAILY 05/29/10 11/18/10 Discontinued [place]-3 Fatty Acids/Vitamin E 1 Cap PO DAILY [...] the hospital because (patient own words): "Leaving [place] when my started to fall and he [...] of your legs. 3.During office hours, call [phone] 4. After hours, please call [facility] at [phone], and have the swing saw operator page your Surgeon IN THE EVENT [...] F (96.8 - 99.1) Temperature (Calculated Celsius) 35.72044 degrees C (36.0 - 37.3) Temperature Source [...] 23 U/L N 9-52 [facility], ALSO HAS UA ORDERED Albumin January 16, 2014 11:54am 4.3 G/DL N 3.5-5.0 COMMENT [facility] PREOP, ALSO HAS UA ORDERED Albumin/Globulin Ratio January 16, 2014 11:54am 1.4 RATIO N 1.1-2.2 COMMENT [facility], ALSO HAS UA ORDERED Alkaline Phosphatase January 16, 2014 11:54am 107 U/L N 38-126 COM[facility], ALSO HAS UA ORDERED Anion Gap January 20, 2014 5:19am 6 MEQ/L N 5-15 Aspartate Amino Transf (AST/SGOT) January 16, 2014 11:54am 28 U/L N 14 -36 COM[facility], ALSO HAS UA ORDERED [...] 29, 2010 12:57pm LAB TEST FORM REQUEST [id number] - Lymphocytes # (Auto) January 20, 2014 [...] Has specimen been collected/obtained? Y Urine Specific [place] January 27, 2014 11:20am <=1.005 L - [...] 2010 11:30am Name: PAUL CAMPOS Unit #: [id number] : 1945 Sex: F Loc / Svc: MED DOS: Signed Report #: [id number] DIAGNOSTIC IMAGING REPORT TYPE OF EXAM: CHEST [...] procedures. Encounters Encounter Location Date/Time Discharged Inpatient [facility] 01/19/14 4:45pm Discharged Inpatient [facility] 01/17/14 5:31am Registered Clinic [facility] 12/20/13 11:45am Recent Diagnosis Diabetes Hypertension GERD (gastroesophageal reflux disease) Morbid obesity with BMI of 45.0-49.9, adult Chronic kidney disease (CKD), stage III (moderate) History of anemia Anticoagulated on Coumadin
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
[2016-09-12] MEDS ORDERED: INSU200I4 SQ (18:46)
[2016-09-12] MEDS ORDERED: INSU100I3 SQ ×3 (18:47→18:49)
[2016-09-12] MEDS ORDERED: AMLO10TA2 PO (18:50)
[2016-09-12] MEDS ORDERED: CARV12.52 PO (18:51)
[2016-09-12] MEDS ORDERED: CEPH-583 PO (18:52)
[2016-09-12] MEDS ORDERED: CLIN300C86 PO (18:52)
[2016-09-12] MEDS ORDERED: LACT1CAP80 PO (18:54)
[2016-09-12] MEDS ORDERED: BUME1TAB17 PO (18:56)
[2016-09-12] MEDS ORDERED: SPIR25TA PO (18:57)
[2016-09-12] MEDS ORDERED: ASPI81TA2 PO (19:02)
[2016-09-12] MEDS ORDERED: GUAI-782 PO (19:04)
[2016-09-12] MEDS ORDERED: DILT180C90 PO (19:06)
[2016-09-12] MEDS ORDERED: MICO71PO TP (19:10)
--- OUTSIDE RECORDS SUMMARY | 2016-09-12 19:11 | XMS REPORT | Continuity of Care Document ---
Author Author [facility] Organization [facility] Address Unknown Phone Unavailable Support Name Relationship Address Phone YUSUF BRADFORD MD Caregiver [address] [place] [address] LEANNE THOMAS MD Caregiver [address] [place] [phone] KIEL CAMPOS Next Of Kin [address] [facility] [address] [place] [address] C Insurance Providers Payer Name Policy Number Subscriber Name Relationship Medicare [id number] Paul Campos 20 Self [facility] Preferred [id number] Kiel Campos 01 Spouse Advance Directives Directive [...] 1 Tab PO DAILY 05/29/10 11/18/10 Discontinued [place]-3 Fatty Acids/Vitamin E 1 Cap PO DAILY [...] POTENTIALLY BE LIFE THREATENING! Durable Medical Equipment: [address]-[employer] [phone] Notify Physician If: CALL YOUR SURGEON IF: [...] and call Dr. Wong with the result [phone]. Condition at time of discharge: Good Plan of Care Discharge Date 01/19/14 4:40pm Disposition 62 TO [facility] Instructions/Education Provided [facility] Postop DC Instruct Prescriptions See Medications [...] F (96.8 - 99.1) Temperature (Calculated Celsius) 37.41702 degrees C (36.0 - 37.3) Temperature Source [...] 29, 2010 12:57pm LAB TEST FORM REQUEST [id number] - Lymphocytes # (Auto) January 16, 2014 [...] PREOPHas specimen been collected/obtained? Y Urine Specific [place] January 16, 2014 11:55am 1.010 L - [...] 2010 11:30am Name: PAUL CAMPOS Unit #: [id number] : 1945 Sex: F Loc / Svc: MED DOS: Signed Report #: [id number] DIAGNOSTIC IMAGING REPORT TYPE OF EXAM: CHEST [...] MD Encounters Encounter Location Date/Time Admitted Inpatient [facility] 01/17/14 5:31am Registered Clinic [facility] 12/20/13 11:45am Registered Clinic [facility] 10/21/13 9:21am Recent Diagnosis Diabetes Hypertension Hyperlipidemia COPD (chronic obstructive pulmonary disease) GERD (gastroesophageal reflux disease) Morbid obesity with BMI of 45.0-49.9, adult IBS (irritable bowel syndrome) Chronic kidney disease (CKD), stage III (moderate) Obstructive sleep apnea Mild aortic stenosis History of anemia Mild pulmonary hypertension Hypothyroidism
--- OUTSIDE RECORDS SUMMARY | 2016-09-12 19:11 | XMS REPORT | Continuity of Care Document ---
Author Author [facility] Organization [facility] Address Unknown Phone Unavailable Support Name Relationship Address Phone JANET LOO FACS, MD Caregiver [address] [place] [address] [place] [phone] LEANNE THOMAS MD Caregiver [address] [place] [address] [place] [phone] KIEL CAMPOS Next Of Kin [address] [facility] [address] [place], [place] [address] C Insurance Providers Payer Name Policy Number Subscriber Name Relationship Medicare [id number] Paul Campos 20 Self [facility] Preferred [id number] Kiel Campos 01 Spouse Advance Directives Directive [...] 1 Tab PO DAILY 05/29/10 11/18/10 Discontinued [place]-3 Fatty Acids/Vitamin E 1 Cap PO DAILY [...] AT 8:45AM FOR PHYSICAL THERAPY [place]. PHONE- [phone] Patient Instructions: Swelling 1.Elevate operative extremity above [...] of your legs. 3.During office hours, call [phone] 4. After hours, please call [facility] at [phone], and have the shell trim operator page your Surgeon IN THE EVENT [...] F (96.8 - 99.1) Temperature (Calculated Celsius) 36.71221 degrees C (36.0 - 37.3) Temperature Source [...] Has specimen been collected/obtained? Y Urine Specific [place] January 27, 2014 11:20am <=1.005 L - [...] 13, 2014 8:29pm LAB TEST FORM REQUEST [id number] - Methicillin-Resist S.aureus DNA PCR December 20, [...] 2010 11:30am Name: PAUL CAMPOS Unit #: [id number] : 1945 Sex: F Loc / Svc: ED DOS: 02/11/14 Signed Report #: [id number] DIAGNOSTIC IMAGING REPORT TYPE OF EXAM: HIP [...] Encounters Encounter Location Date/Time Departed Emergency Room [facility] 02/11/14 9:37am Discharged Recurring [facility] 01/30/14 11:09am Discharged Inpatient [facility] 01/19/14 4:45pm Discharged Inpatient [facility] 01/17/14 5:31am
--- OUTSIDE RECORDS SUMMARY | 2016-09-12 19:22 | XMS REPORT | Continuity of Care Document ---
Author Author [facility] Organization [facility] Address Unknown Phone Unavailable Support Name Relationship Address Phone YUSUF BRADFORD MD Caregiver [address] [place] [place] [address] LEANNE THOMAS MD Caregiver [address] [place] [phone] KIEL CAMPOS Next Of Kin [address] [facility] [address] [place] [address] C Insurance Providers Payer Name Policy Number Subscriber Name Relationship Medicare [id number] Paul Campos 20 Self [facility] Preferred [id number] Kiel Campos 01 Spouse Problems Medical Problems [...] 1 Tab PO DAILY 05/29/10 11/18/10 Discontinued [place]-3 Fatty Acids/Vitamin E 1 Cap PO DAILY [...] F (96.8 - 99.1) Temperature (Calculated Celsius) 36.08333 degrees C (36.0 - 37.3) Pulse Rate [...] 2014 11:54am 4.3 G/DL N 3.5-5.0 [facility], ALSO HAS UA ORDERED Albumin/Globulin [...] 2014 11:54am 3.0 G/DL N 2.4-3.6 COMMENT [facility]UIRE[facility]rzej KINGSLEY, ALSO HAS UA ORDERED Glucose Level [...] Has specimen been collected/obtained? Y Urine Specific [place] January 27, 2014 11:20am <=1.005 L - [...] 13, 2014 8:29pm LAB TEST FORM REQUEST [id number] - Methicillin-Resist S.aureus DNA PCR December 20, [...] 2010 11:30am Name: PAUL CAMPOS Unit #: [id number] : 1945 Sex: F Loc / Svc: ED DOS: 02/11/14 Signed Report #: [id number] DIAGNOSTIC IMAGING REPORT TYPE OF EXAM: HIP [...]
--- OUTSIDE RECORDS SUMMARY | 2016-09-12 19:22 | XMS REPORT | Continuity of Care Document ---
Author Author [facility] Organization [facility] Address Unknown Phone Unavailable Allergies Active Description Code Type Severity Reaction Onset Reported/Identified Relationship to Patient Clinical Status Yes TAPE Drug Allergy N/A N/A Medications Medication Packaging Start Date Stop Date Route Dosage Sig [id number] 08/25/2014 ORAL daily Problems Procedures Results Encounters ACCT No. Visit Date/Time Discharge Status Pt. Type Provider Facility Loc./Unit Complaint [id number] 07/11/2013 09:30:00 07/11/2013 23 :59:59 CLS Outpatient [id number] 06/30/2013 08:12:00 06/30/2013 23 :59:59 CLS Outpatient [id number] 06/29/2013 10:05:00 06/29/2013 23 :59:59 CLS Outpatient [id number] 06/23/2013 11:28:00 06/23/2013 23 :59:59 CLS Outpatient [id number] 06/16/2013 08:03:00 06/16/2013 23 :59:59 CLS Outpatient [id number] 05/24/2013 10:45:00 05/24/2013 23 :59:59 CLS Outpatient [id number] 05/04/2013 11:36:00 05/04/2013 23 :59:59 CLS Outpatient
--- OUTSIDE RECORDS SUMMARY | 2016-09-12 19:25 | XMS REPORT | Continuity of Care Document ---
Author Author [facility] Organization [facility] Address Unknown Phone Unavailable Support Name Relationship Address Phone WILLY ARANA MD Caregiver [address] [place] [address] YUSUF MONTANO MD Caregiver [address] [place] [address] LEANNE THOMAS MD Caregiver [address] [facility] [phone] KIEL CAMPOS Next Of Kin [address] [facility] [address] [place] [address] C Insurance Providers Payer Name Policy Number Subscriber Name Relationship Medicare [id number] Paul Campos 20 Self [facility] Preferred [id number] Kiel Campos 01 Spouse Advance Directives Directive [...] 1 Tab PO DAILY 05/29/10 11/18/10 Discontinued [place]-3 Fatty Acids/Vitamin E 1 Cap PO DAILY [...] the hospital because (patient own words): "Leaving [place] when my started to fall and he [...] of your legs. 3.During office hours, call [phone] 4. After hours, please call [facility] at [phone], and have the foam machine operator page your Surgeon IN THE [...] F (96.8 - 99.1) Temperature (Calculated Celsius) 35.17896 degrees C (36.0 - 37.3) Temperature Source [...] 2014 11:54am 23 U/L N 9-52 COM[facility], ALSO HAS UA ORDERED Albumin January 16, 2014 11:54am 4.3 G/DL N 3.5-5.0 COMMENT [facility] PREOP, ALSO HAS UA ORDERED Albumin/Globulin Ratio January 16, 2014 11:54am 1.4 RATIO N 1.1-2.2 COMMENT [facility], ALSO HAS UA ORDERED Alkaline Phosphatase January 16, 2014 11:54am 107 U/L N 38-126 COMMENT [facility], ALSO HAS UA ORDERED Anion Gap January 20, 2014 5:19am 6 MEQ/L N 5-15 Aspartate Amino Transf (AST/SGOT) January 16, 2014 11:54am 28 U/L N 14 -36 COMMENT [facility], ALSO HAS UA ORDERED BUN/Creatinine Ratio [...] 29, 2010 12:57pm LAB TEST FORM REQUEST [id number] - Lymphocytes # (Auto) January 20, 2014 [...] Has specimen been collected/obtained? Y Urine Specific [place] January 27, 2014 11:20am <=1.005 L - [...] 2010 11:30am Name: PAUL CAMPOS Unit #: [id number] : 1945 Sex: F Loc / Svc: MED DOS: Signed Report #: [id number] DIAGNOSTIC IMAGING REPORT TYPE OF EXAM: CHEST [...] procedures. Encounters Encounter Location Date/Time Discharged Inpatient [facility] 01/19/14 4:45pm Discharged Inpatient [facility] 01/17/14 5:31am Registered Clinic [facility] 12/20/13 11:45am Recent Diagnosis Diabetes Hypertension GERD (gastroesophageal reflux disease) Morbid obesity with BMI of 45.0-49.9, adult Chronic kidney disease (CKD), stage III (moderate) History of anemia Anticoagulated on Coumadin
[2016-09-12 19:26] LABS: BASOPHILS # (AUTO) 0.1 T/MM3 (0-0.2); BASOPHILS % (AUTO) 0.6 % (0-2); EOSINOPHILS # (AUTO) 0.3 T/MM3 (0-0.5); EOSINOPHILS % (AUTO) 2.3 % (0-4); HCT - HEMATOCRIT 33.1 % (36-46); HGB - HEMOGLOBIN 9.4 GM/DL (12-16); IMMATURE GRANULOCYTE # (AUTO) 0.03 T/MM3 (0.00-0.03); IMMATURE GRANULOCYTE % (AUTO) 0.3 % (0.0-0.5); LYMPHOCYTES # (AUTO) 3.4 T/MM3 (1-4.8); LYMPHOCYTES % (AUTO) 31.7 % (23-45); MEAN CORPUSCULAR HGB 24.1 UUG (26-34); MEAN CORPUSCULAR HGB CONC(MCHC 28.4 GM/DL (31-37); MEAN CORPUSCULAR VOLUME 84.9 UM3 (80-100); MEAN PLATELET VOLUME 10.3 UM3 (9.4-12.4); MONOCYTES # (AUTO) 1.2 T/MM3 (0-0.8); MONOCYTES % (AUTO) 10.7 % (0-9.0); NEUTROPHILS #(AUTO)-ABSOLUTE 5.8 T/MM3 (1.8-7.7); NEUTROPHILS % (AUTO) 54.4 % (33-66); WBC - WHITE BLOOD COUNT 10.7 T/MM3 (4.5-11.0)
[2016-09-12 19:31] LABS: ANION GAP 15 MEQ/L (5-15); BUN/CREATININE RATIO 11 RATIO (6-26); CALCIUM 9.1 MG/DL (8.4-10.2); CHLORIDE 97 MEQ/L (98-107); CO2 - CARBON DIOXIDE 31 MEQ/L (22-30); CREATININE 1.8 MG/DL (0.7-1.2); GLOMERULAR FILTRATION RATE 28; GLUCOSE 64 MG/DL (65-110); POTASSIUM 3.8 MEQ/L (3.6-5); SODIUM 143 MEQ/L (134-144)
[2016-09-12 20:58] VITALS: BP 141/67; PULSE 93; RESP 28; TEMP 98.9; O2SAT 94
--- NOTE | 2016-09-12 20:58 | NUR ---
DEPART PT GIVEN DI FOR CHF AND F/U. VERBALIZES UNDERSTANDING. QUESTIONS ASKED/ANSWERED - DENIES FURTHER QUESTIONS/NEEDS AT THIS TIME. IV SIT REMOVED. PERSONAL BELONGINGS GATHERED. PT ESCORTED TO ED EXIT VIA WHEEL CHAIR - SPOUSE MET WITH PRIVATE VEHICLE. NO SIGN OF DISTRESS AT THIS TIME.
--- NOTE | 2016-09-14 12:12 | DI ---
INDICATION: ITS.REASON: chest pain PROCEDURE: CHEST 2-VIEWS UPRIGHT (PA \T\ LAT) Encounter: Initial COMPARISON: September 05, 2016 FINDINGS: New airspace consolidation in the left lower lobe with a small left pleural effusion with obscuration of the left hemidiaphragm. Right lung appears clear. No pneumothorax. Heart size and mediastinal contours are stable. Pulmonary vascularity is grossly unchanged. Surgical clips in the left upper quadrant of the abdomen. Impression: Left lower lobe pneumonia or aspiration. .
== END 2016-09-12 20:58 | disposition home or self-care (01) ==
LOC: ED 18:18
DX: I11.0 Hypertensive heart disease with heart failure (principal); I50.9 Heart failure, unspecified; Z99.81 Dependence on supplemental oxygen
CPT/HCPCS: 36000; 80048; 83880; 84484; 85025; 93005

== ENCOUNTER → 2016-09-15 | Outpatient (CLI) | payer MEDICARE, OTHER ==
[~2016-09-15] MED LIST changes: -CARV12.5 PO; +CARV12.52 PO; -CLIN300C86 PO; -CLOT15CR5 TOP; +GUAI-782 PO; -INSU100I24 SQ; +INSU100I3 SQ; -INSU100V13 SQ; +INSU200I4 SQ; -LACT1CAP58 PO; +LACT1CAP80 PO; -MICO71PO TOP; +MICO71PO TP
[2016-09-15 13:12] LABS: ANION GAP 16 MEQ/L (5-15); BUN/CREATININE RATIO 9 RATIO (6-26); CHLORIDE 93 MEQ/L (98-107); CO2 - CARBON DIOXIDE 35 MEQ/L (22-30); CREATININE 1.6 MG/DL (0.7-1.2); GLOMERULAR FILTRATION RATE 32; GLUCOSE 162 MG/DL (65-110); MAGNESIUM 2.5 MG/DL (1.6-2.3); POTASSIUM 3.1 MEQ/L (3.6-5); SODIUM 144 MEQ/L (134-144)
[2016-09-15 13:20] LABS: PROBNP 1340 PG/ML (0-175)
== END ==
LOC: LABN.NHH 12:49
PROVIDERS: ATTEND Internal Medicine Cardiovascular Disease
DX: I12.9 Hypertensive chronic kidney disease with stage 1 through stage 4 chronic kidney disease, or unspecified chronic kidney disease (principal); D64.9 Anemia, unspecified; N18.3 Chronic kidney disease, stage 3 (moderate); E11.22 Type 2 diabetes mellitus with diabetic chronic kidney disease
CPT/HCPCS: 80048; 83735; 83880